=== PATIENT | female | born 1965 | race Caucasian/White ===

== ENCOUNTER 2019-04-09 13:37 | Inpatient (IN) | payer OTHER, SELFPAY ==
--- NOTE | ~2019-04-09 | CT_ITS ---
EXAMINATION: CT abdomen pelvis wo con DATE: 04/09/2019 18:22 INDICATION: Bilateral flank pain and right lower quadrant pain TECHNIQUE: Computed tomography (CT) of the abdomen and pelvis was performed without intravenous contr ast. The dose-length product was 769.42 mGy-cm. Automated exposure control and iterative reconstructi on technique were employed. COMPARISON: CT dated 01/21/2019 FINDINGS: Bibasilar atelectasis. Heart size is normal. No significant pleural or pericardial effusion . There is a hiatal hernia with thickening of the distal esophagus. There is hepatomegaly. The spleen, pancreas, adrenal glands and kidneys are unremarkable. Gallbladder is present. Small fat-containing umbilical hernia. Colonic diverticulosis without evidence for diver ticulitis. There is thickening of the cecum. Mass cannot be excluded. Is mild surrounding infiltratio n of the pericolonic fat. There is moderate lumbar spondylosis. No osteolytic or osteoblastic lesions are identified. IMPRESSION: 1. Abnormal thickening of the cecum with mild surrounding inflammation. Differential diagnosis includ es colitis and underlying colonic mass. Cannot exclude adenocarcinoma. 2: Hepatomegaly. 3: Small hiatal hernia with thickening of the distal esophagus, suspicious for esophagitis. Reviewed, dictated and finalized at location A. [facility] IMPRESSION: 1. Abnormal thickening of the cecum with mild surrounding inflammation. Differe ntial diagnosis includes colitis and underlying colonic mass. Cannot exclude ad enocarcinoma. 2: Hepatomegaly. 3: Small hiatal hernia with thickening of the distal esophagus, suspicious for esophagitis.
[2019-04-09 13:58] VITALS: BP 123/78; PULSE 122; RESP 18; TEMP 37; O2SAT 94
[2019-04-09 14:20] LABS: Hematocrit 41.9 % (37.0-47.0); Hemoglobin 13.4 g/dL (12.0-15.0); Mean Corpuscular Hemoglobin 28.7 pg (26-34); Mean Corpuscular Volume 89.7 fl (80-100); Mean Platelet Volume 10.5 fl (7.4-10.4); Platelet Count Result 342 k/mm3 (150-375); Red Blood Count 4.67 M/mm3 (4.2-5.4); Red Cell Distribution Width 13.6 % (11.5-14.5); White Blood Count 26.3 K/mm3 (4.5-10.0)
[2019-04-09 14:26] LABS: Add Urine Microscopic? NO; Appearance Urine Clear (Clear); Bilirubin Urine Negative (Negative); Blood Urine Negative (Negative); Color Urine Yellow (Yellow); Glucose Urine UA Negative (Negative); Ketones Urine Negative (Negative); Leukocyte Esterase Ur Negative LEU/UL (Negative); Nitrate Urine Negative (Negative); Protein Urine Negative (Negative); Specific Grav Ur 1.012 (1.001-1.035); Urobilinogen Urine Negative mg/dL (<2.0)
[2019-04-09 14:32] LABS: Blood Urea Nitrogen 14 mg/dL (7-17); Calcium 9.3 mg/dL (8.4-10.2); Carbon Dioxide 26 mmol/L (22-30); Chloride 98 mmol/L (98-107); Estimated CRCL calculation 73 ml/min; Estimated Glomerular Filt Rate > 60; Glucose 139 mg/dL (65-105); Potassium 3.9 mmol/L (3.4-5.0); Sodium 135 mmol/L (137-145)
[2019-04-09 14:40] LABS: Band Neutrophils Percent 5 % (0-6); Monocytes Absolute Manual 1.57 K/mm3 (0.1-0.90); Monocytes Percent Manual 6 % (3-9); Neutrophils Absolute Manual 22.61 K/mm3 (1.7-7.2); Neutrophils Percent Manual 81 % (46-73); Total Cells Counted 100
[2019-04-09 14:43] LABS: Platelet Estimate Adequate (Adequate)
[2019-04-09 17:16] VITALS: BP 125/67; PULSE 123; RESP 20; TEMP 37.5; O2SAT 94
[2019-04-09] MEDS: MORPHINE SULFATE 4 MG/ML INJ IV PUSH (18:29)
[2019-04-09] MEDS: LACTATED RINGERS 1,000 ML 999 ML IV CONT (18:29)
[2019-04-09 18:33] LABS: Lactic Acid Reflex 1.3 mmol/L (0.7-2.1)
[2019-04-09 19:19] VITALS: BP 121/65; PULSE 106; RESP 17; O2SAT 97
--- NOTE | 2019-04-09 20:22 | ED.GENADULT ---
HPI - General Adult General Chief complaint: Back Pain/Injury Stated complaint: r flank pain Time Seen by Provider: 04/09/19 17:49 Source: patient Mode of arrival: ambulatory Limitations: no limitations History of Present Illness HPI narrative: Patient is a 53-year-old female Last fall she was admitted here for colitis Her recollection is that she had a unremarkable colonoscopy at that time She now presents with a one-day history of abdominal pain located mostly in her right lower quadrant but kind of wrapping around to the flank No fever, no diarrhea, mild nausea, no vomiting, and denies any urinary symptoms Onset (ago): day(s) (1) Radiation: flank Severity: moderate Quality: aching Pain Consistency: constant Relieving factors: none Exacerbating factors: movement Related Data Home Medications Medication Instructions Recorded Confirmed Victoza 3-Matthew 1.2 mg SUBCUT DAILY 01/21/19 01/21/19 albuterol sulfate 1 inh INHALATION QID PRN 01/21/19 01/21/19 cromolyn See Rx Instructions .ROUTE .COMPLEX 01/21/19 01/21/19 fluticasone propionate 1 inh INHALATION BID 01/21/19 01/21/19 lisinopril-hydrochlorothiazide 1 tablet PO DAILY 01/21/19 01/21/19 metformin 1,000 mg PO BID 01/21/19 01/21/19 simvastatin 20 mg PO DAILY 01/21/19 01/21/19 verapamil 180 mg PO DAILY 01/21/19 01/21/19 zafirlukast 20 mg PO Q12H 01/21/19 01/21/19 Allergies Allergy/AdvReac Type Severity Reaction Status Date / Time cat dander Allergy Intermediate Wheezing Verified 01/23/19 08:54 dog dander Allergy Intermediate Wheezing Verified 01/23/19 08:54 No Known Drug Allergies Allergy Unknown NA Verified 01/21/19 17:46 pollen extracts Allergy Unknown Wheezing Verified 01/23/19 08:54 Review of Systems Review of Systems: All systems reviewed & are unremarkable except as noted in HPI and below Constitutional: Constitutional: Denies chills and Denies fever(s) Eyes: Eyes: Reports no additional eye complaints ENT: Denies sore throat Cardiovascular: Cardiovascular: Denies chest pain Respiratory: Respiratory: Denies cough and Denies dyspnea Gastrointestinal: Gastrointestinal: Reports as per HPI, Denies constipation and Denies diarrhea Genitourinary: Genitourinary: Denies hematuria, Denies nocturia and Denies dysuria Musculoskeletal: Musculoskeletal: Reports arthralgias Neurologic: Denies numbness and Denies weakness [facility] Social History Social History Social History: The patient was adopted and previously given information on her family which was her adopted family. She is not aware of her biological family history. She has an ex- who is now her significant other. She has 1 son. She does not have a durable power collections attorney. 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 Gender identity (if verbalized by the patient): Female Spiritual care concerns: No Agree to blood products: Yes Exam Const: General: alert Orientation/consciousness: patient oriented x3 HENMT: Mouth: Yes moist mucous membranes Eyes: Conjunctivae: normal conjunctivae EOM: EOMs intact bilaterally Neck: Neck: normal visual inspection Resp: Effort & Inspection: normal respiratory effort Auscultation: clear to auscultation bilaterally Cardio: Rate: regular rate Rhythm: regular rhythm GI: GI Palp: Yes Soft to palpation, Yes Tenderness to palpation present (GI) and Yes Guarding due to palpation present (GI) Auscultation: normal bowel sounds : Gener
[2019-04-09 23:00] VITALS: BP 140/78; PULSE 101; RESP 20; TEMP 36.7; O2SAT 96; BMI 30.7
[2019-04-09 23:06] VITALS: BP 124/54; PULSE 69; RESP 17; O2SAT 100
[2019-04-09] MEDS: FAMOTIDINE 20 MG/2 ML VIAL IV PUSH (23:17)
[2019-04-09] MEDS: LACTATED RINGERS 1,000 ML 150 ML IV CONT (23:18)
--- NOTE | 2019-04-09 23:27 | ADMGEN ---
This patient, Anuradha Bain, was admitted to [facility] Surg Room 314-01. Patient/family oriented to hospital policies and general routines including ID bracelet, bed and alarms, visiting hours, pain management, procedures, bathroom and other care routines, personal items, smoking policy, room service/diet, and visiting hours. Valuables list has been completed. Information on how to activate the Rapid Response Team has been discussed. Patient/Family are encouraged to report perceived risks to care and to ask questions if they do not understand what they are told or what they should do.
[2019-04-10 05:57] VITALS: BP 107/71; PULSE 92; RESP 20; TEMP 36.6; O2SAT 94
[2019-04-10] MEDS: LACTATED RINGERS 1,000 ML 150 ML IV CONT ×3 (05:58→22:07)
[2019-04-10 06:19] LABS: Basophils Percent Auto 0.2 % (0.2-1.2); Eosinophils Absolute Auto 0.3 K/mm3 (0-0.3); Eosinophils Percent Auto 1.8 % (0-4.4); Hemoglobin 12.1 g/dL (12.0-15.0); Immature Granulocyte Absolute 0.07 K/mm3 (0.00-0.031); Immature Granulocyte Percent A 0.4 % (0-0.5); Lymphocytes Percent Auto 15.4 % (18.3-44.2); Mean Corpuscular HGB Conc 31.8 g/dl (32-36); Mean Corpuscular Hemoglobin 28.6 pg (26-34); Mean Corpuscular Volume 89.8 fl (80-100); Mean Platelet Volume 10.6 fl (7.4-10.4); Monocytes Absolute Auto 1.2 K/mm3 (0.1-0.6); Neutrophils Absolute Auto 13.2 K/mm3 (1.3-6.7); Neutrophils Percent Auto 75.2 % (45.5-73.1); Platelet Count Result 291 k/mm3 (150-375); Red Blood Count 4.23 M/mm3 (4.2-5.4); Red Cell Distribution Width 13.8 % (11.5-14.5); White Blood Count 17.5 K/mm3 (4.5-10.0)
[2019-04-10 06:37] LABS: Glucose Point of Care 159 (65-105)
[2019-04-10 07:04] LABS: Blood Urea Nitrogen 10 mg/dL (7-17); Calcium 8.9 mg/dL (8.4-10.2); Carbon Dioxide 26 mmol/L (22-30); Chloride 99 mmol/L (98-107); Estimated CRCL calculation 76 ml/min; Estimated Glomerular Filt Rate > 60; Glucose 137 mg/dL (65-105); Potassium 3.3 mmol/L (3.4-5.0); Sodium 135 mmol/L (137-145)
[2019-04-10] MEDS: FAMOTIDINE 20 MG/2 ML VIAL IV PUSH ×2 (08:23→21:01)
--- NOTE | 2019-04-10 08:23 | PM.CNGS ---
Assessment and Plan Assessment and plan (1) Acute cecitis: Code(s): K52.9 - Noninfective gastroenteritis and colitis, unspecified Status: Acute Assessment and Plan: Feeling some what better this morning and her white blood cell count has decreased to 17,500. This is a very good sign. Dr. Quispe will be seeing the patient in consultation. Recommend continued bowel rest for now with IV Zosyn and antibiotic fluids. Surgery would only be recommended if not responsive to medical therapy. It would seem unlikely there would be a malignancy since colonoscopy in January was negative. I will follow along with you. Thank you for asking me to see the patient in consultation. (2) Diabetes: Code(s): E11.9 - Type 2 diabetes mellitus without complications Status: Chronic History of Present Illness Consult details Consult date: 04/10/19 Reason for consult: abdominal pain ( Right lower quadrant pain starting yesterday) Narrative: the patient is a 53-year-old diabetic woman who presented to the emergency room late in the day yesterday with right lower quadrant abdominal pain. She was noted to be tender in the right lower quadrant had quite an elevated white blood cell count of 26,300. she had a CT scan of the abdomen and pelvis which showed evidence of colitis in the cecum.. Interestingly, she was admitted in January of 2019 with sigmoid colitis. At that time she was having left lower quadrant pain and bloody diarrhea. Colonoscopy was done and showed sigmoid colitis. There was also some diverticulosis and hemorrhoids. No sign of cancer was noted. Since being admitted, placed on bowel rest and IV Zosyn antibiotics, she feels better this morning. She is still having right lower quadrant abdominal pain but it is not as severe as last night. She has had no diarrhea and no nausea or vomiting. She is seen now in consultation regarding her recurrent colitis. Review of Systems Review of Systems: All systems reviewed & are unremarkable except as noted in HPI and below Constitutional: Constitutional: Denies headache(s) ENT: Denies headache(s) Cardiovascular: Cardiovascular: Denies chest pain and Denies dyspnea Respiratory: Respiratory: Denies cough and Denies dyspnea Gastrointestinal: Gastrointestinal: Reports as per HPI Neurologic: Denies confusion and Denies headache(s) Psychiatric: Psychiatric: Denies confusion PMFSH Past Medical History Medical History Asthma Back injury Carpal tunnel syndrome Diabetes GI bleed HTN (hypertension) Pneumonia 2007 Seasonal allergies Surgical History Surgical History History of back surgery History of bilateral carpal tunnel release History of facial fracture repair History of mandibular surgery Metal plate in rt jaw Family History Family History Unknown No problems noted. Social History Social History Social History: The patient was adopted and previously given information on her family which was her adopted family. She is not aware of her biological family history. She has an ex- who is now her significant other. She has 1 son. She does not have a durable power mail processor. 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 Gender iden
--- NOTE | 2019-04-10 11:34 | WPDGICN ---
Assessment and Plan Additional Plan This is a 53-year-old white female patient I am asked to see at the request of the emergency room. Patient in usual state of health till yesterday developed sudden onset of right lower quadrant abdominal pain. She states it was a very sharp tender discomfort. Her bowel habits have remained normal. She has been eating without nausea or difficulty. Because of severity of pain patient presented to the emergency room. She was found to have markedly elevated white count. CT scan suggest inflammation of the cecum. Patient's recent history is significant that in January she had left lower quadrant abdominal pain. A CT scan suggested sigmoid colitis. A colonoscopy was performed at that time and confirm sigmoid colitis. It was felt patient had an infectious etiology and was treated with broad-spectrum antibiotic coverage. Patient improved. She denied any abdominal pain since her last admission. Her bowel habits have remained normal she has had no ongoing pain until yesterday. Pain is now located in the right lower quadrant. Previously it was in the left lower quadrant. Past medical history is significant for diabetes, hypertension, asthma, Family history noncontributory, patient was adopted. Medications at home include lisinopril. albuterol. Simvastatin. Metformin. simvistatin. Victoza. Singulair. Physical exam reveals her to be alert. Vital signs stable. HEENT exam unremarkable. She is anicteric. Lungs are clear to auscultation and percussion. Heart is without murmur or extra sounds. Abdominal exam bowel sounds are present soft nontender with no organomegaly. Digital exam is unremarkable. Laboratory work reveal stool occult blood positive. CT scan suggest cecal inflammation. Hepatomegaly is described and hiatal hernia with possible esophagitis described. Impression 1. Abnormal CT scan. Tumor would be unlikely given recent colonoscopy findings. 2. Cecal inflammation. This correlates with her ongoing right lower quadrant pain. Infectious etiology suspected given the acute nature. This would be an on abnormal location for ischemia. Tumor is unlikely given recent colonoscopy findings. Plan is for broad-spectrum antibiotic coverage. All cultures are encouraged if diarrhea develops. We will follow with you during this hospital stay. If symptoms persist follow-up colonoscopy may be considered in the future. At present we will follow conservatively. GI Consult Note Consult date/time: 04/10/19 11:34 HPI: Anuradha Bain is a 53 year old female [facility] Past Medical History Medical History (Updated 04/10/19 @ 08:39 by Selina Manriquez DO) Asthma Diabetes Essential hypertension GI bleed due to sigmoiditis 01/30. Pneumonia 2007 Seasonal allergies Surgical History Surgical History (Updated 04/10/19 @ 08:39 by Selina Manriquez DO) History of back surgery L3-L4 FUSION History of bilateral carpal tunnel release History of facial fracture repair History of mandibular surgery Metal plate in rt jaw Family History Family History Unknown No problems noted. Social History Social History Social History: The patient was adopted and previously given information on her family which was her adopted family. She is not aware of her biological family history. She has an ex- who is now her significant other. She has 1 son. She does not have a durable power bankruptcy attorney. Smoking packs per day: 0.5 Smoking cigarettes per day: 10.0 Years smoked: 5 Smoking pack-years: 2.50 Smoking status: Former smoker Tobacco type: cigarettes Second hand tobacco smoke exposure: Yes Additional smoking assessment comments: 1/2 PPD x 5 years, quit in 2000 Alcohol intake: current Drinks per week: 1 Substance use: never Additional living arrangements comments:
[2019-04-10 13:22] LABS: Glucose Point of Care 119 (65-105)
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
[2019-04-10] MEDS: ZAFIRLUKAST 20 MG TABLET PO ×2 (13:49→17:43)
[2019-04-10] MEDS: VERAPAMIL HCL 180 MG TABLET ER PO (13:49)
[2019-04-10 14:00] VITALS: BP 132/77; PULSE 103; RESP 20; TEMP 37.2; O2SAT 93; BMI 30.7
--- NOTE | 2019-04-10 16:55 | PM.IMPN ---
Progress Note: A&P Assessment and Plan (1) Acute cecitis: Code(s): K52.9 - Noninfective gastroenteritis and colitis, unspecified Status: Acute Assessment and Plan: Patient is clinically showing signs of improvement today with IV zosyn. Leukocytosis improving; 17.5K today. Surgery and GI consulted and appreciate recommendations Continue IV zosyn Patient's diet advanced to FLD per GI; tolerating well thus far.\ (2) DMII (diabetes mellitus, type 2): Code(s): E11.9 - Type 2 diabetes mellitus without complications Status: Acute Assessment and Plan: BGL is 100s today. Continue to hold Victoza for now SSI, hypoglycemia, ACHS accuchecks Monitor (3) HTN (hypertension): Code(s): I10 - Essential (primary) hypertension Status: Chronic Assessment and Plan: BP reasonable at 132/77 this afternoon Resume home verapamil for now Continue to hold lisinopril-HCTZ Monitor BP tomorrow. Consider resuming lisinopril-HCTZ if continued to be elevated (4) Asthma: Code(s): J45.909 - Unspecified asthma, uncomplicated Status: Acute Assessment and Plan: No acute issues at this time. Lung exam showed mild inspiratory wheeze. Continue home medications Monitor Consider neb treatments if condition worsens Subjective Date/time seen: 04/10/19 16:55 Interval history: Patient is a 53 yo F with history of sigmoiditis (hospitalized in 01/2019), HTN, diabetes, and asthma who is here for acute cecitis. Patient is doing well since admission. She states her pain has improved, but has localized more towards the right flank. She has no other complaints today. She denies f/c/ns, sarabia, dizziness, lightheadedness, changes in vision/hearing, cp, palpitations, sob, cough, n/v/d/c, abd pain, dysuria, hematuria, melena, brbpr, calf pain, s/sx of stroke Review of Systems Review of Systems: All systems reviewed & are unremarkable except as noted in HPI and below Exam Narrative: Exam Narrative: Patient is lying in semi-cavazos's position at time of visit. Const: General: healthy appearing, comfortable, no acute distress and well developed Nutritional Appearance: well nourished Orientation/consciousness: patient oriented x3 HENMT: Head: normocephalic and atraumatic General nose exam: Normal nares present Face and sinus: face symmetric Mouth: Yes lip normal and Yes moist mucous membranes Throat: posterior oropharynx normal Eyes: General: appearance normal, both eyes and all related structures Sclera: sclerae normal Pupils: Equal, round and reactive pupils present EOM: EOMs intact bilaterally Neck: Neck: trachea midline and supple Thyroid: thyroid normal Resp: Effort & Inspection: normal respiratory effort Auscultation: wheezes inspiratory wheezes (mild) and right upper Cardio: Rate: regular rate and not bradycardic Rhythm: regular rhythm Heart sounds: no gallops, no murmurs and no rubs GI: Inspection: distended GI Palp: No abdominal tenderness and Yes Soft to palpation Skin: General skin exam: normal color and no rashes or lesions noted Neuro: General: patient oriented x3 and no focal motor deficits Speech: normal speech Motor exam (neuro): 5/5 motor strength present throughout Sensory Exam: normal sensation Extrem: Right lower extremity: no edema Left lower extremity: no edema Other: no calf ttp/swelling Psych: Mental Status: mental status grossly normal Affect: normal affect Objective Data Vital Signs Vital Signs: Vital Signs - 24 hr 04/09/19 17:16 04/09/19 19:19 04/09/19 23:00 Temperature 99.5 F 98.1 F Pulse Rate 123 H 106 H 101 H Respiratory Rate 20 17 20 Blood Pressure 125/67 121/65 140/78 Pulse Oximetry 94 97 96 04/09/19 23:06 04/10/19 05:57 04/10/19 14:00 Temperature 97.8 F 99.0 F Pulse Rat
[2019-04-10 18:01] LABS: Glucose Point of Care 126 (65-105)
[2019-04-10 21:18] LABS: Glucose Point of Care 204 (65-105)
[2019-04-10 22:00] VITALS: BP 114/58; PULSE 93; RESP 20; TEMP 36.6; O2SAT 95
[2019-04-11] MEDS: LACTATED RINGERS 1,000 ML 150 ML IV CONT (05:28)
[2019-04-11 06:26] VITALS: BP 119/68; PULSE 83; RESP 20; TEMP 36.6; O2SAT 93
[2019-04-11 06:29] LABS: Basophils Absolute Auto 0.1 K/mm3 (0.0-0.1); Basophils Percent Auto 0.4 % (0.2-1.2); Eosinophils Absolute Auto 0.5 K/mm3 (0-0.3); Hemoglobin 10.9 g/dL (12.0-15.0); Immature Granulocyte Absolute 0.06 K/mm3 (0.00-0.031); Immature Granulocyte Percent A 0.5 % (0-0.5); Lymphocytes Percent Auto 21.8 % (18.3-44.2); Mean Corpuscular HGB Conc 32.1 g/dl (32-36); Mean Corpuscular Hemoglobin 29.1 pg (26-34); Mean Corpuscular Volume 90.7 fl (80-100); Mean Platelet Volume 10.8 fl (7.4-10.4); Monocytes Absolute Auto 1.1 K/mm3 (0.1-0.6); Monocytes Percent Auto 8.3 % (2.6-8.5); Neutrophils Absolute Auto 8.4 K/mm3 (1.3-6.7); Platelet Count Result 253 k/mm3 (150-375); Red Blood Count 3.75 M/mm3 (4.2-5.4); Red Cell Distribution Width 13.7 % (11.5-14.5); White Blood Count 12.8 K/mm3 (4.5-10.0)
[2019-04-11 06:40] LABS: Blood Urea Nitrogen 7 mg/dL (7-17); Calcium 8.7 mg/dL (8.4-10.2); Carbon Dioxide 28 mmol/L (22-30); Chloride 100 mmol/L (98-107); Estimated CRCL calculation 76 ml/min; Estimated Glomerular Filt Rate > 60; Glucose 129 mg/dL (65-105); Magnesium 1.4 mg/dL (1.6-2.3); Potassium 3.6 mmol/L (3.4-5.0); Sodium 136 mmol/L (137-145)
--- NOTE | 2019-04-11 07:09 | PM.PNGS ---
Progress Note: A&P Assessment and Plan (1) Acute cecitis: Code(s): K52.9 - Noninfective gastroenteritis and colitis, unspecified Status: Acute Assessment and Plan: Abdominal pain is improving and white blood cell count continues to decrease. She tolerated full liquids well. Plan per Dr. Quispe and hospitalist service. Unlikely she will require any surgery at this time. (2) DMII (diabetes mellitus, type 2): Code(s): E11.9 - Type 2 diabetes mellitus without complications Status: Chronic (3) Asthma: Code(s): J45.909 - Unspecified asthma, uncomplicated Status: Chronic (4) HTN (hypertension): Code(s): I10 - Essential (primary) hypertension Status: Chronic Subjective Subjective Date/Time Seen: 04/11/19 07:09 abdominal pain has moved around to flanks and back. Overall it is less than before. She tolerated full liquids well. No new complaints or problems. Review of Systems Review of Systems: All systems reviewed & are unremarkable except as noted in HPI and below Constitutional: Constitutional: Denies headache(s) ENT: Denies headache(s) Cardiovascular: Cardiovascular: Denies chest pain and Denies dyspnea Respiratory: Respiratory: Denies cough and Denies dyspnea Gastrointestinal: Gastrointestinal: Reports as per HPI Neurologic: Denies confusion and Denies headache(s) Psychiatric: Psychiatric: Denies confusion Exam Const: General: comfortable and no acute distress; No confusion Orientation/consciousness: patient oriented x3 and No confusion GI: Inspection: distended GI Palp: Yes Soft to palpation, Yes Tenderness to palpation present (GI) ( carton forming machine tender mostly on the right side.), No Guarding due to palpation present (GI) and No Rebound tenderness present Auscultation: Hypoactive bowel sounds present Neuro: General: patient oriented x3, no focal motor deficits and No confusion Extrem: General: no calf tenderness and no edema Psych: Affect: normal affect Insight: Good insight present (Psych) Judgement: Good judgement present (Psych) Objective Data Vital Signs Vital Signs: Vital Signs - 24 hr 04/10/19 14:00 04/10/19 22:00 04/11/19 06:26 Temperature 37.2 C 36.6 C 36.6 C Pulse Rate 103 H 93 83 Respiratory Rate 20 20 20 Blood Pressure 132/77 114/58 L 119/68 Pulse Oximetry 93 95 93 Intake/Output Intake/Output: Intake & Output 04/08/19 04/09/19 04/10/19 04/11/19 23:59 23:59 23:59 23:59 Intake Total 1050 5075 1800 Output Total 2720 1900 Balance 1050 2355 -100 Meds/Results Medications: Active Medications Generic Name Dose Route Start Last Admin Trade Name Freq PRN Reason Stop Dose Admin Acetaminophen 650 mg 04/10/19 15:05 Tylenol Tablet PO Q4H PRN Mild Pain (1-3) or Fever Hydrocodone Bitart/Acetaminophen 1 tab 04/10/19 15:05 04/10/19 21:01 [place] 5-325 Mg PO 1 tab Q6H PRN Administration Pain Rated 4-6 Hydrocodone Bitart/Acetaminophen 1 tab 04/10/19 15:05 [place] 10-325 Mg PO Q6H PRN Pain Rated 7-10 Albuterol 2.5 mg 04/10/19 05:07 Albuterol Sulf Neb 2.5mg/0.5ml INHALATION QID PRN SHORTNESS OF BREATH Dextrose 12.5 gm 04/10/19 05:00 Dextrose 50% Syringe IV PUSH PRN PRN Hypoglycemia Protocol Famotidine 20 mg 04/09/19 21:00 04/10/19 21:01 Pepcid Iv IV PUSH 20 mg Q12HR BRAYAN Administration Fluticasone Propionate 1 spray 04/10/19 09:00 04/10/19 17:43 Flonase 0.05% Nasal [place] NASAL Not Given BID BRAYAN Glucagon 1 mg 04/10/19 05:00 Glucagon For Inj IM PRN PRN Hypoglycemia Protocol Glucose 15 gm 04/10/19 05:00 Glutose 15 PO PRN PRN Hypoglycemia Protocol Lactated Ringer's 1,000 mls @ 100 mls/hr 04/09/19 20:15 04/11/19 05:28 Lr - Lactated Ringers Iv IV CONT 150 mls/hr .Q10H BRAYAN Administration Piperacillin/Tazobactam/Dextrose 3.375 gm in 50 mls @ 100 mls/hr 04/10/19 00
[2019-04-11] MEDS: FLUTICASONE PROPIONATE 0.05% NA SPR 16 GM BTL (*BKC) 1 SPRAY NASAL ×2 (07:46→17:32)
[2019-04-11] MEDS: FAMOTIDINE 20 MG/2 ML VIAL IV PUSH ×2 (07:46→21:38)
[2019-04-11] MEDS: VERAPAMIL HCL 180 MG TABLET ER PO (07:46)
[2019-04-11] MEDS: ZAFIRLUKAST 20 MG TABLET PO ×2 (07:46→17:32)
[2019-04-11 08:34] LABS: Glucose Point of Care 136 (65-105)
--- NOTE | 2019-04-11 10:43 | WPDGIPROGNO ---
Progress Note: A&P Additional Plan Patient feeling much better this morning. Much less pain noted. Able to ambulate in room. Physical exam with vital signs stable. Lungs are clear. Abdomen is soft. Mild tenderness in right lower quadrant. WBC 12.8. Hemoglobin 10.9. Impression 1. Cecal inflammation. Infectious etiology suspected. Ischemia cannot be excluded. Plan is for broad-spectrum antibiotics. Continue IV antibiotics for another day. Advanced diet as tolerated. Subjective Date/time seen: 04/11/19 10:43 Objective Data Vital Signs Vital Signs: Vital Signs - 24 hr 04/10/19 14:00 04/10/19 22:00 04/11/19 06:26 Temperature 37.2 C 36.6 C 36.6 C Pulse Rate 103 H 93 83 Respiratory Rate 20 20 20 Blood Pressure 132/77 114/58 L 119/68 Pulse Oximetry 93 95 93 Intake/Output Intake/Output: Intake & Output 04/08/19 04/09/19 04/10/19 04/11/19 23:59 23:59 23:59 23:59 Intake Total 1050 5075 2400 Output Total 2720 1900 Balance 1050 2355 500 Meds/Results Medications: Active Medications Generic Name Dose Route Start Last Admin Trade Name Freq PRN Reason Stop Dose Admin Acetaminophen 650 mg 04/10/19 15:05 Tylenol Tablet PO Q4H PRN Mild Pain (1-3) or Fever Hydrocodone Bitart/Acetaminophen 1 tab 04/10/19 15:05 04/11/19 07:55 [place] 5-325 Mg PO 1 tab Q6H PRN Administration Pain Rated 4-6 Hydrocodone Bitart/Acetaminophen 1 tab 04/10/19 15:05 [place] 10-325 Mg PO Q6H PRN Pain Rated 7-10 Albuterol 2.5 mg 04/10/19 05:07 Albuterol Sulf Neb 2.5mg/0.5ml INHALATION QID PRN SHORTNESS OF BREATH Dextrose 12.5 gm 04/10/19 05:00 Dextrose 50% Syringe IV PUSH PRN PRN Hypoglycemia Protocol Famotidine 20 mg 04/09/19 21:00 04/11/19 07:46 Pepcid Iv IV PUSH 20 mg Q12HR BRAYAN Administration Fluticasone Propionate 1 spray 04/10/19 09:00 04/11/19 07:46 Flonase 0.05% Nasal [place] NASAL 1 spray BID BRAYAN Administration Glucagon 1 mg 04/10/19 05:00 Glucagon For Inj IM PRN PRN Hypoglycemia Protocol Glucose 15 gm 04/10/19 05:00 Glutose 15 PO PRN PRN Hypoglycemia Protocol Piperacillin/Tazobactam/Dextrose 3.375 gm in 50 mls @ 100 mls/hr 04/10/19 00:00 04/11/19 05:58 Zosyn 3.375 Gm/D5w 50ml Pm IVPB Infused Q6HR BRAYAN Infusion Dextrose 1,000 mls @ 100 mls/hr 04/10/19 05:00 Dextrose 5% 1,000 Ml IVPB PRN PRN Hypoglycemia Protocol Insulin Aspart 2 - 5 units 04/10/19 17:00 04/11/19 07:53 Novolog SUB-Q Not Given TIDWM [facility] Protocol Non-Formulary Medication 0 aer 04/10/19 05:00 Cromolyn .ROUTE 05/10/19 05:01 .COMPLEX BRAYAN Ondansetron HCl 4 mg 04/09/19 20:13 Zofran Inj IV PUSH Q4H PRN Nausea Verapamil HCl 180 mg 04/10/19 09:00 04/11/19 07:46 Verapamil Hcl Er PO 180 mg DAILY BRAYAN Administration Zafirlukast 20 mg 04/10/19 09:00 04/11/19 07:46 Accolate PO 20 mg BID BRAYAN Administration Radiology Results: ITS Impressions Abdomen/Pelvis CT 04/09/19 18:28 IMPRESSION: 1. Abnormal thickening of the cecum with mild surrounding inflammation. Differential diagnosis includes colitis and underlying colonic mass. Cannot exclude adenocarcinoma. 2: Hepatomegaly. 3: Small hiatal hernia with thickening of the distal esophagus, suspicious for esophagitis. Labs Labs: Laboratory Results - last 24 hr 04/10/19 04/10/19 04/10/19 13:18 17:42 21:06 WBC RBC Hgb Hct MCV MCH MCHC RDW Plt Count MPV Immature Gran % (Auto) Neut % (Auto) Lymph % (Auto) [place] % (Auto) Eos % (Auto) Baso % (Auto) Lymph # (Auto) [place] # (Auto) Eos # (Auto) Baso # (Auto) Abs Immat Gran (auto) Absolute Neuts (auto) Absolute Nucleated RBC Nucleated RBC % Sodium Potassium Chloride Carbon Dioxide BUN Creatinine Estim
--- NOTE | 2019-04-11 12:06 | PM.IMPN ---
Progress Note: A&P Assessment and Plan (1) Acute cecitis: Code(s): K52.9 - Noninfective gastroenteritis and colitis, unspecified Status: Acute Assessment and Plan: Patient is clinically showing signs of improvement again today with IV zosyn. Leukocytosis improving; 12.8K today. Surgery and GI consulted and appreciate recommendations Continue IV zosyn for another day per GI recommendations Patient's diet advanced to Regular diet (level 7) per GI; tolerating well thus far. Will order diabetic diet (2) DMII (diabetes mellitus, type 2): Code(s): E11.9 - Type 2 diabetes mellitus without complications Status: Chronic Assessment and Plan: BGL is 100s today. Continue to hold Victoza for now SSI, hypoglycemia, ACHS accuchecks Monitor (3) HTN (hypertension): Code(s): I10 - Essential (primary) hypertension Status: Chronic Assessment and Plan: BP reasonable at 110s sys this morning Continue home verapamil for now Continue to hold lisinopril-HCTZ Monitor BP tomorrow. Consider resuming lisinopril-HCTZ if elevated (4) Asthma: Code(s): J45.909 - Unspecified asthma, uncomplicated Status: Chronic Assessment and Plan: No acute issues at this time. Lung exam benign today. Continue home medications Monitor Consider neb treatments if condition worsens Subjective Date/time seen: 04/11/19 12:06 Interval history: Patient is a 53 yo F with history of sigmoiditis (hospitalized in 01/2019), HTN, diabetes, and asthma who is here for acute cecitis. Patient is doing well since admission. She states her pain continues to improve; [place] has helped today; she is willing to wean to Tylenol tonight/tomorrow. She has no other complaints today. She denies f/c/ns, sarabia, dizziness, lightheadedness, changes in vision/hearing, cp, palpitations, sob, cough, n/v/d/c, abd pain, dysuria, hematuria, melena, brbpr, calf pain, s/sx of stroke Review of Systems Review of Systems: All systems reviewed & are unremarkable except as noted in HPI and below Exam Narrative: Exam Narrative: Patient is sitting upright in bed at time of visit. Const: General: healthy appearing, comfortable, no acute distress and well developed Nutritional Appearance: well nourished Orientation/consciousness: patient oriented x3 HENMT: Head: normocephalic and atraumatic General nose exam: Normal nares present Face and sinus: face symmetric Mouth: Yes lip normal and Yes moist mucous membranes Throat: posterior oropharynx normal Eyes: General: appearance normal, both eyes and all related structures Sclera: sclerae normal Pupils: Equal, round and reactive pupils present EOM: EOMs intact bilaterally Neck: Neck: trachea midline and supple Resp: Effort & Inspection: normal respiratory effort Auscultation: clear to auscultation bilaterally Cardio: Rate: regular rate and not bradycardic Rhythm: regular rhythm Heart sounds: no gallops, no murmurs and no rubs GI: Inspection: distended Skin: General skin exam: normal color and no rashes or lesions noted Neuro: General: patient oriented x3 and no focal motor deficits Cranial nerves: Yes Equal, round and reactive pupils present Speech: normal speech Motor exam (neuro): 5/5 motor strength present throughout Sensory Exam: normal sensation Extrem: Right lower extremity: no edema Left lower extremity: no edema Other: no calf ttp/swelling Psych: Mental Status: mental status grossly normal Affect: normal affect Objective Data Vital Signs Vital Signs: Vital Signs - 24 hr 04/10/19 14:00 04/10/19 22:00 04/11/19 06:26 Temperature 99.0 F 97.9 F 97.9 F Pulse Rate 103 H 93 83 Respiratory Rate 20 20 20 Blood Pressure 132/77 114/58 L 119/68 Pulse Oximetry 93 95 93 Intake/Output Intake/Output: Intak
[2019-04-11 12:38] LABS: Glucose Point of Care 136 (65-105)
[2019-04-11 15:01] VITALS: BP 142/60; PULSE 94; RESP 16; TEMP 36.9; O2SAT 95
[2019-04-11 17:31] LABS: Glucose Point of Care 118 (65-105)
[2019-04-11] MEDS: MAGNESIUM SULF 2 GM/WATER 50ML 2 GM/50 ML BAG IVPB (18:12)
[2019-04-11 21:46] LABS: Glucose Point of Care 143 (65-105)
[2019-04-11 22:00] VITALS: BP 129/74; PULSE 87; RESP 16; TEMP 36.8; O2SAT 96
[2019-04-12 05:30] VITALS: BP 132/64; PULSE 78; RESP 16; TEMP 36.7; O2SAT 98
[2019-04-12 06:17] LABS: Basophils Absolute Auto 0.1 K/mm3 (0.0-0.1); Basophils Percent Auto 0.5 % (0.2-1.2); Eosinophils Absolute Auto 0.7 K/mm3 (0-0.3); Eosinophils Percent Auto 6.2 % (0-4.4); Hematocrit 36.6 % (37.0-47.0); Hemoglobin 11.5 g/dL (12.0-15.0); Immature Granulocyte Absolute 0.04 K/mm3 (0.00-0.031); Immature Granulocyte Percent A 0.4 % (0-0.5); Lymphocytes Absolute Auto 2.42 K/mm3 (0.9-3.2); Lymphocytes Percent Auto 22.6 % (18.3-44.2); Mean Corpuscular HGB Conc 31.4 g/dl (32-36); Mean Corpuscular Hemoglobin 28.6 pg (26-34); Mean Platelet Volume 10.9 fl (7.4-10.4); Monocytes Absolute Auto 0.8 K/mm3 (0.1-0.6); Monocytes Percent Auto 7.1 % (2.6-8.5); Neutrophils Absolute Auto 6.8 K/mm3 (1.3-6.7); Neutrophils Percent Auto 63.2 % (45.5-73.1); Platelet Count Result 274 k/mm3 (150-375); Red Blood Count 4.02 M/mm3 (4.2-5.4); Red Cell Distribution Width 13.3 % (11.5-14.5); White Blood Count 10.7 K/mm3 (4.5-10.0)
[2019-04-12 06:28] LABS: Blood Urea Nitrogen 11 mg/dL (7-17); Calcium 9.2 mg/dL (8.4-10.2); Carbon Dioxide 28 mmol/L (22-30); Chloride 99 mmol/L (98-107); Estimated CRCL calculation 62 ml/min; Estimated Glomerular Filt Rate 58; Glucose 143 mg/dL (65-105); Magnesium 1.7 mg/dL (1.6-2.3); Potassium 3.8 mmol/L (3.4-5.0); Sodium 135 mmol/L (137-145)
--- NOTE | 2019-04-12 07:06 | WPDGIPROGNO ---
Progress Note: A&P Additional Plan Patient feels much improved today. Minimal abdominal pain. Past formed stool. Ambulating room without difficulty. Tolerating regular diet. Physical exam reveals Vital Signs stable. She is afebrile. HEENT exam unremarkable. She is anicteric. Lungs are clear. Abdomen bowel sounds are present soft nontender. No masses. Labs reveal WBC 10.7. Hemoglobin 11.5. Impression 1. Cecal colon inflammation. Most consistent with infectious process. Improving with broad-spectrum antibiotic coverage. Plan is to discharge on oral antibiotics for 1 week. I will see her in the office in 2 weeks. Subjective Date/time seen: 04/12/19 07:06 Objective Data Vital Signs Vital Signs: Vital Signs - 24 hr 04/11/19 15:01 04/11/19 22:00 04/12/19 05:30 Temperature 36.9 C 36.8 C 36.7 C Pulse Rate 94 87 78 Respiratory Rate 16 16 16 Blood Pressure 142/60 H 129/74 132/64 Pulse Oximetry 95 96 98 Intake/Output Intake/Output: Intake & Output 04/09/19 04/10/19 04/11/19 04/12/19 23:59 23:59 23:59 23:59 Intake Total 1050 5075 5280 790 Output Total 2720 4700 3200 Balance 1050 2355 580 -2410 Meds/Results Medications: Active Medications Generic Name Dose Route Start Last Admin Trade Name Freq PRN Reason Stop Dose Admin Acetaminophen 650 mg 04/10/19 15:05 Tylenol Tablet PO Q4H PRN Mild Pain (1-3) or Fever Hydrocodone Bitart/Acetaminophen 1 tab 04/10/19 15:05 04/11/19 07:55 [place] 5-325 Mg PO 1 tab Q6H PRN Administration Pain Rated 4-6 Hydrocodone Bitart/Acetaminophen 1 tab 04/10/19 15:05 [place] 10-325 Mg PO Q6H PRN Pain Rated 7-10 Albuterol 2.5 mg 04/10/19 05:07 Albuterol Sulf Neb 2.5mg/0.5ml INHALATION QID PRN SHORTNESS OF BREATH Dextrose 12.5 gm 04/10/19 05:00 Dextrose 50% Syringe IV PUSH PRN PRN Hypoglycemia Protocol Famotidine 20 mg 04/09/19 21:00 04/11/19 21:38 Pepcid Iv IV PUSH 20 mg Q12HR BRAYAN Administration Fluticasone Propionate 1 spray 04/10/19 09:00 04/11/19 17:32 Flonase 0.05% Nasal [place] NASAL 1 spray BID BRAYAN Administration Glucagon 1 mg 04/10/19 05:00 Glucagon For Inj IM PRN PRN Hypoglycemia Protocol Glucose 15 gm 04/10/19 05:00 Glutose 15 PO PRN PRN Hypoglycemia Protocol Piperacillin/Tazobactam/Dextrose 3.375 gm in 50 mls @ 100 mls/hr 04/10/19 00:00 04/12/19 05:45 Zosyn 3.375 Gm/D5w 50ml Pm IVPB Infused Q6HR BRAYAN Infusion Dextrose 1,000 mls @ 100 mls/hr 04/10/19 05:00 Dextrose 5% 1,000 Ml IVPB PRN PRN Hypoglycemia Protocol Insulin Aspart 2 - 5 units 04/10/19 17:00 04/11/19 17:32 Novolog SUB-Q Not Given TIDWM [facility] Protocol Non-Formulary Medication 0 aer 04/10/19 05:00 Cromolyn .ROUTE 05/10/19 05:01 .COMPLEX BRAYAN Ondansetron HCl 4 mg 04/09/19 20:13 Zofran Inj IV PUSH Q4H PRN Nausea Verapamil HCl 180 mg 04/10/19 09:00 04/11/19 07:46 Verapamil Hcl Er PO 180 mg DAILY BRAYAN Administration Zafirlukast 20 mg 04/10/19 09:00 04/11/19 17:32 Accolate PO 20 mg BID BRAYAN Administration Radiology Results: ITS Impressions Abdomen/Pelvis CT 04/09/19 18:28 IMPRESSION: 1. Abnormal thickening of the cecum with mild surrounding inflammation. Differential diagnosis includes colitis and underlying colonic mass. Cannot exclude adenocarcinoma. 2: Hepatomegaly. 3: Small hiatal hernia with thickening of the distal esophagus, suspicious for esophagitis. Labs Labs: Laboratory Results - last 24 hr 04/11/19 04/11/19 04/11/19 07:52 12:36 17:29 WBC RBC Hgb Hct MCV MCH MCHC RDW Plt Count MPV Immature Gran % (Auto) Neut % (Auto) Lymph % (Auto) [place] % (Auto) Eos % (Auto) Baso % (Auto) Lymph # (Auto) [place] # (Auto) Eos # (Auto) Baso # (Auto) Abs Immat Gran (auto) A
--- NOTE | 2019-04-12 08:08 | PM.PNGS ---
Progress Note: A&P Assessment and Plan (1) Acute cecitis: Code(s): K52.9 - Noninfective gastroenteritis and colitis, unspecified Status: Acute Assessment and Plan: Continues to have good response to antibiotics. Tolerating solid food now. Probably will go home on oral antibiotics. Will sign off today. No need for surgical follow-up. Subjective Subjective Date/Time Seen: 04/12/19 08:08 Patient reports: pain is less ( No further abdominal or back pain at all.) and tolerating a regular diet Review of Systems Review of Systems: All systems reviewed & are unremarkable except as noted in HPI and below Constitutional: Constitutional: Denies headache(s) ENT: Denies headache(s) Cardiovascular: Cardiovascular: Denies chest pain and Denies dyspnea Respiratory: Respiratory: Denies cough and Denies dyspnea Gastrointestinal: Gastrointestinal: Reports as per HPI Neurologic: Denies confusion and Denies headache(s) Psychiatric: Psychiatric: Denies confusion Exam Const: General: comfortable and no acute distress; No confusion Orientation/consciousness: patient oriented x3 and No confusion GI: Inspection: non-distended GI Palp: Yes Soft to palpation, No Tenderness to palpation present (GI), No Guarding due to palpation present (GI) and No Rebound tenderness present Auscultation: normal bowel sounds Neuro: General: patient oriented x3, no focal motor deficits and No confusion Extrem: General: no calf tenderness and no edema Psych: Affect: normal affect Insight: Good insight present (Psych) Judgement: Good judgement present (Psych) Objective Data Vital Signs Vital Signs: Vital Signs - 24 hr 04/11/19 15:01 04/11/19 22:00 04/12/19 05:30 Temperature 36.9 C 36.8 C 36.7 C Pulse Rate 94 87 78 Respiratory Rate 16 16 16 Blood Pressure 142/60 H 129/74 132/64 Pulse Oximetry 95 96 98 Intake/Output Intake/Output: Intake & Output 04/09/19 04/10/19 04/11/19 04/12/19 23:59 23:59 23:59 23:59 Intake Total 1050 5075 5280 790 Output Total 2720 4700 3200 Balance 1050 2355 580 -2410 Meds/Results Medications: Active Medications Generic Name Dose Route Start Last Admin Trade Name Freq PRN Reason Stop Dose Admin Acetaminophen 650 mg 04/10/19 15:05 Tylenol Tablet PO Q4H PRN Mild Pain (1-3) or Fever Hydrocodone Bitart/Acetaminophen 1 tab 04/10/19 15:05 04/11/19 07:55 [place] 5-325 Mg PO 1 tab Q6H PRN Administration Pain Rated 4-6 Hydrocodone Bitart/Acetaminophen 1 tab 04/10/19 15:05 [place] 10-325 Mg PO Q6H PRN Pain Rated 7-10 Albuterol 2.5 mg 04/10/19 05:07 Albuterol Sulf Neb 2.5mg/0.5ml INHALATION QID PRN SHORTNESS OF BREATH Ciprofloxacin 500 mg 04/12/19 09:00 Cipro Po PO Q12HR BRAYAN Dextrose 12.5 gm 04/10/19 05:00 Dextrose 50% Syringe IV PUSH PRN PRN Hypoglycemia Protocol Famotidine 20 mg 04/09/19 21:00 04/11/19 21:38 Pepcid Iv IV PUSH 20 mg Q12HR BRAYAN Administration Fluticasone Propionate 1 spray 04/10/19 09:00 04/11/19 17:32 Flonase 0.05% Nasal [place] NASAL 1 spray BID BRAYAN Administration Glucagon 1 mg 04/10/19 05:00 Glucagon For Inj IM PRN PRN Hypoglycemia Protocol Glucose 15 gm 04/10/19 05:00 Glutose 15 PO PRN PRN Hypoglycemia Protocol Dextrose 1,000 mls @ 100 mls/hr 04/10/19 05:00 Dextrose 5% 1,000 Ml IVPB PRN PRN Hypoglycemia Protocol Insulin Aspart 2 - 5 units 04/10/19 17:00 04/11/19 17:32 Novolog SUB-Q Not Given TIDWM [facility] Protocol Metronidazole 500 mg 04/12/19 14:00 Flagyl PO Q8HR BRAYAN Non-Formulary Medication 0 aer 04/10/19 05:00 [place] .ROUTE 05/10/19 05:01 .COMPLEX BRAYAN Verapamil HCl 180 mg 04/10/19 09:00 04/11/19 07:46 Verapamil Hcl Er PO 180 mg DAILY BRAYAN Administration Zafirlukast 20 mg 04/10/19 09:00 04/11/19 17:32 Accolate PO 20
--- NOTE | 2019-04-12 09:06 | PM.DS ---
DS: Diagnosis Admitting Diagnosis Admitting Diagnosis: Noninfective gastroenteritis and colitis, unspecified Discharge Diagnosis (1) Acute cecitis: Code(s): K52.9 - Noninfective gastroenteritis and colitis, unspecified Status: Acute Assessment and Plan: Patient is clinically showing signs of improvement again today with IV zosyn. Leukocytosis improving; 10.7K today. Surgery and GI consulted and appreciate recommendations Dr. Quispe recommends 1 week Cipro and Flagyl and f/u in 2 weeks (2) DMII (diabetes mellitus, type 2): Code(s): E11.9 - Type 2 diabetes mellitus without complications Status: Chronic Assessment and Plan: BGL is 143 today. Resume Victoza at discharge (3) HTN (hypertension): Code(s): I10 - Essential (primary) hypertension Status: Chronic Assessment and Plan: BP reasonable at 130s sys this morning Continue home verapamil for now Continue to hold lisinopril-HCTZ and resume tomorrow Recommend BP at home with BP cuff and follow up with PCP (4) Asthma: Code(s): J45.909 - Unspecified asthma, uncomplicated Status: Chronic Assessment and Plan: No acute issues at this time. mild wheezing today Continue home medications DS: Summary Hospital Course Reason for hospitalization: Acute Cecitis Hospital Course: Patient is a 53 yo F with history of hospitalization in January 2019 for sigmoiditis who also has hypertension, diabetes and asthma, who presented to the ER on 04/09 with sudden onset of abdominal pain on the night prior as she was getting ready for bed. Patient pain was initially RLQ pain, then worsened and became more generalized, rating pain 10/10 at its worse. She became more bloated the 24 hours prior as well. Please see H&P for further details. Presenting VS: BP 123/78, HR 122, RR 18, temp 98.6, sat 94% RA Presenting Pertinent labs: WBC 26.3 (04/12 10.7). CBC, BMP, UA otherwise unremarkable Micro: none Imagin/27 CT abd/pelvis IMPRESSION: 1. Abnormal thickening of the cecum with mild surrounding inflammation. Differential diagnosis includes colitis and underlying colonic mass. Cannot exclude adenocarcinoma. 2: Hepatomegaly. 3: Small hiatal hernia with thickening of the distal esophagus, suspicious for esophagitis. ECG: none Patient was admitted to the hospitalist service for further evaluation; Dr. Quispe (GI) and Dr. Christine (General Surgery) were consulted for further input/management of acute cecitis. Patient was started on IV zosyn and IVF as it was felt this was infectious in nature. Over the course of several days, her symptoms and leukocytosis showed marked improvement. By day of discharge, her pain had nearly subsided with the need of only Tylenol for pain should it arise. It was decided surgery was not indicated at the time and patient was to be sent home with PO antibiotics in Cipro and Flagyl for 1 week per GI recommendations. She was to follow up with Dr. Quispe in 2 weeks after discharge. She was also intructed to follow up with with PCP to potentially discuss BP medications as her HCTZ/lisinopril was held during her stay with BP well controlled; this was resumed at discharge with instructions to monitor her BP at home. Patient was hemodynamically stable, afebrile, with improved leukocytosis on day of discharge on 04/12. Patient was agreeable and comfortable with plan for discharge. Status at Discharge Overall status at discharge: patient is progressing back to baseline Time Spent with Patient Time attestation: Total time spent providing and/or coordinating discharge services:35 minutes Time spent: Greater than 30 minutes Exam Narrative: Exam Narrative: Patient is sitting upright in bed at time of visit. Const: General: healthy appearing, comfortable, no acute distress an
[2019-04-12] MEDS: ZAFIRLUKAST 20 MG TABLET PO (09:29)
[2019-04-12] MEDS: VERAPAMIL HCL 180 MG TABLET ER PO (09:29)
[2019-04-12] MEDS: FLUTICASONE PROPIONATE 0.05% NA SPR 16 GM BTL (*BKC) 1 SPRAY NASAL (09:29)
[2019-04-12] MEDS: FAMOTIDINE 20 MG/2 ML VIAL IV PUSH (09:30)
[2019-04-12] MEDS: CIPROFLOXACIN 500 MG TAB PO (11:31)
[2019-04-13 04:03] LABS: Glucose Point of Care 134 (65-105)
== END 2019-04-12 11:55 | disposition home or self-care (01) | DRG 249 ==
LOC: ANHED 20:32 → ANH3MEDSUR 04-10 02:14
PROVIDERS: Emergency Medicine; Physician Assistant; Admitting Provider Internal Medicine; Emergency Provider Emergency Medicine; PCP Internal Medicine; Visit Provider Internal Medicine
DX: K52.9 Noninfective gastroenteritis and colitis, unspecified (principal); I10 Essential (primary) hypertension; E11.9 Type 2 diabetes mellitus without complications; J45.909 Unspecified asthma, uncomplicated; L40.9 Psoriasis, unspecified; L30.9 Dermatitis, unspecified; E53.8 Deficiency of other specified B group vitamins; Z98.1 Arthrodesis status; E78.00 Pure hypercholesterolemia, unspecified; Z87.891 Personal history of nicotine dependence; Z79.84 Long term (current) use of oral hypoglycemic drugs
CPT/HCPCS: 36415; 74176; 80048; 81003; 83605; 83735; 85025; 96361; 96365; 96366; 96375; 96376; 99285; A9270; G0378; G0379; J2270; J2543; J3010; J3475; J7120

== ENCOUNTER 2019-07-31 13:08 | Outpatient (CLI) | payer OTHER, SELFPAY ==
--- NOTE | ~2019-07-31 | MMUS_ITS ---
EXAMINATION: MM diagnostic estella LT w giana, US breast LT limited HISTORY: Painful left breast lump TECHNIQUE: ML, MLO and cc 3-D tomosynthesis images of the left breast were performed and synthetic 2- D images were generated. CAD analysis was submitted and interpreted. Targeted left breast ultrasound and color flow imaging at the area of clinical complaint at the midline in the sternum. COMPARISON: 02/05/2015 bilateral digital screening mammogram BREAST PARENCHYMAL COMPOSITION: The breasts are almost entirely fatty. LEFT DIAGNOSTIC MAMMOGRAM FINDINGS: No suspicious mass, architectural distortion, malignant calcifica tion, skin thickening or retraction or significant new or developing density of the left breast is ev ident compared to 02/05/2015 LEFT TARGETED ULTRASOUND: The midline adjacent to the sternum at the area of clinical complaint of painful lump is an oval circ umscribed 4.3 x 9.4 mm solid lesion with a central linear hyperechoic focus suggesting a fat plane. T here is no suspicious shadowing. This is of uncertain significance. This may be a lymph node. Ultraso und-guided biopsy is suggested. IMPRESSION: 1. Indeterminate benign-appearing circumscribed 4.3 x 9.4 mm midline mass near sternum; consider ultr asound-guided biopsy 2. Ultrasound-guided biopsy should be considered; the alternative would be a six-month follow-up targ eted ultrasound examination to evaluate for stability. BI-RADS category 4, suspicious findings. Consider ultrasound-guided biopsy. Alternatively, six-month follow-up ultrasound would be a consideration. Reviewed, dictated and finalized at location A. IMPRESSION: 1. Indeterminate benign-appearing circumscribed 4.3 x 9.4 mm midline mass near sternum; consider ultrasound-guided biopsy 2. Ultrasound-guided biopsy should be considered; the alternative would be a si x-month follow-up targeted ultrasound examination to evaluate for stability. BI-RADS category 4, suspicious findings. Consider ultrasound-guided biopsy. Alt ernatively, six-month follow-up ultrasound would be a consideration.
== END 2019-07-31 13:09 | disposition home or self-care (01) ==
LOC: ANHIMG 13:11
PROVIDERS: PCP Internal Medicine; Visit Provider Internal Medicine
DX: N63.20 Unspecified lump in the left breast, unspecified quadrant (principal)
CPT/HCPCS: 76642; 77061; 77065; G0279

== ENCOUNTER 2019-08-13 09:18 | Outpatient (CLI) | payer OTHER, SELFPAY ==
--- NOTE | ~2019-08-13 | US_ITS ---
US breast LT limited DATE: 08/13/2019 10:02 INDICATION: TECHNIQUE: Real time imaging of the left breast limited to 7:00 16 cm from nipple COMPARISON: 07/31/2019 diagnostic left mammogram and limited left breast ultrasound FINDINGS: No mass lesion or suspicious shadowing is detected at 7:00 16 cm from the nipple. IMPRESSION: BIRADS Category 1: Negative RECOMMENDATION: Routine mammographic screening Reviewed, dictated and finalized at [facility]. Reviewed, dictated and finalized at location A.
== END 2019-08-13 09:19 | disposition home or self-care (01) ==
LOC: ANHIMG 09:23
PROVIDERS: PCP Internal Medicine; Visit Provider Internal Medicine
DX: N63.20 Unspecified lump in the left breast, unspecified quadrant (principal)
CPT/HCPCS: 76642

== ENCOUNTER 2021-02-12 14:52 | Outpatient (CLI) | payer OTHER, SELFPAY ==
--- NOTE | ~2021-02-12 | XR_ITS ---
EXAMINATION: XR chest 2V 02/12/2021 15:22 INDICATION: Abnormal findings of the lungs. PROCEDURE: PA and lateral views of the chest COMPARISON: 05/06/2018 FINDINGS: The lungs are clear. The cardiomediastinal silhouette is within normal limits. There are no pleural effusions. There is no pneumothorax suspected. IMPRESSION: 1: NO ACUTE CARDIOPULMONARY DISEASE. Reviewed, dictated and finalized at location B. B DRIVER
--- NOTE | ~2021-02-12 | XR_ITS ---
XR hip RT min 2V 02/12/2021 15:22 Indication: Right hip pain Procedure: 2 views right hip Comparison: 07/07/2014 Findings: No fracture, subluxation or dislocation. No significant joint space narrowing. No significa nt soft tissue abnormality. Sacral foramen are grossly unremarkable. Impression: 1: No significant bone or joint abnormality. Reviewed, dictated and finalized at location B. H SECONDS SORTER Impression: 1: No significant bone or joint abnormality.
== END 2021-02-12 14:53 | disposition home or self-care (01) ==
LOC: ANHIMG 14:55
PROVIDERS: PCP Internal Medicine; Visit Provider Internal Medicine
DX: M25.551 Pain in right hip (principal)
CPT/HCPCS: 71046; 73502

== ENCOUNTER 2021-04-24 14:59 | Outpatient (CLI) | payer OTHER, SELFPAY ==
--- NOTE | ~2021-04-24 | XR_ITS ---
EXAMINATION: XR chest 2V EXAM DATE: 04/24/2021 15:21 INDICATION: Pneumonia X1mo,No Cardiac Hx, Sinus Congestion. TECHNIQUE: Frontal and lateral projections of the chest obtained and reviewed. Comparison is made to prior examination from 02/12/2021. FINDINGS: Development of small amount of linear right basilar linear airspace disease, most consiste nt with postinfectious atelectasis. Some persistent left basilar linear scarring or atelectasis. No p neumothorax or pleural effusion. Mild hyperinflation. Cardiomediastinal silhouette is normal. There a re no osseous abnormalities identified. IMPRESSION: Linear bibasilar opacities most likely atelectasis/scarring. Reviewed, dictated and finalized at location B. OMECHANISM ASSEMBLER
== END 2021-04-24 15:00 | disposition home or self-care (01) ==
LOC: ANHIMG 15:01
PROVIDERS: PCP Internal Medicine; Visit Provider Internal Medicine
DX: R91.8 Other nonspecific abnormal finding of lung field (principal)
CPT/HCPCS: 71046

== ENCOUNTER 2021-04-28 15:03 | Outpatient (CLI) | payer OTHER, SELFPAY ==
--- NOTE | ~2021-04-28 | CT_ITS ---
EXAMINATION: CT diagnostic chest wo con DATE: 04/28/2021 15:20 INDICATION: Recurrent pneumonia TECHNIQUE: Computed tomography (CT) of the chest was performed without intravenous contrast. The dose -length product (DLP) was 334.11 mGy-cm. Automated exposure control and iterative reconstruction tech [employer] were employed. COMPARISON: Chest radiographs dated 04/24/2021 and 02/12/2021 FINDINGS: There is mild atelectasis in the lingula and right middle lobe. Patchy airspace opacities a re present in the right upper lobe and in the lower lobes, right greater than left. There is no pleur al effusion or pneumothorax. No pathologically enlarged thoracic lymph nodes are identified. The hear t size is normal. There is a small sliding hiatal hernia. 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 There is moderate thoracic spondylosis. IMPRESSION: 1. Patchy opacities in the lower lobes right upper lobe, likely resolving pneumonia. Reviewed, dictated and finalized at location A. RUCTIONAL TECHNOLOGY INSTRUCTOR IMPRESSION: 1. Patchy opacities in the lower lobes right upper lobe, likely resolving pneum onia.
== END 2021-04-28 15:04 | disposition home or self-care (01) ==
LOC: ANHIMG 15:06
PROVIDERS: PCP Internal Medicine; Visit Provider Internal Medicine
DX: J18.9 Pneumonia, unspecified organism (principal); R91.8 Other nonspecific abnormal finding of lung field
CPT/HCPCS: 71250

== ENCOUNTER 2022-09-14 16:13 | Emergency (ER) | payer OTHER, SELFPAY ==
--- NOTE | ~2022-09-14 | XR_ITS ---
Left wrist Technique: PA, oblique, lateral, and ulnar deviation views were obtained. Clinical History: Pain Findings: No acute fracture or dislocation is seen. Osseous alignment is anatomic. Joint spaces are p reserved. Soft tissues are unremarkable. Impression: Unremarkable left wrist radiographs. Reviewed, dictated and finalized at location . Impression: Unremarkable left wrist radiographs.
[2022-09-14 16:21] VITALS: BP 154/88; PULSE 129; RESP 18; TEMP 36.7; O2SAT 94
--- NOTE | 2022-09-14 16:32 | ED.UPPEXIN ---
HPI - Extremity Injury (Upper) General Chief Complaint: Extremity Injury, Upper Stated Complaint: INJURED L WRIST Time Seen by Provider: 09/14/22 16:32 Source: patient, RN notes reviewed and old records reviewed Mode of arrival: ambulatory Limitations: no limitations History of Present Illness HPI narrative: 56-year-old female presents to the [facility] with complaints of left wrist pain. States that she was lifting a box this morning when she felt a pop. Pain to the dorsal aspect of the left wrist. No snuffbox tenderness. Sensation intact in all 5 fingers as well as capillary refill under 2 seconds. Related Data Home Medications Medication Instructions Recorded Confirmed albuterol sulfate 90 mcg/actuation 2 inh inhalation Q4-6H PRN 01/21/19 09/14/22 aerosol inhaler Shortness Of Breath Or Wheezing cromolyn 5.2 mg/spray (4 %) nasal See Rx Instructions .Route .COMPLEX 01/21/19 09/14/22 spray liraglutide 0.6 mg/0.1 mL (18 mg/3 1.2 mg subcut DAILY 01/21/19 09/14/22 mL) subcutaneous pen injector (Victoza 3-Matthew) lisinopril 10 1 tablet PO DAILY 01/21/19 09/14/22 mg-hydrochlorothiazide 12.5 mg tablet metformin 1,000 mg tablet 1,000 mg PO BID 01/21/19 09/14/22 simvastatin 20 mg tablet 20 mg PO HS 01/21/19 09/14/22 verapamil 180 mg tablet,extended 180 mg PO DAILY 01/21/19 09/14/22 release zafirlukast 20 mg tablet 20 mg PO BID 01/21/19 09/14/22 albuterol sulfate 2.5 mg/3 mL 2.5 mg inhalation QID PRN 04/10/19 09/14/22 (0.083 %) solution for nebulization Shortness Of Breath fluticasone 232 mcg-salmeterol 14 1 puff inhalation BID 04/12/19 09/14/22 mcg/actuation breath activated powdr (AirDuo RespiClick) Allergies Allergy/AdvReac Type Severity Reaction Status Date / Time cat dander Allergy Intermediate Wheezing Verified 09/14/22 16:51 dog dander Allergy Intermediate Wheezing Verified 09/14/22 16:51 No Known Drug Allergies Allergy Unknown NA Verified 09/14/22 16:51 pollen extracts Allergy Unknown Wheezing Verified 09/14/22 16:51 Review of Systems Review of Systems: All systems reviewed & are unremarkable except as noted in HPI and below Constitutional: Constitutional: Reports no additional constitutional complaints Eyes: Eyes: Reports no additional eye complaints ENT: Reports system reviewed and no additional complaints, except as documented Cardiovascular: Cardiovascular: Reports no additional cardiovascular complaints, Denies chest pain and Denies dyspnea Respiratory: Respiratory: Reports no additional respiratory complaints, Denies chest congestion, Denies cough and Denies dyspnea Gastrointestinal: Gastrointestinal: Reports no additional gastrointestinal complaints, Denies abdominal pain, Denies nausea and Denies vomiting Musculoskeletal: Musculoskeletal: Reports as per HPI and Reports arthralgias (Left wrist) Integumentary/Breasts: Skin/Breast: Reports system reviewed and no additional complaints, except as docu Neurologic: Reports system reviewed and no additional complaints, except as documented Psychiatric: Psychiatric: Reports no additional psychiatric complaints Allergic/Immunologic: Allergic/Immunologic: Reports no additional allergic/immunologic complaints [facility] Past Medical History Medical History Asthma Diabetes Essential hypertension GI bleed due to sigmoiditis 01/30. Pneumonia 2007 Seasonal allergies Surgical History Surgical History History of back surgery L3-L4 FUSION History of bilateral carpal tunnel release History of facial fracture repair History of mandibular surgery Metal plate in rt jaw Family History Family History Unknown No problems noted. Social History Social History Social History: The patient was adopted and previously gi
== END 2022-09-14 16:58 | disposition home or self-care (01) ==
PROVIDERS: Emergency Provider Nurse Practitioner; PCP Internal Medicine
DX: S63.502A Unspecified sprain of left wrist, initial encounter (principal); X50.0XXA Overexertion from strenuous movement or load, initial encounter; J45.909 Unspecified asthma, uncomplicated; E11.9 Type 2 diabetes mellitus without complications; I10 Essential (primary) hypertension; Z87.891 Personal history of nicotine dependence
CPT/HCPCS: 73110; 99213; G0463

== ENCOUNTER 2022-12-21 11:31 | Emergency (ER) | payer OTHER, SELFPAY ==
[2022-12-21] VITALS (19 sets, daily range): BP systolic 121–150; BP diastolic 76–79; PULSE 68–113; RESP 15–26; TEMP 36.5; O2SAT 93–99
--- NOTE | ~2022-12-21 | CT_ITS ---
Clinical Indication: Chest pain, leukocytosis CT Scan of the Chest, Abdomen, and Pelvis with Contrast: Technique: Contiguous sections were acquired throughout the chest, abdomen, and pelvis after intraven ous administration of 100 cc of Omnipaque 350. Dose reduction technique was used on this scan by erna [place] automated exposure control and iterative reconstruction technique. The dose-length product (DL P) was 1074.84 mGy-cm. COMPARISON: 04/28/2021, 04/09/2019 Findings: There is no evidence of any significant mediastinal, hilar or axillary lymphadenopathy. The mediastin al soft tissues appear normal. No pulmonary embolus evident. No aortic aneurysm or dissection There is no evidence of pleural or pericardial effusion. There are patchy airspace opacities in the right upper lobe. There are focal airspace opacities in th e inferior left upper lobe/lingula. There are patchy airspace opacities in the right lower lobe which appear to be chronic. There are minimal tree-in-bud opacities in the left lower lobe. The liver, spleen, pancreas, gallbladder, left adrenal gland, and kidneys are within normal limits. S mall right adrenal lipoma/myelolipoma present. There are atherosclerotic calcifications of the aorta. No lymphadenopathy. No bowel obstruction or bowel wall thickening. There is no evidence to suggest acute appendicitis. Sm all fat-containing umbilical hernia noted. Urinary bladder is unremarkable. No adnexal mass evident. No ascites. Impression: Patchy airspace opacities right upper lobe greater than left upper lobe, with minimal tree-in-bud opa cities in the left lower lobe. Findings suggest pneumonia/infectious process. Chronic appearing airspace opacities at the lingula and the right lower lobe, which could reflect chr onic scarring. No pulmonary embolus. Small fat-containing umbilical hernia. Reviewed, dictated and finalized at location M. Impression: Patchy airspace opacities right upper lobe greater than left upper lobe, with m inimal tree-in-bud opacities in the left lower lobe. Findings suggest pneumonia /infectious process. Chronic appearing airspace opacities at the lingula and the right lower lobe, w hich could reflect chronic scarring. No pulmonary embolus. Small fat-containing umbilical hernia.
[2022-12-21 11:50] LABS: Basophils Absolute Auto 0.1 K/mm3 (0.0-0.1); Basophils Percent Auto 0.4 % (0.2-1.2); Eosinophils Absolute Auto 0.3 K/mm3 (0-0.3); Eosinophils Percent Auto 1.2 % (0-4.4); Hematocrit 40.4 % (37.0-47.0); Hemoglobin 12.8 g/dL (12.0-15.0); Immature Granulocyte Absolute 0.13 K/mm3 (0.00-0.031); Immature Granulocyte Percent A 0.6 % (0-0.5); Lymphocytes Absolute Auto 2.42 K/mm3 (0.9-3.2); Lymphocytes Percent Auto 10.9 % (18.3-44.2); Mean Corpuscular HGB Conc 31.7 g/dl (32-36); Mean Corpuscular Hemoglobin 29.2 pg (26-34); Mean Corpuscular Volume 92.2 fl (80-100); Mean Platelet Volume 10.3 fl (7.4-10.4); Monocytes Absolute Auto 1.2 K/mm3 (0.1-0.6); Monocytes Percent Auto 5.5 % (2.6-8.5); Neutrophils Absolute Auto 18.1 K/mm3 (1.3-6.7); Neutrophils Percent Auto 81.4 % (45.5-73.1); Platelet Count Result 358 k/mm3 (150-375); Red Blood Count 4.38 M/mm3 (4.2-5.4); White Blood Count 22.3 K/mm3 (4.5-10.0)
[2022-12-21 12:00] LABS: Alanine Aminotransferase 18 U/L (6-35); Albumin Level 4.1 g/dL (3.5-5.1); Alkaline Phosphatase 89 U/L (38-126); Anion Gap 11 mmol/L (8-16); Aspartate Amino Transferase 19 U/L (14-36); Bilirubin,Total 0.6 mg/dL (0.2-1.3); Blood Urea Nitrogen 11 mg/dL (7-17); Carbon Dioxide 24 mmol/L (22-30); Chloride 101 mmol/L (98-107); Estimated CRCL calculation 64 ml/min; Estimated Glomerular Filt Rate > 60; Glucose 213 mg/dL (65-110); Potassium 3.9 mmol/L (3.4-5.0); Sodium 136 mmol/L (137-145)
[2022-12-21 12:38] LABS: Appearance Urine Clear (Clear); Bacteria Urine None Seen /hpf; Bilirubin Urine 1+ (Negative); Blood Urine Negative (Negative); Color Urine Dark Yellow (Yellow); Glucose Urine UA Negative (Negative); Ketones Urine Trace mg/dL (Negative); Leukocyte Esterase Ur Negative LEU/UL (Negative); Nitrate Urine Negative (Negative); Non Pathogenic Casts 0-2; Protein Urine Trace mg/dL (Negative); RBC Urine 0-2 /hpf (0-2); Specific Grav Ur 1.032 (1.001-1.035); Squamous Epithelial Cell Urine Few /hpf (Few); WBC Urine 0-5 /hpf; pH Urine 5.5 (5.0-9.0)
[2022-12-21 12:42] LABS: Add Urine Microscopic? YES
--- NOTE | 2022-12-21 14:02 | ED.RECABL ---
HPI - Recheck/Abnormal Lab/Rx General Chief Complaint: Recheck/Abnormal Lab/Rx Stated Complaint: wbc elevated Time Seen by Provider: 12/21/22 14:01 History of Present Illness HPI narrative: Patient is a 57-year-old female with history of hypertension, diabetes, asthma here with abnormal labs from her primary care doctor. She states that over the last 1 month she has been having increased fatigue, night sweats. she went to her primary care doctor who performed lab work yesterday and called her to come to the emergency department today because she had a critically high white blood cell count a needed further evaluation. She denies any abdominal pain, nausea, diarrhea. She denies any urinary symptoms. She denies any recent travel. She does note that she has a chronic cough and shortness of breath however this is very similar to how her asthma normally presents. She does note that she has some pleuritic chest pain when taking deep breaths. Denies any prior PE or DVT. Related Data Home Medications Medication Instructions Recorded Confirmed albuterol sulfate 90 mcg/actuation 2 inh inhalation Q4-6H PRN 01/21/19 09/14/22 aerosol inhaler Shortness Of Breath Or Wheezing cromolyn 5.2 mg/spray (4 %) nasal See Rx Instructions .Route .COMPLEX 01/21/19 09/14/22 spray liraglutide 0.6 mg/0.1 mL (18 mg/3 1.2 mg subcut DAILY 01/21/19 09/14/22 mL) subcutaneous pen injector (Victoza 3-Matthew) lisinopril 10 1 tablet PO DAILY 01/21/19 09/14/22 mg-hydrochlorothiazide 12.5 mg tablet metformin 1,000 mg tablet 1,000 mg PO BID 01/21/19 09/14/22 simvastatin 20 mg tablet 20 mg PO HS 01/21/19 09/14/22 verapamil 180 mg tablet,extended 180 mg PO DAILY 01/21/19 09/14/22 release zafirlukast 20 mg tablet 20 mg PO BID 01/21/19 09/14/22 albuterol sulfate 2.5 mg/3 mL 2.5 mg inhalation QID PRN 04/10/19 09/14/22 (0.083 %) solution for nebulization Shortness Of Breath fluticasone 232 mcg-salmeterol 14 1 puff inhalation BID 04/12/19 09/14/22 mcg/actuation breath activated powdr (AirDuo RespiClick) Allergies Allergy/AdvReac Type Severity Reaction Status Date / Time cat dander Allergy Intermediate Wheezing Verified 09/14/22 16:51 dog dander Allergy Intermediate Wheezing Verified 09/14/22 16:51 No Known Drug Allergies Allergy Unknown NA Verified 09/14/22 16:51 pollen extracts Allergy Unknown Wheezing Verified 09/14/22 16:51 Review of Systems Review of Systems: All systems reviewed & are unremarkable except as noted in HPI and below PMFSH Past Medical History Medical History Asthma Diabetes Essential hypertension GI bleed due to sigmoiditis 01/30. Pneumonia 2007 Seasonal allergies Surgical History Surgical History History of back surgery L3-L4 FUSION History of bilateral carpal tunnel release History of facial fracture repair History of mandibular surgery Metal plate in rt jaw Family History Family History Unknown No problems noted. Social History Social History Social History: The patient was adopted and previously given information on her family which was her adopted family. She is not aware of her biological family history. She has an ex- who is now her significant other. She has 1 son. She does not have a durable power attorney law clerk. Smoking packs per day: 0.5 Smoking cigarettes per day: 10.0 Years smoked: 5 Smoking pack-years: 2.50 Smoking status: Former smoker Tobacco type: cigarettes Second hand tobacco smoke exposure: Yes Additional smoking assessment comments: 1/2 PPD x 5 years, quit in 2000 Alcohol intake: current Drinks per week: 1 Substance use: never Living arrangements: with family Additional living arrangements comments: Significant other Occupation/
[2022-12-21 14:13] LABS: Basophils Absolute Auto 0.1 K/mm3 (0.0-0.1); Basophils Percent Auto 0.3 % (0.2-1.2); Eosinophils Absolute Auto 0.3 K/mm3 (0-0.3); Eosinophils Percent Auto 1.4 % (0-4.4); Hematocrit 38.9 % (37.0-47.0); Hemoglobin 12.4 g/dL (12.0-15.0); Immature Granulocyte Absolute 0.16 K/mm3 (0.00-0.031); Immature Granulocyte Percent A 0.7 % (0-0.5); Lymphocytes Absolute Auto 2.43 K/mm3 (0.9-3.2); Lymphocytes Percent Auto 10.9 % (18.3-44.2); Mean Corpuscular HGB Conc 31.9 g/dl (32-36); Mean Corpuscular Hemoglobin 29.5 pg (26-34); Mean Corpuscular Volume 92.4 fl (80-100); Mean Platelet Volume 10.6 fl (7.4-10.4); Monocytes Absolute Auto 1.4 K/mm3 (0.1-0.6); Monocytes Percent Auto 6.3 % (2.6-8.5); Neutrophils Absolute Auto 17.9 K/mm3 (1.3-6.7); Neutrophils Percent Auto 80.4 % (45.5-73.1); Platelet Count Result 364 k/mm3 (150-375); Red Blood Count 4.21 M/mm3 (4.2-5.4); White Blood Count 22.3 K/mm3 (4.5-10.0)
[2022-12-21 14:25] LABS: Alanine Aminotransferase 18 U/L (6-35); Albumin Level 4.1 g/dL (3.5-5.1); Alkaline Phosphatase 89 U/L (38-126); Anion Gap 12 mmol/L (8-16); Aspartate Amino Transferase 18 U/L (14-36); Bilirubin,Total 0.5 mg/dL (0.2-1.3); Blood Urea Nitrogen 11 mg/dL (7-17); CRP 5.8 mg/dL (<1.0); Carbon Dioxide 24 mmol/L (22-30); Chloride 99 mmol/L (98-107); Estimated CRCL calculation 64 ml/min; Estimated Glomerular Filt Rate > 60; Glucose 221 mg/dL (65-110); Potassium 3.8 mmol/L (3.4-5.0); Sodium 135 mmol/L (137-145)
[2022-12-21 14:47] LABS: Lactic Acid Reflex 1.3 mmol/L (0.7-2.0)
[2022-12-21 14:49] LABS: Prothrombin Time 13.5 Seconds (11.1-14.7)
[2022-12-21 15:16] LABS: Influenza A QL RT-PCR Negative (Negative); Influenza B QL RT-PCR Negative (Negative); RSV RNA, RT-PCR Negative (Negative); SARS-CoV-2 RNA PCR Negative (Negative)
== END 2022-12-21 16:07 | disposition home or self-care (01) ==
LOC: ANHED 14:06
PROVIDERS: Emergency Medicine; Emergency Provider Student in an Organized Health Care Education/Training Program; PCP Internal Medicine
DX: J18.9 Pneumonia, unspecified organism (principal); J45.909 Unspecified asthma, uncomplicated; E11.9 Type 2 diabetes mellitus without complications; I10 Essential (primary) hypertension; Z79.84 Long term (current) use of oral hypoglycemic drugs
CPT/HCPCS: 36415; 71275; 74177; 80053; 81001; 83605; 85025; 85610; 85730; 86140; 87040; 87637; 99284; Q9967

== ENCOUNTER 2024-03-08 09:00 | Outpatient (RCR) | payer OTHER, SELFPAY ==
--- NOTE | 2024-02-01 16:23 | OPREHPOC ---
Outpatient Therapy Plan of Care This is a Multidisciplinary Plan of Care that may contain components documented by all disciplines (PT, OT, and ST.) PT Problem 1 PT Problem #1 Knowledge Deficit PT Goal 1 Goal / Goal Update *indep with HEP Target Visit 6 PT Problem 2 PT Problem #2 Pain PT Goal 1 Goal / Goal Update 1* pt report pain rating of 3/10 at worst 2* self assessment rating with LE functional scale rating of 26% limitation in activity level 3* pt report able to lie on L side 15 minutes Target Visit 6 PT Problem 3 PT Problem #3 Impaired Strength PT Goal 1 Goal / Goal Update increase strength of L hip and LE to improve stability to joint 1* single leg standing x 20 seconds with good stability 2* 20 reps of mat strengthening exercises Target Visit 6
--- NOTE | 2024-02-01 16:23 | PTOPEVAL1 ---
Assessment and note entered by Alyse Winston, PT Evaluation Information Assessment Status Evaluation ICD-10 Condition Codes (PT) Pain in left hip M25.552 Other ICD-10 Condition Codes ( M70.62 L hip trochanteric bursitis PT) Onset 12-25-23 Subjective Information woke up one AM- could not move and felt like leg was out of socket; saw dr, had xray and muscle relaxers and pain pills- better now and not taking meds anymore. new diagnosis of pneumonia--on steroids and feeling better overall--not taking any OTC meds for hips; x ray report: heterotropic ossification, mild OA history of hip OA bilateral, reports R leg is weaker than L and sometimes gives out on stairs. 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 Reported Pain Level Pain Score Self Report Additional Pain Score Comments pain range in the past week 0-6/10; less pain since onset; increase pain: with sleeping and lie on L side; decrease pain: over the counter meds; problems getting back up, after squatting is doing her full work and home duties. Assessment PT Clinical Summary Anuradha has the diagnosis of L hip trochanteric bursitis. The pain is less than it was initially. Her history includes bilateral hip OA, lumbar fusion and with recent diagnosis of pneumonia, is currently on meds, just completed steroids. Self assessment LE functional scale rating of 33% limitation in activity. With the evaluation: she has good standing position with equal WB on LE's; no tenderness over L ITB or lumbar areas; slight tightness over L piriformis, weakness of L hip. Skilled PT services are indicated for modalities PRN for pain; therapeutic exercises to increase L hip strength and flexibility, education for HEP and monitor hip pain as increase activity level. Plan of Care Interventions Electrical Stimulation,Hot Pack/Cold Pack,Manual Therapy,Neuro Re-education,Patient Education,Therapeutic Activities,Therapeutic Exercise,Ultrasound,Other Other Interventions taping PT Services Indicated Yes Treatment Frequency and 1-2x/wk for 6 visits Duration These treatments will address the objective and functional deficits as defined above. The patient will be advanced safely and appropriately in order for the patient to progress towards his/her prior level of function. Additional exercises will be introduced and as well as a comprehensive home exercise program upon discharge, if needed, ?to ensure carryover of functional gains achieved in the clinic. This treatment plan has been reviewed and agreement upon by the patient.
--- NOTE | 2024-02-13 15:54 | PCPTNOTE ---
Called and canceled, ill. AKS
--- NOTE | 2024-02-17 10:31 | PCPTNOTE ---
pt called and canceled today's appt
--- NOTE | 2024-03-08 09:39 | PTOPDC ---
Assessment and note entered by Alyse Winston, PT Assessment Status Discharge ICD-10 Condition Codes (PT) Pain in left hip M25.552 Other ICD-10 Condition Codes ( M70.62 L hip trochanteric bursitis PT) Onset 12-25-23 Subjective Information doing better, no pain in hip; no problems on stairs and don't have to hold onto the railing anymore; doing all the exercises at home; feel OK to be done with therapy. Reported Pain Level Pain Score Self Report Additional Pain Score Comments no pain in the past week; can sleep on her L side and rolls over on it OK at night Assessment PT Clinical Summary Anuradha has received 5 PT sessions. She called/ canceled 2 appointments. Compared to the initial evaluation she has improved with all aspects: no longer has pain in hip; LE functional scale rating of 0% limitation; is able to lie on her L side; no tenderness with palpation over L hip; increase strength and flexibility of L hip/LE; education completed for HEP. The goals were met. Discharge PT services. She is to continue with her HEP. Plan of Care PT Services Indicated No
== END 2024-03-08 11:35 | disposition home or self-care (01) ==
LOC: ANHPT 09:00
PROVIDERS: PCP Internal Medicine; Visit Provider Internal Medicine
DX: M70.62 Trochanteric bursitis, left hip (principal)
CPT/HCPCS: 97110; 97140; 97161

== ENCOUNTER 2024-04-08 13:17 | Inpatient (IN) | payer OTHER, SELFPAY ==
[2024-04-08] VITALS (10 sets, daily range): BP systolic 117–133; BP diastolic 78–96; PULSE 125–145; RESP 14–32; TEMP 36.2–37.6; O2SAT 92–100
--- NOTE | ~2024-04-08 | XR_ITS ---
EXAMINATION: XR chest 1V portable DATE: 04/12/2024 14:02 INDICATION: Reevaluate cough TECHNIQUE: frontal view of the chest was obtained. COMPARISON: Chest radiograph dated 04/08/[address] dated 12/21/2022 FINDINGS: Stable appearance of chronic opacities in the bilateral lower lung zones, left greater than right. No new airspace opacities, pulmonary edema, pleural effusion or pneumothorax. The cardiomediastinal miladys houette is normal. IMPRESSION: 1. Stable appearance of chronic atelectasis/scarring at the bilateral lower lung zones. No acute card iopulmonary disease. Reviewed, dictated and finalized at location B. MING MACHINE OPERATOR IMPRESSION: 1. Stable appearance of chronic atelectasis/scarring at the bilateral lower sin g zones. No acute cardiopulmonary disease.
--- NOTE | ~2024-04-08 | XR_ITS ---
EXAMINATION: XR chest 2V Exam Date/Time: 04/08/2024 14:05 PAINT BOOTH OPERATOR HISTORY: cough, sob Comparison: 04/24/2021. RESULT: Lines, tubes, and devices: None. Lungs and pleura: Clear. Cardiomediastinal silhouette: Stable. Other: No acute osseous or upper abdominal finding. IMPRESSION: No acute cardiopulmonary process. Reviewed, dictated and finalized at location K. T BOOTH OPERATOR
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
--- OUTSIDE RECORDS SUMMARY | 2024-04-08 13:19 | XMS_ITS | Clinical Summary ---
Author Organization [facility] Address [address] [place] [address] Care Team Providers Care Electronic Typesetting Machine Operator Name Role Phone Liliana March MD Primary Care Provider [phone] Allergies Active Allergy Reactions Criticality Noted Date [...] (07/30/2021): Added automatically from request for surgery [id number] Resolved Problems Problem Noted Date Diagnosed Date Resolved Date TYRESE (acute kidney injury) 04/27/2023 Hyponatremia 04/27/2023 04/29/2023 Encounters Date Type Department Care Team Description 02/16/2024 3:00 PM CORN CROP SUPERVISOR Office Visit [facility] Orthopedics and Sports Medicine [address] [place] [phone] Megan Morales PA Trochanteric bursitis of both hips (Primary Dx) 02/16/2024 7:54 AM CORN CROP SUPERVISOR - 02/16/2024 11:59 PM CORN CROP SUPERVISOR Hospital Encounter [facility] Orthopedics and Sports Medicine [address] [facility] [address] [place] [phone] Discharge Disposition: Discharge to home or self care 01/27/2024 8:00 AM CORN CROP SUPERVISOR Office Visit [facility] [address] [facility] 11th [place] [address] [place] [address] Abigail Altamirano MD YUVAL (obstructive sleep apnea) (Primary Dx); Asymmetric tonsils; Intolerance of continuous positive airway pressure (CPAP) ventilation; BMI 30.0-30.9,adult from Last 3 Months Surgical History Surgery Date Site/Laterality Comments BACK SURGERY MANDIBLE FRACTURE SURGERY Right CARPAL TUNNEL RELEASE Bilateral COLONOSCOPY SECTION Medical History Medical History Date Comments Asthma 04/27/2023 Hypertension 04/27/2023 Diabetes mellitus (HCC) YUVAL (obstructive sleep apnea) 01/27/2024 Social History Tobacco Use Types Packs/Day Years Used Date Smoking Tobacco: Former Cigarettes Q uit: 2000 Smokeless Tobacco: Never Tobacco Cessation:Counseling Given: Not Answered [facility] Utilities Answer Date Recorded In the past 12 months has [place], gas, oil, or water [employer] threatened to shut off services in your [...] week 04/28/2023 How often do you attend [facility] or protest[facility] services? Never 04/28/2023 Do you belong to any clubs o r organizations such as zoroastrianism groups, unions, fraternal or athletic groups, or [...] place to sleep or slept in a chcf (including now)? No 04/28/2023 Personal Safety Answer [...] on file Legal Sex Female 11:02 AM CORN CROP SUPERVISOR Gender Identity Not on file Sexual Orientation Not on file Obstetrics History Para Term AB IAB SAB Ectopic Multiple Livin g Live Births 0 0 0 0 0 0 0 0 0 0 0 Comments Post menopause Last Filed Vital Signs Vital Sign Reading Time Taken Comments Blood Pressure 147/100 02/16/2024 3:01 PM CORN CROP SUPERVISOR Pulse 116 02/16/2024 3:01 PM CORN CROP SUPERVISOR Temperature 37 ??C (98.6 ??F) 04/30/2023 7:29 AM CORN CROP SUPERVISOR Respiratory Rate 20 04/30/2023 7:29 AM CORN CROP SUPERVISOR Oxygen Saturation 93% 04/30/2023 7:54 AM CORN CROP SUPERVISOR Inhaled Oxygen Concentration - - Weight 81.2 kg (179 lb) 02/16/2024 3:01 PM CORN CROP SUPERVISOR Height 156.2 cm (5' 1.5 ) 02/16/2024 3:01 PM CORN CROP SUPERVISOR Body Mass Index 33.27 02/16/2024 3:01 PM CORN CROP SUPERVISOR Plan of Treatment Upcoming Encounters Date Type Department Care Team (Latest Contact Info) Description 05/08/2024 11:30 AM CORN CROP SUPERVISOR Hospital Encounter [facility] Operating Room [address] [place] [id number] A[place]ail Altamirano [place] [id number] [place] [id number] 05/08/2024 11:30 AM CORN CROP SUPERVISOR - 05/08/2024 12:00 PM CORN CROP SUPERVISOR Surgery [facility] Operating Room [address] [place] [id number] [place] [address] [id number] DRUG INDUCED SLEEP ENDOSCOPY EVAL FLEX DIAG/15MIN Scheduled Procedures Name Priority Associated Diagnoses Date/Ti me DRUG INDUCED SLEEP ENDOSCOPY EVAL FLEX DIAG YUVAL (obstructive sleep apnea) 05/08/2024 11:30 AM CORN CROP SUPERVISOR Health Maintenance Due Date Last Done Comments Albumin Creatinine Ratio, Urine 1965 Cervical Cancer Screening 1964 Colon Cancer Screening-Colonoscopy 1964 Depression Screening 1964 Hepatitis C Screening 1964 Dilated Eye Exam 1964 Foot Exam 1964 Pneumococcal vaccine <65 (1 of 2 - PCV) 1970 Hepatitis B Screening 1982 Regular Well Visit/Exam 18-64 1982 Zoster Vaccine (1 of 2) 2014 Hemoglobin A1C 02/05/2022 08/05/2021 Lipid Panel 08/05/2022 08/05/2021 Covid-19 Vaccine (4 - 2023-2 5 season) 2023 02/17/2021, 06/23/2020, 05/29/2020 Breast Cancer Screening-Mammogram 03/12/2024 03/12/2023, 03/11/2022, 01/25/2019, Additional history exists eGFR 04/30/2024 04/30/2023, 04/14, 04/28/2023, Additional history exists DTaP/Tdap/Td Vaccine (2 - Td or Tdap) 09/29/2027 09/28/2017 Influenza Vaccine Completed 01/02/2024, , 01/26/2022, Additional history exists Procedures Procedure Name Priority Date/Time Associated Diagnosis Comments XR HIPS BILATERAL 3 OR 4 VW Schedule Routine, Read Routine (OP Routine) 02/16/2024 2:56 PM CORN CROP SUPERVISOR Trochanteric bursitis of both hips EGFR Routine 04/30/2023 5:16 AM CORN CROP SUPERVISOR SCREENING MAMMOGRAM BILATERAL W SPEEDY Schedule Routine, Read Routine (OP Routine) 03/12/2023 9:39 AM CORN CROP SUPERVISOR Encounter for screening mammogram for malignant neoplasm of breast HEMOGLOBIN A1C Timed 08/05/2021 9:55 PM CDT LIPID PANEL Timed 08/05/2021 9:55 PM CDT from Last 3 Months or Most Recently Relevant to Health Maintenance Results * XR Hips Bilateral 3 or 4 Views (02/16/2024 2:56 PM CORN CROP SUPERVISOR) Anatomical Region Laterality Modality Lower Extremities, Hip, Pelvis Bilateral D igital Radiography Narrative 02/16/2024 3:58 PM CORN CROP SUPERVISOR Radiographs taken of the bilateral hips today reveal moderate degenerative changes with subchondral sclerosis, osteophyte formation, and diminished joint space. us Megan LOPEZ IMG XR PROCEDURES Fin al Result * eGFR (04/30/2023 5:16 AM CORN CROP SUPERVISOR) eGFR 72 mL/min/1. 73 m2 DEBBIE ANDRES [...] last reviewed 2021. Blood 04/30/2023 5:16 AM CORN CROP SUPERVISOR 04/30/2023 5:25 AM CORN CROP SUPERVISOR us Vinod Jones MD LAB BLOOD ORDERABLES Final Resul t DEBBIE ANDRES (SIGIFREDO) [address] [facility] Department [place] [address] * Screening Mammogram Bilateral W Speedy (03/12/2023 9:39 AM CORN CROP SUPERVISOR) Anatomical Region Laterality Modality Breast Bilateral Mammography 03/12/2023 3:32 PM CORN CROP SUPERVISOR Impressions 03/12/2023 3:32 PM CORN CROP SUPERVISOR There is no mammographic evidence of malignancy. A 1 year screening mammogram is recommended. BI-RADS: 1 - Negative. The patient has been or will be contacted. The patient will be entered into a reminder system with a target due date of 1 year for her next mammogram. Electronically signed by: Paz Butler M.D. Narrative 03/12/2023 3:32 PM CORN CROP SUPERVISOR EXAMINATION: SCREENING MAMMOGRAM BILATERAL W SPEEDY ORDERING [...] There has been no suspicious interval change. us Angy Doshi MD IMG MAMMO PROCEDURES Final [...] LAB BLOOD ORDERABLES Elisabeth leong Result DEBBIE CARLIN [facility] Department of Laboratories [place], [place] [id number] * Lipid panel (08/05/2021 9:55 PM CDT) [...] on 2017. HDL 54 >=40 mg/dL DEBBIE CARLIN Comment: Interpretive Data Ages [...] on 2017. LDL, calculated 76 <=129 mg/dL [facility] Comment: Interpretive Data Ages < or = [...] revised on 2017. Non-HDL Cholesterol 84 mg/dL [facility] Comment: Interpretive Data Ages < or = [...] last revised on 2017. Chol/HDL ratio 3 [facility] Blood 08/05/2021 9:55 PM CDT 08/05/2021 10:45 PM CDT us Tanja Daivs MD LAB BLOOD ORDERABLES Elisabeth leong Result C[facility]ER [facility] Department [place] [address] from Last 3 Months or Most Recently Relevant to Health Maintenance Insurance [facility] WORKERS COMPENSATION GENERIC WORKERS COMPENSATION GENERIC Advance Directives For more information, please contact: [phone] * Full Code (Latest Code Status on File) Date Activated Date Inactivated Comments 04/27/2023 4:10 PM 04/30/2023 5:47 PM * Full Code Date Activated Date Inactivated Comments 08/05/2021 9:52 AM 08/08/2021 3:07 PM Care Teams Electronic Typesetting Machine Operator Relationship Specialty Start Date End Date Liliana March MD [address] [place] [address] PCP - General Internal Medicine 03/10/22
--- OUTSIDE RECORDS SUMMARY | 2024-04-08 13:20 | XMS_ITS | Clinical Summary ---
Author Organization [facility] Address [address] [place] [address] Phone Care Team Providers Care Completion Manager Name Role Phone Liliana March MD Primary Care Provider [phone] Amy Hussein APRN, LEASE PICKER Unavailable Allergies Active Allergy Reactions Criticality Noted Date Comments Latex Itching,Rash Medium 04/27/2023 Medications albuterol (ACCUNEB) 0.63 MG/3ML Nebulizer Soln 0.63 mg by Nebulization route every 4 hours as needed. Active ALBUTEROL IN take by inhalation. Active benzonatate (TESSALON) 100 MG Capsule Take 100 mg by mouth 3 times daily as needed. Active buPROPion (WELLBUTRIN) 150 MG XL tablet Take 150 mg by mouth every morning. Active doxycycline hyclate (VIBRAMYCIN) 100 MG Capsule Take 100 mg by mouth 2 times daily. Active fluticasone (FLONASE) 50 MCG/ACT Suspension 1 Bouse by Nasal route daily. Use in each nostril as directed. Active hydroCHLOROthia zide (MICROZIDE) 12.5 MG Capsule Take 12.5 mg by mouth daily. Active lisinopril (PRINIVIL, ZESTRIL) 10 MG Tablet Take 10 mg by mouth daily. Active metFORMIN (GLUCOPHAGE) 1000 MG Tablet Take 1,000 mg by mouth 2 times daily (with meals). Active NAPROXEN PO Take by mouth. Act peña simvastatin (ZOCOR) 40 MG Tablet Take 40 mg by mouth every evening. Active tiZANidine HCl 4 MG Capsule Take 4 mg by mouth 3 times daily. Active Fluticasone-Ume clidin-Vilant (Trelegy Ellipta) 200-62.5-25 MCG/ACT AEROSOL POWDER, BREATH ACTIVATED take 1 Puff by inhalation daily. Active verapamil CR (VERELAN) 240 MG CAPSULE SR 24 HR Take by mouth daily. Active liraglutide (Victoza) 18 MG/3ML Solution Pen-injector by Subcutaneous route daily. Active zafirlukast (ACCOLATE) 20 MG Tablet Take 20 mg by mouth 2 times daily. Active Albuterol-Budes onide (Airsupra) 90-80 MCG/ACT AerosolIndicati ons:Moderate persistent asthma without status asthmaticus without complication INHALE 2 PUFFS BY MOUTH EVERY 4 HOURS NEEDED FOR SHORTNESS OF BREATH 10.7 g 3 03/28/19 25 Active Albuterol-Budes onide (Airsupra) 90-80 MCG/ACT AerosolIndicati ons:Moderate persistent asthma without status asthmaticus without complication take 2 Puffs by inhalation every 4 hours as needed for Other (sob). 1 g 5 05/23/19 24 2024 Discontinued Hospital, Clinic, or Other Facility Administered Medication Ordered Dose Route Frequency Start Date End Date Status Dupilumab (DUPIXENT) SOSY 300 mgIndications:Eosinophili c asthma 300 mg SC EVERY 14 DAYS 07/12/2023 Active Active Problems Problem Noted Date Diagnosed Date Severe obstructive sleep apnea 09/27/2023 Personal history of tobacco use 05/23/2023 Acute respiratory failure with hypoxia History of pneumonia 05/23/2023 Eosinophilic asthma 05/23/2023 Snoring 05/23/2023 Encounters Date Type Department Care Team Description 03/27/2024 Refill [facility] - Pulmonology & Sleep Medicine - [place] [address] [place] [address] Amy Hussein APRN, JERRELL Medication Refill from Last 3 Months Social History Tobacco Use Types Packs/Day Years Used Date Smoking Tobacco: Former Cigarettes Smokeless Tobacco: Never Tobacco Cessation:Counseling Given: Not Answered Alcohol Use Standard Drinks/Week Comments Not Currently 0 (1 standard drink = 0.6 oz pur e alcohol) Sexually Active Control Partners Comments Not Currently Comments Unknown Sex and Gender Information Value Date Recorded Sex Assigned at Not on file Legal Sex Female 7:15 PM CDT Gender Identity Not on file Sexual Orientation Not on file Last Filed Vital Signs Vital Sign Reading Time Taken Comments Blood Pressure 130/70 09/27/2023 11:41 AM CDT Pulse 95 09/27/2023 11:41 AM CDT Temperature 36 ??C (96.8 ??F) 09/27/2023 11: 41 AM CDT Respiratory Rate 14 09/27/2023 11:4 1 AM CDT Oxygen Saturation 98% 09/27/2023 11: 41 AM CDT Inhaled Oxygen Concentration - - Weight 84.2 kg (185 lb 11.2 oz) 024 11:41 AM CDT Height 165.1 cm (5' 5 ) 09/27/2023 11:4 1 AM CDT Body Mass Index 30.9 09/27/2023 11:41 AM CDT Plan of Treatment Upcoming Encounters Date Type Department Care Team (Late st Contact Info) Description 04/24/2024 3:30 PM MOSAIC LAYER Office Visit [facility] - Pulmonology & [facility] [address] [place] [address] Amy Hussein, TOP POLISHER, LEASE PICKER [address] [address] Health Maintenance Due Date Last Done Comments Hepatitis C Virus (HCV) Screening 1965 Hepatitis B Immunization (1 of 3 - 19+ 3-dose series) 10/25/1983 Pap Smear 1985 Cervical Cancer Screening (CCS) 1994 HPV/Cotest 1994 Cologuard 2014 Immunochemical Fecal Occult Blood 2014 Zoster Immunization (1 of 2) 2014 Influenza Immunization (#1) 2023 10/0 11/2022, 01/26/2022, 02/09/2021, Additional history exists SARS-COV-2 Immunization () 11/13/2023 02/17/2021, 06/23/2020, 05/29/2020 Mammogram 03/12/2025 03/12/2023, 02/12, 01/25/2019 Colonoscopy 01/22/2029 01/22/2019 Colorectal Cancer Screening 01/22/2029 Respiratory Syncytial Virus (RSV) Immunization (Adult) (1 - 1-dose 75+ series) 10/25/2039 01/22/2019 DTaP/Tdap/Td Immunization Discontinued 09/28/2017 TdaP Immunization Completed 09/28/2017 Pneumococcal Immunization (50+ years) Completed 09/22/2021 Pneumococcal Immunization Combined Discontinued 09/22/2021 Meningococcal Immunization (ACWY) Aged Out No longer eligible based on patient's age to complete this topic Rotavirus Immunization Aged Out No lo nger eligible based on patient's age to complete this topic Procedures Procedure Name Priority Date/Time Associated Diagnosis Comments VARGHESE SCREENING BILATERAL DIGITAL W CAD W DAJA Routine 01/25/2019 5:12 PM MOSAIC LAYER Encounter for screening mammogram for malignant neoplasm of breast from Last 3 Months or Most Recently Relevant to Health Maintenance Results * VARGHESE SCREENING BILATERAL DIGITAL W CAD W DAJA (01/25/2019 5:12 PM MOSAIC LAYER) Anatomical Region Laterality Modality breast Bilateral Mammography 01/25/2019 4:29 PM MOSAIC LAYER Narrative 01/30/2019 11:55 AM MOSAIC LAYER - VARGHESE SCREENING BILATERAL DIGITAL W CAD W DAJA BILATERAL DIGITAL SCREENING MAMMOGRAM 3D/2D WITH CAD WITH MEDIOLATERAL OBLIQUE CRANIOCAUDAL: 01/25/2019 The study was acquired using digital technology and interpreted from soft copy. ?? Current study was also evaluated with ICAD version 7.2. ?? CLINICAL: Routine screening. Patient has no complaints. No personal history of cancer. Family history of breast cancer unknown. ?? COMPARISONS: Comparison is made to exam dated: ??09/20/2016 [facility]. ?? BREAST TISSUE:There are scattered fibroglandular densities in both breasts. ?? FINDINGS: No significant masses, calcifications, or other findings are seen in either breast. ?? There has been no significant interval change. IMPRESSION: BI-RAD 1 ??NEGATIVE There is no mammographic evidence of malignancy. A 1 year screening mammogram is recommended. ?? The patient has been or will be contacted. ?? The patient will be entered into a reminder system with a target due date of 1 year for her next screening exam. Electronically signed by: Sandi Zimmerman M.D. ? ll/penrad:01/30/2019 11:06:15 ?? Wastewater Technician: Danica Patton (R), [facility] letter sent: Normal Exam ?? Reading location: [place] BI-RADS: 1 Negative Procedure Note Sandi Zimmerman MD - 01/30/2019 - VARGHESE SCREENING BILATERAL DIGITAL W CAD W DAJA BILATERAL DIGITAL SCREENING MAMMOGRAM 3D/2D WITH CAD WITH MEDIOLATERAL OBLIQUE CRANIOCAUDAL: 01/25/2019 The study was acquired using digital technology and interpreted from soft copy. Current study was also evaluated with Blurtt version 7.2. CLINICAL: Routine screening. Patient has no complaints. No personal history of cancer. Family history of breast cancer unknown. COMPARISONS: Comparison is made to exam dated: 09/20/2016 [facility]. BREAST TISSUE:There are scattered fibroglandular densities in both breasts. FINDINGS: No significant masses, calcifications, or other findings are seen in either breast. There has been no significant interval change. IMPRESSION: BI-RAD 1 NEGATIVE There is no mammographic evidence of malignancy. A 1 year screening mammogram is recommended. The patient has been or will be contacted. The patient will be entered into a reminder system with a target due date of 1 year for her next screening exam. Electronically signed by: Sandi cleary/penrad:01/30/2019 11:06:15 Wastewater Technician: Danica Patton (R), [facility] letter sent: Normal Exam Reading location: [place] BI-RADS: 1 Negative Liliana March MD IMG MAMMO ORDERABLES Final Re sult from Last 3 Months or Most Recently Relevant to Health Maintenance Insurance MEDICAID [facility] Care Teams Completion Manager Relationship Specialty Start Date End Date Liliana March MD [address] [facility] [address] [place] [address] PCP - General Internal Medicine 01/18/19 Amy Hussein APRN, LEASE PICKER [address] [address] Nurse Practitioner Advanced Practice Nurse 05/23/23
--- OUTSIDE RECORDS SUMMARY | 2024-04-08 13:20 | XMS_ITS | Data Portability ---
Author Organization BRIJESH RAMSESVaishnavi Marie Address [address] [facility] [place] [address] Care Team Providers Care Adult Nurse Practitioner Name Role Phone LILIANA PENG Primary Care Provider [phone] JOSHUA DOSHI Supervisor [place] [employer] Assessment No assessment recorded. Plan of Treatment Reminders Order Date Submit Date Provider Last Modified By Organization Details Last Modified Time Details Appointments ANY 30 2024 02:30P SANDRA NOBLES Not available Not available Not available Lab CBC w/ auto diff 2022 023 [facility], [address] [place] [address], [place], [address], 12/28/2022 15:10:01 CBC w/ auto diff 2023 024 [facility], [address] [place] [address] 2, [place], [address], 05/24/2023 03:08:12 HbA1c (hemoglob in A1c), blood 2023 024 [facility], [address] [place] [address] 2, [place], [address], 05/27/2023 12:12:52 lipid panel, serum 2023 024 [facility], [address] [place] [address], [facility] 2, [place], [address], 05/24/2023 03:08:10 CMP, serum or plasma 2023 024 [facility], [address] [facility], [facility] 2, [place], [address], 05/24/2023 03:08:11 HbA1c (hemoglob in A1c), blood 2023 024 [facility], [address] [place] [address], [facility] 2, [place], [address], 01/03/2024 07:13:40 lipid panel, serum 2023 024 [facility], [address] [facility], [facility] 2, [place], [address], 01/03/2024 03:08:19 CBC w/ auto diff 2023 024 [facility], [address] [place] [address], [facility] 2, [place], [address], 01/03/2024 03:08:21 CMP, serum or plasma 2023 024 [facility], [address] [place] [address], [facility] 2, [place], [address], 01/03/2024 03:08:20 Referral None recorded. Procedures None recorded. Surgeries None recorded. Imaging XR, chest, 2 view 2022 023 [facility], 1 [facility], [address], 02/24/2023 17:08:07 XR, hip, unilatera l [address] [facility] Scheduling, 1 [facility], [address], 12/30/2023 13:15:57 Medication Orders tizanidin e 4 mg tablet 2023 024 [id number], [address], [place], [id number], 12/27/2023 14:59:50 tramadol 50 mg tablet 2023 024 [id number], [address], [place], [id number], 12/27/2023 15:36:58 amoxicill in 500 mg capsule 2023 [facility][id number], [address], [place], [id number], 01/02/2024 14:58:23 OneTouch Ultra Test strips 2023 [facility][id number], [address], [place], [id number], 01/02/2024 14:56:22 Patient TargetsNo targets recorded. Patient Instructions Encounter Date Encounter Id Patient Instructions Last Modified By Organization Details Last Modified Time 12/28/2022 [id number] f/u in 1 month with labs and cxr nsuthan Not available 12/28/2022 09:36:10 05/23/2023 [id number] f/u in 1 month nsuthan Not available 05/23/2023 14:31:28 07/11/2023 [id number] A healthy lifestyle: care instructions nsuthan Not available 07/11/2023 09:02:10 f/u in 3 month with labs nsuthan Not available 07/11/2023 09:01:45 12/27/2023 [id number] trochanteric bursitis: exercises nsuthan Not available 12/27/2023 14:59:43 keep f/u nsuthan Not available 2023 15:36:59 01/02/2024 [id number] trochanteric bursitis: exercises nsuthan Not available 01/02/2024 14:56:18 f/u in 4 month nsuthan Not available 1 14:58:25 Reason for Referral None Reported. Results Created Date Observation Date Name Description Value Unit Range Abnormal Flag Note LastModifiedBy Organization Detail LastModifiedTime 12/21/1912/21/2022 HEMOG LOBIN A1C hemoglobin A1C 9.0 % 4.8-5. 6 above high normal Predi abete s: 5.7 - 6.4 Diabe starr: >6.4 Glyce antonia contr ol for adult s with diabe starr: <7.0 Not Available [facility] ([facility]) [address] [facility], [place], [address], 12/21/2022 05:10:19 12/21/19 23 12/21/2022 LIPID PANEL cholesterol, total 162 mg/dL 100-19 9 Not Available [facility] Department [address] [place] [address], [address], 12/21/2022 20:09:19 12/21/19 23 12/21/2022 LIPID PANEL triglyceride s 106 mg/dL 0-149 Not Available [facility] Department [address] [place] [address], [address], 12/21/2022 20:09:19 12/21/19 23 12/21/2022 LIPID PANEL HDL cholesterol 58 mg/dL 40-999 Not Available [facility] Department [address] [place], [address], 12/21/2022 20:09:19 12/21/19 23 12/21/2022 LIPID PANEL VLDL cholesterol marbin 21 mg/dL 5-40 Not Available [facility] Department [address] [place], [address], 12/21/2022 20:09:19 12/21/19 23 12/21/2022 LIPID PANEL LDL chol calc ([facility]) 97 mg/dL 0-99 Not Available [facility] Department [address] [place], [address], 12/21/2022 20:09:19 12/21/19 23 12/21/2022 COMP. METAB OLIC PANEL (14) glucose 229 mg/dL 70-99 above high normal Not Available [facility] Department [address] [place], [address], 12/21/2022 20:09:19 12/21/19 23 12/21/2022 COMP. METAB OLIC PANEL (14) BUN 7 mg/dL 6-24 Not Available [facility] Department [address] [place], [address], 12/21/2022 20:09:19 12/21/19 23 12/21/2022 COMP. METAB OLIC PANEL (14) creatinine 0.92 mg/dL 0.76-1 .27 Not Available [facility] Department [address] [place], [address], 12/21/2022 20:09:19 12/21/19 23 12/21/2022 COMP. METAB OLIC PANEL (14) eGFR 72 >=60 Units for eGFR value s are mL/mi n/1.7 3 The eGFR Calcu latio n has not been valid ated for patie nts under the age of 18. If test resul ts are displ ayed for a patie nt under the age of 18, disre hamlet that value . Not Available [facility] Department [address] [place], [address], 12/21/2022 20:09:19 12/21/19 23 12/21/2022 COMP. METAB OLIC PANEL (14) BUN/creatini ne ratio 8 9-23 below low normal Not Available [facility] Department [address] [place], [address], 12/21/2022 20:09:19 12/21/19 23 12/21/2022 COMP. METAB OLIC PANEL (14) sodium 137 mmol/ L 134-14 4 Not Available [facility] Department [address] [place], [address], 12/21/2022 20:09:19 12/21/19 23 12/21/2022 COMP. METAB OLIC PANEL (14) potassium 4.5 mmol/ L 3.5-5. 2 Not Available [facility] Department [address] [place], [address], 12/21/2022 20:09:19 12/21/19 23 12/21/2022 COMP. METAB OLIC PANEL (14) chloride 98 mmol/ L 96-106 Not Available [facility] Department [address] [place], [address], 12/21/2022 20:09:19 12/21/19 23 12/21/2022 COMP. METAB OLIC PANEL (14) carbon dioxide, total 26 mmol/ L 20-29 Not Available [facility] Department [address] [place], [address], 12/21/2022 20:09:19 12/21/19 23 12/21/2022 COMP. METAB OLIC PANEL (14) calcium 9.7 mg/dL 8.7-10 .2 Not Available [facility] Department [address] [place], [address], 12/21/2022 20:09:19 12/21/19 23 12/21/2022 COMP. METAB OLIC PANEL (14) protein, total 7.7 g/dL 6.0-8. 5 Not Available [facility] Department [address] [place], [address], 12/21/2022 20:09:19 12/21/19 23 12/21/2022 COMP. METAB OLIC PANEL (14) albumin 4.3 g/dL 3.8-4. 9 Not Available [facility] Department [address] [place], [address], 12/21/2022 20:09:19 12/21/19 23 12/21/2022 COMP. METAB OLIC PANEL (14) globulin, total 3.4 g/dL 1.5-4. 5 Not Available [facility] Department [address] [place], [address], 12/21/2022 20:09:19 12/21/19 23 12/21/2022 COMP. METAB OLIC PANEL (14) A/G ratio 1.3 1.2-2. 2 Not Available [facility] Department [address] [place], [address], 12/21/2022 20:09:19 12/21/19 23 12/21/2022 COMP. METAB OLIC PANEL (14) bilirubin, total 0.3 mg/dL 0.0-1. 2 Not Available [facility] Department [address] [place], [address], 12/21/2022 20:09:19 12/21/19 23 12/21/2022 COMP. METAB OLIC PANEL (14) alkaline phosphatase 118 IU/L 44-121 Not Available [facility] Department [address] [place], [address], 12/21/2022 20:09:19 12/21/19 23 12/21/2022 COMP. METAB OLIC PANEL (14) AST (SGOT) 12 IU/L 0-40 Not Available [facility] Department [address] [place], [address], 12/21/2022 20:09:19 12/21/19 23 12/21/2022 COMP. METAB OLIC PANEL (14) ALT (SGPT) 12 IU/L 0-32 Not Available [facility] Department [address] [place] [address], [address], 12/21/2022 20:09:19 12/21/19 23 12/20/2022 CBC WITH DIFFE RENTI AL/PL ATELE T WBC 25.6 x10e3 /uL 3.4-10 .8 panic high RESUL TS VERIF IED AND PITT D TO Cortney Mcclure MD BY Zac Major, SURGICAL APPLIANCE FITTER AT 2025 ON 12/20. Not Available [facility] Department [address] [place], [address], 12/21/2022 20:09:20 12/21/19 23 12/20/2022 CBC WITH DIFFE RENTI AL/PL ATELE T RBC 4.55 x10e6 /uL 3.77-5 .28 Not Available [facility] Department [address] [place], [address], 12/21/2022 20:09:20 12/21/19 23 12/20/2022 CBC WITH DIFFE RENTI AL/PL ATELE T hemoglobin 13.0 g/dL 11.1-1 5.9 Not Available [facility] Department [address] [place], [address], 12/21/2022 20:09:20 12/21/19 23 12/20/2022 CBC WITH DIFFE RENTI AL/PL ATELE T hematocrit 41.9 % 34.0-4 6.6 Not Available [facility] Department [address] [place], [address], 12/21/2022 20:09:20 12/21/19 23 12/20/2022 CBC WITH DIFFE RENTI AL/PL ATELE T MCV 92 fL 79-97 Not Available [facility] Department [address] [place], [address], 12/21/2022 20:09:20 12/21/19 23 12/20/2022 CBC WITH DIFFE RENTI AL/PL ATELE T MCH 28.6 pg 26.6-3 3.0 Not Available [facility] Department [address] [place], [address], 12/21/2022 20:09:20 12/21/19 23 12/20/2022 CBC WITH DIFFE RENTI AL/PL ATELE T MCHC 31.0 g/dL 31.5-3 5.7 below low normal Not Available [facility] Department [address] [place], [address], 12/21/2022 20:09:20 12/21/19 23 12/20/2022 CBC WITH DIFFE RENTI AL/PL ATELE T RDW 13.8 % 11.5-1 4.5 Not Available [facility] Department [address] [place], [address], 12/21/2022 20:09:20 12/21/19 23 12/20/2022 CBC WITH DIFFE RENTI AL/PL ATELE T platelets 438 x10e3 /uL 150-45 0 Not Available [facility] Department [address] [place], [address], 12/21/2022 20:09:20 12/21/19 23 12/20/2022 CBC WITH DIFFE RENTI AL/PL ATELE T neutrophils - Test not perfo rmed Not Available [facility] Department [address] [place], [address], 12/21/2022 20:09:20 12/21/19 23 12/20/2022 CBC WITH DIFFE RENTI AL/PL ATELE T lymphs - Test not perfo rmed Not Available [facility] Department [address] [place], [address], 12/21/2022 20:09:20 12/21/19 23 12/20/2022 CBC WITH DIFFE RENTI AL/PL ATELE T monocytes - Test not perfo rmed Not Available [facility] Department [address] [place], [address], 12/21/2022 20:09:20 12/21/19 23 12/20/2022 CBC WITH DIFFE RENTI AL/PL ATELE T eos - Test not perfo rmed Not Available [facility] Department [address] [place], [address], 12/21/2022 20:09:20 12/21/19 23 12/20/2022 CBC WITH DIFFE RENTI AL/PL ATELE T lymphs (absolute) - Test not perfo rmed Not Available [facility] Department [address] [place], [address], 12/21/2022 20:09:20 12/21/19 23 12/20/2022 CBC WITH DIFFE RENTI AL/PL ATELE T eos (absolute) - Test not perfo rmed Not Available [facility] [address] [place], [address], 12/21/2022 20:09:20 12/21/19 23 12/20/2022 CBC WITH DIFFE RENTI AL/PL ATELE T baso (absolute) - Test not perfo rmed Not Available [facility] [address] [place], [address], 12/21/2022 20:09:20 12/21/19 23 12/22/2022 PATH REVIE W, PER DONNY COL pathologist Commen t See Scann ed Repor t Not Available [facility] Department [address] [place], [address], 12/22/2022 14:11:42 12/21/19 23 12/22/2022 MANUA L DIFFE RENTI AL neutrophils 79.0* % notest b. Not Available [facility] Department [address] [place], [address], 12/22/2022 14:11:39 12/21/19 23 12/22/2022 MANUA L DIFFE RENTI AL lymphs 11* % notest b. Not Available [facility] [address] [place], [address], 12/22/2022 14:11:39 12/21/19 23 12/22/2022 MANUA L DIFFE RENTI AL monocytes 7* % notest b. Not Available [facility] [address] [place], [address], 12/22/2022 14:11:39 12/21/19 23 12/22/2022 MANUA L DIFFE RENTI AL eos 1* % notest b. Not Available [facility] [address] [place], [address], 12/22/2022 14:11:39 12/21/19 23 12/22/2022 MANUA L DIFFE RENTI AL neutrophils absolute 20.7 x10e3 /uL 1.4-7. 0 above high normal Not Available [facility] Department [address] [place], [address], 12/22/2022 14:11:39 12/21/1912/22/2022 MANUA L DIFFE RENTI AL lymphs (absolute) 2.8 x10e3 /uL 0.7-3. 1 Not Available [facility] Department [address] [place], [address], 12/22/2022 14:11:39 12/21/1912/22/2022 MANUA L DIFFE RENTI AL monocytes(ab solute) 1.7 x10e3 /uL 0.1-0. 9 above high normal Not Available [facility] [address] [place], [address], 12/22/2022 14:11:39 12/21/1912/22/2022 MANUA L DIFFE RENTI AL eos (absolute value) 0.2 x10e3 /uL 0.0-0. 4 Not Available [facility] [address] [place], [address], 12/22/2022 14:11:39 12/21/1912/22/2022 MANUA L DIFFE RENTI AL differential comment COMMEN T Total Cells Count ed 100 100 N Band Neutr ophil s Perce nt Ma 2 % NOT ESTB. N Not Available [facility] Department [address] [place], [address], 12/22/2022 14:11:39 12/21/1912/22/2022 MANUA L DIFFE RENTI AL RBC comment COMMEN T RBC Morph ology Comme nt NICK L NICK L N Not Available [facility] [address] [place], [address], 12/22/2022 14:11:39 12/21/1912/22/2022 MANUA L DIFFE RENTI AL platelet comment COMMEN T Plate let Estim ate Sligh t Incre ase NICK L N Large Plate lets 1+ NOT ESTB. N Plate let Morph ology Comme nt Abno N Not Available [facility] Department [address] [place], [address], 12/22/2022 14:11:39 12/21/19 23 12/20/2022 MANUA L DIFFE RENTI AL neutrophils 79.0 % notest b. Not Available [facility] [address] [place], [address], 12/21/2022 20:09:18 12/21/19 23 12/20/2022 MANUA L DIFFE RENTI AL lymphs 11 % notest b. Not Available [facility] [address] [place], [address], 12/21/2022 20:09:18 12/21/19 23 12/20/2022 MANUA L DIFFE RENTI AL monocytes 7 % notest b. Not Available [facility] [address] [place], [address], 12/21/2022 20:09:18 12/21/19 23 12/20/2022 MANUA L DIFFE RENTI AL eos 1 % notest b. Not Available [facility] [address] [place], [address], 12/21/2022 20:09:18 12/21/19 23 12/20/2022 MANUA L DIFFE RENTI AL differential comment COMMEN T Total Cells Count ed 100 100 N Band Neutr ophil s Perce nt Ma 2 % NOT ESTB. N Not Available [facility] [address] [place], [address], 12/21/2022 20:09:18 12/21/19 23 12/20/2022 MANUA L DIFFE RENTI AL RBC comment COMMEN T RBC Morph ology Comme nt NICK L NICK L N Not Available [facility] [address] [place], [address], 12/21/2022 20:09:18 12/21/19 23 12/20/2022 MANUA L DIFFE RENTI AL platelet comment COMMEN T Plate let Estim ate Sligh t Incre ase NICK L N Large Plate lets 1+ NOT ESTB. N Plate let Morph ology Comme nt Abno N Not Available [facility] Department [address] [place], [address], 12/21/2022 20:09:18 12/25/19 23 12/24/2022 CBC WITH DIFFE RENTI AL/PL ATELE T WBC 16.9 x10e3 /uL 3.4-10 .8 above high normal Not Available [facility] Department [address] [place], [address], 12/25/2022 03:08:23 12/25/19 23 12/24/2022 CBC WITH DIFFE RENTI AL/PL ATELE T RBC 4.15 x10e6 /uL 3.77-5 .28 Not Available [facility] Department [address] [place], [address], 12/25/2022 03:08:23 12/25/19 23 12/24/2022 CBC WITH DIFFE RENTI AL/PL ATELE T hemoglobin 11.7 g/dL 11.1-1 5.9 Not Available [facility] Department [address] [place], [address], 12/25/2022 03:08:23 12/25/19 23 12/24/2022 CBC WITH DIFFE RENTI AL/PL ATELE T hematocrit 38.1 % 34.0-4 6.6 Not Available [facility] Department [address] [place], [address], 12/25/2022 03:08:23 12/25/19 23 12/24/2022 CBC WITH DIFFE RENTI AL/PL ATELE T MCV 92 fL 79-97 Not Available [facility] Department [address] [place], [address], 12/25/2022 03:08:23 12/25/1912/24/2022 CBC WITH DIFFE RENTI AL/PL ATELE T MCH 28.2 pg 26.6-3 3.0 Not Available [facility] Department [address] [place], [address], 12/25/2022 03:08:23 12/25/1912/24/2022 CBC WITH DIFFE RENTI AL/PL ATELE T MCHC 30.7 g/dL 31.5-3 5.7 below low normal Not Available [facility] Department [address] [place], [address], 12/25/2022 03:08:23 12/25/1912/24/2022 CBC WITH DIFFE RENTI AL/PL ATELE T RDW 13.7 % 11.5-1 4.5 Not Available [facility] Department [address] [place], [address], 12/25/2022 03:08:23 12/25/1912/24/2022 CBC WITH DIFFE RENTI AL/PL ATELE T platelets 409 x10e3 /uL 150-45 0 Not Available [facility] Department [address] [place], [address], 12/25/2022 03:08:23 12/25/1912/24/2022 CBC WITH DIFFE RENTI AL/PL ATELE T neutrophils 80 % notest b. Not Available [facility] Department [address] [place], [address], 12/25/2022 03:08:23 12/25/1912/24/2022 CBC WITH DIFFE RENTI AL/PL ATELE T lymphs 11 % notest b. Not Available [facility] Department [address] [place], [address], 12/25/2022 03:08:23 12/25/1912/24/2022 CBC WITH DIFFE RENTI AL/PL ATELE T monocytes 7 % notest b. Not Available [facility] [address] [place], [address], 12/25/2022 03:08:23 12/25/1912/24/2022 CBC WITH DIFFE RENTI AL/PL ATELE T eos 1 % notest b. Not Available [facility] [address] [place], [address], 12/25/2022 03:08:23 12/25/1912/24/2022 CBC WITH DIFFE RENTI AL/PL ATELE T basos 0 % notest b. Not Available [facility] [address] [place], [address], 12/25/2022 03:08:23 12/25/1912/24/2022 CBC WITH DIFFE RENTI AL/PL ATELE T neutrophils (absolute) 13.4 x10e3 /uL 1.4-7. 0 above high normal Not Available [facility] Department [address] [place], [address], 12/25/2022 03:08:23 12/25/1912/24/2022 CBC WITH DIFFE RENTI AL/PL ATELE T lymphs (absolute) 1.8 x10e3 /uL 0.7-3. 1 Not Available [facility] Department [address] [place], [address], 12/25/2022 03:08:23 12/25/1912/24/2022 CBC WITH DIFFE RENTI AL/PL ATELE T monocytes(ab solute) 1.2 x10e3 /uL 0.1-0. 9 above high normal Not Available [facility] Department [address] [place], [address], 12/25/2022 03:08:23 12/25/1903 0112/24/2022 CBC WITH DIFFE RENTI AL/PL ATELE T eos (absolute) 0.2 x10e3 /uL 0.0-0. 4 Not Available [facility] Department [address] [place], [address], 12/25/2022 03:08:23 12/25/19 23 12/24/2022 CBC WITH DIFFE RENTI AL/PL ATELE T baso (absolute) 0.1 x10e3 /uL 0.0-0. 2 Not Available [facility] Department [address] [place], [address], 12/25/2022 03:08:23 12/25/1912/24/2022 CBC WITH DIFFE RENTI AL/PL ATELE T immature granulocytes 0.7 % notest b. Not Available [facility] Department [address] [place], [address], 12/25/2022 03:08:23 12/25/19 23 12/24/2022 CBC WITH DIFFE RENTI AL/PL ATELE T immature grans (abs) 0.1 x10e3 /uL 0.0-0. 1 Not Available [facility] Department [address] [place], [address], 12/25/2022 03:08:23 12/25/19 23 12/24/2022 CBC WITH DIFFE RENTI AL/PL ATELE T NRBC 0 % 0-0 Not Available [facility] Department [address] [place], [address], 12/25/2022 03:08:23 05/23/19 24 05/23/2023 LIPID PANEL cholesterol, total 154 mg/dL 100-19 9 Not Available [facility] Department [address] [place], [address], 05/24/2023 03:08:10 05/23/19 24 05/23/2023 LIPID PANEL triglyceride s 187 mg/dL 0-149 above high normal Not Available [facility] Department [address] [place], [address], 05/24/2023 03:08:10 05/23/19 24 05/23/2023 LIPID PANEL HDL cholesterol 58 mg/dL 40-999 Not Available [facility] Department [address] [place], [address], 05/24/2023 03:08:10 05/23/19 24 05/23/2023 LIPID PANEL VLDL cholesterol marbin 37 mg/dL 5-40 Not Available [facility] Department [address] [place], [address], 05/24/2023 03:08:10 05/23/19 24 05/23/2023 LIPID PANEL LDL chol calc (nih) 88 mg/dL 0-99 Not Available [facility] Department [address] [place] [address], [address], 05/24/2023 03:08:10 05/23/19 24 05/23/2023 COMP. METAB OLIC PANEL (14) glucose 181 mg/dL 70-99 above high normal Not Available [facility] Department [address] [place], [address], 05/24/2023 03:08:11 05/23/19 24 05/23/2023 COMP. METAB OLIC PANEL (14) BUN 16 mg/dL 6-24 Not Available [facility] Department [address] [place], [address], 05/24/2023 03:08:11 05/23/19 24 05/23/2023 COMP. METAB OLIC PANEL (14) creatinine 0.97 mg/dL 0.76-1 .27 Not Available [facility] Department [address] [place], [address], 05/24/2023 03:08:11 05/23/19 24 05/23/2023 COMP. METAB OLIC PANEL (14) eGFR 68 >=60 Units for eGFR value s are mL/mi n/1.7 3 The eGFR Calcu latio n has not been valid ated for patie nts under the age of 18. If test resul ts are displ ayed for a patie nt under the age of 18, disre hamlet that value . Not Available [facility] Department [address] [place] [address], [address], 05/24/2023 03:08:11 05/23/19 24 05/23/2023 COMP. METAB OLIC PANEL (14) BUN/creatini ne ratio 16 9-23 Not Available [facility] Department [address] [place] [address], [address], 05/24/2023 03:08:11 05/23/19 24 05/23/2023 COMP. METAB OLIC PANEL (14) sodium 139 mmol/ L 134-14 4 Not Available [facility] Department [address] [place] [address], [address], 05/24/2023 03:08:11 05/23/19 24 05/23/2023 COMP. METAB OLIC PANEL (14) potassium 4.4 mmol/ L 3.5-5. 2 Not Available [facility] Department [address] [place] [address], [address], 05/24/2023 03:08:11 05/23/19 24 05/23/2023 COMP. METAB OLIC PANEL (14) chloride 100 mmol/ L 96-106 Not Available [facility] Department [address] [place] [address], [address], 05/24/2023 03:08:11 05/23/19 24 05/23/2023 COMP. METAB OLIC PANEL (14) carbon dioxide, total 25 mmol/ L 20-29 Not Available [facility] Department [address] [place] [address], [address], 05/24/2023 03:08:11 05/23/19 24 05/23/2023 COMP. METAB OLIC PANEL (14) calcium 9.6 mg/dL 8.7-10 .2 Not Available [facility] Department [address] [place], [address], 05/24/2023 03:08:11 05/23/19 24 05/23/2023 COMP. METAB OLIC PANEL (14) protein, total 7.7 g/dL 6.0-8. 5 Not Available [facility] Department [address] [place], [address], 05/24/2023 03:08:11 05/23/19 24 05/23/2023 COMP. METAB OLIC PANEL (14) albumin 4.4 g/dL 3.8-4. 9 Not Available [facility] Department [address] [place], [address], 05/24/2023 03:08:11 05/23/19 24 05/23/2023 COMP. METAB OLIC PANEL (14) globulin, total 3.3 g/dL 1.5-4. 5 Not Available [facility] Department [address] [place], [address], 05/24/2023 03:08:11 05/23/19 24 05/23/2023 COMP. METAB OLIC PANEL (14) A/G ratio 1.3 1.2-2. 2 Not Available [facility] [address] [place], [address], 05/24/2023 03:08:11 05/23/19 24 05/23/2023 COMP. METAB OLIC PANEL (14) bilirubin, total 0.3 mg/dL 0.0-1. 2 Not Available [facility] [address] [place], [address], 05/24/2023 03:08:11 05/23/19 24 05/23/2023 COMP. METAB OLIC PANEL (14) alkaline phosphatase 91 IU/L 44-121 Not Available [facility] [address] [place], [address], 05/24/2023 03:08:11 05/23/19 24 05/23/2023 COMP. METAB OLIC PANEL (14) AST (SGOT) 9 IU/L 0-40 Not Available [facility] [address] [place], [address], 05/24/2023 03:08:11 05/23/19 24 05/23/2023 COMP. METAB OLIC PANEL (14) ALT (SGPT) 12 IU/L 0-32 Not Available [facility] [address] [place], [address], 05/24/2023 03:08:11 05/23/19 24 05/23/2023 CBC WITH DIFFE RENTI AL/PL ATELE T WBC 13.8 x10e3 /uL 3.4-10 .8 above high normal Not Available [facility] [address] [place], [address], 05/24/2023 03:08:12 05/23/19 24 05/23/2023 CBC WITH DIFFE RENTI AL/PL ATELE T RBC 4.41 x10e6 /uL 3.77-5 .28 Not Available [facility] [address] [place], [address], 05/24/2023 03:08:12 05/23/19 24 05/23/2023 CBC WITH DIFFE RENTI AL/PL ATELE T hemoglobin 12.6 g/dL 11.1-1 5.9 Not Available [facility] [address] [place], [address], 05/24/2023 03:08:12 05/23/19 24 05/23/2023 CBC WITH DIFFE RENTI AL/PL ATELE T hematocrit 41.7 % 34.0-4 6.6 Not Available [facility] [address] [place], [address], 05/24/2023 03:08:12 05/23/19 24 05/23/2023 CBC WITH DIFFE RENTI AL/PL ATELE T MCV 95 fL 79-97 Not Available [facility] [address] [place], [address], 05/24/2023 03:08:12 05/23/19 24 05/23/2023 CBC WITH DIFFE RENTI AL/PL ATELE T MCH 28.6 pg 26.6-3 3.0 Not Available [facility] [address] [place], [address], 05/24/2023 03:08:12 05/23/19 24 05/23/2023 CBC WITH DIFFE RENTI AL/PL ATELE T MCHC 30.2 g/dL 31.5-3 5.7 below low normal Not Available [facility] [address] [place], [address], 05/24/2023 03:08:12 05/23/19 24 05/23/2023 CBC WITH DIFFE RENTI AL/PL ATELE T RDW 15.0 % 11.5-1 4.5 above high normal Not Available [facility] [address] [place], [address], 05/24/2023 03:08:12 05/23/19 24 05/23/2023 CBC WITH DIFFE RENTI AL/PL ATELE T platelets 359 x10e3 /uL 150-45 0 Not Available [facility] [address] [place], [address], 05/24/2023 03:08:12 05/23/19 24 05/23/2023 CBC WITH DIFFE RENTI AL/PL ATELE T neutrophils 68 % notest b. Not Available [facility] [address] [place], [address], 05/24/2023 03:08:12 05/23/19 24 05/23/2023 CBC WITH DIFFE RENTI AL/PL ATELE T lymphs 20 % notest b. Not Available [facility] [address] [place], [address], 05/24/2023 03:08:12 05/23/19 24 05/23/2023 CBC WITH DIFFE RENTI AL/PL ATELE T monocytes 6 % notest b. Not Available [facility] [address] [place], [address], 05/24/2023 03:08:12 05/23/19 24 05/23/2023 CBC WITH DIFFE RENTI AL/PL ATELE T eos 5 % notest b. Not Available [facility] [address] [place], [address], 05/24/2023 03:08:12 05/23/19 24 05/23/2023 CBC WITH DIFFE RENTI AL/PL ATELE T basos 1 % notest b. Not Available [facility] [address] [place] [address], [address], 05/24/2023 03:08:12 05/23/19 24 05/23/2023 CBC WITH DIFFE RENTI AL/PL ATELE T neutrophils (absolute) 9.4 x10e3 /uL 1.4-7. 0 above high normal Not Available [facility] [address] [place], [address], 05/24/2023 03:08:12 05/23/19 24 05/23/2023 CBC WITH DIFFE RENTI AL/PL ATELE T lymphs (absolute) 2.8 x10e3 /uL 0.7-3. 1 Not Available [facility] [address] [place], [address], 05/24/2023 03:08:12 05/23/19 24 05/23/2023 CBC WITH DIFFE RENTI AL/PL ATELE T monocytes(ab solute) 0.8 x10e3 /uL 0.1-0. 9 Not Available [facility] [address] [place], [address], 05/24/2023 03:08:12 05/23/19 24 05/23/2023 CBC WITH DIFFE RENTI AL/PL ATELE T eos (absolute) 0.8 x10e3 /uL 0.0-0. 4 above high normal Not Available [facility] [address] [place], [address], 05/24/2023 03:08:12 05/23/19 24 05/23/2023 CBC WITH DIFFE RENTI AL/PL ATELE T baso (absolute) 0.1 x10e3 /uL 0.0-0. 2 Not Available [facility] [address] [place], [address], 05/24/2023 03:08:12 05/23/19 24 05/23/2023 CBC WITH DIFFE RENTI AL/PL ATELE T immature granulocytes 0.4 % notest b. Not Available [facility] [address] [place], [address], 05/24/2023 03:08:12 05/23/19 24 05/23/2023 CBC WITH DIFFE RENTI AL/PL ATELE T immature grans (abs) 0.1 x10e3 /uL 0.0-0. 1 Not Available [facility] [address] [place], [address], 05/24/2023 03:08:12 05/23/19 24 05/23/2023 CBC WITH DIFFE RENTI AL/PL ATELE T NRBC 0 % 0-0 Not Available [facility] [address] [place], [address], 05/24/2023 03:08:12 05/23/19 24 05/27/2023 SPECI MEN STATU S REPOR T specimen status report TNP [facility] was unabl e to colle ct suffi cient speci men to perfo rm the follo wing test( s), and is provi ding the patie nt with re-co llect ion instr uctio ns. TEST: [id number] Hemog lobin A1c Not Available [facility] ([facility]) [address] [facility], [place], [address], 05/27/2023 12:12:51 05/23/19 24 05/27/2023 HEMOG LOBIN A1C hemoglobin A1C - % [facility] was unabl e to colle ct suffi cient speci men to perfo rm the follo wing test( s), and is provi ding the patie nt with re-co llect ion instr uctio ns. Predi abete s: 5.7 - 6.4 Diabe starr: >6.4 Glyce antonia contr ol for adult s with diabe starr: <7.0 Not Available [facility] ([facility]) [address] [facility], [place], [address], 05/27/2023 12:12:51 05/27/19 24 05/28/2023 HEMOG LOBIN A1C hemoglobin A1C 8.7 % 4.8-5. 6 above high normal Predi abete s: 5.7 - 6.4 Diabe starr: >6.4 Glyce antonia contr ol for adult s with diabe starr: <7.0 Not Available [facility] ([facility]) [address] [place], [address], 05/28/2023 06:14:31 01/02/20 24 01/02/2024 LIPID PANEL cholesterol, total 160 mg/dL 100-19 9 Not Available [facility] [address] [place], [address], 01/03/2024 03:08:19 01/02/20 24 01/02/2024 LIPID PANEL triglyceride s 246 mg/dL 0-149 above high normal Not Available [facility] [address] [place], [address], 01/03/2024 03:08:19 01/02/20 24 01/02/2024 LIPID PANEL HDL cholesterol 43 mg/dL 40-999 Not Available [facility] [address] [place] [address], [address], 01/03/2024 03:08:19 01/02/20 24 01/02/2024 LIPID PANEL VLDL cholesterol marbin 49 mg/dL 5-40 above high normal Not Available [facility] [address] [place] [address], [address], 01/03/2024 03:08:19 01/02/20 24 01/02/2024 LIPID PANEL LDL chol calc (nih) 105 mg/dL 0-99 above high normal Not Available [facility] [address] [place] [address], [address], 01/03/2024 03:08:19 01/02/2001/02/2024 COMP. METAB OLIC PANEL (14) glucose 105 mg/dL 70-99 above high normal Not Available [facility] [address] [place] [address], [address], 01/03/2024 03:08:20 01/02/20 24 01/02/2024 COMP. METAB OLIC PANEL (14) BUN 24 mg/dL 6-24 Not Available [facility] [address] [place] [address], [address], 01/03/2024 03:08:20 01/02/20 24 01/02/2024 COMP. METAB OLIC PANEL (14) creatinine 1.14 mg/dL 0.76-1 .27 Not Available [facility] [address] [place] [address], [address], 01/03/2024 03:08:20 01/02/20 24 01/02/2024 COMP. METAB OLIC PANEL (14) eGFR 55 >=60 below low normal Units for eGFR value s are mL/mi n/1.7 3 The eGFR Calcu latio n has not been valid ated for patie nts under the age of 18. If test resul ts are displ ayed for a patie nt under the age of 18, disre hamlet that value . Not Available [facility] [address] [place] [address], [address], 01/03/2024 03:08:20 01/02/20 24 01/02/2024 COMP. METAB OLIC PANEL (14) BUN/creatini ne ratio 02 12- Not Available [facility] Department [address] [place] [address], [address], 01/03/2024 03:08:20 01/02/20 24 01/02/2024 COMP. METAB OLIC PANEL (14) sodium 139 mmol/ L 134-14 4 Not Available [facility] [address] [place] [address], [address], 01/03/2024 03:08:20 01/02/20 24 01/02/2024 COMP. METAB OLIC PANEL (14) potassium 4.8 mmol/ L 3.5-5. 2 Not Available [facility] [address] [place] [address], [address], 01/03/2024 03:08:20 01/02/20 24 01/02/2024 COMP. METAB OLIC PANEL (14) chloride 100 mmol/ L 96-106 Not Available [facility] [address] [place] [address], [address], 01/03/2024 03:08:20 01/02/20 24 01/02/2024 COMP. METAB OLIC PANEL (14) carbon dioxide, total 26 mmol/ L 20-29 Not Available [facility] [address] [place], [address], 01/03/2024 03:08:20 01/02/20 24 01/02/2024 COMP. METAB OLIC PANEL (14) calcium 9.8 mg/dL 8.7-10 .2 Not Available [facility] [address] [place], [address], 01/03/2024 03:08:20 01/02/20 24 01/02/2024 COMP. METAB OLIC PANEL (14) protein, total 8.5 g/dL 6.0-8. 5 Not Available [facility] [address] [place], [address], 01/03/2024 03:08:20 01/02/20 24 01/02/2024 COMP. METAB OLIC PANEL (14) albumin 4.2 g/dL 3.8-4. 9 Not Available [facility] [address] [place], [address], 01/03/2024 03:08:20 01/02/20 24 01/02/2024 COMP. METAB OLIC PANEL (14) globulin, total 4.3 g/dL 1.5-4. 5 Not Available [facility] [address] [place], [address], 01/03/2024 03:08:20 01/02/20 24 01/02/2024 COMP. METAB OLIC PANEL (14) A/G ratio 0.9 1.2-2. 2 below low normal Not Available [facility] [address] [place], [address], 01/03/2024 03:08:20 01/02/20 24 01/02/2024 COMP. METAB OLIC PANEL (14) bilirubin, total <=0.2 mg/dL 0.0-1. 2 Not Available [facility] [address] [place], [address], 01/03/2024 03:08:20 01/02/20 24 01/02/2024 COMP. METAB OLIC PANEL (14) alkaline phosphatase 90 IU/L 44-121 Not Available [facility] [address] [place], [address], 01/03/2024 03:08:20 01/02/20 24 01/02/2024 COMP. METAB OLIC PANEL (14) AST (SGOT) 14 IU/L 0-40 Not Available [facility] Department [address] [place], [address], 01/03/2024 03:08:20 01/02/20 24 01/02/2024 COMP. METAB OLIC PANEL (14) ALT (SGPT) 14 IU/L 0-32 Not Available [facility] [address] [place], [address], 01/03/2024 03:08:20 01/02/2001/02/2024 CBC WITH DIFFE RENTI AL/PL ATELE T WBC 17.9 x10e3 /uL 3.4-10 .8 above high normal Not Available [facility] [address] [place], [address], 01/03/2024 03:08:21 01/02/2001/02/2024 CBC WITH DIFFE RENTI AL/PL ATELE T RBC 4.19 x10e6 /uL 3.77-5 .28 Not Available [facility] [address] [place], [address], 01/03/2024 03:08:21 01/02/2001/02/2024 CBC WITH DIFFE RENTI AL/PL ATELE T hemoglobin 12.1 g/dL 11.1-1 5.9 Not Available [facility] [address] [place], [address], 01/03/2024 03:08:21 01/02/2001/02/2024 CBC WITH DIFFE RENTI AL/PL ATELE T hematocrit 38.7 % 34.0-4 6.6 Not Available [facility] [address] [place], [address], 01/03/2024 03:08:21 01/02/2001/02/2024 CBC WITH DIFFE RENTI AL/PL ATELE T MCV 92 fL 79-97 Not Available [facility] [address] [place], [address], 01/03/2024 03:08:21 01/02/2001/02/2024 CBC WITH DIFFE RENTI AL/PL ATELE T MCH 28.9 pg 26.6-3 3.0 Not Available [facility] [address] [place], [address], 01/03/2024 03:08:21 01/02/20 24 01/02/2024 CBC WITH DIFFE RENTI AL/PL ATELE T MCHC 31.3 g/dL 31.5-3 5.7 below low normal Not Available [facility] [address] [place], [address], 01/03/2024 03:08:21 01/02/2001/02/2024 CBC WITH DIFFE RENTI AL/PL ATELE T RDW 13.3 % 11.5-1 4.5 Not Available [facility] [address] [place], [address], 01/03/2024 03:08:21 01/02/2001/02/2024 CBC WITH DIFFE RENTI AL/PL ATELE T platelets 494 x10e3 /uL 150-45 0 above high normal Not Available [facility] [address] [place], [address], 01/03/2024 03:08:21 01/02/20 24 01/02/2024 CBC WITH DIFFE RENTI AL/PL ATELE T neutrophils 69 % notest b. Not Available [facility] [address] [place], [address], 01/03/2024 03:08:21 01/02/2001/02/2024 CBC WITH DIFFE RENTI AL/PL ATELE T lymphs 21 % notest b. Not Available [facility] [address] [place], [address], 01/03/2024 03:08:21 01/02/20 24 01/02/2024 CBC WITH DIFFE RENTI AL/PL ATELE T monocytes 6 % notest b. Not Available [facility] [address] [place], [address], 01/03/2024 03:08:21 01/02/2001/02/2024 CBC WITH DIFFE RENTI AL/PL ATELE T eos 2 % notest b. Not Available [facility] Department [address] [place], [address], 01/03/2024 03:08:21 01/02/2001/02/2024 CBC WITH DIFFE RENTI AL/PL ATELE T basos 1 % notest b. Not Available [facility] [address] [place], [address], 01/03/2024 03:08:21 01/02/2001/02/2024 CBC WITH DIFFE RENTI AL/PL ATELE T neutrophils (absolute) 12.3 x10e3 /uL 1.4-7. 0 above high normal Not Available [facility] [address] [place], [address], 01/03/2024 03:08:21 01/02/2001/02/2024 CBC WITH DIFFE RENTI AL/PL ATELE T lymphs (absolute) 3.7 x10e3 /uL 0.7-3. 1 above high normal Not Available [facility] [address] [place], [address], 01/03/2024 03:08:21 01/02/2001/02/2024 CBC WITH DIFFE RENTI AL/PL ATELE T monocytes(ab solute) 1.1 x10e3 /uL 0.1-0. 9 above high normal Not Available [facility] [address] [place], [address], 01/03/2024 03:08:21 01/02/20 24 01/02/2024 CBC WITH DIFFE RENTI AL/PL ATELE T eos (absolute) 0.4 x10e3 /uL 0.0-0. 4 Not Available [facility] [address] [place], [address], 01/03/2024 03:08:21 01/02/20 24 01/02/2024 CBC WITH DIFFE RENTI AL/PL ATELE T baso (absolute) 0.1 x10e3 /uL 0.0-0. 2 Not Available [facility] [address] [place], [address], 01/03/2024 03:08:21 01/02/20 24 01/02/2024 CBC WITH DIFFE RENTI AL/PL ATELE T immature granulocytes 1.8 % notest b. Not Available [facility] [address] [place], [address], 01/03/2024 03:08:21 01/02/20 24 01/02/2024 CBC WITH DIFFE RENTI AL/PL ATELE T immature grans (abs) 0.3 x10e3 /uL 0.0-0. 1 above high normal Not Available [facility] [address] [place], [address], 01/03/2024 03:08:21 01/02/20 24 01/02/2024 CBC WITH DIFFE RENTI AL/PL ATELE T NRBC 0 % 0-0 Not Available [facility] [address] [place], [address], 01/03/2024 03:08:21 01/02/20 24 01/03/2024 HEMOG LOBIN A1C hemoglobin A1C 8.2 % 4.8-5. 6 above high normal Predi abete s: 5.7 - 6.4 Diabe starr: >6.4 Glyce antonia contr ol for adult s with diabe starr: <7.0 Not Available [facility] ([facility]) [address] [facility], [place], [address], 01/03/2024 07:13:40 12/22/19 23 12/21/2022 CT, chest , w/o contr ast No observ ation record ed. [facility] [address], [place], [address], 02/01/2023 14:57:27 02/25/20 23 02/23/2023 XR, chest , 2 view No observ ation record ed. [facility] [address], [place], [address], 02/25/2023 10:30:42 03/12/20 23 03/12/2023 MAMMO , scree rama, digit al, bilat eral No observ ation record ed. [facility] [address] [place], [address], 03/17/2023 11:01:54 03/12/20 23 03/12/2023 MAMMO , scree rama, digit al, bilat eral No observ ation record ed. [facility] [address] [place], [address], 03/21/2023 22:25:44 04/27/19 24 04/27/2023 XR, chest , 2 view No observ ation record ed. [address] [place], [address], 05/03/2023 12:21:34 12/30/19 24 12/27/2023 XR, hip, unila teral No observ ation record ed. [address] [place], [address], 01/02/2024 14:48:32 Result Notes Documentation Provider Name and Address Organization Details Recorded Time Mammo, Screening, Digital, Bilateral : Mammogram Mammogram Right: normal Left: normal Conclusion: Conclusions: Bi-Rads 1 - Negative JOSHUA DOSHI MD Attn: Accounting,[address] [facility], [place], [address], [facility] 03/16/2023 10:29:40 Problems Name Problem SNOMED Code Status Onset Date Resolution Date Notes Provider Name and Address Organization Details Recorded Time Acute cecitis 52902700 Active 2019 sees GI/ er Not Available [facility] 4 10:46:26 Mixed anxiety and depressiv e disorder 181956004 Active 2020 Not Available [facility] 4 10:46:26 Diabetes mellitus 23772587 Active 2016 Not Available [facility] 4 10:46:27 Essential hypertens ion 53814320 Active 2016 Not Available [facility] 4 10:46:27 Asthma 402902851 Active 2016 with recurrent bronchitis /pneumonia /multiple allergies- seeing pulmo/katia rgist as well Liliana Peng MD Attn: Accounting ,[address] [place], [address] , [facility] - [facility] 4 08:59:37 Seasonal allergy 232871387 Active 2016 seeing statistician mathematical Not Available [facility] 4 10:46:26 Hyperlipi demia 03992963 Active 2016 Not Available [facility] 4 10:46:27 Notes:Some problems listed i n Documents: #[id number], #[id number] could not be added to this patient's chart. Please review these documents and add these problems to the patient's chart manually as needed. Problem Notes None recorded. Procedures Surgical History Date Name Laterality Status Provider Name and Address Organization Details Recorded Time 2 Date of Last Mammogram completed Esther Costello [place] - [place] 09/23/2022 09:20:46 2 debridement of wound of skin completed Oneyda Wells [place] - [facility] 09/22/2021 10:48:51 9 Colonoscopy with biopsy completed Liliana Peng MD Attn: Accounting, [place], [address], [place] [facility] 02/09/2019 14:12:48 7 Date of Last Pap Smear completed Esther Costello [place] - [facility] 10/05/2016 11:51:00 02/16/201 7 Nebulizer tx completed Sarah Fournier PA-C Attn: Accounting,[address], [place], [address], [place] 04/29/2016 18:23:36 4 Other completed Esther Costello [place] - [facility] 09/28/2016 17:17:38 3 [facility]2016 17:16:44 0 [facility]/28/2016 17:16:25 Imaging Results Imaging Date Name Status LastModified by Organiz ation Details LastModified Time 12/21/2022 CT, chest, w/o contrast completed [place] [address], [place], [address], 02/01/2023 14:57:27 02/23/2023 XR, chest, 2 view completed [facility] [address], [place], [address], 02/25/2023 10:30:42 03/12/2023 MAMMO, screening, digital, bilateral completed [address] [place], [address], 03/17/2023 11:01:54 03/12/2023 MAMMO, screening, digital, [facility] [address] [place], [address], 03/21/2023 22:25:44 04/27/2023 XR, chest, 2 view completed [address] [place], [address], 05/03/2023 12:21:34 12/27/2023 XR, hip, unilateral completed [address] [place], [address], 01/02/2024 14:48:32 Procedure Notes None recorded. Medical Equipment None Reported. Allergies Allergen ID Allergen Name Allergen Category Reaction Reaction Severity Criticality Documentation Date Start Date Code Code System Note Provider Name and Address Organization Details Recorded Time [id number] banana extract food,medi cation wheezing severe Not available 04/29/2016 28794 9 RxNorm Not Available Not Available Not Available [id number] 117a9 grass pollen environme nt,medica tion cough severe Not available 04/29/2016 88169 UNK Not Available Not Available Not Available [id number] 117a9 mold extract environme nt cough severe Not available 04/29/2016 32479 8 RxNorm Not Available Not Available Not Available [id number] 117a9 ragweed pollen environme nt cough severe Not available 04/29/2016 11604 UNK Not Available Not Available Not Available Medications Name Sig Start Date Stop Date Status Note LastModified by Organization Details LastModified Time allergy nasa spr 50mcg 03/22 completed Not Available Not Available Not Available Prescript ion - Prior Authoriza tion Request 09/28 completed Not Available Not Available Not Available cetirizin e 5 mg-pseudo ephedrine ER 120 mg tablet,ex tended release,1 2hr Take 1 tablet every 12 hours by oral route for 30 days. 01/04 completed Not Available Not Available Not Available cyclobenz aprine 10 mg tablet TAKE 1 TABLET BY MOUTH TWICE DAILY FOR 15 DAYS NEEDED 07/04 completed not taking Not Available Not Available Not Available amoxicill in 500 mg capsule TAKE 1 CAPSULE BY MOUTH THREE TIMES DAILY FOR 7 DAYS 01/01 completed Not Available Not Available Not Available metformin 500 mg tablet TAKE 1 TABLET BY MOUTH EVERY DAY AT DINNER 05/25 completed Not Available Not Available Not Available prednison e 10 mg tablet take 4 tabs PO daily x 5 days, then take 1 tab PO daily x 7 days, then take 1/2 tab PO daily x 7 days, then 1/2 tab PO every other day x 7 days, then stop 10/23 completed Not Available Not Available Not Available doxycycli ne hyclate 100 mg capsule Take 1 capsule twice a day by oral route for 7 days. 09/22 completed Not Available Not Available Not Available cromolyn 5.2 mg/spray (4 %) nasal spray USE 1 SPRAY IN EACH NOSTRIL THREE TIMES DAILY NEEDED 09/02 completed not using Not Available Not Available Not Available albuterol sulfate 2.5 mg/3 mL (0.083 %) solution for nebulizat ion USE 1 VIAL VIA NEBULIZE R EVERY 4 TO 6 HOURS NEEDED active Not Available Not Available No t Available azithromy thomas 250 mg tablet TAKE 2 TABLETS (500 MG) BY ORAL ROUTE ONCE DAILY FOR 1 DAY THEN 1 TABLET (250 MG) BY ORAL ROUTE ONCE DAILY FOR 4 DAYS 05/22 completed Not Available Not Available Not Available ibuprofen 800 mg tablet Take 1 tablet 3 times a day by oral route for 10 days. 09/28 completed Not Available Not Available Not Available tizanidin e 4 mg tablet TAKE 1 TABLET BY MOUTH TWICE DAILY 2023 active Not Available Not Available Not Avai lable glipizide ER 10 mg tablet, extended release 24 hr TAKE 1 TABLET BY MOUTH EVERY DAY WITH MEALS 09/28 completed Not Available Not Available Not Available ondansetr on HCl 4 mg tablet TAKE 1 TABLET BY MOUTH TWICE DAILY active Not Available Not Available No t Available prednison e 20 mg tablet TAKE 3 TABLETS BY MOUTH EVERY DAY WITH FOOD FOR 5 DAYS 05/22 completed Not Available Not Available Not Available simvastat in 10 mg tablet TAKE 1 TABLET BY MOUTH EVERY DAY 05/25 completed Not Available Not Available Not Available verapamil ER (SR) 180 mg tablet,ex tended release TAKE 1 TABLET BY MOUTH EVERY DAY 07/27 completed Not Available Not Available Not Available Zyrtec 10 mg tablet Take 1 tablet every day by oral route as needed. 01/04 completed Not Available Not Available Not Available metronida zole 500 mg tablet 05/27 completed Not Available Not Available Not Available ciproflox acin 500 mg tablet 05/27 completed Not Available Not Available Not Available sulfameth oxazole 800 mg-trimet hoprim 160 mg tablet Take 1 tablet every 12 hours by oral route with meals for 7 days. 09/26 completed Not Available Not Available Not Available tramadol 50 mg tablet TAKE 1 TABLET BY MOUTH TWICE DAILY NEEDED active Not Available Not Available No t Available amoxicill in 500 mg tablet TAKE 1 TABLET BY MOUTH EVERY 8 HOURS FOR 7 DAYS 11/21 completed Not Available Not Available Not Available simvastat in 40 mg tablet TAKE 1 TABLET BY MOUTH EVERY DAY active Not Available Not Available No t Available glimepiri de 2 mg tablet TAKE 1 TABLET BY MOUTH EVERY DAY 2024 active Not Available Not Available Not Avai lable meloxicam 7.5 mg tablet 04/29 completed Not Available Not Available Not Available amoxicill in 875 mg tablet 06/28 completed Not Available Not Available Not Available [facility] strips USE TO TEST BLOOD SUGAR EVERY DAY active Not Available Not Available No t Available benzonata te 100 mg capsule TAKE 1 CAPSULE BY MOUTH EVERY 8 HOURS NEEDED 05/22 completed prn Not Available Not Available Not Available doxycycli ne monohydra te 100 mg capsule 05/22 completed Not Available Not Available Not Available cephalexi n 500 mg capsule TAKE 1 CAPSULE BY MOUTH EVERY 12 HOURS FOR 10 DAYS 09/22 completed Not Available Not Available Not Available simvastat in 20 mg tablet TAKE 1 TABLET BY MOUTH DAILY 02/09 completed Not Available Not Available Not Available naproxen sodium 550 mg tablet 04/29 completed Not Available Not Available Not Available oseltamiv ir 75 mg capsule 05/23 completed Not Available Not Available Not Available metformin 1,000 mg tablet TAKE 1 TABLET BY MOUTH TWICE DAILY WITH FOOD 2023 active Not Available Not Available Not Avai lable lisinopri l 10 mg tablet TAKE 1 TABLET BY MOUTH EVERY DAY WITH HYDROCHL OROTHIAZ JESSICA active Not Available Not Available No t Available prednison e 50 mg tablet 01/22 completed Not Available Not Available Not Available Advair Diskus 500 mcg-50 mcg/dose powder for inhalatio n INHALE 1 PUFF BY MOUTH TWICE DAILY 05/23 completed Not Available Not Available Not Available zafirluka st 20 mg tablet TAKE 1 TABLET BY MOUTH TWICE DAILY active Not Available Not Available No t Available lisinopri l 20 mg-hydroc hlorothia zide 25 mg tablet TAKE 1 TABLET BY MOUTH EVERY DAY 01/04 completed Not Available Not Available Not Available verapamil ER (SR) 240 mg tablet,ex tended release TAKE 1 TABLET BY MOUTH EVERY DAY 2023 active Not Available Not Available Not Avai lable Personal Best Full Range device 01/04 completed Not Available Not Available Not Available codeine 10 mg-guaife nesin 100 mg/5 mL oral liquid TAKE 5 ML BY MOUTH EVERY 6 HOURS NEEDED. 01/22 completed Not Available Not Available Not Available azelastin e 137 mcg (0.1 %) nasal spray 01/04 completed Not Available Not Available Not Available lisinopri l 10 mg-hydroc hlorothia zide 12.5 mg tablet TAKE 1 TABLET BY MOUTH EVERY DAY 09/26 completed Not Available Not Available Not Available levofloxa thomas 500 mg tablet TAKE 1 TABLET BY MOUTH EVERY 24 HOURS FOR 7 DAYS 04/12 completed Not Available Not Available Not Available levofloxa thomas 750 mg tablet TAKE 1 TABLET BY MOUTH DAILY FOR 7 DAYS 04/17 completed Not Available Not Available Not Available methylpre dnisolone 4 mg tablets in a dose pack FOLLOW PACKAGE DIRECTIO NS 09/02 completed Not Available Not Available Not Available albuterol sulfate HFA 90 mcg/actua tion aerosol inhaler INHALE 2 PUFFS BY MOUTH EVERY 4 TO 6 HOURS NEEDED active Not Available Not Available No t Available SSD 1 % topical cream APPLY EXTERNAL LY TO THE AFFECTED AREA EVERY 12 HOURS 09/22 completed complete d Not Available Not Available Not Available fluticaso ne propionat e 50 mcg/actua tion nasal spray,ganga pension SHAKE LIQUID AND USE 2 SPRAYS IN EACH NOSTRIL DAILY active Not Available Not Available No t Available doxycycli ne hyclate 100 mg tablet TAKE 1 TABLET BY MOUTH TWICE DAILY FOR 10 DAYS 05/22 completed Not Available Not Available Not Available naproxen 500 mg tablet TAKE 1 TABLET BY MOUTH TWICE DAILY WITH FOOD active Not Available Not Available No t Available amoxicill in 875 mg-potass ium clavulana te 125 mg tablet TAKE 1 TABLET BY MOUTH EVERY 12 HOURS FOR 7 DAYS 05/22 completed Not Available Not Available Not Available bupropion HCl XL 150 mg 24 hr tablet, extended release TAKE 1 TABLET BY MOUTH EVERY DAY 2023 active Not Available Not Available Not Avai lable OneTouch Ultra2 Meter kit 01/04 completed Not Available Not Available Not Available hydrochlo rothiazid e 12.5 mg tablet TAKE 1 TABLET BY MOUTH EVERY DAY WITH LISINOPR [place] 2024 active Not Available Not Available Not Avai lable Symbicort 160 mcg-4.5 mcg/actua tion HFA aerosol inhaler 04/29 completed Not Available Not Available Not Available Neilmed Sinus Rinse Complete with packet use as directed 08/29 completed Not Available Not Available Not Available OneTouch Delica Lancets 30 gauge 02/16 completed Not Available Not Available Not Available Victoza 2-Matthew 0.6 mg/0.1 mL (18 mg/3 mL) subcutane ous pen injector ADMINIST ER 1.8 MG UNDER THE SKIN EVERY DAY 2023 active Not Available Not Available Not Avai lable fluticaso ne 232 mcg-salme terol 14 mcg/actua tion breath activated powdr INHALE 1 PUFF BY MOUTH TWICE DAILY active Not Available Not Available No t Available Wixela Inhub 250 mcg-50 mcg/dose powder for inhalatio n INHALE 1 PUFF BY MOUTH TWICE DAILY 01/22 completed not taking Not Available Not Available Not Available ID NOW COVID-19 Test Kit TEST DIRECTED 07/04 completed Not Available Not Available Not Available Dupixent 300 mg/2 mL subcutane ous pen injector active Not Available Not Available Not Available Trelegy Ellipta 200 mcg-62.5 mcg-25 mcg powder for inhalatio n INHALE 1 PUFF BY MOUTH DAILY active Not Available Not Available No t Available BinaxNOW COVID-19 Ag Self Test kit TEST DIRECTED TODAY 09/02 completed Not Available Not Available Not Available Airsupra 90 mcg-80 mcg/actua tion HFA aerosol inhaler INHALE 2 PUFFS BY MOUTH EVERY 4 HOURS NEEDED FOR SHORTNES S OF BREATH active Not Available Not Available No t Available Vitals Date Recorded Body height Provider Name an d Address Organization Details Last Updated DateTime 12/28/2022 165.1 cm Esther Costello MA [facility] 12/28 09:04:55 Date Recorded Body mass index (BMI) Body weight Provider Name and Address Organization Details Last Updated DateTime 12/28/2022 30.9 kg/m2 46910.46 g Esther Costello MA [facility] 12/28/2022 09:05:03 Date Recorded Heart rate Provider Name an d Address Organization Details Last Updated DateTime 12/28/2022 117 /min Esther Costello MA [facility] 12/28 09:05:06 Date Recorded Body temperature Provider Name a nd Address Organization Details Last Updated DateTime 12/28/2022 97.5 [degF] Esther Costello MA [facility] 12/28/2022 09:05:11 Date Recorded Oxygen saturation Oxygen saturation in Arterial blood by Pulse oximetry Provider Name and Address Organization Details Last Updated DateTime 12/28/2022 89 % 89 % Esther Costello MA [facility] 12/28/2022 09:06:26 Date Recorded Body height Provider Name an d Address Organization Details Last Updated DateTime 05/23/2023 165.1 cm Oneyda Wells MA [facility] 05/23/19 24 14:06:14 Date Recorded Body mass index (BMI) Body weight Provider Name and Address Organization Details Last Updated DateTime 05/23/2023 31.5 kg/m2 56261.04 g Oneyda Wells MA [facility] 05/23/2023 14:12:36 Date Recorded Heart rate Provider Name an d Address Organization Details Last Updated DateTime 05/23/2023 76 /min Oneyda Wells MA [facility] 05/23/19 24 14:12:48 Date Recorded Respiratory rate Provider Name a nd Address Organization Details Last Updated DateTime 05/23/2023 14 /min Oneyda Wells MA [facility] 05/23/19 24 14:12:51 Date Recorded Body temperature Provider Name a nd Address Organization Details Last Updated DateTime 05/23/2023 97.1 [degF] Oneyda Wells MA [facility] 024 14:12:58 Date Recorded Oxygen saturation Oxygen saturation in Arterial blood by Pulse oximetry Provider Name and Address Organization Details Last Updated DateTime 05/23/2023 97 % 97 % Oneyda Wells MA [facility] 05/23/2023 14:13:03 Date Recorded Body height Provider Name an d Address Organization Details Last Updated DateTime 07/11/2023 165.1 cm Oneyda Wells MA [facility] 07/11/19 08:40:20 Date Recorded Body mass index (BMI) Body weight Provider Name and Address Organization Details Last Updated DateTime 07/11/2023 31.2 kg/m2 36895.29 SARAH Baca 07/11/2023 08:46:46 Date Recorded Heart rate Provider Name an d Address Organization Details Last Updated DateTime 07/11/2023 96 /min SARAH Hilario 07/11/19 08:46:58 Date Recorded Respiratory rate Provider Name a nd Address Organization Details Last Updated DateTime 07/11/2023 14 /min SARAH Hilario 07/11/19 08:47:00 Date Recorded Body temperature Provider Name a nd Address Organization Details Last Updated DateTime 07/11/2023 97.2 [degF] SARAH Hilario 024 08:47:02 Date Recorded Oxygen saturation Oxygen saturation in Arterial blood by Pulse oximetry Provider Name and Address Organization Details Last Updated DateTime 07/11/2023 97 % 97 % SARAH Hilario 07/11/2023 08:47:10 Date Recorded Body height Provider Name an d Address Organization Details Last Updated DateTime 12/27/2023 165.1 cm SARAH Hilario 12/27/19 14:32:08 Date Recorded Body mass index (BMI) Body weight Provider Name and Address Organization Details Last Updated DateTime 12/27/2023 30 kg/m2 85915.35 g SARAH Hilario 12/27/2023 14:37:42 Date Recorded Body temperature Provider Name a nd Address Organization Details Last Updated DateTime 12/27/2023 97.2 [degF] SARAH Hilario 024 14:38:51 Date Recorded Heart rate Provider Name an d Address Organization Details Last Updated DateTime 12/27/2023 118 /min SARAH Hilario 12/27/19 14:39:59 Date Recorded Respiratory rate Provider Name a nd Address Organization Details Last Updated DateTime 12/27/2023 14 /min SARAH Hilario 12/27/19 14:40:01 Date Recorded Oxygen saturation Oxygen saturation in Arterial blood by Pulse oximetry Provider Name and Address Organization Details Last Updated DateTime 12/27/2023 96 % 96 % Oneyda Wells MA [facility] 12/27/2023 14:40:06 Date Recorded Body height Provider Name an d Address Organization Details Last Updated DateTime 01/02/2024 165.1 cm Coral Gunderson MA [facility] 01/01 14:40:31 Date Recorded Body mass index (BMI) Body weight Provider Name and Address Organization Details Last Updated DateTime 01/02/2024 30.3 kg/m2 15589.81 g Coral Gunderson MA [facility] 01/02/2024 14:42:05 Date Recorded Heart rate Provider Name an d Address Organization Details Last Updated DateTime 01/02/2024 111 /min Coral Gunderson MA [facility] 01/01 14:42:09 Date Recorded Body temperature Provider Name a nd Address Organization Details Last Updated DateTime 01/02/2024 97.8 [degF] Coral Gunderson MA [facility] 01/02/2024 14:42:15 Date Recorded Oxygen saturation Oxygen saturation in Arterial blood by Pulse oximetry Provider Name and Address Organization Details Last Updated DateTime 01/02/2024 95 % 95 % Coral Gunderson MA [facility] 01/02/2024 14:42:20 Date Recorded Respiratory rate Provider Name a nd Address Organization Details Last Updated DateTime 01/02/2024 16 /min Coral Gunderson MA [facility] 01/02/2024 14:43:58 Date Recorded Systolic blood pressure Diastolic blood pressure Provider Name and Address Organization Details Last Updated DateTime 12/28/2022 161 mm[Hg] 91 mm[Hg] Esther Costello MA [facility] 12/28/2022 09:06:30 Date Recorded Systolic blood pressure Diastolic blood pressure Provider Name and Address Organization Details Last Updated DateTime 05/23/2023 111 mm[Hg] 94 mm[Hg] Oneyda Wells MA [facility] 05/23/2023 14:12:45 Date Recorded Systolic blood pressure Diastolic blood pressure Provider Name and Address Organization Details Last Updated DateTime 07/11/2023 110 mm[Hg] 75 mm[Hg] Oneyda Wells [place] [facility] 07/11/2023 08:46:54 Date Recorded Systolic blood pressure Diastolic blood pressure Provider Name and Address Organization Details Last Updated DateTime 12/27/2023 126 mm[Hg] 83 mm[Hg] Oneyda Wells [place] [facility] 12/27/2023 14:39:00 Date Recorded Systolic blood pressure Diastolic blood pressure Provider Name and Address Organization Details Last Updated DateTime 01/02/2024 124 mm[Hg] 75 mm[Hg] Coral SARAH Gunderson [place] [facility] 01/02/2024 14:43:54 Social History Question Answer Notes LastModified by Organizat ion Details LastModified Time Tobacco Smoking Status Former Smoker quit 2000 Not Available [employer] 01/15/2020 03:39:28 Do You Have An Advance Directive? No Information not available 10/06/2020 What Is Your Level Of Alcohol Consumption? Occasional Holiday's [id number] Information not available 01/15/2020 Are You Blind Or Do You Have Difficulty Seeing? No Reading Glasses Information not available 06/10/2021 Is Blood Transfusion Acceptable In An Emergency? Yes [id number] Information not available 01/15/2020 What Is Your Level Of Caffeine Consumption? Moderate Coffee [id number] Information not available 01/15/2020 How Much Tobacco Do You Chew? None [id number] Information not available 01/15/2020 In The 14 Days Before Symptom Onset, Have You Had Close Contact With A Laboratory-confir med COVID-19 While That Case Was Ill? No [id number] Information not available 01/15/2020 In The 14 Days Before Symptom Onset, Have You Had Close Contact With A Person Who Is Under Investigation For COVID-19 While That Person Was Ill? No [id number] Information not available 01/15/2020 Have You Been To An Area Known To Be High Risk For COVID-19? 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 Yes [id number] Information not available 01/15/2020 Are You Deaf Or Do You Have Serious Difficulty Hearing? No [email or web address] Information not available 06/06/2020 What Type Of Diet Are You Following? DIABETIC [id number] Information not available 01/15/2020 Which Illicit Or Recreational Drugs Have You Used? Denies [id number] Information not available 01/15/2020 Do You Or Have You Ever Used E-cigarettes Or Vape? Never Used Electronic Cigarettes [id number] Information not available 01/15/2020 Education 12 Information no t available 09/28/2016 What Is The Highest Grade Or Level Of School You Have Completed Or The Highest Degree You Have Received? 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 No [id number] Information not available 01/15/2020 Live Alone Or With Others? With Others Information not available 09/28/2016 Marital Status [email or web address] Informati on not available 04/29/2016 What Was The Date Of Your Most Recent Tobacco Screening? 12/27/2023 Information not available 12/27/2023 How Many Children Do You Have? 1 [id number] Information not available 01/15/2020 Performs Monthly Self-breast Exam? Yes Information no t available 01/23/2020 Do You Use Protection During Sex? No [id number] Information not available 01/15/2020 What Is Your Relationship Status? [id number] Information not available 01/15/2020 Do You Use Your Seat Belt Or Car Seat Routinely? Yes [email or web address] Information not available 06/06/2020 Seat Belts Used Routinely Yes Information not available 09/28/2016 Are You Sexually Active? Yes [id number] Information not available 01/15/2020 Smoke Alarm In Home Yes [email or web address] Information not available 01/04/2019 Do You Have Smoke And Carbon Monoxide Detectors In Your Home? Yes [email or web address] Information not available 06/06/2020 At What Age Did You Start Smoking Tobacco? 17 [id number] Information not available 01/15/2020 Are You Passively Exposed To Smoke? No [email or web address] Information no t available 05/01/2021 Do You Or Have You Ever Used Smokeless Tobacco? Never Used Smokeless Tobacco [id number] Information not available 01/15/2020 How Much Tobacco Do You Smoke? No [id number] Information not available 01/15/2020 General Stress Level Medium Med - High Information not available 01/23/2020 Do You Feel Stressed (tense, Restless, Nervous, Or Anxious, Or Unable To Sleep At Night)? [id number] Information not available 06/10/2021 Do You Use Any Illicit Or Recreational Drugs? No [email or web address] Information not available 06/06/2020 Do You Use Sunscreen Routinely? Yes [id number] Information not available 01/15/2020 Has Tobacco Cessation Counseling Been Provided? No Information not available 09/22/2021 On What Date Was Tobacco Cessation Counseling Provided? 12/27/2023 Information not available 12/27/2023 How Many Years Have You Smoked Tobacco? 17 [id number] Information not available 01/15/2020 Do You Or Have You Ever Used Any Other Forms Of Tobacco Or Nicotine? No [email or web address] Information not available 06/06/2020 Sex: Female Functional Status Question Answer Note LastModified by Risk Management Solution ion Details LastModified Time Are you able to care for yourself? Yes [email or web address] Information not available 06/06/2020 What is your exercise level? Occasional Information not available 10/06/2020 Mental Status None recorded. Family History Nothing Reported Notes:pt was adopted Medical History Condition Response Coronary Artery Disease N Other N High Blood Pressure Y Atrial Fibrillation N Breast Cancer N Lung Disease N Depression N COPD N Blood Clots N Breast Problem N Anesthesia Complications N Headaches/Migraines N Anxiety Disorder N Muscle, Joint, or Bone Problems N Infertility N Polyps N Acid Reflux (GERD) N Cancer N Stroke N Endometriosis N High Cholesterol N Liver Disease N Headaches N Thyroid Problems N Kidney or Bladder Problems N GI Problems N Acne N Eating Disorder N Skin Problems N Anemia N Heart Attack (CO) N Diabetes Y Ovarian Cancer N Blood Transfusions N Seizures/Epilepsy N Abuse/Domestic Violence N Asthma Y Allergies Y Hepatitis N Heart Disease N Pre-Eclampsia N Heart Failure N Osteoporosis Y Gynecological History Statement/Question Response Abnormal Pap N Date of Last Mammogram 03/11/2022 Flow Heavy Date of LMP 03/15/2016 On BCP's at Conception? N STIs/STDs N HPV Vaccine N Duration of Flow (days) 5 Age at Menarche 13 Current Control Method Partner Vas ectomy Age at First Child 24 If Post Menopausal, Age at Menopause 49 Sexually Active? Y Menses Monthly N Date of Last Pap Smear 09/28/2016 Sexual Problems? N LMP Approximate Desired Control Method Other Obstetrics History GPAL:G 1 P 1 0 0 1 Type Value Multiple Births 0 Full Term 1 Induced 0 Spontaneous 0 Premature 0 Living 1 Ectopics 0 Total 1 Immunizations Vaccine Type Date Status Note Provider Nam e and Address Organization Details Recorded Time Influenza, split virus, quadrivalent, preservative 0 completed Not Available [facility] 05/01/2023 00:48:19 SARS-COV-2 (COVID-19) vaccine, UNSPECIFIED 1 completed Not Available [facility] 05/01/2023 00:48:19 SARS-COV-2 (COVID-19) vaccine, UNSPECIFIED 1 completed Not Available [facility] 05/01/2023 00:48:19 Influenza, split virus, quadrivalent, preservative 7 completed Not Available [facility] 03/31/2019 02:33:24 Influenza, split virus, quadrivalent, PF 7 completed Not Available [facility] 03/31/2019 02:46:40 Tdap 8 completed Not Available [facility] 03/31/2019 02:39:48 Influenza, split virus, quadrivalent, preservative 9 completed Not Available [facility] 03/31/2019 02:37:00 Influenza, split virus, quadrivalent, preservative 9 completed Not Available [facility] 03/31/2019 02:38:42 Influenza, split virus, quadrivalent, preservative 1 completed My guerra, [place] [facility] 02/09/2021 12:45:35 COVID-19, mRNA, LNP-S, PF, 30 mcg/0.3 mL dose 1 completed SARAH H[place] [facility] 03/24/2021 10:51:12 Pneumococcal conjugate PCV20, polysaccharide [id number] conjugate, adjuvant, PF 2 completed Oneyda Wells [place], [place] [facility] 09/22/2021 15:20:33 Influenza, split virus, quadrivalent, preservative 2 completed Liliana Peng MD Attn: [address] [place], [address], [place] [facility] 01/28/2022 13:54:29 Influenza, split virus, quadrivalent, preservative 3 completed Liliana Peng MD Attn: [address] [place], [address], [place] [facility] 12/20/2022 14:29:15 Influenza, split virus, trivalent, preservative 4 completed Liliana Peng MD Attn: [address] [place], [address], [place] [facility] 01/02/2024 15:14:40 Past Encounters Encounter ID Performer Location Encounter Start Date Encounter Closed Date Diagnosis/Indication Diagnosis SNOMED-CT Code Diagnosis ICD10 Code Diagnosis Note [id number] MEREDITH Beckman (Adult Med) [address] [place] [address] 04/29/2016 14:11:17 04/30/2016 09:39:00 Asthma 100520752 J45.41 uncontroll ed for a while, triggers are allergens (many) and odors. Improved lung sounds after one nebulizer treatment, no oral steroids at this time, resume Advair, albuterol & PRN nebulizer, discussed how to use peak flow meter to guage when to increase nebulizer use. Treat allergies aggressive ly. Cont mucinex Hypoxia 627625054 R09.02 improved from 87% to 91% after one nebulizer treatment Essential hypertension 16519617 I10 uncontroll ed with tachycardi a, out of meds for past month. Pt will restart meds today and check BP at home, f/u in 4 weeks Diabetes mellitus 043068 09 E11.9 was well controlled prior to stopping meds. Seasonal allergy 3268750 04 J30.2 cont zyrtec or other OTC anti-hista mine Obese 749159695 E66.9 BMI of 35, she will start going to the gym again now that asthma medication s are restarted. Influenza vaccine needed [id number] 106 Z23 [id number] MEREDITH Beckman (Adult Med) [address] [place] [address] 05/31/2016 15:45:55 06/01/2016 13:04:07 Seasonal allergy 891062829 J30.2 Worse this time of year, doing well on generic singulair & taking claritin as well. Cont flonase PRN. Asthma 377607055 J45.41 Well controlled with current medication s. Hypoxia is resolved. Essential hypertension 72344660 I10 Better controlled with restarting medication s Diabetes mellitus 500611 09 E11.9 A1c 6.8%, restarted meds and feels better. Trying to increase exercise at gym and follows low carb diet. Cont current meds. Hyperlipidemia 55068086 E78.5 cont low dose simvastati n, repeat labs at 3mo f/u Menopausal syndrome 1237 77197 N95.9 Screening for malignant neoplasm of breast 831908737 Z12.31 [id number] MEREDITH Beckman (Adult Med) [address] [place] [address] 08/31/2016 16:14:26 09/01/2016 09:36:19 Essential hypertension 18228290 I10 Elevated today, may be related to her hip pain. Monitor at home, if BP continues to be above 140/90, call office and we can increase her BP meds. Diabetes mellitus 724929 09 E11.9 A1c 6.8%, Trying to start exercise at gym with boot camp and follows diabetic diet especially w/ trying to get her mom's blood sugars to improve. Cont current meds. Hyperlipidemia 27361329 E78.5 cont low dose simvastati n, repeat labs at 3mo f/u Screening for malignant neoplasm of breast 387155214 Z12.31 reminded to get her mammogram scheduled Body mass index 30+ - obesity 085622751 Z68.35 OK to return to boot camp for upper extremity workout, but avoid any lower body workouts until hip injury further evaluated. Hip pain 24691053 M25.55 1 gait instabilit y w/ weight bearing, worrisome as she is high risk for falling. Limit ibuprofen use to TID for 2-3 days then use as needed, can cause BP to increase Screening for malignant neoplasm of colon 064526661 Z12.11 dwp getting colonoscop y, she will consider. discuss again at f/u visit [id number] MEREDITH Beckman (Adult Med) [address] [place] [address] 09/28/2016 11:35:25 09/29/2016 09:37:45 Hip pain 95662877 M25.551 much improved, gait has normalized . cont stretches at home. limit NSAID use. Lumbosacra l radiculopathy 8816084 M54.16 persistent numbness to anterior tibia, cont to work with PT Essential hypertension 11761608 I10 controlled now that pain is improved. cont current meds [id number] Kristina Siu (IMAGE ASSEMBLER) [address] [place] [address] 09/28/2016 16:54:12 10/06/2016 14:49:03 Gynecologic examination 97369638 Z01.411 Last pap 2011. Pap done. Venereal d isease screening 029469825 Z11.3 RTO one week for results. Screening for malignant neoplasm of breast 620685633 Z12.31 UTD Screening for malignant neoplasm of colon 006238036 Z12.11 Pt. encouraged to have colonoscop y done. Obesity 968458486 E66.9 Nutrition and exercise discussed. [id number] Kristina Siu (IMAGE ASSEMBLER) [address] [place] [address] 10/05/2016 11:47:51 10/07/2016 14:25:41 Gynecologic examination 91074301 Z01.411 Last pap done 09/28/16 was negative with negative hr-HPV, dwp. Venereal d isease screening 212093073 Z11.3 Vaginal culture was negative for gonorrhea, chlamydia, and trichomona s, dwp. STD panel was also completely negative. Individual test results dwp. [id number] MEREDITH Beckman (Adult Med) [address] [place] [address] 01/04/2017 16:10:36 01/06/2017 17:38:27 Seasonal allergy 594123384 J30.2 restart flonase, cont claritin Diabetes mellitus 183822 09 E11.9 out of meds for 3 days due to shortage at pharmacy so she has had some high post-prand ial numbers. has been working on diet because she is also trying to get her mom's blood sugars to go down, eats breakfast & lunch at school, at times doesn't eat dinner, not much appetite. recommend patient have own glucometer so she can monitor more closely; last a1c 7.5%, goal is 7% or less. Administra tion of influenza vaccine 79503648 Z23 Essential hypertension 09238742 I10 out of meds for 3 days due to shortage at pharmacy so BP is higher than her usual, at home usually 120-130s systolic, 80-90s diastolic. Hyperlipidemia 99646554 E78.5 cont low dose simvastati n, repeat labs today. discussed aspirin use, she will consider. Screening for malignant neoplasm of colon 568399465 Z12.11 couldn't schedule due to no response from GI clinic. Will see if she can get colonoscop y next summer. she is ok w/ getting FIT test today. Body mass index 30+ - obesity 497142169 Z68.35 reviewed diet & exercise w/ patient, increase activity to see if weight goes down. Next visit goal, weight loss of 5-10 lbs. [id number] MEREDITH Beckman (Adult Med) [address] [place] [address] 05/25/2017 09:39:47 05/25/2017 17:14:40 Seasonal allergic rhinitis 344978301 J30.2 cont anti-hista mine. stop cold/flu med as it can increase BP Asthma 186232319 J45.41 Decreased O2 sat at home down to 90% w/ activity; diminished expiratory breath sounds on exam, likely contributi ng to cough. treat for allergies and increase nebulizer treatments to QID while having shortness of breath and cough. Diabetes mellitus 269132 09 E11.9 controlled , has lost 17 lbs since oct visit. Cont current meds metformin, victoza, & glipizide. No hypoglycem ia sxs. medrol pack will increase blood sugars Essential hypertension 16834896 I10 elevated today, possibly due to illness and recent use of cold/flu med. monitor at home. Hyperlipidemia 31670170 E78.5 cont low dose simvastati n, repeat labs today. discussed aspirin use, she will consider. [id number] MEREDITH Beckman (Adult Med) [address] [place] [address] 09/28/2017 09:27:25 09/30/2017 17:29:30 Asthma 128267804 J45.41 O2 sats at home staying 92% and above. Advised her to restart flonase. If using ventolin more than twice a day or more than 3 times a week, then start using nebulizers , cont Advair BID and gargle after each use. Diabetes mellitus 862565 09 E11.9 controlled , has lost 23 lbs since Oct visit. Cont current meds metformin and victoza. No hypoglycem ia sxs. Cont diabetic diet and stay active Essential hypertension 48607166 I10 mildly elevated today, cont w/ weight loss, diet & exercise, cont lisinopril -hctz Hyperlipidemia 10884593 E78.5 cont low dose simvastati n, repeat labs today. discussed aspirin use, she will consider. Seasonal allergy 3922133 04 J30.2 restart flonase, cont claritin Caregiver role strain 12 7972451 Z73.3 provided patient with contact informatio n for [employer] Administra tion of diphtheria, pertussis, and tetanus vaccine 997891269 Z23 Body mass index 30+ - obesity 309904696 Z68.35 [id number] MEREDITH Beckman (Adult Med) [address] [place] [address] 02/28/2018 09:35:24 02/28/2018 17:30:52 Influenza vaccine needed 6949215146 106 Z23 Pt left before it was given, she can return at anytime to get it from staff. Asthma 708477447 J45.41 O2 sat below 90% this AM, has been out of nebulizer since Tuesday; she deferred tx in office will supervisor opening and picking and use it at home. Cont Advair and Ventolin, cont allergy meds. Essential hypertension 40596681 I10 mildly elevated today, likely due to dyspnea from asthma exacerbati on. cont lisinopril -hctz [id number] [facility] [address] [place] [address] 03/22/2018 15:54:52 03/22/2018 16:14:01 Influenza vaccine needed 1486692829 106 Z23 Pt left before it was given, she can return at anytime to get it from staff. [id number] [facility] [address] [place] [address] 05/23/2018 11:34:49 05/24/2018 09:14:35 Influenza caused by Influenza A virus 867087954 J09.X2 Hospitaliz ed for acute respirator y failure due to influenza A, she was hypercanei c and hypoxic. Reviewed hospital records, she required Bipap but no intubation . She has felt better since d/c but today doesn't feel as clear, no longer using her neb tx Q4 and completed prednisone and abx and tamiflu. Seasonal allergy 3023250 04 J30.2 start anti-hista mine now, cont zafirlukas t. wear mask when outdoors and try to avoid going outdoors on high pollen count days Asthma 955832254 J45.40 completed steroids and abx and tamiflu, advised her to restart her nebulizer tx at least once a day as needed for days like today when she doesn't feel good. [id number] MEREDITH Beckman (Adult Med) [address] [place] [address] 06/28/2018 10:19:20 07/10/2018 09:04:32 Seasonal allergy 610449301 J30.2 Cont Zyrtec-D, zafirlukas t and flonase. Call if still having sxs, we can try anti-hista mine nasal spray Asthma 370328925 J45.40 controlled , lung sounds are clear today; cont inhalers, nebulizer. She is looking into testing ordered by pulmonolog y to see if covered by insurance (lung scan and blood work to r/o copd) Essential hypertension 63649057 I10 mildly elevated today, with mildly elevated HR; likely due to taking decongesta nt; advised to stop decongesta nt, cont allergy meds. Diabetes mellitus 634848 E11.9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 calluses on feetHip(s)Reported bypatient.Location:left; lateral Quality:aching Severity:moderate Timing:acute; intermittent episodes lasting: Alleviating Factors:position change Aggravating Factors:ROM; weightbearing Associated Symptoms:no swelling Prior Imaging:x rayHypertension F/UReported bypatient.Associated Symptoms:no dizziness; no chest pain; no shortness of breath; no edema;palpitations(better) Lifestyle:regular exercise; limiting/avoiding salt Medications:taking medications as directed; no side effects from medicationUpper Respiratory SymptomsReported bypatient.Location:chest; throat Quality:hurts to swallow Duration:started 3 days ago Context:sick contact(contact with strep throat);COPD Associated Symptoms:no shortness of breath; no wheezing; no fever; no sore throat;yellow sputum Pt with DM/type 2/asthma/ htn is here for f/u . Liliana Peng MD Attn: Accounting,[address] [place], [address], [place] [facility] 01/02/2024 15:17:11 OBGyn Episode Ob Episode Information Episode Created Date Number of Fetuses Patient Bloodtype Patient rh Status Prepregnancy Weight lbs Domestic Partner Domestic Partner Phone Father Name Tape Stringer Status 09/29/19 17 1 CLOSED Fetus Data First Name Last Name Admitted to NICU Weight (g) Sex Living Outcome Pediatric Complications Fetus ID Race Codes Race Delivery Type 4422.52 2 M Full Term [id number] Arnaud Calculation Initial Arnaud Date Initial Exam Date Initial Exam Provider Initial Ultrasound Date Last Menstrual Period Date Ultra Sound Weeks Gestation 0 Eighteen To Twenty Week Arnaud Update Ultra Sound Date Fundal Height At Umbil Quickening Date Ultra Sound Latest Weeks Gestation Final Ranaud Confirmed By Final Arnaud Confirmed Date Final Arnaud Date Ultra Sound Latest Days Gestation 0 0 Menstrual History Last Menstrual Date Menses Monthly On Bcp Conception Prior Menses Frequency Hcg Plus Date Menarche Onset Age Delivery Information Delivery Date Delivery Type Labor Anesthesia Weeks Gestation Incision Type Labor Labor Length Hrs Delivered By Post Complications Tubal Sterilization Discharge Date Comments 0 Discharge Information Feeding Method Contraceptive Method Maternal HG B and HCT Levels
--- NOTE | 2024-04-08 13:22 | ECG_ITS ---
Test Date: 2024-04-08 13:26:53 Measurements Intervals [place] Rate: 129 P: 54 MA: 138 QRS: 46 QRSD: 88 T: 60 QT: 292 QTc: 428 Interpretive Statements SINUS TACHYCARDIA NONSPECIFIC ST & T-WAVE ABNORMALITY ABNORMAL RHYTHM ECG No previous ECG available for comparison Electronically Signed On 04-08-2024 22:03:17 LAY OUT DRAFTER by Kwaku Crandall M.D.
[2024-04-08 13:41] LABS: Basophils Absolute Auto 0.1 K/mm3 (0.0-0.1); Basophils Percent Auto 0.5 % (0.2-1.2); Eosinophils Percent Auto 0.1 % (0-4.4); Hemoglobin 14.6 g/dL (12.0-15.0); Immature Granulocyte Absolute 0.06 K/mm3 (0.00-0.031); Immature Granulocyte Percent A 0.5 % (0-0.5); Lymphocytes Absolute Auto 0.82 K/mm3 (0.9-3.2); Lymphocytes Percent Auto 6.2 % (18.3-44.2); Mean Corpuscular HGB Conc 32.4 g/dl (32-36); Mean Corpuscular Hemoglobin 29.3 pg (26-34); Mean Corpuscular Volume 90.4 fl (80-100); Mean Platelet Volume 10.1 fl (7.4-10.4); Monocytes Absolute Auto 0.9 K/mm3 (0.1-0.6); Monocytes Percent Auto 6.9 % (2.6-8.5); Neutrophils Absolute Auto 11.4 K/mm3 (1.3-6.7); Neutrophils Percent Auto 85.8 % (45.5-73.1); Platelet Count Result 375 k/mm3 (150-375); Red Blood Count 4.98 M/mm3 (4.2-5.4); Red Cell Distribution Width 14.4 % (11.5-14.5); White Blood Count 13.3 K/mm3 (4.5-10.0)
[2024-04-08 13:52] LABS: Alanine Aminotransferase 19 U/L (6-35); Albumin Level 4.7 g/dL (3.5-5.1); Alkaline Phosphatase 93 U/L (38-126); Anion Gap 14 mmol/L (4-12); Aspartate Amino Transferase 23 U/L (14-36); Bilirubin,Total 0.5 mg/dL (0.2-1.3); Blood Urea Nitrogen 14 mg/dL (7-17); Calcium 9.6 mg/dL (8.4-10.2); Carbon Dioxide 26 mmol/L (22-30); Chloride 96 mmol/L (98-107); Estimated CRCL calculation 59 ml/min; Estimated Glomerular Filt Rate 59; Glucose 185 mg/dL (65-110); Potassium 3.9 mmol/L (3.4-5.0); Sodium 136 mmol/L (137-145)
[2024-04-08 14:17] LABS: Influenza A QL RT-PCR Positive (Negative); Influenza B QL RT-PCR Negative (Negative); RSV RNA, RT-PCR Negative (Negative); SARS-CoV-2 RNA PCR Negative (Negative)
--- NOTE | 2024-04-08 17:11 | ED.SOB ---
HPI - SOB/Dyspnea General Chief Complaint: Shortness of Breath/Dyspnea Stated Complaint: sob, cough Time Seen by Provider: 04/08/24 14:33 History of Present Illness HPI Narrative: Patient with h/o asthma/COPD p/w several days of n/v, cough, body aches, BRIANNE. Using her nebs at home. Related Data Home Medications ?Medication ?Instructions ?Recorded ?Confirmed ?Last Taken ?Type albuterol sulfate 90 mcg/actuation 2 inh inhalation Q4-6H PRN 01/21/19 09/14/22 Unknown History aerosol inhaler Shortness Of Breath Or Wheezing cromolyn 5.2 mg/spray (4 %) nasal See Rx Instructions .Route .COMPLEX 01/21/19 09/14/22 Unknown History spray liraglutide 0.6 mg/0.1 mL (18 mg/3 1.2 mg subcut DAILY 01/21/19 09/14/22 Unknown History mL) subcutaneous pen injector (Filtr8 3-Matthew) lisinopril 10 1 tablet PO DAILY 01/21/19 09/14/22 04/08/19 09:00 History mg-hydrochlorothiazide 12.5 mg tablet metformin 1,000 mg tablet 1,000 mg PO BID 01/21/19 09/14/22 04/08/19 17:00 History simvastatin 20 mg tablet 20 mg PO HS 01/21/19 09/14/22 04/08/19 21:00 History verapamil 180 mg tablet,extended 180 mg PO DAILY 01/21/19 09/14/22 04/08/19 History release zafirlukast 20 mg tablet 20 mg PO BID 01/21/19 09/14/22 04/08/19 History albuterol sulfate 2.5 mg/3 mL 2.5 mg inhalation QID PRN 04/10/19 09/14/22 Unknown History (0.083 %) solution for nebulization Shortness Of Breath fluticasone 232 mcg-salmeterol 14 1 puff inhalation BID 04/12/19 09/14/22 Unknown History mcg/actuation breath activated powdr (AirDuo RespiClick) Allergies Allergy/AdvReac Type Severity Reaction Status Date / Time cat dander Allergy Intermediate Wheezing Verified 09/14/22 16:51 dog dander Allergy Intermediate Wheezing Verified 09/14/22 16:51 No Known Drug Allergies Allergy Unknown NA Verified 09/14/22 16:51 pollen extracts Allergy Unknown Wheezing Verified 09/14/22 16:51 Review of Systems Review of Systems: All systems reviewed & are unremarkable except as noted in HPI and below [facility] Past Medical History Medical History (Updated 04/08/24 @ 19:24 by Laura Granger MD) Type 2 diabetes mellitus Essential hypertension GI bleed due to sigmoiditis 01/30 Pneumonia Seasonal allergies Asthma Surgical History Surgical History (Updated 04/08/24 @ 19:16 by Eliza Florentino PA-C) History of bilateral carpal tunnel release History of facial fracture repair History of back surgery L3-L4 fusion History of mandibular surgery metal plate in right jaw Family History Family History Unknown No problems noted. Social History Social History (Updated 04/08/24 @ 19:16 by Eliza Florentino PA-C) Social History: Surrogate medical decision maker: Code status: Full code. 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 Spiritual care concerns: No Agree to blood products: Yes Exam Narrative: EXAMINATION OF ORGAN SYSTEMS/BODY AREAS: Constitutional: Vital signs per nursing GENERAL: Dyspneic HEAD: Normal with no signs of head trauma. EYES: EOMI, conjunctiva normal ENT: Hearing grossly intact LUNGS: Diminished breath sounds, dyspnea, some end expiratory wheeze HEART: [Regular rate and rhythm] ABD: [Soft], [nontender to palpation] EXT: Normal range of motion SKIN: [No rashes or lesions.] NEURO: [Alert and oriented x 3. No gross focal sensory or strength deficits.] PSYCH: Normal affect Course Vital Signs Vital signs: Vital Signs Temperature 97.1 F L 04/08/24 13:24 Pulse Rate 132 H 04/08/24 13:24 Respiratory Rate 32 H 04/08/24 13:24 Blood Pressure 127/91 H 04/08/24 13:24 Pulse Oximetry 94 04/08/24 13:24 Oxygen Delivery Room Air 04/08/24 13:24 Temperature 98.6 F 04/08/24 17:59 Pulse Rate 134 H 04/08/24 17:59 Respiratory Rate 19 04/08/24 17:59 Blood Pressure 132/96 H 04/08/24 17:59 Pulse Oximetry 100 04/08/24 17:59 Oxygen Delivery Room Air 04/08/24 17:05 MDM - SOB/Dyspnea MDM Narrative Medical decision making narrative: Patient with h/o asthma/COPD p/w several days of n/v, cough, body aches, BRIANNE. Using her nebs at home. She is tachycardic here, dyspneic, with end expiratory wheezing and diminished breath sounds, given breathing treatments, fluids, Zofran, with improvement in her symptoms, though she is still tachycardic, she did test positive for flu, started on Tamiflu, discussed with patient admission at this time and she is agreeable to this plan. Discussed with hospitalist for admission. Lab Data 04/08/24 13:34 04/08/24 13:34 Labs: Lab Results 04/08/24 Range/Units 13:34 WBC 13.3 H (4.5-10.0) K/mm3 RBC 4.98 (4.2-5.4) M/mm3 Hgb 14.6 (12.0-15.0) g/dL Hct 45.0 (37.0-47.0) % MCV 90.4 (80-100) fl MCH 29.3 (26-34) pg MCHC 32.4 (32-36) g/dl RDW 14.4 (11.5-14.5) % Plt Count 375 (150-375) k/mm3 MPV 10.1 (7.4-10.4) fl Immature Gran % (Auto) 0.5 (0-0.5) % Neut % (Auto) 85.8 H (45.5-73.1) % Lymph % (Auto) 6.2 L (18.3-44.2) % Storey % (Auto) 6.9 (2.6-8.5) % Eos % (Auto) 0.1 (0-4.4) % Baso % (Auto) 0.5 (0.2-1.2) % Lymph # (Auto) 0.82 L (0.9-3.2) K/mm3 Storey # (Auto) 0.9 H (0.1-0.6) K/mm3 Eos # (Auto) 0.0 (0-0.3) K/mm3 Baso # (Auto) 0.1 (0.0-0.1) K/mm3 Abs Immat Gran (auto) 0.06 H (0.00-0.031) K/mm3 Absolute Neuts (auto) 11.4 H (1.3-6.7) K/mm3 Absolute Nucleated RBC 0.000 (0.0-0.012) K/mm3 Nucleated RBC % 0.0 (0.0-0.2) % Sodium 136 L (137-145) mmol/L Potassium 3.9 (3.4-5.0) mmol/L Chloride 96 L (98-107) mmol/L Carbon Dioxide 26 (22-30) mmol/L Anion Gap 14 H (4-12) mmol/L BUN 14 (7-17) mg/dL Creatinine 0.96 (0.7-1.0) mg/dL Estim Creat Clear Calc 59 ml/min Estimated GFR 59 (59 - ) Glucose 185 H (65-110) mg/dL Calcium 9.6 (8.4-10.2) mg/dL Total Bilirubin 0.5 (0.2-1.3) mg/dL AST 23 (14-36) U/L ALT 19 (6-35) U/L Alkaline Phosphatase 93 (38-126) U/L Total Protein 9.0 H (6.3-8.2) g/dL Albumin 4.7 (3.5-5.1) g/dL Influenza A (RT-PCR) Positive A (Negative) Influenza B (RT-PCR) Negative (Negative) RSV (RT-PCR) Negative (Negative) SARS-CoV-2 RNA (RT-PCR) Negative (Negative) Discharge Plan Discharge Clinical Impression: Acute bronchitis with asthma, Flu, Sinus tachycardia Patient Disposition: Still a Patient Condition: Stable Patient Language: Divehi Prescriptions: No Action verapamil 180 mg Tablet Extended Release 180 mg PO DAILY simvastatin 20 mg Tablet 20 mg PO HS metformin 1,000 mg Tablet 1,000 mg PO BID zafirlukast 20 mg Tablet 20 mg PO BID lisinopril-hydrochlorothiazide 10-12.5 mg Tablet 1 tablet PO DAILY albuterol sulfate 90 mcg/actuation Hfa Aerosol Inhaler 2 inh INHALATION Q4-6H PRN (Reason: Shortness Of Breath Or Wheezing) Victoza 3-Matthew 0.6 mg/0.1 mL (18 mg/3 mL) Pen Injector 1.2 mg SUBCUT DAILY cromolyn 5.2 mg/spray (4 %) spray,non-aerosol See Rx Instructions .ROUTE .COMPLEX Rx Instructions: CROMOLYN 5.2MG/SPRAY QID PRN albuterol sulfate 2.5 mg /3 mL (0.083 %) solution for nebulization 2.5 mg inhalation QID PRN (Reason: Shortness Of Breath) fluticasone propion-salmeterol [AirDuo RespiClick] 232-14 mcg/actuation aerosol powdr breath activated 1 puff INHALATION BID amoxicillin-pot clavulanate 875-125 mg tablet 1 tablet PO Q12H 7 Days Qty: 14 0RF doxycycline hyclate 100 mg tablet 100 mg PO BID 7 Days Qty: 14 0RF Follow-up/Referrals: Anca,MD Liliana [Primary Care Provider] -
--- OUTSIDE RECORDS SUMMARY | 2024-04-08 17:12 | XMS_ITS | Clinical Summary ---
Author Organization [facility] Address [address] [place] [address] Care Team Providers Care Glaze Sprayer Name Role Phone Liliana March MD Primary Care Provider [phone] Allergies Active Allergy Reactions Criticality Noted Date [...] (07/30/2021): Added automatically from request for surgery [id number] Resolved Problems Problem Noted Date Diagnosed Date Resolved Date TYRESE (acute kidney injury) 04/27/2023 Hyponatremia 04/27/2023 04/29/2023 Encounters Date Type Department Care Team Description 02/16/2024 3:00 PM GENETIC SCIENTIST Office Visit [facility] Medical [facility] Orthopedics and Sports Medicine [address] [place] [address] Megan Morales PA Trochanteric bursitis of both hips (Primary Dx) 02/16/2024 7:54 AM GENETIC SCIENTIST - 02/16/2024 11:59 PM GENETIC SCIENTIST Hospital Encounter [facility] Orthopedics and Sports Medicine [address] [place] [address] Discharge Disposition: Discharge to home or self care 01/27/2024 8:00 AM GENETIC SCIENTIST Office Visit [facility] [address] [place] [address] [place] [address] Abigail Altamirano MD YUVAL (obstructive sleep apnea) [...] Tobacco: Never Tobacco Cessation:Counseling Given: Not Answered [facility] Utilities Answer Date Recorded In the past 12 months has [employer], gas, oil, or water [employer] threatened to shut off services in your [...] week 04/28/2023 How often do you attend [facility] or restoration services? Never 04/28/2023 Do you belong to any clubs o r organizations such as sabianism groups, unions, fraternal or athletic groups, or [...] place to sleep or slept in a correction (including now)? No 04/28/2023 Personal Safety Answer [...] on file Legal Sex Female 11:02 AM GENETIC SCIENTIST Gender Identity Not on file Sexual Orientation Not on file Obstetrics History Para Term AB IAB SAB Ectopic Multiple Livin g Live Births 0 0 0 0 0 0 0 0 0 0 0 Comments Post menopause Last Filed Vital Signs Vital Sign Reading Time Taken Comments Blood Pressure 147/100 02/16/2024 3:01 PM GENETIC SCIENTIST Pulse 116 02/16/2024 3:01 PM GENETIC SCIENTIST Temperature 37 ??C (98.6 ??F) 04/30/2023 7:29 AM GENETIC SCIENTIST Respiratory Rate 20 04/30/2023 7:29 AM GENETIC SCIENTIST Oxygen Saturation 93% 04/30/2023 7:54 AM GENETIC SCIENTIST Inhaled Oxygen Concentration - - Weight 81.2 kg (179 lb) 02/16/2024 3:01 PM GENETIC SCIENTIST Height 156.2 cm (5' 1.5 ) 02/16/2024 3:01 PM GENETIC SCIENTIST Body Mass Index 33.27 02/16/2024 3:01 PM GENETIC SCIENTIST Plan of Treatment Upcoming Encounters Date Type Department Care Team (Latest Contact Info) Description 05/08/2024 11:30 AM GENETIC SCIENTIST Hospital Encounter [facility] Operating Room [address] [place] [address] Abigail Altamirano MD [id number] [place] [phone] 05/08/2024 11:30 AM GENETIC SCIENTIST - 05/08/2024 12:00 PM GENETIC SCIENTIST Surgery [facility] Operating Room [address] [place] [address] [place] [address] [id number] DRUG INDUCED SLEEP ENDOSCOPY EVAL FLEX DIAG/15MIN Scheduled Procedures Name Priority Associated Diagnoses Date/Ti me DRUG INDUCED SLEEP ENDOSCOPY EVAL FLEX DIAG YUVAL (obstructive sleep apnea) 05/08/2024 11:30 AM GENETIC SCIENTIST Health Maintenance Due Date Last Done Comments [...] Read Routine (OP Routine) 02/16/2024 2:56 PM GENETIC SCIENTIST Trochanteric bursitis of both hips EGFR Routine 04/30/2023 5:16 AM GENETIC SCIENTIST SCREENING MAMMOGRAM BILATERAL W SPEEDY Schedule Routine, Read Routine (OP Routine) 03/12/2023 9:39 AM GENETIC SCIENTIST Encounter for screening mammogram for malignant neoplasm of breast HEMOGLOBIN A1C Timed 08/05/2021 9:55 PM CDT LIPID PANEL Timed 08/05/2021 9:55 PM CDT from Last 3 Months or Most Recently Relevant to Health Maintenance Results * XR Hips Bilateral 3 or 4 Views (02/16/2024 2:56 PM GENETIC SCIENTIST) Anatomical Region Laterality Modality Lower Extremities, Hip, Pelvis Bilateral D igital Radiography Narrative 02/16/2024 3:58 PM GENETIC SCIENTIST Radiographs taken of the bilateral hips today reveal moderate degenerative changes with subchondral sclerosis, osteophyte formation, and diminished joint space. us Megan LOPEZ IMG XR PROCEDURES Fin al Result * eGFR (04/30/2023 5:16 AM GENETIC SCIENTIST) eGFR 72 mL/min/1. 73 m2 DEBBIE ANDRES [...] last reviewed 2021. Blood 04/30/2023 5:16 AM GENETIC SCIENTIST 04/30/2023 5:25 AM GENETIC SCIENTIST us Vinod Jones MD LAB BLOOD ORDERABLES Final Resul t DEBBIE ANDRES (SIGIFREDO) [address] Department [place] [address] * Screening Mammogram Bilateral W Speedy (03/12/2023 9:39 AM GENETIC SCIENTIST) Anatomical Region Laterality Modality Breast Bilateral Mammography 03/12/2023 3:32 PM GENETIC SCIENTIST Impressions 03/12/2023 3:32 PM GENETIC SCIENTIST There is no mammographic evidence of malignancy. A 1 year screening mammogram is recommended. BI-RADS: 1 - Negative. The patient has been or will be contacted. The patient will be entered into a reminder system with a target due date of 1 year for her next mammogram. Electronically signed by: Paz Butler M.D. Narrative 03/12/2023 3:32 PM GENETIC SCIENTIST EXAMINATION: SCREENING MAMMOGRAM BILATERAL W SPEEDY ORDERING [...] ORDERABLES Elisabeth leong Result DEBBIE CARLIN [facility] Department of Laboratories [place], [place] [id number] * Lipid panel (08/05/2021 9:55 PM CDT) [...] on 2017. LDL, calculated 76 <=129 mg/dL [facility] Comment: Interpretive Data Ages < or = [...] revised on 2017. Non-HDL Cholesterol 84 mg/dL [facility] Comment: Interpretive Data Ages < or = [...] last revised on 2017. Chol/HDL ratio 3 [facility] Blood 08/05/2021 9:55 PM CDT 08/05/2021 10:45 PM CDT us Tanja Davis MD LAB BLOOD ORDERABLES Elisabeth leong Result [facility] [address] [facility] Department [place] [address] from Last 3 Months or Most Recently Relevant to Health Maintenance Insurance [facility] MEDICAID [facility] WORKERS COMPENSATION GENERIC WORKERS COMPENSATION GENERIC Advance Directives For more information, please contact: [phone] * Full Code (Latest Code Status on File) Date Activated Date Inactivated Comments 04/27/2023 4:10 PM 04/30/2023 5:47 PM * Full Code Date Activated Date Inactivated Comments 08/05/2021 9:52 AM 08/08/2021 3:07 PM Care Teams Glaze Sprayer Relationship Specialty Start Date End Date Liliana March MD [address] [place] [address] PCP - General Internal Medicine 03/10/22
--- OUTSIDE RECORDS SUMMARY | 2024-04-08 17:12 | XMS_ITS | Referral Summary ---
Author Organization [facility] Address [address] [place] [address] Care Team Providers Care Watch Engine Operator Name Role Phone Liliana March MD Primary Care Provider [phone] Encounters Date Type Department Care Team Description 02/16/2024 7:54 AM AIR AND WATER TESTER - 02/16/2024 11:59 PM AIR AND WATER TESTER Hospital Encounter [facility] Medical [facility] Orthopedics and Sports Medicine [address] [place] [address] [address] [phone] Discharge Disposition: Discharge to home or self care 02/16/2024 3:00 PM AIR AND WATER TESTER Office Visit [facility] Orthopedics and Sports Medicine [address] [place] [phone] Megan Morales PA Trochanteric bursitis of both hips (Primary Dx) 01/27/2024 8:00 AM AIR AND WATER TESTER Office Visit [facility] ([facility]) - [facility] ENT [address] [facility] Advanced Medicine 11th [place] [address] [place] [phone] Abigail Altamirano MD YUVAL (obstructive sleep apnea) [...] (07/30/2021): Added automatically from request for surgery [id number] Resolved Problems Problem Noted Date Diagnosed Date Resolved Date TYRESE (acute kidney injury) 04/27/2023 Hyponatremia 04/27/2023 04/29/2023 Social History Tobacco Use Types Packs/Day Years Used Date Smoking Tobacco: Former Cigarettes Q uit: 2000 Smokeless Tobacco: Never Tobacco Cessation:Counseling Given: Not Answered [facility] [employer] Answer Date Recorded In the past 12 [...] often do you attend chur ch or yarsani services? Never 04/28/2023 Do you belong to any clubs o r organizations such as christianity groups, unions, fraternal or athletic groups, or [...] place to sleep or slept in a care home (including now)? No 04/28/2023 Personal Safety [...] on file Legal Sex Female 11:02 AM AIR AND WATER TESTER Gender Identity Not on file Sexual Orientation Not on file Last Filed Vital Signs Vital Sign Reading Time Taken Comments Blood Pressure 147/100 02/16/2024 3:01 PM AIR AND WATER TESTER Pulse 116 02/16/2024 3:01 PM AIR AND WATER TESTER Temperature 37 ??C (98.6 ??F) 04/30/2023 7:29 AM AIR AND WATER TESTER Respiratory Rate 20 04/30/2023 7:29 AM AIR AND WATER TESTER Oxygen Saturation 93% 04/30/2023 7:54 AM AIR AND WATER TESTER Inhaled Oxygen Concentration - - Weight 81.2 kg (179 lb) 02/16/2024 3:01 PM AIR AND WATER TESTER Height 156.2 cm (5' 1.5 ) 02/16/2024 3:01 PM AIR AND WATER TESTER Body Mass Index 33.27 02/16/2024 3:01 PM AIR AND WATER TESTER Plan of Treatment Upcoming Encounters Date Type Department Care Team (Latest Contact Info) Description 05/08/2024 11:30 AM AIR AND WATER TESTER Hospital Encounter [facility] Operating Room [id number] [place] [id number] [place] [id number] [facility] [address] [place] [address] 05/08/2024 11:30 AM AIR AND WATER TESTER - 05/08/2024 12:00 PM AIR AND WATER TESTER Surgery [facility] Operating Room [id number] [place] [id number] [place] [id number] [facility] [address] [place] [address] DRUG INDUCED SLEEP ENDOSCOPY EVAL FLEX DIAG/15MIN Scheduled Procedures Name Priority Associated Diagnoses Date/Ti me DRUG INDUCED SLEEP ENDOSCOPY EVAL FLEX DIAG YUVAL (obstructive sleep apnea) 05/08/2024 11:30 AM AIR AND WATER TESTER Procedures Procedure Name Priority Date/Time Associated Diagnosis Comments XR HIPS BILATERAL 3 OR 4 VW Schedule Routine, Read Routine (OP Routine) 02/16/2024 2:56 PM AIR AND WATER TESTER Trochanteric bursitis of both hips EGFR Routine 04/30/2023 5:16 AM AIR AND WATER TESTER SCREENING MAMMOGRAM BILATERAL W SPEEDY Schedule Routine, Read Routine (OP Routine) 03/12/2023 9:39 AM AIR AND WATER TESTER Encounter for screening mammogram for malignant neoplasm of breast HEMOGLOBIN A1C Timed 08/05/2021 9:55 PM CDT LIPID PANEL Timed 08/05/2021 9:55 PM CDT from Last 3 Months or Most Recently Relevant to Health Maintenance Results * XR Hips Bilateral 3 or 4 Views (02/16/2024 2:56 PM AIR AND WATER TESTER) Anatomical Region Laterality Modality Lower Extremities, Hip, Pelvis Bilateral D igital Radiography Narrative 02/16/2024 3:58 PM AIR AND WATER TESTER Radiographs taken of the bilateral hips today reveal moderate degenerative changes with subchondral sclerosis, osteophyte formation, and diminished joint space. us Megan LOPEZ IMG XR PROCEDURES Fin al Result * eGFR (04/30/2023 5:16 AM AIR AND WATER TESTER) eGFR 72 mL/min/1. 73 m2 [facility] [...] last reviewed 2021. Blood 04/30/2023 5:16 AM AIR AND WATER TESTER 04/30/2023 5:25 AM AIR AND WATER TESTER us Vinod Jones MD LAB BLOOD ORDERABLES Final Resul t [facility] ANDRES ([id number] Department [place] [address] * Screening Mammogram Bilateral W Speedy (03/12/2023 9:39 AM AIR AND WATER TESTER) Anatomical Region Laterality Modality Breast Bilateral Mammography 03/12/2023 3:32 PM AIR AND WATER TESTER Impressions 03/12/2023 3:32 PM AIR AND WATER TESTER There is no mammographic evidence of malignancy. A 1 year screening mammogram is recommended. BI-RADS: 1 - Negative. The patient has been or will be contacted. The patient will be entered into a reminder system with a target due date of 1 year for her next mammogram. Electronically signed by: Paz Butler M.D. Narrative 03/12/2023 3:32 PM AIR AND WATER TESTER EXAMINATION: SCREENING MAMMOGRAM BILATERAL W SPEEDY ORDERING [...] MD LAB BLOOD ORDERABLES Elisabeth leong Result [facility] Department [place] [address] * Lipid panel (08/05/2021 9:55 PM CDT) [...] on 2017. HDL 54 >=40 mg/dL [facility] Comment: Interpretive Data Ages < or = [...] 2017. LDL, calculated 76 <=129 mg/dL [facility] Comment: Interpretive Data Ages < or = [...] on 2017. Non-HDL Cholesterol 84 mg/dL [facility] Comment: Interpretive Data Ages < or = [...] LAB BLOOD ORDERABLES Elisabeth leong Result [facility] Department [place] [address] from Last 3 Months or Most Recently Relevant to Health Maintenance Insurance [facility] MEDICAID [facility] COMPENSATION GENERIC Advance Directives For more information, please contact: [phone] * Full Code (Latest Code Status on File) Date Activated Date Inactivated Comments 04/27/2023 4:10 PM 04/30/2023 5:47 PM * Full Code Date Activated Date Inactivated Comments 08/05/2021 9:52 AM 08/08/2021 3:07 PM Care Teams Watch Engine Operator Relationship Specialty Start Date End Date Liliana March MD [address] [place] [address] PCP - General Internal Medicine 03/10/22
--- OUTSIDE RECORDS SUMMARY | 2024-04-08 17:13 | XMS_ITS | Clinical Summary ---
Author Organization [facility] Address [address] [place] [address] Phone Care Team Providers Care Aerodynamics Professor Name Role Phone Liliana March MD Primary Care Provider [phone] Amy Hussein APRN, HULL SORTER Unavailable [phone] Allergies Active Allergy Reactions Criticality Noted Date [...] Active fluticasone (FLONASE) 50 MCG/ACT Suspension 1 [place] by Nasal route daily. Use in each [...] Group - Pulmonology & Sleep Medicine - [place] [address] [place] [address] Amy Hussein APRN, JERRELL Medication [...] st Contact Info) Description 04/24/2024 3:30 PM MONUMENT SETTER HELPER Office Visit [facility] - Pulmonology & Sleep Medicine [facility] [address] [place] [address] Amy Hussein, VACUUM COOKER OPERATOR, HULL SORTER [address] [address] Health Maintenance Due Date Last Done Comments [...] CAD W DAJA Routine 01/25/2019 5:12 PM MONUMENT SETTER HELPER Encounter for screening mammogram for malignant neoplasm of breast from Last 3 Months or Most Recently Relevant to Health Maintenance Results * VARGHESE SCREENING BILATERAL DIGITAL W CAD W DAJA (01/25/2019 5:12 PM MONUMENT SETTER HELPER) Anatomical Region Laterality Modality breast Bilateral Mammography 01/25/2019 4:29 PM MONUMENT SETTER HELPER Narrative 01/30/2019 11:55 AM MONUMENT SETTER HELPER - VARGHESE SCREENING BILATERAL DIGITAL W CAD [...] Comparison is made to exam dated: ??09/20/2016 [facility]. ?? BREAST TISSUE:There are scattered fibroglandular densities [...] Sandi Zimmerman M.D. ? ll/penrad:01/30/2019 11:06:15 ?? Credit And Collections Representative: Danica Patton (R), [facility] sent: Normal Exam ?? Reading location: [place] BI-RADS: 1 Negative Procedure Note Sandi Zimmerman MD - 01/30/2019 - VARGHESE SCREENING BILATERAL DIGITAL W CAD W DAJA BILATERAL DIGITAL SCREENING MAMMOGRAM 3D/2D WITH CAD WITH MEDIOLATERAL OBLIQUE CRANIOCAUDAL: 01/25/2019 The study was acquired using digital technology and interpreted from soft copy. Current study was also evaluated with Mungo version 7.2. CLINICAL: Routine screening. Patient has no complaints. No personal history of cancer. Family history of breast cancer unknown. COMPARISONS: Comparison is made to exam dated: 09/20/2016 [facility]. BREAST TISSUE:There are scattered fibroglandular densities in [...] exam. Electronically signed by: Sandi cleary/penrad:01/30/2019 11:06:15 Credit And Collections Representative: Danica Patton (R), [facility] sent: Normal Exam Reading location: [place] BI-RADS: 1 Negative Liliana March MD IMG MAMMO ORDERABLES Final Re sult from Last 3 Months or Most Recently Relevant to Health Maintenance Insurance MEDICAID [facility] Care Teams Aerodynamics Professor Relationship Specialty Start Date End Date Liliana March MD [address] [facility] [address] [place] [address] PCP - General Internal Medicine 01/18/19 Amy Hussein APRN, HULL SORTER [address] [address] Nurse Practitioner Advanced Practice Nurse 05/23/23
[2024-04-08] MEDS: LEVALBUTEROL NEB 1.25 MG/3 ML 3.75 MG INHALATION (17:30)
[2024-04-08] MEDS: IPRATROPIUM BR 0.02% INH SOLN 0.5 MG/2.5 ML VIAL 1 MG INHALATION (17:30)
[2024-04-08] MEDS: predniSONE 20 MG TABLET 40 MG PO (17:42)
[2024-04-08] MEDS: ACETAMINOPHEN 500 MG TABLET 1000 MG PO (17:42)
[2024-04-08] MEDS: ONDANSETRON INJ 4 MG/2 ML VIAL IV PUSH (17:54)
[2024-04-08] MEDS: LACTATED RINGERS 1,000 ML 999 ML IV CONT ×2 (17:56→17:58)
--- NOTE | 2024-04-08 19:10 | P.HP_ITS ---
H&P: HPI History of Present Illness Date/Time: 04/08/24 19:10 Chief Complaint: Cough and shortness of breath. Narrative: This is a 58-year-old female with asthma, hypertension, and type 2 diabetes mellitus who presented to the emergency department via private vehicle for evaluation of cough and shortness of breath. The patient provides the following history. She has not been feeling well for couple of days with symptoms to include body aches, nonproductive cough, shortness of breath, nausea, and vomiting. Her shortness of breath has been worse since last night and she has been using nebulizer treatments with lesser and lesser benefit. She denies fever, sore throat, chest pain, pleuritic pain, abdominal pain, diarrhea, edema, and calf pain. In the ED: Vital signs on arrival include a temperature of 97.1?, blood pressure 127/91, pulse 132, respiratory rate 32, SpO2 94% on room air. Labs are significant for WBC count of 13.3, sodium 136, chloride 96, anion gap 14, glucose 185. Chest x-ray showed no acute cardiopulmonary process. She tested positive for influenza A. She received a nebulizer treatment and prednisone 40 mg p.o. with some benefit however she continues to feel poorly and short of naomi ath and she is being admitted for further treatment. Review of Systems Review of Systems: 12 systems were reviewed and are negativ e except for as per HPI. [facility] Past Medical History Medical History (Updated 04/08/24 @ 19:52 by Eliza Florentino PA-C) Type 2 diabetes mellitus Essential hypertension GI bleed (01/2019) attributed to sigmoiditis Seasonal allergies Asthma Surgical History Surgical History History of bilateral carpal tunnel release History of facial fracture repair History of back surgery L3-L4 fusion History of mandibular surgery metal plate in right jaw Family History Family History Unknown No problems noted. Social History Social History (Updated 04/08/24 @ 19:53 by Eliza Florentino PA-C) Social History: Surrogate medical decision maker: Alonzo Bain ([phone]). Code status: Full code. Smoking packs per day: 0.5 Smoking cigarettes per day: 10.0 Years smoked: 5 Smoking pack-years: 2.50 Smoking status: Former smoker Tobacco type: cigarettes Second hand tobacco smoke exposure: Yes Alcohol intake: current Drinks per week: 1 Substance use: never Living arrangements: with family Additional living arrangements comments: Lives with spouse in [place]. 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 Spiritual care concerns: No Agree to blood products: Yes Meds Home Medications and Allergies Home Medications ?Medication ?Instructions ?Recorded ?Confirmed ?Type albuterol sulfate 90 mcg/actuation 2 inh inhalation Q4-6H PRN 01/21/19 09/14/22 History aerosol inhaler Shortness Of Breath Or Wheezing cromolyn 5.2 mg/spray (4 %) nasal See Rx Instructions .Route .COMPLEX 01/21/19 09/14/22 History spray liraglutide 0.6 mg/0.1 mL (18 mg/3 1.2 mg subcut DAILY 01/21/19 09/14/22 History mL) subcutaneous pen injector (Shipstertoza 3-Matthew) lisinopril 10 1 tablet PO DAILY 01/21/19 09/14/22 History mg-hydrochlorothiazide 12.5 mg tablet metformin 1,000 mg tablet 1,000 mg PO BID 01/21/19 09/14/22 History simvastatin 20 mg tablet 20 mg PO HS 01/21/19 09/14/22 History verapamil 180 mg tablet,extended 180 mg PO DAILY 01/21/19 09/14/22 History release zafirlukast 20 mg tablet 20 mg PO BID 01/21/19 09/14/22 History albuterol sulfate 2.5 mg/3 mL 2.5 mg inhalation QID PRN 04/10/19 09/14/22 History (0.083 %) solution for nebulization Shortness Of Breath fluticasone 232 mcg-salmeterol 14 1 puff inhalation BID 04/12/19 09/14/22 History mcg/actuation breath activated powdr (AirDuo RespiClick) amoxicillin 875 mg-potassium 1 tablet PO Q12H 7 days #14 tabs 12/21/22 Rx clavulanate 125 mg tablet doxycycline hyclate 100 mg tablet 100 mg PO BID 7 days #14 tabs 12/21/22 Rx Allergies Allergy/AdvReac Type Severity Reaction Status Date / Time cat dander Allergy Intermediate Wheezing Verified 09/14/22 16:51 dog dander Allergy Intermediate Wheezing Verified 09/14/22 16:51 No Known Drug Allergies Allergy Unknown NA Verified 09/14/22 16:51 pollen extracts Allergy Unknown Wheezing Verified 09/14/22 16:51 Vital Signs Vital Signs - 24 hr 04/08/24 13:24 04/08/24 17:02 04/08/24 17:02 Temperature 97.1 F L Pulse Rate 132 H 143 H Respiratory Rate 32 H Blood Pressure 127/91 H Pulse Oximetry 94 93 Oxygen Delivery Room Air Room Air 04/08/24 17:03 04/08/24 17:05 04/08/24 17:59 Temperature 99.7 F H 98.6 F Pulse Rate 145 H 134 H Respiratory Rate 22 H 19 Blood Pressure 117/86 132/96 H Pulse Oximetry 93 92 100 Oxygen Delivery Room Air Exam Narrative: General: Mildly ill-appearing female sitting up in bed in no acute distress. Weight: 81.3 kg. BMI: 29.8. HEENT: PERRL, EOMI. Sclera anicteric. Oral mucosa moist. Oropharynx clear. Neck: Supple. Respiratory: Respirations are nonlabored and she is speaking full sentences. Currently receiving a nebulizer treatment. Lung sounds are a bit diminished with diffuse end-expiratory wheezing. Cardiovascular: Tachycardic with normal S1-S2. Gastrointestinal: Abdomen is soft, nontender, and nondistended with positive bowel sounds. Skin: Warm and dry. No rash or lesions on limited exam. Extremities: No cyanosis, clubbing, or edema. Radial and pedal pulses intact. Neurological: Alert. Cranial nerves 2-12 are grossly intact. No gross focal deficits to casual conversation. Psychiatric: Pleasant and cooperative with normal mood and affect. Judgment and insight intact. H&P: Results Labs Labs: Short CBC 04/08/24 Range/Units 13:34 WBC 13.3 H (4.5-10.0) K/mm3 Hgb 14.6 (12.0-15.0) g/dL Hct 45.0 (37.0-47.0) % Plt Count 375 (150-375) k/mm3 [facility] 04/08/24 13:34 Sodium 136 L Potassium 3.9 Chloride 96 L Carbon Dioxide 26 BUN 14 Creatinine 0.96 Glucose 185 H Calcium 9.6 Liver Function 04/08/24 Range/Units 13:34 Total Bilirubin 0.5 (0.2-1.3) mg/dL AST 23 (14-36) U/L ALT 19 (6-35) U/L Alkaline Phosphatase 93 (38-126) U/L Albumin 4.7 (3.5-5.1) g/dL Imaging Chest X-Ray 04/08/24 14:19 IMPRESSION: No acute cardiopulmonary process. Assessment and Plan Assessment and plan (1) Asthma exacerbation: Code(s): J45.901 - Unspecified asthma with (acute) exacerbation Status: Acute (2) Influenza A: Code(s): J10.1 - Influenza due to other identified influenza virus with other respiratory manifestations Status: Acute (3) Type 2 diabetes mellitus: Code(s): E11.9 - Type 2 diabetes mellitus without complications Status: Acute (4) Essential hypertension: Code(s): I10 - Essential (primary) hypertension Status: Acute Plan The patient presented to the emergency department with shortness of breath, cough, body aches, nausea, and vomiting as detailed in HPI. Labs, imaging, EKG, and all reports were personally reviewed. Clinically she has an asthma exacerbation, likely precipitated by influenza A, and she has been started on scheduled bronchodilators (levalbuterol ordered due to persistent tachycardia) and steroids as well as oseltamivir. Telemetry ordered for overnight. Monitor glucose closely as she is receiving steroids. Initiate sliding scale insulin, Accu-Cheks, and hypoglycemic protocol. Blood pressures were reviewed and they are stable. Her home medications will be reviewed and resumed as appropriate. Findings and treatment plan were discussed with the patient. Questions were solicited and answered to satisfaction. The patient's medical management will be taken over by the hospitalist team in a.m. Quality VTE Prophylaxis VTE prophylaxis: pharmacologic ordered Hospitalist [facility] Advance Care Plan I have confirmed that the patient's Advanced Care Plan is present, code status is documented, or surrogate decision maker is listed in patient medical record.: Yes Medication Reconciliation I have utilized all available resources to obtain, update and review the patients current medications (includes all prescriptions, OTC, herbals, cannabis, and nutritional supplements).: Yes
[2024-04-08 19:42] LABS: Hemoglobin A1C 6.5 % (<5.7)
[2024-04-08] MEDS: LEVALBUTEROL NEB 1.25 MG/3 ML INHALATION (20:18)
[2024-04-08] MEDS: IPRATROPIUM BR 0.02% INH SOLN 0.5 MG/2.5 ML VIAL INHALATION (20:18)
[2024-04-08] MEDS: OSELTAMIVIR PHOSPHATE 30 MG CAPSULE PO (20:45)
[2024-04-08 20:49] LABS: Glucose Point of Care 213 mg/dl (65-105)
[2024-04-08] MEDS: INSULIN ASPART (*BKC) 100 UNITS/ML SUB-Q (21:04)
[2024-04-08] MEDS: guaiFENesin 12 HR 600 MG TABCR 1200 MG PO (22:01)
[2024-04-09] VITALS (20 sets, daily range): BP systolic 109–155; BP diastolic 70–92; PULSE 90–175; RESP 18–20; TEMP 36.7–37.3; O2SAT 91–100
[2024-04-09] MEDS: LEVALBUTEROL NEB 1.25 MG/3 ML INHALATION ×4 (01:26→20:37)
[2024-04-09] MEDS: IPRATROPIUM BR 0.02% INH SOLN 0.5 MG/2.5 ML VIAL INHALATION ×4 (01:26→20:36)
--- NOTE | 2024-04-09 03:43 | ECG_ITS ---
Test Date: 2024-04-09 03:52:40 Measurements Intervals Nadeau Rate: 165 P: 0 TX: 0 QRS: 48 QRSD: 86 T: -89 QT: 283 QTc: 469 Interpretive Statements SUPRAVENTRICULAR TACHYCARDIA ST DEVIATION AND MODERATE T-WAVE ABNORMALITY, CONSIDER INFERIOR ISCHEMIA [-0.1+ mV T-WAVE IN II/aVF] CRITICAL TEST RESULT Compared to ECG 04/08/2024 13:26:53 Possible ischemia now present Sinus tachycardia no longer present T-wave abnormality still present Electronically Signed On 04-09-2024 21:20:31 SHIM PLUG CUTTER by Kwaku Crandall M.D.
[2024-04-09 04:12] LABS: Basophils Percent Auto 0.2 % (0.2-1.2); Hematocrit 40.4 % (37.0-47.0); Immature Granulocyte Absolute 0.11 K/mm3 (0.00-0.031); Immature Granulocyte Percent A 0.9 % (0-0.5); Lymphocytes Percent Auto 3.9 % (18.3-44.2); Mean Corpuscular HGB Conc 32.2 g/dl (32-36); Mean Corpuscular Hemoglobin 29.1 pg (26-34); Mean Corpuscular Volume 90.6 fl (80-100); Mean Platelet Volume 10.3 fl (7.4-10.4); Monocytes Absolute Auto 0.6 K/mm3 (0.1-0.6); Neutrophils Absolute Auto 11.6 K/mm3 (1.3-6.7); Platelet Count Result 318 k/mm3 (150-375); Red Blood Count 4.46 M/mm3 (4.2-5.4); Red Cell Distribution Width 14.4 % (11.5-14.5); White Blood Count 12.9 K/mm3 (4.5-10.0)
[2024-04-09 04:23] LABS: Anion Gap 11 mmol/L (4-12); Blood Urea Nitrogen 19 mg/dL (7-17); Calcium 9.1 mg/dL (8.4-10.2); Carbon Dioxide 24 mmol/L (22-30); Chloride 100 mmol/L (98-107); Estimated CRCL calculation 63 ml/min; Estimated Glomerular Filt Rate > 60; Glucose 211 mg/dL (65-110); Magnesium 1.5 mg/dL (1.6-2.3); Potassium 4.1 mmol/L (3.4-5.0); Sodium 135 mmol/L (137-145)
[2024-04-09 04:50] LABS: D Dimer 0.41 ug/mL (<0.48)
[2024-04-09 04:59] LABS: Thyroid Stimulating Hormone Reflex 0.254 uIU/mL (0.465-4.68)
--- NOTE | 2024-04-09 05:00 | P.RRN_ITS ---
Critical Care Event Note Summary Code activated: No Narrative: Rapid response called at approximately 04:10 due to tachycardia and hypoxia. S: Nurse reports that the patient got up to go to the bathroom and took her oxygen off. When she returned to bed her groundwater monitoring technician was alarming with rates in the 170s to 190s. SpO2 was reportedly in the lower 90s and she was put back on oxygen. Patient reports sensations of racing heart but otherwise has no complaints and denies syncope, near syncope, chest pain, pleuritic pain, worsening shortness of breath, edema, and calf pain. No history of cardiac arrhythmia, pulmonary embolism, or thyroid disease. O: Mildly ill in appearance in the semi-Fall position in bed. Tachycardic in the 170s to 180s at the time my evaluation. Lung sounds were diminished with scattered expiratory wheezing. No edema. Negative Ab sign. Alert and oriented. EKG showed supraventricular tachycardia though at times on the monitor it may have been 2:1 flutter. A/P: Tachycardia, supraventricular tachycardia versus possible 2:1 flutter. Modified Valsalva maneuver slow the patient's heart rate from the 160s to 190s down to 120s to 130s where she has been running since arrival. She is currently in a sinus tachycardia and is asymptomatic. Likely physiologic due to asthma exacerbation and influenza. Pulmonary embolism seems unlikely by history though will obtain a D-dimer. Check TSH. Echocardiogram ordered. Give one more liter of crystalloids as she has had poor oral intake. Critical care time: 30 - 74 mins Critical Care Time Critical Care Time: Yes Total Critical Care Time: 30 Attestation: Due to a high probability of clinically significant, life threatening deterioration, the patient required my highest level of preparedness to intervene emergently and I personally spent this critical care time directly and personally managing the patient. This critical care time included obtaining a history; examining the patient; pulse oximetry; ordering and review of studies; arranging urgent treatment with development of a management plan; evaluation of patient's response to treatment; frequent reassessment; and discussions with other providers. It was exclusive of separately billable procedures and treating other patients and teaching time. Please see Assessment and Plan section and the rest of the note for further information on patient assessment and treatment.
[2024-04-09] MEDS: SODIUM CHLORIDE 0.9% IV 1,000 ML 100 ML IV CONT (05:13)
[2024-04-09] MEDS: MAGNESIUM SULF 2 GM/WATER 50ML 2 GM/50 ML BAG IVPB (05:13)
[2024-04-09 05:57] LABS: Free T4 Free Thyroxine Reflex 1.31 ng/dL (0.78-2.19)
[2024-04-09 06:48] LABS: Total Triiodothyronine (T3) 1.17 NG/ML (0.97-1.69)
[2024-04-09 06:54] LABS: Glucose Point of Care 204 mg/dl (65-105)
--- NOTE | 2024-04-09 07:43 | ECG_ITS ---
Test Date: 2024-04-09 04:22:00 Measurements Intervals Unity Rate: 126 P: 50 CO: 145 QRS: 28 QRSD: 101 T: 50 QT: 303 QTc: 440 Interpretive Statements SINUS TACHYCARDIA MINIMAL ST DEPRESSION [0.025+ mV ST DEPRESSION] ABNORMAL RHYTHM ECG Compared to ECG 04/09/2024 03:52:40 ST (T wave) deviation now present Supraventricular tachycardia no longer present T-wave abnormality no longer present Possible ischemia no longer present Electronically Signed On 04-09-2024 21:20:23 ENVIRONMENTAL SUSTAINABILITY MANAGER by Kwaku Crandall M.D.
[2024-04-09 07:49] LABS: Glucose Point of Care 147 mg/dl (65-105)
--- NOTE | 2024-04-09 08:05 | P.PNIM_ITS ---
Progress Note: A&P Assessment and Plan (1) Asthma exacerbation: Code(s): J45.901 - Unspecified asthma with (acute) exacerbation Status: Acute Assessment and Plan: Likely precipitated by influenza A - Oxygen requirement: 2L NC (baseline room air), wean as tolerated to maintain spo2 >90 - Home medication: airsupra, airduo, trelegy-ellipta - Chest XR: No acute cardiopulmonary process - Telemetry - Current treatment: scheduled bronchodilators (levalbuterol ordered due to persistent tachycardia) and prednisone (2) Sinus tachycardia: Code(s): R00.0 - Tachycardia, unspecified Status: Acute Assessment and Plan: Per chart review a rapid response was called for tachycardia into the 170-190s and hypoxia when walking to the bathroom. - HR 100-120s - Possibly physiologic due to asthma exacerbation and influenza. Also patient states that she has been off of her verapamil since 04/04 because she ran out and was unable to get it filled. - Continue verapamil 240 mg daily, given metoprolol 12.5 mg PO x1 - Pulmonary embolism seems unlikely by history. D-dimer negative. - TSH 0.254, T4 1.31, T3 1.17 - Echocardiogram ordered. (3) Influenza A: Code(s): J10.1 - Influenza due to other identified influenza virus with other respiratory manifestations Status: Acute Assessment and Plan: Viral panel: Flu A positive - Tamiflu 04/08-04/13 (4) Type 2 diabetes mellitus: Code(s): E11.9 - Type 2 diabetes mellitus without complications Status: Acute Assessment and Plan: - hypoglycemia protocol - POC blood glucose ACHS - home medication - glimepiride 2 mg daily, metformin 1000 mg BID - correct regimen ordered - glimepiride, low dose TIDWM - A1C 6.5 (5) Essential hypertension: Code(s): I10 - Essential (primary) hypertension Status: Acute Assessment and Plan: Chronic, continue home medications - lisinopril 10 mg - HCTZ 12.5 mg daily - verapamil 240 mg daily - metoprolol 12.5 mg x1 given for tachycardia - blood pressures remain stable, continue to monitor Time Spent With Patient Time with patient: 25 - 35 minutes Subjective Date/time seen: 04/09/24 08:05 Interval history: 58-year-old female with asthma, hypertension, and type 2 diabetes mellitus who presented to the emergency department via private vehicle for evaluation of cough and shortness of breath. Rapid response called overnight due to tachycardia and hypoxia. Likely physiologic due to asthma exacerbation and influenza. At time of assessment patient continues to be tachycardic (HR 100-120s) and remains on 2L NC. Patient states that she has been off of her verapamil since 04/04 because she ran out and was unable to get it filled. Discussed patient with Dr. Cerna and will give her metoprolol 12.5 mg PO x1 for her tachycardia. She has no complaints denying chest pain, shortness of breath, palpitations, nausea/vomiting and abdominal pain. Review of Systems Review of Systems: All systems reviewed & are unremarkable except as noted in HPI and below Exam Narrative: AF HR 113 RR 20 SpO2 92 2L NC (baseline RA) BP 136/81 General: female in no acute respiratory distress who is nontoxic appearing, lying semi recumbent in bed. HEENT: Normocephalic. Atraumatic. Extraocular movement intact. Sclera clear and anicteric. No facial asymmetry. Chest: Lungs are diminished to auscultation bilaterally with expiratory wheezing. No crackles. CV: Heart was regular rhythm and tachycardic. S1-S2. No murmurs, gallops, or rubs. Abd: Abdomen was soft. Nontender. Nondistended. Positive bowel sounds. No organomegaly or masses. Ext: No clubbing, cyanosis, or edema. 2+ DP pulses bilaterally. Neuro: Patient is alert and oriented x4. Speech is clear. Objective Data Vital Signs Vital Signs: Vital Signs - 24 hr 04/08/24 13:24 04/08/24 17:02 04/08/24 17:02 Temperature 97.1 F L Pulse Rate 132 H 143 H Respiratory Rate 32 H Blood Pressure 127/91 H Pulse Oximetry 94 93 Oxygen Delivery Room Air Room Air Oxygen Flow Rate Fraction of Inspired Oxygen 04/08/24 17:03 04/08/24 17:05 04/08/24 17:59 Temperature 99.7 F H 98.6 F Pulse Rate 145 H 134 H Respiratory Rate 22 H 19 Blood Pressure 117/86 132/96 H Pulse Oximetry 93 92 100 Oxygen Delivery Room Air Oxygen Flow Rate Fraction of Inspired Oxygen 04/08/24 20:18 04/08/24 20:34 04/08/24 20:39 Temperature 98.5 F Pulse Rate 127 H 125 H 126 H Respiratory Rate 20 21 H 14 Blood Pressure 133/84 Pulse Oximetry 96 Oxygen Delivery Oxygen Flow Rate Fraction of Inspired Oxygen 04/08/24 22:40 04/08/24 23:53 04/09/24 00:00 Temperature 98.6 F Pulse Rate 127 H 121 H Respiratory Rate 20 Blood Pressure 124/78 Pulse Oximetry 94 94 Oxygen Delivery Nasal Cannula Oxygen Flow Rate 2 Fraction of Inspired Oxygen 04/09/24 01:04/09/24 01:29 04/09/24 02:20 Temperature 99.1 F Pulse Rate 129 H 175 H Respiratory Rate 20 20 Blood Pressure 155/88 H Pulse Oximetry 94 91 Oxygen Delivery Nasal Cannula Oxygen Flow Rate 2 Fraction of Inspired Oxygen 04/09/24 04:00 04/09/24 04:27 04/09/24 05:41 Temperature 98.5 F 98.3 F Pulse Rate 165 H 167 H 128 H Respiratory Rate 20 20 Blood Pressure 139/92 H 136/81 Pulse Oximetry 93 92 Oxygen Delivery Nasal Cannula Oxygen Flow Rate 2 Fraction of Inspired Oxygen Intake/Output Intake/Output: Intake & Output 04/06/24 04/07/24 04/08/24 04/09/24 23:59 23:59 23:59 23:59 Intake Total 1999 Balance 1999 550 Meds/Results Medications: Active Medications Generic Name Dose Route Start Last Admin Trade Name Freq PRN Reason Stop Dose Admin Acetaminophen 650 mg 04/08/24 19:20 Acetaminophen 325 Mg Tablet PO Q6H PRN Mild Pain (1-3) or Fever Bupropion HCl 150 mg 04/09/24 09:00 Bupropion Hcl Xl (24 Hr) 150 Mg Tabcr PO DAILY BRAYAN Dextrose 12.5 gm 04/08/24 19:22 Dextrose 50% 25 Gm/50 Ml Syringe IV PUSH PRN PRN Hypoglycemia Protocol Enoxaparin Sodium 40 mg 04/09/24 09:00 Enoxaparin 40 Mg/0.4 Ml Syringe SUB-Q DAILY BRAYAN Fluticasone/Umeclidinium/Vilanterol 1 puff 04/09/24 09:00 Fluticasone/Umeclidin/Vilanter 200-62.5-25 Mcg Ellipta INHALATION DAILY [facility] Glimepiride 2 mg 04/09/24 08:00 Glimepiride 2 Mg Tablet PO DAILY@0800 BRAYAN Glucagon 1 mg 04/08/24 19:22 Glucagon For Inj 1 Mg Vial IM PRN PRN Hypoglycemia Protocol Glucose 15 gm 04/08/24 19:22 Glucose Oral Gel 15 Gm Of Glucse In 37.5 Gm Tube PO PRN PRN Hypoglycemia Protocol Guaifenesin 1,200 mg 04/08/24 21:00 04/08/24 22:01 Guaifenesin 12 Hr 600 Mg Tabcr PO 1,200 mg Q12HR BRAYAN Administration Hydrochlorothiazide 12.5 mg 04/09/24 09:00 Hydrochlorothiazide 12.5 Mg Capsule PO QAM [facility]RAYAN Dextrose 1,000 mls @ 100 mls/hr 04/08/24 19:22 Dextrose 5% 1,000 Ml IVPB PRN PRN Hypoglycemia Protocol Sodium Chloride 1,000 mls @ 100 mls/hr 04/09/24 05:02 04/09/24 05:13 Normal Saline Iv IV CONT 04/09/24 15:01 100 mls/hr .Q10H ONE Administration Insulin Aspart 3 - 6 units 04/09/24 08:00 04/08/24 21:04 Insulin Aspart (*Bkc) 100 Units/Ml SUB-Q 3 units TIDWM BRAYAN Administration Protocol Insulin Aspart 1 - 3 units 04/08/24 21:00 04/08/24 21:13 Insulin Aspart (*Bkc) 100 Units/Ml SUB-Q Not Given HS [facility] Protocol Ipratropium [place] 0.5 mg 04/08/24 20:00 04/09/24 01:26 Ipratropium Br 0.02% Inh Soln 0.5 Mg/2.5 Ml Vial INHALATION 0.5 mg Q6HRT BRAYAN Administration Levalbuterol HCl 1.25 mg 04/08/24 20:00 04/09/24 01:26 Levalbuterol Neb 1.25 Mg/3 Ml INHALATION 1.25 mg Q6HRT BRAYAN Administration Lisinopril 10 mg 04/09/24 09:00 Lisinopril 10 Mg Tablet PO QAM [facility] Miscellaneous Information 0 each 04/09/24 00:01 Victoza = Nonformulary. Suggest Holding While Hospitalized XX 05/09/24 00:00 CLARIFY BRAYAN Miscellaneous Information 0 each 04/09/24 00:01 Airduo Duplicate With Active Trelegy Order. Suggest Holding XX 05/09/24 00:00 CLARIFY BRAYAN Miscellaneous Information 0 each 04/09/24 00:01 Airsupra = Nonformulary. Change To Plain Albuterol Mdi? XX 05/09/24 00:00 CLARIFY BRAYAN Non-Formulary Medication 2 inhalation 04/09/24 03:34 Albuterol-Budesonide [Airsupra] INHALATION QID PRN shortness of breath Non-Formulary Medication 2 puff 04/09/24 09:00 Fluticasone Propion-Salmeterol [Airduo Respiclick] INHALATION 05/09/24 08:59 DAILY [facility] Non-Formulary Medication 1.6 mg 04/09/24 09:00 Liraglutide [Victoza 3-Matthew] SUB-Q 05/09/24 08:59 DAILY [facility] Ondansetron HCl 4 mg 04/08/24 19:21 Ondansetron Inj 4 Mg/2 Ml Vial IV PUSH Q4H PRN Nausea Oseltamivir Phosphate 30 mg 04/08/24 21:00 04/08/24 20:45 Oseltamivir Phosphate 30 Mg Capsule PO 04/13/24 09:01 30 mg Q12HR [facility]AN Administration Perflutren Lipid Microsphere 0 ml 04/09/24 05:32 Perflutren Lipid Microspheres 1.5 Ml Vial Diluted To 10 Ml Total Volume IV PUSH 04/12/24 05:32 ONCE PRN adequate visualization Protocol Prednisone 40 mg 04/09/24 08:00 Prednisone 20 Mg Tablet PO 04/13/24 07:59 DAILY@0800 [facility] Simvastatin 40 mg 04/09/24 09:00 Simvastatin 20 Mg Tablet PO DAILY [facility] Verapamil HCl 240 mg 04/09/24 09:00 Verapamil Hcl Er 240 Mg Tablet.Er PO DAILY [facility] Radiology Results: ITS Impressions Chest X-Ray 04/08/24 14:19 IMPRESSION: No acute cardiopulmonary process. Labs Labs: Laboratory Results - last 24 hr 04/08/24 04/08/24 04/08/24 13:33 13:34 20:42 WBC 13.3 H RBC 4.98 Hgb 14.6 Hct 45.0 MCV 90.4 MCH 29.3 MCHC 32.4 RDW 14.4 Plt Count 375 MPV 10.1 Immature Gran % (Auto) 0.5 Neut % (Auto) 85.8 H Lymph % (Auto) 6.2 L [place] % (Auto) 6.9 Eos % (Auto) 0.1 Baso % (Auto) 0.5 Lymph # (Auto) 0.82 L [place] # (Auto) 0.9 H Eos # (Auto) 0.0 Baso # (Auto) 0.1 Abs Immat Gran (auto) 0.06 H Absolute Neuts (auto) 11.4 H Absolute Nucleated RBC 0.000 Nucleated RBC % 0.0 D-Dimer Sodium 136 L Potassium 3.9 Chloride 96 L Carbon Dioxide 26 Anion Gap 14 H BUN 14 Creatinine 0.96 Estim Creat Clear Calc 59 Estimated GFR 59 Glucose 185 H POC Capillary Glucose 213 H Hemoglobin A1c 6.5 H Calcium 9.6 Magnesium Total Bilirubin 0.5 AST 23 ALT 19 Alkaline Phosphatase 93 Total Protein 9.0 H Albumin 4.7 TSH (Reflex) Free T4 Total T3 Influenza A (RT-PCR) Positive A Influenza B (RT-PCR) Negative RSV (RT-PCR) Negative SARS-CoV-2 RNA (RT-PCR) Negative 04/09/24 04/09/24 04/09/24 04:03 04:07 07:43 WBC 12.9 H RBC 4.46 Hgb 13.0 Hct 40.4 MCV 90.6 MCH 29.1 MCHC 32.2 RDW 14.4 Plt Count 318 MPV 10.3 Immature Gran % (Auto) 0.9 H Neut % (Auto) 90.0 H Lymph % (Auto) 3.9 L [place] % (Auto) 5.0 Eos % (Auto) 0.0 Baso % (Auto) 0.2 Lymph # (Auto) 0.50 L [place] # (Auto) 0.6 Eos # (Auto) 0.0 Baso # (Auto) 0.0 Abs Immat Gran (auto) 0.11 H Absolute Neuts (auto) 11.6 H Absolute Nucleated RBC 0.000 Nucleated RBC % 0.0 D-Dimer 0.41 Sodium 135 L Potassium 4.1 Chloride 100 Carbon Dioxide 24 Anion Gap 11 BUN 19 H Creatinine 0.89 Estim Creat Clear Calc 63 Estimated GFR > 60 Glucose 211 H POC Capillary Glucose 204 H 147 H Hemoglobin A1c Calcium 9.1 Magnesium 1.5 L Total Bilirubin AST ALT Alkaline Phosphatase Total Protein Albumin TSH (Reflex) 0.254 L Free T4 1.31 Total T3 1.17 Influenza A (RT-PCR) Influenza B (RT-PCR) RSV (RT-PCR) SARS-CoV-2 RNA (RT-PCR) Quality VTE Prophylaxis VTE prophylaxis: pharmacologic ordered
[2024-04-09] MEDS: FLUTICASONE/UMECLIDIN/VILANTER 200-62.5-25 MCG ELLIPTA 1 PUFF INHALATION (08:58)
[2024-04-09] MEDS: OSELTAMIVIR PHOSPHATE 30 MG CAPSULE PO ×2 (10:14→21:32)
[2024-04-09] MEDS: SIMVASTATIN 20 MG TABLET 40 MG PO (10:15)
[2024-04-09] MEDS: guaiFENesin 12 HR 600 MG TABCR 1200 MG PO ×2 (10:15→21:32)
[2024-04-09] MEDS: lisinopriL 10 MG TABLET PO (10:15)
[2024-04-09] MEDS: GLIMEPIRIDE 2 MG TABLET PO (10:15)
[2024-04-09] MEDS: buPROPion HCL XL (24 HR) 150 MG TABCR PO (10:15)
[2024-04-09] MEDS: predniSONE 20 MG TABLET 40 MG PO (10:15)
[2024-04-09] MEDS: VERAPAMIL HCL ER 240 MG TABLET.ER PO (10:16)
[2024-04-09] MEDS: hydroCHLOROthiazide 12.5 MG CAPSULE PO (10:16)
[2024-04-09] MEDS: ENOXAPARIN 40 MG/0.4 ML SYRINGE SUB-Q (10:19)
[2024-04-09 12:03] LABS: Glucose Point of Care 158 mg/dl (65-105)
[2024-04-09] MEDS: METOPROLOL TARTRATE 12.5 MG TABLET PO (15:39)
[2024-04-09 16:32] LABS: Glucose Point of Care 175 mg/dl (65-105)
[2024-04-09 23:04] LABS: Glucose Point of Care 194 mg/dl (65-105)
[2024-04-10] VITALS (20 sets, daily range): BP systolic 122–127; BP diastolic 75–81; PULSE 80–112; RESP 18–20; TEMP 36.4–37; O2SAT 92–100
[2024-04-10] MEDS: LEVALBUTEROL NEB 1.25 MG/3 ML INHALATION ×4 (02:28→19:49)
[2024-04-10] MEDS: IPRATROPIUM BR 0.02% INH SOLN 0.5 MG/2.5 ML VIAL INHALATION ×4 (02:28→19:49)
--- NOTE | 2024-04-10 05:32 | ECHO_ITS ---
Patient Info Name: Anuradha Bain Age: 58 years : 1965 Gender: Female Ht: 65 in Wt: 191 lbs BSA: 2.02 m2 HR: 92 bpm BP: 122 / 76 mmHg Technical Quality: Good Exam Date: 04/10/2024 10:49 AM Exam Location: Echo Lab Exam Room: [facility] Patient Status: Inpatient Admit Date: 04/09/2024 Staff Ordering Physician: Eliza Florentino PA-C Microfilm Equipment Inspector: Katie Sauer RDCS Attending Provider: Kylie Orr PA-C Referring Physician: Chadd LEMUS; Exam Type: CA echo doppler color flow Study Info Indications - Tachycardia Complete two-dimensional, color flow and Doppler transthoracic echocardiogram is performed. Summary 1. Left ventricular chamber dimension is normal. 2. Left ventricular systolic function is normal, estimated at 50-55%. 3. The left ventricular diastolic function is grade I diastolic dysfunction. 4. Right ventricular systolic function is normal. 5. There is mild tricuspid valve regurgitation. Left Ventricle Left ventricular chamber dimension is normal. Left ventricular systolic function is normal, estimated at 50-55%. There is no increased left ventricular wall thickness. The left ventricular diastolic function is grade I diastolic dysfunction. Right Ventricle Right ventricular chamber dimension is normal. Right ventricular systolic function is normal. Left Atria Left atrial chamber dimension is normal. Right Atria Right atrial chamber dimension is normal. Atrial Septum Intact interatrial septum visualized by color flow imaging. Aortic Valve The aortic valve is not well visualized. There is no aortic valve stenosis. There is no aortic valve regurgitation. There is moderate aortic valve calcification. Pulmonic Valve The pulmonic valve is not well visualized. Mitral Valve There is trace mitral valve regurgitation. The mitral valve annulus is moderately calcified. Tricuspid Valve There is mild tricuspid valve regurgitation. Pericardium/Pleural The pericardium appears epicardial fat pad. There is no pericardial effusion. Inferior Vena Cava Normal inferior vena cava with >50% collapse upon inspiration consistent with normal right atrial pressure, 3 mmHg. Aorta The aortic root size at the sinus of Valsalva is normal. Left Ventricular Outflow Tract Name Value Normal LVOT 2D LVOT Diameter 2.0 cm LVOT Doppler LVOT Peak Gradient 4 mmHg LVOT Mean Gradient 2 mmHg LVOT VTI 19 cm LVOT VTI/AV VTI Ratio 0.6 LVOT Stroke Volume 60 ml LVOT CO 5.5 l/min LVOT CI 2.7 l/min/m2 Pulmonic Valve Name Value Normal PV Doppler PV Peak Gradient 4 mmHg Mitral Valve Name Value Normal MV Doppler MV Peak Gradient 9 mmHg MV Mean Gradient 4 mmHg MV Decel Spink 733 cm/s2 MV PHT 48 ms MV Area (PHT) 4.6 cm2 4.0-5.0 MV Area (Cont Eq VTI) 1.7 cm2 MV Diastolic Function MV E Peak Velocity 121 cm/s MV A Peak Velocity 151 cm/s MV E/A 0.8 MV Decel Time 165 ms MV Annular TDI MV E/e' (Septal) 23.2 <=8.0 MV E/e' (Lateral) 18.9 <=8.0 MV E/e' (Average) 21.1 Tricuspid Valve Name Value Normal TV Regurgitation Doppler TR Peak Velocity 301 cm/s TR Peak Gradient 30 mmHg Estimated PAP/RSVP RA Pressure 3 mmHg <=5 PA Systolic Pressure 39 mmHg <36 RV Systolic Pressure 39 mmHg <36 Aortic Valve Name Value Normal AV Doppler AV Peak Velocity 159 cm/s AV Peak Gradient 10 mmHg AV Mean Gradient 6 mmHg AV VTI 32 cm AV Area (Cont Eq VTI) 1.9 cm2 >=3.0 AV Area (Cont Eq Neo) 2.0 cm2 AV Regurgitation 2D LVOT Area 3.1 cm2 Ventricles Name Value Normal LV Dimensions 2D/MM IVS Diastolic Thickness (2D) 0.8 cm 0.6-1.0 LVID Diastole (2D) 5.1 cm 3.8-5.2 LVIW Diastolic Thickness (2D) 0.8 cm 0.6-0.9 LVID Systole (2D) 3.9 cm 2.2-3.5 LVOT Diameter 2.0 cm LV Mass (2D Cubed) 132.88 g 67.00-162.00 LV Mass Index (2D Cubed) 66 g/m2 43-95 Relative Wall Thickness (2D) 0.31 LV Fractional Shortening/Ejection Fraction 2D/MM LV Fractional Shortening (2D) 23 % 27-45 LV EF (2D Teicholz) 47 % 54-74 LV Diastolic Volume (4C MOD) 121 ml LV EF (4C MOD) 52 % LV Diastolic Volume (2C MOD) 124 ml LV EF (2C MOD) 61 % LV Diastolic Volume (BP MOD) 124 ml 46-106 LV Diastolic Volume Index (BP MOD) 61 ml/m2 29-61 LV Systolic Volume (BP MOD) 54 ml 14-42 LV Systolic Volume Index (BP MOD) 26 ml/m2 8-24 LV EF (BP MOD) 57 % 54-74 LV Diastolic Length (4C) 7.7 cm LV Systolic Length (4C) 6.8 cm LV Stroke Volume (4C MOD) 63 ml Atria Name Value Normal LA Dimensions LA Volume (4C A-L) 53 ml LA Volume (BP A-L) 64 ml RA Dimensions RA Area (4C) 16.8 cm2 <=18.0 Report Signatures
[2024-04-10 08:26] LABS: Glucose Point of Care 73 mg/dl (65-105)
[2024-04-10] MEDS: VERAPAMIL HCL ER 240 MG TABLET.ER PO (08:37)
[2024-04-10] MEDS: guaiFENesin 12 HR 600 MG TABCR 1200 MG PO ×2 (08:37→21:18)
[2024-04-10] MEDS: hydroCHLOROthiazide 12.5 MG CAPSULE PO (08:37)
[2024-04-10] MEDS: OSELTAMIVIR PHOSPHATE 30 MG CAPSULE PO ×2 (08:37→21:18)
[2024-04-10] MEDS: GLIMEPIRIDE 2 MG TABLET PO (08:37)
[2024-04-10] MEDS: SIMVASTATIN 20 MG TABLET 40 MG PO (08:37)
[2024-04-10] MEDS: ENOXAPARIN 40 MG/0.4 ML SYRINGE SUB-Q (08:37)
[2024-04-10] MEDS: predniSONE 20 MG TABLET 40 MG PO (08:37)
[2024-04-10] MEDS: lisinopriL 10 MG TABLET PO (08:37)
[2024-04-10] MEDS: buPROPion HCL XL (24 HR) 150 MG TABCR PO (08:37)
--- NOTE | 2024-04-10 09:08 | P.PNIM_ITS ---
Progress Note: A&P Assessment and Plan (1) Asthma exacerbation: Code(s): J45.901 - Unspecified asthma with (acute) exacerbation Status: Acute Assessment and Plan: Likely precipitated by influenza A - Oxygen requirement: 1L NC (baseline room air), wean as tolerated to maintain spo2 >90 - Home medication: airsupra, airduo, trelegy-ellipta - Chest XR: No acute cardiopulmonary process - Telemetry - Current treatment: scheduled bronchodilators (levalbuterol ordered due to persistent tachycardia) and prednisone (2) Sinus tachycardia: Code(s): R00.0 - Tachycardia, unspecified Status: Acute Assessment and Plan: Per chart review a rapid response was called for tachycardia into the 170-190s and hypoxia when walking to the bathroom. - HR stable - Possibly physiologic due to asthma exacerbation and influenza. Also patient states that she has been off of her verapamil since 04/04 because she ran out and was unable to get it filled. - Continue verapamil 240 mg daily, given metoprolol 12.5 mg PO x1 - Pulmonary embolism seems unlikely by history. D-dimer negative. - TSH 0.254, T4 1.31, T3 1.17 - Echocardiogram: LVEF 50-55% with diastolic dysfunction (3) Influenza A: Code(s): J10.1 - Influenza due to other identified influenza virus with other respiratory manifestations Status: Acute Assessment and Plan: Viral panel: Flu A positive - Tamiflu 04/08-04/13 (4) Type 2 diabetes mellitus: Code(s): E11.9 - Type 2 diabetes mellitus without complications Status: Acute Assessment and Plan: - hypoglycemia protocol - POC blood glucose ACHS - home medication - glimepiride 2 mg daily, metformin 1000 mg BID - correct regimen ordered - glimepiride, low dose TIDWM - A1C 6.5 (5) Essential hypertension: Code(s): I10 - Essential (primary) hypertension Status: Acute Assessment and Plan: Chronic, continue home medications - lisinopril 10 mg - HCTZ 12.5 mg daily - verapamil 240 mg daily - blood pressures remain stable, continue to monitor Time Spent With Patient Time with patient: 25 - 35 minutes Subjective Date/time seen: 04/10/24 09:08 Interval history: 58-year-old female with asthma, hypertension, and type 2 diabetes mellitus who presented to the emergency department via private vehicle for evaluation of cough and shortness of breath. Patient is pleasant sitting on the side of the bed with family at bedside. She continues to endorse shortness of breath and a cough. RN attempted to wean off of O2 however patient desated into the 80s. Patient has no other complaints denying chest pain, palpitations, nausea/vomiting and abdominal pain. Review of Systems Review of Systems: All systems reviewed & are unremarkable except as noted in HPI and below Exam Narrative: AF HR 100 RR 18 SpO2 92 1L NC BP 122/76 General: female in no acute respiratory distress who is nontoxic appearing, lying semi recumbent in bed. HEENT: Normocephalic. Atraumatic. Extraocular movement intact. Sclera clear and anicteric. No facial asymmetry. Chest: Lungs remain diminished to auscultation bilaterally with expiratory wheezing. No crackles. CV: Heart was regular rhythm and tachycardic. S1-S2. No murmurs, gallops, or rubs. Abd: Abdomen was soft. Nontender. Nondistended. Positive bowel sounds. No organomegaly or masses. Objective Data Vital Signs Vital Signs: Vital Signs - 24 hr 04/09/24 10:15 04/09/24 12:00 04/09/24 14:00 Temperature 98.3 F Pulse Rate 113 H 119 H 113 H Respiratory Rate 20 20 Blood Pressure 136/81 Pulse Oximetry 93 92 Oxygen Delivery Nasal Cannula Oxygen Flow Rate 2 Fraction of Inspired Oxygen 04/09/24 14:36 04/09/24 15:02 04/09/24 15:39 Temperature Pulse Rate 118 H 122 H 119 H Respiratory Rate 20 20 Blood Pressure Pulse Oximetry Oxygen Delivery Oxygen Flow Rate Fraction of Inspired Oxygen 04/09/24 16:00 04/09/24 20:00 04/09/24 20:37 Temperature Pulse Rate 115 H Respiratory Rate Blood Pressure Pulse Oximetry 100 95 Oxygen Delivery Nasal Cannula Nasal Cannula Oxygen Flow Rate 2 2 Fraction of Inspired Oxygen 04/09/24 20:37 04/09/24 20:52 04/09/24 22:00 Temperature 98.1 F Pulse Rate 90 95 93 Respiratory Rate 18 18 20 Blood Pressure 109/70 Pulse Oximetry 100 Oxygen Delivery Oxygen Flow Rate Fraction of Inspired Oxygen 04/10/24 00:00 04/10/24 02:28 04/10/24 02:42 Temperature Pulse Rate 82 101 H 89 Respiratory Rate 18 18 Blood Pressure Pulse Oximetry Oxygen Delivery Oxygen Flow Rate Fraction of Inspired Oxygen 04/10/24 04:00 04/10/24 04:28 04/10/24 05:44 Temperature 97.6 F Pulse Rate 80 90 92 Respiratory Rate 20 Blood Pressure 122/76 Pulse Oximetry 100 Oxygen Delivery Oxygen Flow Rate Fraction of Inspired Oxygen Intake/Output Intake/Output: Intake & Output 04/07/24 04/08/24 04/09/24 04/10/24 23:59 23:59 23:59 23:59 Intake Total 1999 1870 500 Output Total 800 700 Balance 1999 1070 -200 Meds/Results Medications: Active Medications Generic Name Dose Route Start Last Admin Trade Name Freq PRN Reason Stop Dose Admin Acetaminophen 650 mg 04/08/24 19:20 Acetaminophen 325 Mg Tablet PO Q6H PRN Mild Pain (1-3) or Fever Bupropion HCl 150 mg 04/09/24 09:00 04/10/24 08:37 Bupropion Hcl Xl (24 Hr) 150 Mg Tabcr PO 150 mg DAILY BRAYAN Administration Dextrose 12.5 gm 04/08/24 19:22 Dextrose 50% 25 Gm/50 Ml Syringe IV PUSH PRN PRN Hypoglycemia Protocol Enoxaparin Sodium 40 mg 04/09/24 09:00 04/10/24 08:37 Enoxaparin 40 Mg/0.4 Ml Syringe SUB-Q 40 mg DAILY BRAYAN Administration Fluticasone/Umeclidinium/Vilanterol 1 puff 04/09/24 09:00 04/09/24 08:58 Fluticasone/Umeclidin/Vilanter 200-62.5-25 Mcg Ellipta INHALATION 1 puff DAILY BRAYAN Administration Glimepiride 2 mg 04/09/24 08:00 04/10/24 08:37 Glimepiride 2 Mg Tablet PO 2 mg DAILY@0800 BRAYAN Administration Glucagon 1 mg 04/08/24 19:22 Glucagon For Inj 1 Mg Vial IM PRN PRN Hypoglycemia Protocol Glucose 15 gm 04/08/24 19:22 Glucose Oral Gel 15 Gm Of Glucse In 37.5 Gm Tube PO PRN PRN Hypoglycemia Protocol Guaifenesin 1,200 mg 04/08/24 21:00 04/10/24 08:37 Guaifenesin 12 Hr 600 Mg Tabcr PO 1,200 mg Q12HR BRAYAN Administration Hydrochlorothiazide 12.5 mg 04/09/24 09:00 04/10/24 08:37 Hydrochlorothiazide 12.5 Mg Capsule PO 12.5 mg QAM BRAYAN Administration Dextrose 1,000 mls @ 100 mls/hr 04/08/24 19:22 Dextrose 5% 1,000 Ml IVPB PRN PRN Hypoglycemia Protocol Insulin Aspart 1 - 3 units 04/08/24 21:00 04/09/24 21:31 Insulin Aspart (*Bkc) 100 Units/Ml SUB-Q Not Given HS [facility] Protocol Insulin Aspart 3 - 6 units 04/09/24 08:00 04/10/24 08:17 Insulin Aspart (*Bkc) 100 Units/Ml SUB-Q Not Given TIDWM [facility] Protocol Ipratropium [place] 0.5 mg 04/08/24 20:00 04/10/24 02:28 Ipratropium Br 0.02% Inh Soln 0.5 Mg/2.5 Ml Vial INHALATION 0.5 mg Q6HRT BRAYAN Administration Levalbuterol HCl 1.25 mg 04/08/24 20:00 04/10/24 02:28 Levalbuterol Neb 1.25 Mg/3 Ml INHALATION 1.25 mg Q6HRT BRAYAN Administration Lisinopril 10 mg 04/09/24 09:00 04/10/24 08:37 Lisinopril 10 Mg Tablet PO 10 mg QAM BRAYAN Administration Miscellaneous Information 0 each 04/09/24 00:01 Victoza = Nonformulary. Suggest Holding While Hospitalized XX 05/09/24 00:00 CLARIFY BRAYAN Miscellaneous Information 0 each 04/09/24 00:01 Airduo Duplicate With Active Trelegy Order. Suggest Holding XX 05/09/24 00:00 CLARIFY BRAYAN Miscellaneous Information 0 each 04/09/24 00:01 Airsupra = Nonformulary. Change To Plain Albuterol Mdi? XX 05/09/24 00:00 CLARIFY BRAYAN Non-Formulary Medication 2 inhalation 04/09/24 03:34 Albuterol-Budesonide [Airsupra] INHALATION QID PRN shortness of breath Non-Formulary Medication 2 puff 04/09/24 09:00 Fluticasone Propion-Salmeterol [Airduo Respiclick] INHALATION 05/09/24 08:59 DAILY [facility] Non-Formulary Medication 1.6 mg 04/09/24 09:00 Liraglutide [Victoza 3-Matthew] SUB-Q 05/09/24 08:59 DAILY [facility] Ondansetron HCl 4 mg 04/08/24 19:21 Ondansetron Inj 4 Mg/2 Ml Vial IV PUSH Q4H PRN Nausea Oseltamivir Phosphate 30 mg 04/08/24 21:00 04/10/24 08:37 Oseltamivir Phosphate 30 Mg Capsule PO 04/13/24 09:01 30 mg Q12HR BRAYAN Administration Perflutren Lipid Microsphere 0 ml 04/09/24 05:32 Perflutren Lipid Microspheres 1.5 Ml Vial Diluted To 10 Ml Total Volume IV PUSH 04/12/24 05:32 ONCE PRN adequate visualization Protocol Prednisone 40 mg 04/09/24 08:00 04/10/24 08:37 Prednisone 20 Mg Tablet PO 04/13/24 07:59 40 mg DAILY@0800 BRAYAN Administration Simvastatin 40 mg 04/09/24 09:00 04/10/24 08:37 Simvastatin 20 Mg Tablet PO 40 mg DAILY BRAYAN Administration Verapamil HCl 240 mg 04/09/24 09:00 04/10/24 08:37 Verapamil Hcl Er 240 Mg Tablet.Er PO 240 mg DAILY BRAYAN Administration Radiology Results: ITS Impressions Chest X-Ray 04/08/24 14:19 IMPRESSION: No acute cardiopulmonary process. Labs Labs: Laboratory Results - last 24 hr 04/09/24 04/09/24 04/09/24 11:53 16:29 20:49 POC Capillary Glucose 158 H 175 H 194 H 04/10/24 07:50 POC Capillary Glucose 73 Quality VTE Prophylaxis VTE prophylaxis: pharmacologic ordered
[2024-04-10] MEDS: FLUTICASONE/UMECLIDIN/VILANTER 200-62.5-25 MCG ELLIPTA 1 PUFF INHALATION (09:32)
[2024-04-10 09:48] LABS: Basophils Percent Auto 0.5 % (0.2-1.2); Eosinophils Percent Auto 0.5 % (0-4.4); Hematocrit 39.6 % (37.0-47.0); Hemoglobin 12.5 g/dL (12.0-15.0); Immature Granulocyte Absolute 0.03 K/mm3 (0.00-0.031); Immature Granulocyte Percent A 0.3 % (0-0.5); Lymphocytes Absolute Auto 2.06 K/mm3 (0.9-3.2); Mean Corpuscular HGB Conc 31.6 g/dl (32-36); Mean Corpuscular Hemoglobin 29.1 pg (26-34); Mean Corpuscular Volume 92.1 fl (80-100); Mean Platelet Volume 10.3 fl (7.4-10.4); Monocytes Absolute Auto 1.2 K/mm3 (0.1-0.6); Monocytes Percent Auto 14.3 % (2.6-8.5); Neutrophils Absolute Auto 5.2 K/mm3 (1.3-6.7); Neutrophils Percent Auto 60.4 % (45.5-73.1); Platelet Count Result 315 k/mm3 (150-375); Red Cell Distribution Width 14.3 % (11.5-14.5); White Blood Count 8.6 K/mm3 (4.5-10.0)
[2024-04-10 10:14] LABS: Alanine Aminotransferase 22 U/L (6-35); Albumin Level 3.8 g/dL (3.5-5.1); Alkaline Phosphatase 69 U/L (38-126); Anion Gap 9 mmol/L (4-12); Aspartate Amino Transferase 28 U/L (14-36); Bilirubin,Total 0.4 mg/dL (0.2-1.3); Blood Urea Nitrogen 18 mg/dL (7-17); Calcium 8.9 mg/dL (8.4-10.2); Carbon Dioxide 28 mmol/L (22-30); Chloride 101 mmol/L (98-107); Estimated CRCL calculation 64 ml/min; Estimated Glomerular Filt Rate > 60; Glucose 83 mg/dL (65-110); Potassium 3.8 mmol/L (3.4-5.0); Sodium 138 mmol/L (137-145)
[2024-04-10 11:53] LABS: Glucose Point of Care 160 mg/dl (65-105)
[2024-04-10 16:53] LABS: Glucose Point of Care 185 mg/dl (65-105)
[2024-04-10 21:06] LABS: Glucose Point of Care 197 mg/dl (65-105)
[2024-04-10] MEDS: SODIUM CHLORIDE NASAL GEL 14.1 GM 1 APPLIC NASAL (21:21)
[2024-04-11] VITALS (21 sets, daily range): BP systolic 122–141; BP diastolic 71–84; PULSE 89–123; RESP 14–18; TEMP 36.3–36.9; O2SAT 90–100
[2024-04-11] MEDS: IPRATROPIUM BR 0.02% INH SOLN 0.5 MG/2.5 ML VIAL INHALATION ×4 (02:43→21:01)
[2024-04-11] MEDS: LEVALBUTEROL NEB 1.25 MG/3 ML INHALATION ×4 (02:43→21:01)
[2024-04-11 06:45] LABS: Basophils Absolute Auto 0.1 K/mm3 (0.0-0.1); Basophils Percent Auto 0.4 % (0.2-1.2); Eosinophils Absolute Auto 0.1 K/mm3 (0-0.3); Eosinophils Percent Auto 0.4 % (0-4.4); Hematocrit 38.8 % (37.0-47.0); Hemoglobin 12.3 g/dL (12.0-15.0); Immature Granulocyte Absolute 0.06 K/mm3 (0.00-0.031); Immature Granulocyte Percent A 0.4 % (0-0.5); Lymphocytes Absolute Auto 2.76 K/mm3 (0.9-3.2); Lymphocytes Percent Auto 19.7 % (18.3-44.2); Mean Corpuscular HGB Conc 31.7 g/dl (32-36); Mean Corpuscular Hemoglobin 29.5 pg (26-34); Mean Platelet Volume 10.7 fl (7.4-10.4); Monocytes Absolute Auto 1.3 K/mm3 (0.1-0.6); Monocytes Percent Auto 8.9 % (2.6-8.5); Neutrophils Absolute Auto 9.8 K/mm3 (1.3-6.7); Neutrophils Percent Auto 70.2 % (45.5-73.1); Platelet Count Result 328 k/mm3 (150-375); Red Blood Count 4.17 M/mm3 (4.2-5.4); Red Cell Distribution Width 14.3 % (11.5-14.5)
[2024-04-11 06:55] LABS: Alanine Aminotransferase 20 U/L (6-35); Albumin Level 3.7 g/dL (3.5-5.1); Alkaline Phosphatase 68 U/L (38-126); Anion Gap 8 mmol/L (4-12); Aspartate Amino Transferase 23 U/L (14-36); Bilirubin,Total 0.5 mg/dL (0.2-1.3); Blood Urea Nitrogen 18 mg/dL (7-17); Calcium 8.5 mg/dL (8.4-10.2); Carbon Dioxide 31 mmol/L (22-30); Chloride 98 mmol/L (98-107); Estimated CRCL calculation 62 ml/min; Estimated Glomerular Filt Rate > 60; Glucose 79 mg/dL (65-110); Potassium 3.7 mmol/L (3.4-5.0); Sodium 137 mmol/L (137-145)
[2024-04-11] MEDS: buPROPion HCL XL (24 HR) 150 MG TABCR PO (07:44)
[2024-04-11] MEDS: hydroCHLOROthiazide 12.5 MG CAPSULE PO (07:44)
[2024-04-11] MEDS: VERAPAMIL HCL ER 240 MG TABLET.ER PO (07:44)
[2024-04-11] MEDS: GLIMEPIRIDE 2 MG TABLET PO (07:44)
[2024-04-11] MEDS: predniSONE 20 MG TABLET 40 MG PO (07:44)
[2024-04-11] MEDS: SIMVASTATIN 20 MG TABLET 40 MG PO (07:44)
[2024-04-11] MEDS: lisinopriL 10 MG TABLET PO (07:44)
[2024-04-11] MEDS: OSELTAMIVIR PHOSPHATE 30 MG CAPSULE PO ×2 (07:45→21:45)
[2024-04-11] MEDS: guaiFENesin 12 HR 600 MG TABCR 1200 MG PO ×2 (07:45→21:45)
[2024-04-11] MEDS: ENOXAPARIN 40 MG/0.4 ML SYRINGE SUB-Q (07:46)
[2024-04-11 07:57] LABS: Glucose Point of Care 79 mg/dl (65-105)
[2024-04-11] MEDS: FLUTICASONE/UMECLIDIN/VILANTER 200-62.5-25 MCG ELLIPTA 1 PUFF INHALATION (08:06)
[2024-04-11 11:22] LABS: Glucose Point of Care 221 mg/dl (65-105)
--- NOTE | 2024-04-11 12:30 | P.PNIM_ITS ---
Progress Note: A&P Assessment and Plan (1) Asthma exacerbation: Code(s): J45.901 - Unspecified asthma with (acute) exacerbation Status: Acute Assessment and Plan: Likely precipitated by influenza A - Oxygen requirement: 1L NC (baseline room air), wean as tolerated to maintain spo2 >90 - Home medication: airsupra, airduo, trelegy-ellipta - Chest XR: No acute cardiopulmonary process - Telemetry - Current treatment: scheduled bronchodilators (levalbuterol ordered due to persistent tachycardia) and prednisone (2) Sinus tachycardia: Code(s): R00.0 - Tachycardia, unspecified Status: Acute Assessment and Plan: Per chart review a rapid response was called for tachycardia into the 170-190s and hypoxia when walking to the bathroom- metoprolol was given with relief. - Possibly physiologic due to asthma exacerbation and influenza. Also patient states that she has been off of her verapamil since 04/04 because she ran out and was unable to get it filled. - Continue verapamil 240 mg daily, given metoprolol 12.5 mg PO x1 - Pulmonary embolism seems unlikely by history. D-dimer negative. - TSH 0.254, T4 1.31, T3 1.17 - Echocardiogram: LVEF 50-55% with diastolic dysfunction 04/11- will try low dose metoprolol daily for now will need to f/u with PCP to wean of beta tyron once asthma/flu improves (3) Influenza A: Code(s): J10.1 - Influenza due to other identified influenza virus with other respiratory manifestations Status: Acute Assessment and Plan: Viral panel: Flu A positive - Tamiflu 04/08-04/13 (4) Type 2 diabetes mellitus: Code(s): E11.9 - Type 2 diabetes mellitus without complications Status: Acute Assessment and Plan: - hypoglycemia protocol - POC blood glucose ACHS - home medication - glimepiride 2 mg daily, metformin 1000 mg BID - correct regimen ordered - glimepiride, low dose TIDWM - A1C 6.5 (5) Essential hypertension: Code(s): I10 - Essential (primary) hypertension Status: Acute Assessment and Plan: Chronic, continue home medications - lisinopril 10 mg - HCTZ 12.5 mg daily - verapamil 240 mg daily - blood pressures remain stable, continue to monitor Time Spent With Patient Time with patient: 25 - 35 minutes Subjective Date/time seen: 04/11/24 12:30 Interval history: 58-year-old female with asthma, hypertension, and type 2 diabetes mellitus who presented to the emergency department via private vehicle for evaluation of cough and shortness of breath. Patient is pleasant sitting on the side of the bed with family at bedside. She continues to endorse shortness of breath and a cough. RN attempted to wean off of O2 however patient desated into the 80s. Patient has no other complaints denying chest pain, palpitations, nausea/vomiting and abdominal pain. ECHO was done yesterday- EF 50-55%. Pt is seen and examined. She had few tachy episodes for which she was given metoprolol po dose x 1 with relief. Pt is seen and examined. She is alert, oriented, in no acute distress. Still on oxygen Review of Systems Review of Systems: 12 systems were reviewed and are negativ e except for as per HPI. All systems reviewed & are unremarkable except as noted in HPI and below Exam Narrative: General: female in no acute respiratory distress who is nontoxic appearing HEENT: Normocephalic. Atraumatic. Extraocular movement intact. Sclera clear and anicteric. No facial asymmetry. Chest: Lungs remain diminished to auscultation bilaterally with expiratory wheezing. No crackles. CV: Heart was regular rhythm and tachycardic. S1-S2. No murmurs, gallops, or rubs. Abd: Abdomen was soft. Nontender. Nondistended. Positive bowel sounds. No organomegaly or masses. Const: General: comfortable Objective Data Vital Signs Vital Signs: Vital Signs - 24 hr 04/10/24 12:55 04/10/24 14:00 04/10/24 15:00 Temperature 97.6 F Pulse Rate 105 H 97 Respiratory Rate 18 18 Blood Pressure 127/81 Pulse Oximetry 92 92 Oxygen Delivery Nasal Cannula Oxygen Flow Rate 1 04/10/24 15:21 04/10/24 16:00 04/10/24 19:50 Temperature Pulse Rate 104 H 107 H 103 H Respiratory Rate 18 18 Blood Pressure Pulse Oximetry Oxygen Delivery Oxygen Flow Rate 04/10/24 20:00 04/10/24 20:07 04/10/24 22:00 Temperature 98.6 F Pulse Rate 103 H 101 H 112 H Respiratory Rate 18 20 Blood Pressure 126/75 Pulse Oximetry 94 Oxygen Delivery Oxygen Flow Rate 04/11/24 00:00 04/11/24 02:43 04/11/24 02:49 Temperature Pulse Rate 99 92 Respiratory Rate 18 Blood Pressure Pulse Oximetry 93 Oxygen Delivery Nasal Cannula Oxygen Flow Rate 1 04/11/24 04:00 04/11/24 06:00 04/11/24 06:05 Temperature 98.2 F Pulse Rate 95 92 89 Respiratory Rate 18 18 Blood Pressure 129/74 Pulse Oximetry 94 Oxygen Delivery Oxygen Flow Rate 04/11/24 08:00 04/11/24 08:06 04/11/24 08:09 Temperature Pulse Rate 122 H Respiratory Rate 16 Blood Pressure Pulse Oximetry 95 90 Oxygen Delivery Nasal Cannula Nasal Cannula Oxygen Flow Rate 1 1 04/11/24 08:24 Temperature Pulse Rate 109 H Respiratory Rate 16 Blood Pressure Pulse Oximetry Oxygen Delivery Oxygen Flow Rate Intake/Output Intake/Output: Intake & Output 04/08/24 04/09/24 04/10/24 04/11/24 23:59 23:59 23:59 23:59 Intake Total 1999 1870 2510 1650 Output Total 800 700 Balance 1999 1070 1810 1650 Meds/Results Medications: Active Medications Generic Name Dose Route Start Last Admin Trade Name Freq PRN Reason Stop Dose Admin Acetaminophen 650 mg 04/08/24 19:20 Acetaminophen 325 Mg Tablet PO Q6H PRN Mild Pain (1-3) or Fever Albuterol 2 puff 04/10/24 11:12 Albuterol Sulfate (*Sp) Aerosol 1 Puff INHALATION QID PRN shortness of breath Bupropion HCl 150 mg 04/09/24 09:00 04/11/24 07:44 Bupropion Hcl Xl (24 Hr) 150 Mg Tabcr PO 150 mg DAILY BRAYAN Administration Dextrose 12.5 gm 04/08/24 19:22 Dextrose 50% 25 Gm/50 Ml Syringe IV PUSH PRN PRN Hypoglycemia Protocol Enoxaparin Sodium 40 mg 04/09/24 09:00 04/11/24 07:46 Enoxaparin 40 Mg/0.4 Ml Syringe SUB-Q 40 mg DAILY BRAYAN Administration Fluticasone/Umeclidinium/Vilanterol 1 puff 04/09/24 09:00 04/11/24 08:06 Fluticasone/Umeclidin/Vilanter 200-62.5-25 Mcg Ellipta INHALATION 1 puff DAILY BRAYAN Administration Glimepiride 2 mg 04/09/24 08:00 04/11/24 07:44 Glimepiride 2 Mg Tablet PO 2 mg DAILY@0800 BRAYAN Administration Glucagon 1 mg 04/08/24 19:22 Glucagon For Inj 1 Mg Vial IM PRN PRN Hypoglycemia Protocol Glucose 15 gm 04/08/24 19:22 Glucose Oral Gel 15 Gm Of Glucse In 37.5 Gm Tube PO PRN PRN Hypoglycemia Protocol Guaifenesin 1,200 mg 04/08/24 21:00 04/11/24 07:45 Guaifenesin 12 Hr 600 Mg Tabcr PO 1,200 mg Q12HR BRAYAN Administration Hydrochlorothiazide 12.5 mg 04/09/24 09:00 04/11/24 07:44 Hydrochlorothiazide 12.5 Mg Capsule PO 12.5 mg QAM BRAYAN Administration Dextrose 1,000 mls @ 100 mls/hr 04/08/24 19:22 Dextrose 5% 1,000 Ml IVPB PRN PRN Hypoglycemia Protocol Insulin Aspart 1 - 3 units 04/08/24 21:00 04/10/24 21:17 Insulin Aspart (*Bkc) 100 Units/Ml SUB-Q Not Given HS [facility] Protocol Insulin Aspart 3 - 6 units 04/09/24 08:00 04/11/24 07:45 Insulin Aspart (*Bkc) 100 Units/Ml SUB-Q Not Given TIDWM [facility] Protocol Ipratropium Imogene 0.5 mg 04/08/24 20:00 04/11/24 08:06 Ipratropium Br 0.02% Inh Soln 0.5 Mg/2.5 Ml Vial INHALATION 0.5 mg Q6HRT BRAYAN Administration Levalbuterol HCl 1.25 mg 04/08/24 20:00 04/11/24 08:06 Levalbuterol Neb 1.25 Mg/3 Ml INHALATION 1.25 mg Q6HRT BRAYAN Administration Lisinopril 10 mg 04/09/24 09:00 04/11/24 07:44 Lisinopril 10 Mg Tablet PO 10 mg QAM BRAYAN Administration Ondansetron HCl 4 mg 04/08/24 19:21 Ondansetron Inj 4 Mg/2 Ml Vial IV PUSH Q4H PRN Nausea Oseltamivir Phosphate 30 mg 04/08/24 21:00 04/11/24 07:45 Oseltamivir Phosphate 30 Mg Capsule PO 04/13/24 09:01 30 mg Q12HR BRAYAN Administration Perflutren Lipid Microsphere 0 ml 04/09/24 05:32 Perflutren Lipid Microspheres 1.5 Ml Vial Diluted To 10 Ml Total Volume IV PUSH 04/12/24 05:32 ONCE PRN adequate visualization Protocol Prednisone 40 mg 04/09/24 08:00 04/11/24 07:44 Prednisone 20 Mg Tablet PO 04/13/24 07:59 40 mg DAILY@0800 BRAYAN Administration Simvastatin 40 mg 04/09/24 09:00 04/11/24 07:44 Simvastatin 20 Mg Tablet PO 40 mg DAILY BRAYAN Administration Sodium Chloride 1 applic 04/10/24 21:00 04/10/24 21:21 Sodium Chloride Nasal Gel 14.1 Gm NASAL 1 applic HS BRAYAN Administration Verapamil HCl 240 mg 04/09/24 09:00 04/11/24 07:44 Verapamil Hcl Er 240 Mg Tablet.Er PO 240 mg DAILY BRAYAN Administration Radiology Results: ITS Impressions Chest X-Ray 04/08/24 14:19 IMPRESSION: No acute cardiopulmonary process. Labs Labs: Laboratory Results - last 24 hr 04/10/24 04/10/24 04/11/24 16:47 20:21 06:13 WBC 14.0 H RBC 4.17 L Hgb 12.3 Hct 38.8 MCV 93.0 MCH 29.5 MCHC 31.7 L RDW 14.3 Plt Count 328 MPV 10.7 H Immature Gran % (Auto) 0.4 Neut % (Auto) 70.2 Lymph % (Auto) 19.7 Reagan % (Auto) 8.9 H Eos % (Auto) 0.4 Baso % (Auto) 0.4 Lymph # (Auto) 2.76 Reagan # (Auto) 1.3 H Eos # (Auto) 0.1 Baso # (Auto) 0.1 Abs Immat Gran (auto) 0.06 H Absolute Neuts (auto) 9.8 H Absolute Nucleated RBC 0.000 Nucleated RBC % 0.0 Sodium 137 Potassium 3.7 Chloride 98 Carbon Dioxide 31 H Anion Gap 8 BUN 18 H Creatinine 0.94 Estim Creat Clear Calc 62 Estimated GFR > 60 Glucose 79 POC Capillary Glucose 185 H 197 H Calcium 8.5 Total Bilirubin 0.5 AST 23 ALT 20 Alkaline Phosphatase 68 Total Protein 7.0 Albumin 3.7 04/11/24 04/11/24 07:45 11:11 WBC RBC Hgb Hct MCV MCH MCHC RDW Plt Count MPV Immature Gran % (Auto) Neut % (Auto) Lymph % (Auto) Reagan % (Auto) Eos % (Auto) Baso % (Auto) Lymph # (Auto) Reagan # (Auto) Eos # (Auto) Baso # (Auto) Abs Immat Gran (auto) Absolute Neuts (auto) Absolute Nucleated RBC Nucleated RBC % Sodium Potassium Chloride Carbon Dioxide Anion Gap BUN Creatinine Estim Creat Clear Calc Estimated GFR Glucose POC Capillary Glucose 79 221 H Calcium Total Bilirubin AST ALT Alkaline Phosphatase Total Protein Albumin Quality VTE Prophylaxis VTE prophylaxis: pharmacologic ordered
[2024-04-11] MEDS: INSULIN ASPART (*BKC) 100 UNITS/ML SUB-Q ×2 (12:36→17:22)
[2024-04-11] MEDS: METOPROLOL SUCCINATE EXT REL 12.5 MG TABCR PO (13:16)
[2024-04-11 16:59] LABS: Glucose Point of Care 288 mg/dl (65-105)
[2024-04-11] MEDS: SODIUM CHLORIDE NASAL GEL 14.1 GM 1 APPLIC NASAL (21:45)
[2024-04-12] VITALS (19 sets, daily range): BP systolic 107–128; BP diastolic 70–77; PULSE 87–117; RESP 16–24; TEMP 35.7–36.8; O2SAT 92–95
[2024-04-12 01:13] LABS: Glucose Point of Care 163 mg/dl (65-105)
[2024-04-12] MEDS: LEVALBUTEROL NEB 1.25 MG/3 ML INHALATION ×4 (02:41→20:27)
[2024-04-12] MEDS: IPRATROPIUM BR 0.02% INH SOLN 0.5 MG/2.5 ML VIAL INHALATION ×4 (02:42→20:27)
[2024-04-12 07:14] LABS: Basophils Absolute Auto 0.1 K/mm3 (0.0-0.1); Basophils Percent Auto 0.2 % (0.2-1.2); Hematocrit 39.4 % (37.0-47.0); Hemoglobin 12.3 g/dL (12.0-15.0); Immature Granulocyte Absolute 0.25 K/mm3 (0.00-0.031); Immature Granulocyte Percent A 0.9 % (0-0.5); Lymphocytes Absolute Auto 1.99 K/mm3 (0.9-3.2); Lymphocytes Percent Auto 7.1 % (18.3-44.2); Mean Corpuscular HGB Conc 31.2 g/dl (32-36); Mean Corpuscular Hemoglobin 28.7 pg (26-34); Mean Corpuscular Volume 91.8 fl (80-100); Mean Platelet Volume 10.6 fl (7.4-10.4); Monocytes Absolute Auto 2.1 K/mm3 (0.1-0.6); Monocytes Percent Auto 7.6 % (2.6-8.5); Neutrophils Absolute Auto 23.6 K/mm3 (1.3-6.7); Neutrophils Percent Auto 84.2 % (45.5-73.1); Platelet Count Result 326 k/mm3 (150-375); Red Blood Count 4.29 M/mm3 (4.2-5.4); Red Cell Distribution Width 14.4 % (11.5-14.5)
[2024-04-12 07:31] LABS: Alanine Aminotransferase 17 U/L (6-35); Albumin Level 3.8 g/dL (3.5-5.1); Alkaline Phosphatase 75 U/L (38-126); Anion Gap 10 mmol/L (4-12); Aspartate Amino Transferase 19 U/L (14-36); Bilirubin,Total 0.6 mg/dL (0.2-1.3); Blood Urea Nitrogen 17 mg/dL (7-17); Calcium 8.7 mg/dL (8.4-10.2); Carbon Dioxide 27 mmol/L (22-30); Chloride 96 mmol/L (98-107); Estimated CRCL calculation 63 ml/min; Estimated Glomerular Filt Rate > 60; Glucose 119 mg/dL (65-110); Potassium 3.8 mmol/L (3.4-5.0); Sodium 133 mmol/L (137-145)
[2024-04-12 07:49] LABS: Glucose Point of Care 130 mg/dl (65-105)
[2024-04-12] MEDS: FLUTICASONE/UMECLIDIN/VILANTER 200-62.5-25 MCG ELLIPTA 1 PUFF INHALATION (08:03)
[2024-04-12] MEDS: SIMVASTATIN 20 MG TABLET 40 MG PO (08:54)
[2024-04-12] MEDS: GLIMEPIRIDE 2 MG TABLET PO (08:54)
[2024-04-12] MEDS: guaiFENesin 12 HR 600 MG TABCR 1200 MG PO ×2 (08:54→20:35)
[2024-04-12] MEDS: buPROPion HCL XL (24 HR) 150 MG TABCR PO (08:54)
[2024-04-12] MEDS: OSELTAMIVIR PHOSPHATE 30 MG CAPSULE PO ×2 (08:54→20:35)
[2024-04-12] MEDS: hydroCHLOROthiazide 12.5 MG CAPSULE PO (08:54)
[2024-04-12] MEDS: predniSONE 20 MG TABLET 40 MG PO (08:55)
[2024-04-12] MEDS: lisinopriL 10 MG TABLET PO (08:55)
[2024-04-12] MEDS: ENOXAPARIN 40 MG/0.4 ML SYRINGE SUB-Q (08:55)
[2024-04-12] MEDS: VERAPAMIL HCL ER 240 MG TABLET.ER PO (08:55)
[2024-04-12] MEDS: METOPROLOL SUCCINATE EXT REL 12.5 MG TABCR PO (08:56)
[2024-04-12 11:36] LABS: Glucose Point of Care 294 mg/dl (65-105)
[2024-04-12 11:36] LABS: Glucose Point of Care 315 mg/dl (65-105)
--- NOTE | 2024-04-12 12:33 | PM.IMPN ---
Progress Note: A&P Assessment and Plan (1) Asthma exacerbation: Code(s): J45.901 - Unspecified asthma with (acute) exacerbation Status: Acute Assessment and Plan: Likely precipitated by influenza A - Oxygen requirement: 1L NC (baseline room air), wean as tolerated to maintain spo2 >90 - Home medication: airsupra, airduo, trelegy-ellipta - Chest XR: No acute cardiopulmonary process - Telemetry - Current treatment: scheduled bronchodilators (levalbuterol ordered due to persistent tachycardia) and prednisone will repeat chest xray (2) Sinus tachycardia: Code(s): R00.0 - Tachycardia, unspecified Status: Acute Assessment and Plan: Per chart review a rapid response was called for tachycardia into the 170-190s and hypoxia when walking to the bathroom- metoprolol was given with relief. - Possibly physiologic due to asthma exacerbation and influenza. Also patient states that she has been off of her verapamil since 04/04 because she ran out and was unable to get it filled. - Continue verapamil 240 mg daily, given metoprolol 12.5 mg PO x1 - Pulmonary embolism seems unlikely by history. D-dimer negative. - TSH 0.254, T4 1.31, T3 1.17 - Echocardiogram: LVEF 50-55% with diastolic dysfunction 04/11- will try low dose metoprolol daily for now will need to f/u with PCP to wean of beta tyron once asthma/flu improves 04/12- reviewed and better today (3) Influenza A: Code(s): J10.1 - Influenza due to other identified influenza virus with other respiratory manifestations Status: Acute Assessment and Plan: Viral panel: Flu A positive - Tamiflu 04/08-04/13 (4) Type 2 diabetes mellitus: Code(s): E11.9 - Type 2 diabetes mellitus without complications Status: Acute Assessment and Plan: - hypoglycemia protocol - POC blood glucose ACHS - home medication - glimepiride 2 mg daily, metformin 1000 mg BID - correct regimen ordered - glimepiride, low dose TIDWM - A1C 6.5 (5) Essential hypertension: Code(s): I10 - Essential (primary) hypertension Status: Acute Assessment and Plan: Chronic, continue home medications - lisinopril 10 mg - HCTZ 12.5 mg daily - verapamil 240 mg daily - blood pressures remain stable, continue to monitor Time Spent With Patient Time with patient: 25 - 35 minutes Subjective Date/time seen: 04/12/24 12:33 Interval history: 58-year-old female with asthma, hypertension, and type 2 diabetes mellitus who presented to the emergency department via private vehicle for evaluation of cough and shortness of breath. Patient is pleasant sitting on the side of the bed with family at bedside. She continues to endorse shortness of breath and a cough. RN attempted to wean off of O2 however patient desated into the 80s. Patient has no other complaints denying chest pain, palpitations, nausea/vomiting and abdominal pain. ECHO was done yesterday- EF 50-55%. Pt is seen and examined. She had few tachy episodes for which she was given metoprolol po dose x 1 with relief. Pt is seen and examined. She is alert, oriented, in no acute distress. Still on oxygen 04/12 feeling better today. eating and drinking ok. If uneventful night and stable in am, anticipate discharge home tomorrow. Review of Systems Review of Systems: 12 systems were reviewed and are negative except for as per HPI. All systems reviewed & are unremarkable except as noted in HPI and below Exam Narrative: General: female in no acute respiratory distress who is nontoxic appearing HEENT: Normocephalic. Atraumatic. Extraocular movement intact. Sclera clear and anicteric. No facial asymmetry. Chest: Lungs remain diminished to auscultation bilaterally with expiratory wheezing. No crackles. CV: Heart was regular rhythm and tachycardic. S1-S2. No murmurs, gallops, or rubs. Abd: Abdomen was soft. Nontender. Nondistended. Positive bowel sounds. No organomegaly or masses. Const: General: comfortable Objective Data Vital Signs Vital Signs: Vital Signs - 24 hr 04/11/24 13:16 04/11/24 14:00 04/11/24 14:09 Temperature 97.4 F L Pulse Rate 103 H 103 H 106 H Respiratory Rate 15 14 Blood Pressure 122/71 Pulse Oximetry 100 Oxygen Delivery Oxygen Flow Rate 04/11/24 14:32 04/11/24 16:00 04/11/24 21:01 Temperature Pulse Rate 90 112 H 104 H Respiratory Rate 14 16 Blood Pressure Pulse Oximetry Oxygen Delivery Oxygen Flow Rate 04/11/24 21:36 04/11/24 21:39 04/11/24 21:44 Temperature 98.4 F Pulse Rate 96 98 104 H Respiratory Rate 16 18 Blood Pressure 141/84 H Pulse Oximetry 92 92 Oxygen Delivery Nasal Cannula Oxygen Flow Rate 1 04/11/24 21:45 04/12/24 00:00 04/12/24 02:42 Temperature Pulse Rate 101 H 100 117 H Respiratory Rate 16 Blood Pressure Pulse Oximetry Oxygen Delivery Oxygen Flow Rate 04/12/24 02:51 04/12/24 04:00 04/12/24 06:00 Temperature 98.3 F Pulse Rate 109 H 107 H 112 H Respiratory Rate 16 22 H Blood Pressure 128/77 Pulse Oximetry 93 Oxygen Delivery Oxygen Flow Rate 04/12/24 08:00 04/12/24 08:13 04/12/24 08:13 Temperature Pulse Rate 105 H 113 H 113 H Respiratory Rate 20 20 Blood Pressure Pulse Oximetry 95 Oxygen Delivery Nasal Cannula Oxygen Flow Rate 1 04/12/24 08:27 04/12/24 08:56 04/12/24 09:00 Temperature Pulse Rate 111 H 108 H 108 H Respiratory Rate 20 20 Blood Pressure Pulse Oximetry 95 Oxygen Delivery Nasal Cannula Oxygen Flow Rate 1 Intake/Output Intake/Output: Intake & Output 04/09/24 04/10/24 04/11/24 04/12/24 23:59 23:59 23:59 23:59 Intake Total 1870 2510 3167 1979 Output Total 800 700 Balance 1070 1810 3167 1979 Meds/Results Medications: Active Medications Generic Name Dose Route Start Last Admin Trade Name Freq PRN Reason Stop Dose Admin Acetaminophen 650 mg 04/08/24 19:20 Acetaminophen 325 Mg Tablet PO Q6H PRN Mild Pain (1-3) or Fever Albuterol 2 puff 04/10/24 11:12 Albuterol Sulfate (*Sp) Aerosol 1 Puff INHALATION QID PRN shortness of breath Bupropion HCl 150 mg 04/09/24 09:00 04/12/24 08:54 Bupropion Hcl Xl (24 Hr) 150 Mg Tabcr PO 150 mg DAILY BRAYAN Administration Dextrose 12.5 gm 04/08/24 19:22 Dextrose 50% 25 Gm/50 Ml Syringe IV PUSH PRN PRN Hypoglycemia Protocol Enoxaparin Sodium 40 mg 04/09/24 09:00 04/12/24 08:55 Enoxaparin 40 Mg/0.4 Ml Syringe SUB-Q 40 mg DAILY BRAYAN Administration Fluticasone/Umeclidinium/Vilanterol 1 puff 04/09/24 09:00 04/12/24 08:03 Fluticasone/Umeclidin/Vilanter 200-62.5-25 Mcg Ellipta INHALATION 1 puff DAILY BRAYAN Administration Glimepiride 2 mg 04/09/24 08:00 04/12/24 08:54 Glimepiride 2 Mg Tablet PO 2 mg DAILY@0800 [facility]AN Administration Glucagon 1 mg 04/08/24 19:22 Glucagon For Inj 1 Mg Vial IM PRN PRN Hypoglycemia Protocol Glucose 15 gm 04/08/24 19:22 Glucose Oral Gel 15 Gm Of Glucse In 37.5 Gm Tube PO PRN PRN Hypoglycemia Protocol Guaifenesin 1,200 mg 04/08/24 21:00 04/12/24 08:54 Guaifenesin 12 Hr 600 Mg Tabcr PO 1,200 mg Q12HR [facility]AN Administration Hydrochlorothiazide 12.5 mg 04/09/24 09:00 04/12/24 08:54 Hydrochlorothiazide 12.5 Mg Capsule PO 12.5 mg QAM [facility]AN Administration Dextrose 1,000 mls @ 100 mls/hr 04/08/24 19:22 Dextrose 5% 1,000 Ml IVPB PRN PRN Hypoglycemia Protocol Insulin Aspart 1 - 3 units 04/08/24 21:00 04/11/24 21:47 Insulin Aspart (*Bkc) 100 Units/Ml SUB-Q Not Given HS [facility] Protocol Insulin Aspart 3 - 6 units 04/09/24 08:00 04/12/24 08:48 Insulin Aspart (*Bkc) 100 Units/Ml SUB-Q Not Given TIDWM [facility] Protocol Ipratropium [place] 0.5 mg 04/08/24 20:00 04/12/24 08:10 Ipratropium Br 0.02% Inh Soln 0.5 Mg/2.5 Ml Vial INHALATION 0.5 mg Q6HRT [facility]AN Administration Levalbuterol HCl 1.25 mg 04/08/24 20:00 04/12/24 08:10 Levalbuterol Neb 1.25 Mg/3 Ml INHALATION 1.25 mg Q6HRT [facility] Administration Lisinopril 10 mg 04/09/24 09:00 04/12/24 08:55 Lisinopril 10 Mg Tablet PO 10 mg QAM [facility] Administration Metoprolol Succinate 12.5 mg 04/11/24 12:40 04/12/24 08:56 Metoprolol Succinate Ext Rel 12.5 Mg Tabcr PO 12.5 mg QAM [facility] Administration Ondansetron HCl 4 mg 04/08/24 19:21 Ondansetron Inj 4 Mg/2 Ml Vial IV PUSH Q4H PRN Nausea Oseltamivir Phosphate 30 mg 04/08/24 21:00 04/12/24 08:54 Oseltamivir Phosphate 30 Mg Capsule PO 04/13/24 09:01 30 mg Q12HR [facility] Administration Prednisone 40 mg 04/09/24 08:00 04/12/24 08:55 Prednisone 20 Mg Tablet PO 04/13/24 07:59 40 mg DAILY@0800 [facility] Administration Simvastatin 40 mg 04/09/24 09:00 04/12/24 08:54 Simvastatin 20 Mg Tablet PO 40 mg DAILY [facility] Administration Sodium Chloride 1 applic 04/10/24 21:00 04/11/24 21:45 Sodium Chloride Nasal Gel 14.1 Gm NASAL 1 applic HS [facility] Administration Verapamil HCl 240 mg 04/09/24 09:00 04/12/24 08:55 Verapamil Hcl Er 240 Mg Tablet.Er PO 240 mg DAILY BRAYAN Administration Radiology Results: ITS Impressions Chest X-Ray 04/08/24 14:19 IMPRESSION: No acute cardiopulmonary process. Labs Labs: Laboratory Results - last 24 hr 04/11/24 04/11/24 04/12/24 16:41 21:04 06:53 WBC 28.0 H RBC 4.29 Hgb 12.3 Hct 39.4 MCV 91.8 MCH 28.7 MCHC 31.2 L RDW 14.4 Plt Count 326 MPV 10.6 H Immature Gran % (Auto) 0.9 H Neut % (Auto) 84.2 H Lymph % (Auto) 7.1 L [place] % (Auto) 7.6 Eos % (Auto) 0.0 Baso % (Auto) 0.2 Lymph # (Auto) 1.99 [place] # (Auto) 2.1 H Eos # (Auto) 0.0 Baso # (Auto) 0.1 Abs Immat Gran (auto) 0.25 H Absolute Neuts (auto) 23.6 H Absolute Nucleated RBC 0.000 Nucleated RBC % 0.0 Sodium 133 L Potassium 3.8 Chloride 96 L Carbon Dioxide 27 Anion Gap 10 BUN 17 Creatinine 0.92 Estim Creat Clear Calc 63 Estimated GFR > 60 Glucose 119 H POC Capillary Glucose 288 H 163 H Calcium 8.7 Total Bilirubin 0.6 AST 19 ALT 17 Alkaline Phosphatase 75 Total Protein 7.0 Albumin 3.8 04/12/24 04/12/24 04/12/24 07:46 11:26 11:33 WBC RBC Hgb Hct MCV MCH MCHC RDW Plt Count MPV Immature Gran % (Auto) Neut % (Auto) Lymph % (Auto) [place] % (Auto) Eos % (Auto) Baso % (Auto) Lymph # (Auto) [place] # (Auto) Eos # (Auto) Baso # (Auto) Abs Immat Gran (auto) Absolute Neuts (auto) Absolute Nucleated RBC Nucleated RBC % Sodium Potassium Chloride Carbon Dioxide Anion Gap BUN Creatinine Estim Creat Clear Calc Estimated GFR Glucose POC Capillary Glucose 130 H 315 H 294 H Calcium Total Bilirubin AST ALT Alkaline Phosphatase Total Protein Albumin Quality VTE Prophylaxis VTE prophylaxis: pharmacologic ordered
[2024-04-12] MEDS: INSULIN ASPART (*BKC) 100 UNITS/ML SUB-Q ×2 (12:53→17:33)
[2024-04-12 16:32] LABS: Glucose Point of Care 253 mg/dl (65-105)
[2024-04-12] MEDS: SODIUM CHLORIDE NASAL GEL 14.1 GM 1 APPLIC NASAL (20:36)
[2024-04-12 21:08] LABS: Glucose Point of Care 183 mg/dl (65-105)
[2024-04-13] VITALS (20 sets, daily range): BP systolic 119–129; BP diastolic 68–74; PULSE 78–124; RESP 18–22; TEMP 36.2–37.2; O2SAT 90–95
[2024-04-13] MEDS: IPRATROPIUM BR 0.02% INH SOLN 0.5 MG/2.5 ML VIAL INHALATION ×4 (02:11→20:31)
[2024-04-13] MEDS: LEVALBUTEROL NEB 1.25 MG/3 ML INHALATION ×4 (02:11→20:30)
[2024-04-13 06:49] LABS: Basophils Percent Auto 0.1 % (0.2-1.2); Eosinophils Percent Auto 0.1 % (0-4.4); Hematocrit 39.1 % (37.0-47.0); Hemoglobin 12.4 g/dL (12.0-15.0); Immature Granulocyte Percent A 0.7 % (0-0.5); Lymphocytes Absolute Auto 3.25 K/mm3 (0.9-3.2); Lymphocytes Percent Auto 11.9 % (18.3-44.2); Mean Corpuscular HGB Conc 31.7 g/dl (32-36); Mean Corpuscular Hemoglobin 29.1 pg (26-34); Mean Corpuscular Volume 91.8 fl (80-100); Mean Platelet Volume 10.7 fl (7.4-10.4); Monocytes Absolute Auto 1.6 K/mm3 (0.1-0.6); Monocytes Percent Auto 5.8 % (2.6-8.5); Neutrophils Absolute Auto 22.3 K/mm3 (1.3-6.7); Neutrophils Percent Auto 81.4 % (45.5-73.1); Platelet Count Result 354 k/mm3 (150-375); Red Blood Count 4.26 M/mm3 (4.2-5.4); Red Cell Distribution Width 14.1 % (11.5-14.5); White Blood Count 27.4 K/mm3 (4.5-10.0)
[2024-04-13 07:00] LABS: Alanine Aminotransferase 17 U/L (6-35); Albumin Level 3.7 g/dL (3.5-5.1); Alkaline Phosphatase 96 U/L (38-126); Anion Gap 11 mmol/L (4-12); Aspartate Amino Transferase 17 U/L (14-36); Bilirubin,Total 0.4 mg/dL (0.2-1.3); Blood Urea Nitrogen 16 mg/dL (7-17); Calcium 9.4 mg/dL (8.4-10.2); Carbon Dioxide 29 mmol/L (22-30); Chloride 100 mmol/L (98-107); Estimated CRCL calculation 65 ml/min; Estimated Glomerular Filt Rate > 60; Glucose 73 mg/dL (65-110); Potassium 3.8 mmol/L (3.4-5.0); Sodium 140 mmol/L (137-145)
[2024-04-13 07:27] LABS: Giant Platelets Present; Large Platelets Present; Platelet Estimate Slightly Increased (Adequate)
[2024-04-13 07:28] LABS: Schistocytes None Seen
[2024-04-13] MEDS: FLUTICASONE/UMECLIDIN/VILANTER 200-62.5-25 MCG ELLIPTA 1 PUFF INHALATION (07:31)
[2024-04-13] MEDS: lisinopriL 10 MG TABLET PO (08:43)
[2024-04-13] MEDS: METOPROLOL SUCCINATE EXT REL 12.5 MG TABCR PO (08:43)
[2024-04-13] MEDS: hydroCHLOROthiazide 12.5 MG CAPSULE PO (08:43)
[2024-04-13] MEDS: VERAPAMIL HCL ER 240 MG TABLET.ER PO (08:44)
[2024-04-13] MEDS: OSELTAMIVIR PHOSPHATE 30 MG CAPSULE PO (08:44)
[2024-04-13] MEDS: SIMVASTATIN 20 MG TABLET 40 MG PO (08:44)
[2024-04-13] MEDS: guaiFENesin 12 HR 600 MG TABCR 1200 MG PO ×2 (08:44→20:52)
[2024-04-13] MEDS: buPROPion HCL XL (24 HR) 150 MG TABCR PO (08:44)
[2024-04-13] MEDS: GLIMEPIRIDE 2 MG TABLET PO (08:44)
[2024-04-13] MEDS: ENOXAPARIN 40 MG/0.4 ML SYRINGE SUB-Q (08:44)
[2024-04-13 08:46] LABS: Glucose Point of Care 85 mg/dl (65-105)
[2024-04-13 12:39] LABS: Glucose Point of Care 109 mg/dl (65-105)
--- NOTE | 2024-04-13 15:06 | PM.IMPN ---
Progress Note: A&P Assessment and Plan (1) Asthma exacerbation: Code(s): J45.901 - Unspecified asthma with (acute) exacerbation Status: Acute Assessment and Plan: Likely precipitated by influenza A - Oxygen requirement: 1L NC (baseline room air), wean as tolerated to maintain spo2 >90 - Home medication: airsupra, airduo, trelegy-ellipta - Chest XR: No acute cardiopulmonary process - Telemetry - Current treatment: scheduled bronchodilators (levalbuterol ordered due to persistent tachycardia) and prednisone will repeat chest xray - stable-not worsening (2) Sinus tachycardia: Code(s): R00.0 - Tachycardia, unspecified Status: Acute Assessment and Plan: Per chart review a rapid response was called for tachycardia into the 170-190s and hypoxia when walking to the bathroom- metoprolol was given with relief. - Possibly physiologic due to asthma exacerbation and influenza. Also patient states that she has been off of her verapamil since 04/04 because she ran out and was unable to get it filled. - Continue verapamil 240 mg daily, given metoprolol 12.5 mg PO x1 - Pulmonary embolism seems unlikely by history. D-dimer negative. - TSH 0.254, T4 1.31, T3 1.17 - Echocardiogram: LVEF 50-55% with diastolic dysfunction 04/11- will try low dose metoprolol daily for now will need to f/u with PCP to wean of beta tyron once asthma/flu improves 04/12- reviewed and better today stable- continue with metoprolol (3) Influenza A: Code(s): J10.1 - Influenza due to other identified influenza virus with other respiratory manifestations Status: Acute Assessment and Plan: Viral panel: Flu A positive - Tamiflu 04/08-04/13 (4) Type 2 diabetes mellitus: Code(s): E11.9 - Type 2 diabetes mellitus without complications Status: Acute Assessment and Plan: - hypoglycemia protocol - POC blood glucose ACHS - home medication - glimepiride 2 mg daily, metformin 1000 mg BID - correct regimen ordered - glimepiride, low dose TIDWM - A1C 6.5 will hold glimepiride for now (5) Essential hypertension: Code(s): I10 - Essential (primary) hypertension Status: Acute Assessment and Plan: Chronic, continue home medications - lisinopril 10 mg - HCTZ 12.5 mg daily - verapamil 240 mg daily - blood pressures remain stable, continue to monitor Time Spent With Patient Time with patient: 25 - 35 minutes Subjective Date/time seen: 04/13/24 15:06 Interval history: 58-year-old female with asthma, hypertension, and type 2 diabetes mellitus who presented to the emergency department via private vehicle for evaluation of cough and shortness of breath. Patient is pleasant sitting on the side of the bed with family at bedside. She continues to endorse shortness of breath and a cough. RN attempted to wean off of O2 however patient desated into the 80s. Patient has no other complaints denying chest pain, palpitations, nausea/vomiting and abdominal pain. ECHO was done yesterday- EF 50-55%. Pt is seen and examined. She had few tachy episodes for which she was given metoprolol po dose x 1 with relief. Pt is seen and examined. She is alert, oriented, in no acute distress. Still on oxygen 04/12 feeling better today. eating and drinking ok. If uneventful night and stable in am, anticipate discharge home tomorrow. 04/13- increased oxygen overnight. Could be due to trying to titrate oxygen too fast. she was a bit more sob an d tachy in am but now feels better and more relaxed. She denies any worsening of cough or chest pain and any other new symptoms. Review of Systems Review of Systems: 12 systems were reviewed and are negative except for as per HPI. All systems reviewed & are unremarkable except as noted in HPI and below Exam Narrative: General: female in no acute respiratory distress who is nontoxic appearing HEENT: Normocephalic. Atraumatic. Extraocular movement intact. Sclera clear and anicteric. No facial asymmetry. Chest: Lungs remain diminished to auscultation bilaterally with expiratory wheezing. No crackles. CV: Heart was regular rhythm and tachycardic. S1-S2. No murmurs, gallops, or rubs. Abd: Abdomen was soft. Nontender. Nondistended. Positive bowel sounds. No organomegaly or masses. Const: General: comfortable Objective Data Vital Signs Vital Signs: Vital Signs - 24 hr 04/12/24 16:00 04/12/24 20:00 04/12/24 20:27 Temperature Pulse Rate 101 H 109 H Respiratory Rate Blood Pressure Pulse Oximetry 93 Oxygen Delivery Nasal Cannula Oxygen Flow Rate 1 04/12/24 20:27 04/12/24 20:40 04/12/24 21:12 Temperature 98.2 F Pulse Rate 96 91 87 Respiratory Rate 20 20 24 H Blood Pressure 107/70 Pulse Oximetry 92 Oxygen Delivery Oxygen Flow Rate 04/13/24 00:00 04/13/24 02:15 04/13/24 02:24 Temperature Pulse Rate 78 110 H 109 H Respiratory Rate 20 20 Blood Pressure Pulse Oximetry Oxygen Delivery Oxygen Flow Rate 04/13/24 04:00 04/13/24 05:10 04/13/24 07:31 Temperature 97.2 F L Pulse Rate 84 98 Respiratory Rate 22 H Blood Pressure 129/73 Pulse Oximetry 92 90 Oxygen Delivery Nasal Cannula Oxygen Flow Rate 3 04/13/24 07:31 04/13/24 08:00 04/13/24 08:02 Temperature Pulse Rate 106 H 109 H Respiratory Rate 20 20 Blood Pressure Pulse Oximetry 94 Oxygen Delivery Nasal Cannula Oxygen Flow Rate 3 04/13/24 08:43 04/13/24 08:45 04/13/24 14:00 Temperature 98.9 F Pulse Rate 124 H 110 H 108 H Respiratory Rate 20 Blood Pressure 128/68 Pulse Oximetry 91 94 Oxygen Delivery Nasal Cannula Oxygen Flow Rate 3 04/13/24 14:08 04/13/24 14:08 04/13/24 14:39 Temperature Pulse Rate 108 H 110 H Respiratory Rate 22 H 18 Blood Pressure Pulse Oximetry 94 Oxygen Delivery Nasal Cannula Oxygen Flow Rate 3 Intake/Output Intake/Output: Intake & Output 04/10/24 04/11/24 04/12/24 04/13/24 23:59 23:59 23:59 23:59 Intake Total 2510 3167 3500 1030 Output Total 700 Balance 1810 3167 3500 1030 Meds/Results Medications: Active Medications Generic Name Dose Route Start Last Admin Trade Name Freq PRN Reason Stop Dose Admin Acetaminophen 650 mg 04/08/24 19:20 Acetaminophen 325 Mg Tablet PO Q6H PRN Mild Pain (1-3) or Fever Albuterol 2 puff 04/10/24 11:12 Albuterol Sulfate (*Sp) Aerosol 1 Puff INHALATION QID PRN shortness of breath Bupropion HCl 150 mg 04/09/24 09:00 04/13/24 08:44 Bupropion Hcl Xl (24 Hr) 150 Mg Tabcr PO 150 mg DAILY [facility]AN Administration Dextrose 12.5 gm 04/08/24 19:22 Dextrose 50% 25 Gm/50 Ml Syringe IV PUSH PRN PRN Hypoglycemia Protocol Enoxaparin Sodium 40 mg 04/09/24 09:00 04/13/24 08:44 Enoxaparin 40 Mg/0.4 Ml Syringe SUB-Q 40 mg DAILY BRAYAN Administration Fluticasone/Umeclidinium/Vilanterol 1 puff 04/09/24 09:00 04/13/24 07:31 Fluticasone/Umeclidin/Vilanter 200-62.5-25 Mcg Ellipta INHALATION 1 puff DAILY BRAYAN Administration Glimepiride 2 mg 04/09/24 08:00 04/13/24 08:44 Glimepiride 2 Mg Tablet PO 2 mg DAILY@0800 BRAYAN Administration Glucagon 1 mg 04/08/24 19:22 Glucagon For Inj 1 Mg Vial IM PRN PRN Hypoglycemia Protocol Glucose 15 gm 04/08/24 19:22 Glucose Oral Gel 15 Gm Of Glucse In 37.5 Gm Tube PO PRN PRN Hypoglycemia Protocol Guaifenesin 1,200 mg 04/08/24 21:00 04/13/24 08:44 Guaifenesin 12 Hr 600 Mg Tabcr PO 1,200 mg Q12HR [facility]RAYAN Administration Hydrochlorothiazide 12.5 mg 04/09/24 09:00 04/13/24 08:43 Hydrochlorothiazide 12.5 Mg Capsule PO 12.5 mg QAM [facility]RAYAN Administration Dextrose 1,000 mls @ 100 mls/hr 04/08/24 19:22 Dextrose 5% 1,000 Ml IVPB PRN PRN Hypoglycemia Protocol Insulin Aspart 1 - 3 units 04/08/24 21:00 04/12/24 22:35 Insulin Aspart (*Bkc) 100 Units/Ml SUB-Q Not Given HS [facility] Protocol Insulin Aspart 3 - 6 units 04/09/24 08:00 04/13/24 12:46 Insulin Aspart (*Bkc) 100 Units/Ml SUB-Q Not Given TIDWM [facility] Protocol Ipratropium [place] 0.5 mg 04/08/24 20:00 04/13/24 14:08 Ipratropium Br 0.02% Inh Soln 0.5 Mg/2.5 Ml Vial INHALATION 0.5 mg Q6HRT [facility]RAYAN Administration Levalbuterol HCl 1.25 mg 04/08/24 20:00 04/13/24 14:08 Levalbuterol Neb 1.25 Mg/3 Ml INHALATION 1.25 mg Q6HRT BRAYAN Administration Lisinopril 10 mg 04/09/24 09:00 04/13/24 08:43 Lisinopril 10 Mg Tablet PO 10 mg QAM BRAYAN Administration Metoprolol Succinate 12.5 mg 04/11/24 12:40 04/13/24 08:43 Metoprolol Succinate Ext Rel 12.5 Mg Tabcr PO 12.5 mg QAM BRAYAN Administration Ondansetron HCl 4 mg 04/08/24 19:21 Ondansetron Inj 4 Mg/2 Ml Vial IV PUSH Q4H PRN Nausea Simvastatin 40 mg 04/09/24 09:00 04/13/24 08:44 Simvastatin 20 Mg Tablet PO 40 mg DAILY BRAYAN Administration Sodium Chloride 1 applic 04/10/24 21:00 04/12/24 20:36 Sodium Chloride Nasal Gel 14.1 Gm NASAL 1 applic HS BRAYAN Administration Verapamil HCl 240 mg 04/09/24 09:00 04/13/24 08:44 Verapamil Hcl Er 240 Mg Tablet.Er PO 240 mg DAILY BRAYAN Administration Radiology Results: ITS Impressions Chest X-Ray 04/12/24 14:33 IMPRESSION: 1. Stable appearance of chronic atelectasis/scarring at the bilateral lower lung zones. No acute cardiopulmonary disease. Labs Labs: Laboratory Results - last 24 hr 04/12/24 04/12/24 04/13/24 16:28 19:47 06:29 WBC 27.4 H RBC 4.26 Hgb 12.4 Hct 39.1 MCV 91.8 MCH 29.1 MCHC 31.7 L RDW 14.1 Plt Count 354 MPV 10.7 H Immature Gran % (Auto) 0.7 H Neut % (Auto) 81.4 H Lymph % (Auto) 11.9 L [place] % (Auto) 5.8 Eos % (Auto) 0.1 Baso % (Auto) 0.1 L Lymph # (Auto) 3.25 H [place] # (Auto) 1.6 H Eos # (Auto) 0.0 Baso # (Auto) 0.0 Abs Immat Gran (auto) 0.20 H Absolute Neuts (auto) 22.3 H Absolute Nucleated RBC 0.000 Nucleated RBC % 0.0 Platelet Estimate Slightly increased Large Platelets Present Giant Platelets Present Schistocytes None seen Sodium 140 Potassium 3.8 Chloride 100 Carbon Dioxide 29 Anion Gap 11 BUN 16 Creatinine 0.89 Estim Creat Clear Calc 65 Estimated GFR > 60 Glucose 73 POC Capillary Glucose 253 H 183 H Calcium 9.4 Total Bilirubin 0.4 AST 17 ALT 17 Alkaline Phosphatase 96 Total Protein 8.0 Albumin 3.7 04/13/24 04/13/24 08:43 12:34 WBC RBC Hgb Hct MCV MCH MCHC RDW Plt Count MPV Immature Gran % (Auto) Neut % (Auto) Lymph % (Auto) [place] % (Auto) Eos % (Auto) Baso % (Auto) Lymph # (Auto) [place] # (Auto) Eos # (Auto) Baso # (Auto) Abs Immat Gran (auto) Absolute Neuts (auto) Absolute Nucleated RBC Nucleated RBC % Platelet Estimate Large Platelets Giant Platelets Schistocytes Sodium Potassium Chloride Carbon Dioxide Anion Gap BUN Creatinine Estim Creat Clear Calc Estimated GFR Glucose POC Capillary Glucose 85 109 H Calcium Total Bilirubin AST ALT Alkaline Phosphatase Total Protein Albumin Quality VTE Prophylaxis VTE prophylaxis: pharmacologic ordered
[2024-04-13 17:54] LABS: Glucose Point of Care 84 mg/dl (65-105)
[2024-04-13 20:29] LABS: Glucose Point of Care 155 mg/dl (65-105)
[2024-04-14] VITALS (20 sets, daily range): BP systolic 126–128; BP diastolic 56–65; PULSE 93–124; RESP 16–20; TEMP 36.3–36.4; O2SAT 85–98
[2024-04-14] MEDS: IPRATROPIUM BR 0.02% INH SOLN 0.5 MG/2.5 ML VIAL INHALATION ×3 (03:22→14:09)
[2024-04-14 06:31] LABS: Basophils Absolute Auto 0.1 K/mm3 (0.0-0.1); Basophils Percent Auto 0.4 % (0.2-1.2); Eosinophils Absolute Auto 0.1 K/mm3 (0-0.3); Eosinophils Percent Auto 0.4 % (0-4.4); Hematocrit 36.8 % (37.0-47.0); Hemoglobin 11.5 g/dL (12.0-15.0); Immature Granulocyte Absolute 0.36 K/mm3 (0.00-0.031); Immature Granulocyte Percent A 1.5 % (0-0.5); Lymphocytes Absolute Auto 3.17 K/mm3 (0.9-3.2); Lymphocytes Percent Auto 13.4 % (18.3-44.2); Mean Corpuscular HGB Conc 31.3 g/dl (32-36); Mean Corpuscular Hemoglobin 29.3 pg (26-34); Mean Corpuscular Volume 93.6 fl (80-100); Mean Platelet Volume 10.8 fl (7.4-10.4); Monocytes Absolute Auto 1.5 K/mm3 (0.1-0.6); Monocytes Percent Auto 6.4 % (2.6-8.5); Neutrophils Absolute Auto 18.4 K/mm3 (1.3-6.7); Neutrophils Percent Auto 77.9 % (45.5-73.1); Platelet Count Result 301 k/mm3 (150-375); Red Blood Count 3.93 M/mm3 (4.2-5.4); Red Cell Distribution Width 14.1 % (11.5-14.5); White Blood Count 23.7 K/mm3 (4.5-10.0)
[2024-04-14 06:37] LABS: Alanine Aminotransferase 15 U/L (6-35); Albumin Level 3.5 g/dL (3.5-5.1); Alkaline Phosphatase 74 U/L (38-126); Anion Gap 12 mmol/L (4-12); Aspartate Amino Transferase 16 U/L (14-36); Bilirubin,Total 0.7 mg/dL (0.2-1.3); Blood Urea Nitrogen 16 mg/dL (7-17); Calcium 8.7 mg/dL (8.4-10.2); Carbon Dioxide 25 mmol/L (22-30); Chloride 99 mmol/L (98-107); Estimated CRCL calculation 68 ml/min; Estimated Glomerular Filt Rate > 60; Glucose 77 mg/dL (65-110); Potassium 3.9 mmol/L (3.4-5.0); Sodium 136 mmol/L (137-145)
[2024-04-14 07:47] LABS: Glucose Point of Care 78 mg/dl (65-105)
[2024-04-14] MEDS: LEVALBUTEROL NEB 1.25 MG/3 ML INHALATION ×2 (08:07→14:09)
[2024-04-14 08:10] LABS: Large Platelets Present; Platelet Estimate Adequate (Adequate)
[2024-04-14 08:11] LABS: Anisocytosis 1+; Ovalocytes 1+; Schistocytes None Seen
[2024-04-14] MEDS: FLUTICASONE/UMECLIDIN/VILANTER 200-62.5-25 MCG ELLIPTA 1 PUFF INHALATION (08:23)
[2024-04-14] MEDS: METOPROLOL SUCCINATE EXT REL 12.5 MG TABCR PO (09:19)
[2024-04-14] MEDS: SIMVASTATIN 20 MG TABLET 40 MG PO (09:19)
[2024-04-14] MEDS: buPROPion HCL XL (24 HR) 150 MG TABCR PO (09:19)
[2024-04-14] MEDS: hydroCHLOROthiazide 12.5 MG CAPSULE PO (09:20)
[2024-04-14] MEDS: ENOXAPARIN 40 MG/0.4 ML SYRINGE SUB-Q (09:20)
[2024-04-14] MEDS: VERAPAMIL HCL ER 240 MG TABLET.ER PO (09:20)
[2024-04-14] MEDS: guaiFENesin 12 HR 600 MG TABCR 1200 MG PO (09:20)
[2024-04-14] MEDS: lisinopriL 10 MG TABLET PO (09:20)
[2024-04-14 11:40] LABS: Glucose Point of Care 175 mg/dl (65-105)
--- NOTE | 2024-04-14 14:21 | P.DS_ITS ---
DS: Admitting Diagnosis Discharge Date 04/14 Admitting Diagnosis sob DS: Discharge Diagnosis Discharge Diagnosis (1) Asthma exacerbation: Code(s): J45.901 - Unspecified asthma with (acute) exacerbation Status: Acute Assessment and Plan: Likely precipitated by influenza A - Oxygen requirement: 1L NC (baseline room air), wean as tolerated to maintain spo2 >90 - Home medication: airsupra, airduo, trelegy-ellipta - Chest XR: No acute cardiopulmonary process - Telemetry - Current treatment: scheduled bronchodilators (levalbuterol ordered due to persistent tachycardia) and prednisone will repeat chest xray - stable-not worsening (2) Sinus tachycardia: Code(s): R00.0 - Tachycardia, unspecified Status: Acute Assessment and Plan: Per chart review a rapid response was called for tachycardia into the 170-190s and hypoxia when walking to the bathroom- metoprolol was given with relief. - Possibly physiologic due to asthma exacerbation and influenza. Also patient states that she has been off of her verapamil since 04/04 because she ran out and was unable to get it filled. - Continue verapamil 240 mg daily, given metoprolol 12.5 mg PO x1 - Pulmonary embolism seems unlikely by history. D-dimer negative. - TSH 0.254, T4 1.31, T3 1.17 - Echocardiogram: LVEF 50-55% with diastolic dysfunction 04/11- will try low dose metoprolol daily for now will need to f/u with PCP to wean of beta tyron once asthma/flu improves 04/12- reviewed and better today stable- continue with metoprolol (3) Influenza A: Code(s): J10.1 - Influenza due to other identified influenza virus with other respiratory manifestations Status: Acute Assessment and Plan: Viral panel: Flu A positive - Tamiflu 04/08-04/13 (4) Type 2 diabetes mellitus: Code(s): E11.9 - Type 2 diabetes mellitus without complications Status: Acute Assessment and Plan: - hypoglycemia protocol - POC blood glucose ACHS - home medication - glimepiride 2 mg daily, metformin 1000 mg BID - correct regimen ordered - glimepiride, low dose TIDWM - A1C 6.5 will hold glimepiride for now (5) Essential hypertension: Code(s): I10 - Essential (primary) hypertension Status: Acute Assessment and Plan: Chronic, continue home medications - lisinopril 10 mg - HCTZ 12.5 mg daily - verapamil 240 mg daily - blood pressures remain stable, continue to monitor DS: Summary Hospital Course Hospital Course: 58-year-old female with asthma, hypertension, and type 2 diabetes mellitus who presented to the emergency department via private vehicle for evaluation of cough and shortness of breath. Patient is pleasant sitting on the side of the bed with family at bedside. She continues to endorse shortness of breath and a cough. RN attempted to wean off of O2 however patient desated into the 80s. Patient has no other complaints denying chest pain, palpitations, nausea/vomiting and abdominal pain. ECHO was done yesterday- EF 50-55%. She completed Tamiflu course. She completed Prednisone course. Her WBC are trending down- she knows to have CBC repeated within the next few days and already have a f/u scheduled with her PCP and pulmonology. Since pt was having consistent tachycardia- WE STARTED HER ON LOW DOSE METOPROLOL 12.5 mg daily. Hopefully her pCP can slowly wean her off metoprolol once she is fully recovered from FLU. on 04/14- she felt well enough to go home and wanted to be discharged with a close f/u with PCP and pulm. She has duonebs at home and we will continue her scheduled prescribed inhalers. WE tried to wean pt off oxygen and she didnot tolerate it well. We will do oxygen test and she will go home with oxygen. She has pulse ox monitor at home, so she will be monitoring it at home and try to wean off oxygen as able. She is provided with work excuse. Status at Discharge Functional status at discharge: independent ambulation Overall status at discharge: patient is progressing back to baseline Time Spent with Patient Time attestation: Total time spent providing and/or coordinating discharge services: Time spent: Greater than 30 minutes Exam Narrative: General: female in no acute respiratory distress who is nontoxic appearing HEENT: Normocephalic. Atraumatic. Extraocular movement intact. Sclera clear and anicteric. No facial asymmetry. Chest: Lungs remain diminished to auscultation bilaterally with expiratory wheezing. No crackles. CV: Heart was regular rhythm and tachycardic. S1-S2. No murmurs, gallops, or rubs. Abd: Abdomen was soft. Nontender. Nondistended. Positive bowel sounds. No organomegaly or masses. Const: General: comfortable Resp: Effort & Inspection: normal respiratory effort Auscultation: no crackles, no rales and no wheezes Cardio: Rate: tachycardic Rhythm: regular rhythm DS: Data Data Completed and Pending Labs on day of discharge: Labs from last 24 hours 04/14/24 04/14/24 04/14/24 11:31 07:37 06:18 WBC 23.7 H RBC 3.93 L Hgb 11.5 L Hct 36.8 L MCV 93.6 MCH 29.3 MCHC 31.3 L RDW 14.1 Plt Count 301 MPV 10.8 H Immature Gran % (Auto) 1.5 H Neut % (Auto) 77.9 H Lymph % (Auto) 13.4 L Kinney % (Auto) 6.4 Eos % (Auto) 0.4 Baso % (Auto) 0.4 Lymph # (Auto) 3.17 Kinney # (Auto) 1.5 H Eos # (Auto) 0.1 Baso # (Auto) 0.1 Abs Immat Gran (auto) 0.36 H Absolute Neuts (auto) 18.4 H Absolute Nucleated RBC 0.000 Nucleated RBC % 0.0 Platelet Estimate Adequate Large Platelets Present Anisocytosis 1+ Ovalocytes 1+ Schistocytes None seen Sodium 136 L Potassium 3.9 Chloride 99 Carbon Dioxide 25 Anion Gap 12 BUN 16 Creatinine 0.85 Estim Creat Clear Calc 68 Estimated GFR > 60 Glucose 77 POC Capillary Glucose 175 H 78 Calcium 8.7 Total Bilirubin 0.7 AST 16 ALT 15 Alkaline Phosphatase 74 Total Protein 7.0 Albumin 3.5 04/13/24 04/13/24 20:25 17:48 WBC RBC Hgb Hct MCV MCH MCHC RDW Plt Count MPV Immature Gran % (Auto) Neut % (Auto) Lymph % (Auto) Kinney % (Auto) Eos % (Auto) Baso % (Auto) Lymph # (Auto) Kinney # (Auto) Eos # (Auto) Baso # (Auto) Abs Immat Gran (auto) Absolute Neuts (auto) Absolute Nucleated RBC Nucleated RBC % Platelet Estimate Large Platelets Anisocytosis Ovalocytes Schistocytes Sodium Potassium Chloride Carbon Dioxide Anion Gap BUN Creatinine Estim Creat Clear Calc Estimated GFR Glucose POC Capillary Glucose 155 H 84 Calcium Total Bilirubin AST ALT Alkaline Phosphatase Total Protein Albumin Discharge Plan Discharge Attending physician on discharge: Yuniel Muller Discharging Clinician: Ana Harrington Patient Disposition: Home, Self-Care Activity: may shower Diet: as tolerated and diabetic Discharge Instructions: You completed tamiflu and steroid dose pack while in the hospital. Take metoprolol for tachycardia and discuss with your pcp when can you start weaning off the medication. Please monitor your oxygen level and wear oxygen for right now. Keep your pulm cornelio. Please return to ed if you start having more sob, cough, chest pain and any new/worsening symptoms. 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 operator automatic) Ana Luisa,MD Liliana [Primary Care Provider] - 1 Week Discharge Medications: Continued verapamil 180 mg Tablet Extended Release 240 mg PO DAILY simvastatin 20 mg Tablet 40 mg PO DAILY metformin 1,000 mg Tablet 1,000 mg PO BID lisinopril-hydrochlorothiazide 10-12.5 mg Tablet 1 tablet PO DAILY liraglutide [Victoza 3-Matthew] 0.6 mg/0.1 mL (18 mg/3 mL) Pen Injector 1.6 mg SUBCUT DAILY fluticasone propion-salmeterol [AirDuo RespiClick] 232-14 mcg/actuation aerosol powdr breath activated 2 puff INHALATION DAILY Trelegy Ellipta 200-62.5-25 mcg blister with device 1 inh inhalation DAILY Airsupra 90-80 mcg/actuation HFA aerosol inhaler 2 inh inhalation QID PRN (Reason: shortness of breath) bupropion HCl 150 mg tablet extended release 24 hr 150 mg PO DAILY glimepiride 2 mg tablet 2 mg PO DAILY dupilumab [Dupixent Pen] subcut [id number] Rx Instructions: unknown dose subcutaneously; Date of admission: 04/09/24 09:20 Primary Care Provider: Ana LuisaLiliana Admitting Provider: Leonarda Cerna Attending physician on admission: Kylie Orr Condition: Stable Quality VTE Prophylaxis VTE prophylaxis: pharmacologic ordered Hospitalist MIPS Heart Failure (Exclusion) Patient has history of Heart Transplant or Left Ventricular Assistive Device?: No IF YES, STOP HERE Heart Failure (Qualifier) Patient has current or prior documentation of LVEF less than or equal to 40%, or mod/servere depressed LVSF?: No IF NO, STOP HERE
--- NOTE | 2024-04-14 15:13 | PCRCNOTE ---
Patient completed home oxygen evaluation and qualified to have 3L @ rest and 6L with activity. Maricarmen Diamond called with [employer], [employer] to be notified. Portable tank to be sent home with patient.
== END 2024-04-14 16:30 | disposition home or self-care (01) | DRG 113 ==
LOC: ANHED 19:23 → ANH3MEDSUR 21:05
PROVIDERS: Emergency Medicine; Physician Assistant; Student in an Organized Health Care Education/Training Program; Admitting Provider Internal Medicine; Emergency Provider Emergency Medicine; PCP Internal Medicine; Visit Provider General Practice
DX: J10.1 Influenza due to other identified influenza virus with other respiratory manifestations (principal); J45.901 Unspecified asthma with (acute) exacerbation; R09.02 Hypoxemia; I47.10 Supraventricular tachycardia, unspecified; E11.9 Type 2 diabetes mellitus without complications; I10 Essential (primary) hypertension; Z98.1 Arthrodesis status; Z87.891 Personal history of nicotine dependence
CPT/HCPCS: 36415; 71045; 71046; 80048; 80053; 82948; 83036; 83735; 84439; 84443; 84480; 85025; 85380; 87637; 93005; 93306; 94618; 94640; 96361; 96374; 99285; A9270; J1650; J1815; J2405; J3475; J7030; J7120; J7512

== ENCOUNTER 2024-05-03 09:20 | Inpatient (IN) | payer OTHER, SELFPAY ==
[2024-05-03] VITALS (25 sets, daily range): BP systolic 101–132; BP diastolic 57–82; PULSE 94–144; RESP 14–25; TEMP 36.6–36.7; O2SAT 92–100; BMI 30.6
--- NOTE | ~2024-05-03 | XR_ITS ---
Portable chest x-ray Comparison: 04/12/2024 Clinical History: Dyspnea Findings: Probable chronic bibasilar airspace opacities, similar to prior exam. Questionable superim posed left lower pneumonia. Cardiomediastinal silhouette is stable. Bones and soft tissues are unrem arkable. Impression: Questionable left lower lobe pneumonia with underlying probable chronic bibasilar scarring or atelect asis. Reviewed, dictated and finalized at location . 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
--- NOTE | ~2024-05-03 | XR_ITS ---
EXAMINATION: XR chest 1V portable DATE: 05/06/2024 12:45 INDICATION: Pneumonia. Shortness of breath. TECHNIQUE: A single frontal view of the chest was obtained. COMPARISON: Chest single view 05/03/2024, chest CT 12/21/2022, chest 2 views 04/08/2024 FINDINGS: There are mild patchy airspace opacities in right lower lung zone and left mid and lower derik ng zones. No pleural effusion or pneumothorax. The heart size is normal. IMPRESSION: 1. Stable airspace opacities in right lower lung zone and left mid and lower lung zones, consistent w ith pneumonia. Reviewed, dictated and finalized at location A. 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 Stable airspace opacities in right lower lung zone and left mid and lower derik ng zones, consistent with pneumonia.
--- NOTE | 2024-05-03 09:30 | ECG_ITS ---
Test Date: 2024-05-03 09:33:22 Measurements Intervals [place] Rate: 130 P: 26 [place]: 92 QRS: 24 QRSD: 96 T: 65 QT: 307 QTc: 453 Interpretive Statements SINUS TACHYCARDIA DELAYED PRECORDIAL R/S TRANSITION NONSPECIFIC ST & T-WAVE ABNORMALITY- LAT/HIGH LAT LEADS BASELINE ARTIFACT- I, II, III, AVR, AVL, AVF ABNORMAL ECG Compared to ECG 04/09/2024 04:22:00 NO SIGNIFICANT CHANGE Electronically Signed On 05-03-2024 09:37:59 LAW ENFORCEMENT DIRECTOR by Yordy Arias D.O.
[2024-05-03 09:46] LABS: Basophils Absolute Auto 0.1 K/mm3 (0.0-0.1); Basophils Percent Auto 0.4 % (0.2-1.2); Eosinophils Absolute Auto 0.1 K/mm3 (0-0.3); Eosinophils Percent Auto 0.8 % (0-4.4); Hematocrit 36.6 % (37.0-47.0); Hemoglobin 11.6 g/dL (12.0-15.0); Immature Granulocyte Absolute 0.07 K/mm3 (0.00-0.031); Immature Granulocyte Percent A 0.5 % (0-0.5); Lymphocytes Absolute Auto 1.07 K/mm3 (0.9-3.2); Lymphocytes Percent Auto 8.2 % (18.3-44.2); Mean Corpuscular HGB Conc 31.7 g/dl (32-36); Mean Corpuscular Hemoglobin 28.4 pg (26-34); Mean Corpuscular Volume 89.7 fl (80-100); Mean Platelet Volume 10.3 fl (7.4-10.4); Monocytes Absolute Auto 1.2 K/mm3 (0.1-0.6); Monocytes Percent Auto 9.2 % (2.6-8.5); Neutrophils Absolute Auto 10.6 K/mm3 (1.3-6.7); Neutrophils Percent Auto 80.9 % (45.5-73.1); Platelet Count Result 318 k/mm3 (150-375); Red Blood Count 4.08 M/mm3 (4.2-5.4); Red Cell Distribution Width 14.2 % (11.5-14.5); White Blood Count 13.1 K/mm3 (4.5-10.0)
[2024-05-03] MEDS: ALBUTEROL SULFATE NEB 2.5 MG/3 ML INH 10 MG INHALATION (09:53)
[2024-05-03] MEDS: IPRATROPIUM BR 0.02% INH SOLN 0.5 MG/2.5 ML VIAL 1 MG INHALATION (09:54)
[2024-05-03 09:57] LABS: Partial Thromboplastin Time 30.6 Seconds (22.3-36.8); Prothrombin Time 13.5 Seconds (11.1-14.7)
[2024-05-03 09:58] LABS: Alanine Aminotransferase 17 U/L (6-35); Alkaline Phosphatase 96 U/L (38-126); Anion Gap 13 mmol/L (4-12); Aspartate Amino Transferase 20 U/L (14-36); Bilirubin,Total 0.5 mg/dL (0.2-1.3); Blood Urea Nitrogen 10 mg/dL (7-17); Calcium 8.8 mg/dL (8.4-10.2); Carbon Dioxide 23 mmol/L (22-30); Chloride 99 mmol/L (98-107); Estimated CRCL calculation 66 ml/min; Estimated Glomerular Filt Rate > 60; Glucose 128 mg/dL (65-110); Magnesium 1.1 mg/dL (1.6-2.3); Potassium 3.6 mmol/L (3.4-5.0); Sodium 135 mmol/L (137-145)
[2024-05-03 10:09] LABS: NT Pro B Type Natriuretic Pept 129 pg/mL (19.9-100); Troponin I < 0.012 ng/mL (0.000-0.034)
[2024-05-03 10:31] LABS: Influenza A QL RT-PCR Negative (Negative); Influenza B QL RT-PCR Negative (Negative); RSV RNA, RT-PCR Negative (Negative); SARS-CoV-2 RNA PCR Negative (Negative)
[2024-05-03] MEDS: METOPROLOL TARTRATE 12.5 MG TABLET PO (10:52)
[2024-05-03] MEDS: VERAPAMIL HCL ER 240 MG TABLET.ER PO (10:52)
--- OUTSIDE RECORDS SUMMARY | 2024-05-03 10:59 | XMS_ITS | Referral Summary ---
Author Organization [facility] Address [address] [place] [address] Care Team Providers Care Health Analytics Consultant Name Role Phone Janiya Giron NP Primary Care Provider Encounters Date Type Department Care Team Description 02/16/2024 7:54 AM SUPERINTENDENT MEASUREMENT - 02/16/2024 11:59 PM SUPERINTENDENT MEASUREMENT Hospital Encounter [facility] Orthopedics and Sports Medicine [address] [place] [address] [address] [phone] Discharge Disposition: Discharge to home or self care 02/16/2024 3:00 PM SUPERINTENDENT MEASUREMENT Office Visit [facility] Orthopedics and Sports Medicine [address] [place] [address] [phone] Megan Morales PA Trochanteric bursitis of both hips (Primary Dx) from Last 3 Months Allergies Active Allergy Reactions Criticality Noted Date Comments Adhesive Itching Low 07/31/2021 Banana Extract Wheezing High 04/30/2024 Grass Pollen Cough High 04/30/2024 Latex Itching,Rash Medium 04/27/2023 Mold Cough High 04/30/2024 Ragweed Pollen Cough High 04/30/2024 Medications metFORMIN (GLUCOPHAGE) 500 mg tabletIndicati ons:type 2 diabetes mellitus Take 2 tablets (1,000 mg total) by mouth 2 (two) times a day with meals 2 08/25/19 Active lisinopriL (PRINIVIL,ZEST RIL) 10 mg tabletIndicati ons:hypertensi on Take 1 tablet (10 mg total) by mouth every morning Active hydroCHLOROthi azide (HYDRODIURIL) 12.5 mg tabletIndicati ons:hypertensi on Take 1 tablet (12.5 mg total) by mouth every morning Active verapamil SR (CALAN SR) 240 mg CR tabletIndicati ons:hypertensi on Take 1 tablet (240 mg total) by mouth every morning Active buPROPion XL (WELLBUTRIN XL) 150 mg 24 hr tabletIndicati ons:Anxiety with Depression Take 1 tablet (150 mg total) by mouth every morning Active fluticasone propionate (FLONASE) 50 mcg/actuation nasal spray SHAKE LIQUID AND USE 2 SPRAYS IN EACH NOSTRIL DAILY 16 g 5 07/14/19 24 Active fluticasone-um eclidin-vilant er (Trelegy Ellipta) 200-62.5-25 mcg inhaler Inhale 1 puff daily 60 each 02/28/20 24 Active albuterol-bude sonide (Airsupra) 90-80 mcg/actuation HFA aerosol inhaler Inhale 2 puffs every 4 (four) hours as needed Active naproxen (NAPROSYN) 500 mg tablet Take 1 tablet (500 mg total) by mouth as needed Active OneTouch Ultra Test strip 04/23/19 25 Active Dupixent Pen pen injector Inject 2 mL (300 mg total) under the skin every 14 (fourteen) days Active glimepiride (AMARYL) 2 mg tablet Take 1 tablet (2 mg total) by mouth daily Active metoprolol tartrate (LOPRESSOR) 25 mg immediate release tablet Take 0.5 tablets (12.5 mg total) by mouth daily 04/15/19 25 Active albuterol 2.5 mg /3 mL (0.083 %) nebulizer solution Take 3 mL (2.5 mg total) by nebulization as needed 04/18/19 25 Active simvastatin (ZOCOR) 40 mg tablet Take 1 tablet (40 mg total) by mouth nightly 04/20/19 25 Active VENTOLIN HFA 90 mcg/actuation inhalerIndicat ions:Acute Asthma Attack Inhale 2 puffs as needed 2 08/25/19 17 025 Discontinued simvastatin (ZOCOR) 10 mg tabletIndicati ons:hyperlipid emia Take 4 tablets (40 mg total) by mouth nightly 3 08/19/19 17 025 Discontinued zafirlukast (ACCOLATE) 20 mg tabletIndicati ons:Maintenanc e Therapy for Asthma Take 1 tablet (20 mg total) by mouth 2 (two) times a day 3 07/28/19 17 025 Discontinued liraglutide (VICTOZA) 0.6 mg/0.1 mL (18 mg/3 mL) injectionIndic ations:type 2 diabetes mellitus Inject 1.2 mg under the skin nightly Indications: type 2 diabetes mellitus 025 Discontinued Active Problems Problem Noted Date Diagnosed Date [...] (07/30/2021): Added automatically from request for surgery [id number] Resolved Problems Problem Noted Date Diagnosed Date Resolved Date TYRESE (acute kidney injury) 04/27/2023 Hyponatremia 04/27/2023 04/29/2023 Social History Tobacco Use Types Packs/Day Years Used Date Smoking Tobacco: Former Cigarettes Q uit: 2000 Smokeless Tobacco: Never Tobacco Cessation:Counseling Given: Not Answered [facility] Utilities Answer Date Recorded In the past 12 months has [employer], gas, oil, or water [employer] threatened to shut off services in your [...] week 04/28/2023 How often do you attend [facility] or religion services? Never 04/28/2023 Do you belong to [...] place to sleep or slept in a [facility] (including now)? No 04/28/2023 Personal Safety Answer [...] on file Legal Sex Female 11:02 AM SUPERINTENDENT MEASUREMENT Gender Identity Not on file Sexual Orientation Not on file Last Filed Vital Signs Vital Sign Reading Time Taken Comments Blood Pressure 147/100 02/16/2024 3:01 PM SUPERINTENDENT MEASUREMENT Pulse 116 02/16/2024 3:01 PM SUPERINTENDENT MEASUREMENT Temperature 37 C (98.6 F) 04/30/2023 7:29 AM SUPERINTENDENT MEASUREMENT Respiratory Rate 20 04/30/2023 7:29 AM SUPERINTENDENT MEASUREMENT Oxygen Saturation 93% 04/30/2023 7:54 AM SUPERINTENDENT MEASUREMENT Inhaled Oxygen Concentration - - Weight 81.2 kg (179 lb) 02/16/2024 3:01 PM SUPERINTENDENT MEASUREMENT Height 156.2 cm (5' 1.5 ) 02/16/2024 3:01 PM SUPERINTENDENT MEASUREMENT Body Mass Index 33.27 02/16/2024 3:01 PM SUPERINTENDENT MEASUREMENT Plan of Treatment Upcoming Encounters Date Type Department Care Team (Latest Contact Info) Description 05/08/2024 11:30 AM SUPERINTENDENT MEASUREMENT Hospital Encounter [facility] [address] [place] [address] [place] [id number] [address] 05/08/2024 11:30 AM SUPERINTENDENT MEASUREMENT - 05/08/2024 12:00 PM SUPERINTENDENT MEASUREMENT Surgery [facility] [address] [place] [address] [place] [id number] [id number] DRUG INDUCED SLEEP ENDOSCOPY/15MIN Scheduled Procedures Name Priority Associated Diagnoses Date/Ti me DRUG INDUCED SLEEP ENDOSCOPY EVAL FLEX DIAG YUVAL (obstructive sleep apnea) 05/08/2024 11:30 AM SUPERINTENDENT MEASUREMENT Procedures Procedure Name Priority Date/Time Associated Diagnosis Comments XR HIPS BILATERAL 3 OR 4 VW Schedule Routine, Read Routine (OP Routine) 02/16/2024 2:56 PM SUPERINTENDENT MEASUREMENT Trochanteric bursitis of both hips EGFR Routine 04/30/2023 5:16 AM SUPERINTENDENT MEASUREMENT SCREENING MAMMOGRAM BILATERAL W SPEEDY Schedule Routine, Read Routine (OP Routine) 03/12/2023 9:39 AM SUPERINTENDENT MEASUREMENT Encounter for screening mammogram for malignant neoplasm of breast HEMOGLOBIN A1C Timed 08/05/2021 9:55 PM CDT LIPID PANEL Timed 08/05/2021 9:55 PM CDT from Last 3 Months or Most Recently Relevant to Health Maintenance Results * XR Hips Bilateral 3 or 4 Views (02/16/2024 2:56 PM SUPERINTENDENT MEASUREMENT) Anatomical Region Laterality Modality Lower Extremities, Hip, Pelvis Bilateral D igital Radiography Narrative 02/16/2024 3:58 PM SUPERINTENDENT MEASUREMENT Radiographs taken of the bilateral hips today reveal moderate degenerative changes with subchondral sclerosis, osteophyte formation, and diminished joint space. us Megan LOPEZ IMG XR PROCEDURES Fin al Result * eGFR (04/30/2023 5:16 AM SUPERINTENDENT MEASUREMENT) eGFR 72 mL/min/1. 73 m2 DEBBIE ANDRES (SIG[facility]) Comment: Interpretive Data Reference Interval Normal >/= 90 mL/min/1.73m2 Mildly decreased* 60 - 89 mL/min/1.73m2 Mildly to moderately decreased 45 - 59 mL/min/1.73m2 Moderately to severely decreased 30 - 44 mL/min/1.73m2 Severely decreased 15 - 29 mL/min/1.73m2 Kidney Failure < 15 mL/min/1.73m2 *Relative to young adult level Estimated glomerular [...] last reviewed 2021. Blood 04/30/2023 5:16 AM SUPERINTENDENT MEASUREMENT 04/30/2023 5:25 AM SUPERINTENDENT MEASUREMENT us Vinod Jones MD LAB BLOOD ORDERABLES Final Resul t DEBBIE ANDRES ([place]) [address] [facility] Department of Laboratories [place], [place] [id number] * Screening Mammogram Bilateral W Speedy (03/12/2023 9:39 AM SUPERINTENDENT MEASUREMENT) Anatomical Region Laterality Modality Breast Bilateral Mammography 03/12/2023 3:32 PM SUPERINTENDENT MEASUREMENT Impressions 03/12/2023 3:32 PM SUPERINTENDENT MEASUREMENT There is no mammographic evidence of malignancy. A 1 year screening mammogram is recommended. BI-RADS: 1 - Negative. The patient has been or will be contacted. The patient will be entered into a reminder system with a target due date of 1 year for her next mammogram. Electronically signed by: Paz Butler M.D. Narrative 03/12/2023 3:32 PM SUPERINTENDENT MEASUREMENT EXAMINATION: SCREENING MAMMOGRAM BILATERAL W SPEEDY ORDERING HEALTHCARE PROVIDER: ANGY DOSHI HISTORY: Routine screening mammography. COMPARISON: 03/11/2022, 01/25/2019, 09/20/2016 TECHNIQUE: CC and MLO views [...] A1C 7.7(H) 4.0 - 5.6 % DEBBIE ROBLEDO Estimated Average Glucose 174 mg/dL DEBBIE ROBLEDO Comment: The ADA recommends reporting an estimated Average Glucose (eAG) with all Hemoglobin A1c results using the equation derived from a study of 507 normal and diabetic adults. Minority populations were underrepresented and children were not included. (Diabetes Care 2020; 43(S1): S66-S76). The eAG is not equivalent to a fasting glucose. Blood 08/05/2021 9:55 PM CDT 08/05/2021 10:47 PM CDT us Tanja Davis MD LAB BLOOD ORDERABLES Eilsabeth elong Result [facility] Department [place] [address] * Lipid panel (08/05/2021 9:55 PM CDT) Cholesterol 138 30 - 199 mg/dL [facility] Comment: Interpretive Data Ages < or = 19 years Acceptable: <170 mg/dL Borderline high: 170-199 mg/dL High: >or= 200 mg/dL Ages > or = 20 years Desirable: <200 mg/dL Borderline high: 200-239 mg/dL High: >or= 240 mg/dL Literature References: 1. Expert Panel on Integrated Guidelines for Cardiovascular Health and Risk Reduction in Children and Adolescents. Pediatrics 2011;128:S213 2. NCEP Expert Panel. Circulation 2004;110:227 Current Interpretive Data was last revised on 2017. Triglycerides 38 <=149 mg/dL DE[facility]BIE [facility] Comment: Interpretive Data Ages < or = 9 years Acceptable: <75 mg/dL Borderline high: 75-99 mg/dL High: >or= 100 mg/dL Ages 10 to 20 years Acceptable: <90 mg/dL Borderline high: 90-129 mg/dL High: >or= 130 mg/dL Ages > or = 20 years Desirable: <150 mg/dL Borderline high: 150-199 mg/dL High: 200-499 mg/dL Very high: >or= 499 mg/dL Literature References: 1. Expert Panel on Integrated Guidelines for Cardiovascular Health and Risk Reduction in Children and Adolescents. Pediatrics 2011;128:S213 2. NCEP Expert Panel. Circulation 2004;110:227 Current Interpretive Data was last revised on 2017. HDL 54 >=40 mg/dL [facility] Comment: Interpretive Data Ages < or = 19 years Acceptable: >45 mg/dL Borderline low: 40-45 mg/dL Low: <40 mg/dL Ages > or = 20 years Desirable: >or= 60 mg/dL Low: <40 mg/dL Literature References: 1. Expert Panel on Integrated Guidelines for Cardiovascular Health and Risk Reduction in Children and Adolescents. Pediatrics 2011;128:S213 2. NCEP Expert Panel. Circulation 2004;110:227 Current Interpretive Data was last revised on 2017. LDL, calculated 76 <=129 mg/dL [facility] Comment: Interpretive Data Ages < or = 19 years Acceptable: <110 mg/dL Borderline high: 110-129 mg/dL High: >or= 130 mg/dL Ages > or = 20 years Optimal: <100 mg/dL Near optimal: 100-129 mg/dL Borderline high: 130-159 mg/dL High: >160 mg/dL Literature References: 1. Expert Panel on Integrated Guidelines for Cardiovascular Health and Risk Reduction in Children and Adolescents. Pediatrics 2011;128:S213 2. NCEP Expert Panel. Circulation 2004;110:227 Current Interpretive Data was last revised on 2017. Non-HDL Cholesterol 84 mg/dL [facility] Comment: Interpretive Data Ages < or = 19 years Acceptable: <120 mg/dL Borderline high: 120-144 mg/dL High: >145 mg/dL Ages > or = 20 years When triglycerides are >200 mg/dL, Non-HDL cholesterol is a secondary target of therapy with treatment goals that are 30 mg/dL greater than the LDL cholesterol target. Literature References: 1. Expert Panel on Integrated Guidelines for Cardiovascular Health and Risk Reduction in Children and Adolescents. Pediatrics 2011;128:S213 2. NCEP Expert Panel. Circulation 2004;110:227 Current Interpretive Data was last revised on 2017. Chol/HDL ratio 3 [facility] Blood 08/05/2021 9:55 PM CDT 08/05/2021 10:45 PM CDT us Tanja Davis MD LAB BLOOD ORDERABLES Elisabeth leong Result [facility] Department [place] [address] from Last 3 Months or Most Recently Relevant to Health Maintenance Insurance [facility] MEDICA[facility] WORKERS COMPENSATION GENERIC Member Subscriber Plan / Payer (Ef fective 2021-Present) Name:Anuradha Bain Relation to Subscriber:Self Name:Anuradha Bain Payer ID:[id number] Group ID:Not on file Type:WORKERS COMPENSATION Address: [address] [place] [id number] WORKERS COMPENSATION GENERIC Advance Directives For more information, please contact: [phone] * Full Code (Latest Code Status on File) Date Activated Date Inactivated Comments 04/27/2023 4:10 PM 04/30/2023 5:47 PM * Full Code Date Activated Date Inactivated Comments 08/05/2021 9:52 AM 08/08/2021 3:07 PM Care Teams Health Analytics Consultant Relationship Specialty Start Date End Date Janiya Giron NP [address] [place] [address] [address] [facility] [facility] [address] [place] [address] PCP - General Nurse Practitioner 04/25/24
--- OUTSIDE RECORDS SUMMARY | 2024-05-03 10:59 | XMS_ITS | Clinical Summary ---
Author Organization [facility] Address [address] [place] [address] Care Team Providers Care Cap Blocker Name Role Phone Janiya Giron NP Primary Care Provider Allergies Active Allergy Reactions Criticality Noted Date Comments Adhesive Itching Low 07/31/2021 Banana Extract Wheezing High 04/30/2024 Grass Pollen Cough High 04/30/2024 Latex Itching,Rash Medium 04/27/2023 Mold Cough High 04/30/2024 Ragweed Pollen Cough High 04/30/2024 Medications metFORMIN (GLUCOPHAGE) 500 mg tabletIndicati ons:type 2 diabetes mellitus Take 2 tablets (1,000 mg total) by mouth 2 (two) times a day with meals 2 08/25/19 17 Active lisinopriL (PRINIVIL,ZEST RIL) 10 mg tabletIndicati [...] (07/30/2021): Added automatically from request for surgery [id number] Resolved Problems Problem Noted Date Diagnosed Date Resolved Date TYRESE (acute kidney injury) 04/27/2023 Hyponatremia 04/27/2023 04/29/2023 Encounters Date Type Department Care Team Description 02/16/2024 3:00 PM CHIEF JAILER Office Visit [facility] Orthopedics and Sports Medicine [address] [place] [phone] Megan Morales PA Trochanteric bursitis of both hips (Primary Dx) 02/16/2024 7:54 AM CHIEF JAILER - 02/16/2024 11:59 PM CHIEF JAILER Hospital Encounter [facility] Orthopedics and Sports Medicine [address] [place] [phone] Discharge Disposition: Discharge to home or self care from Last 3 Months Surgical History Surgery Date Site/Laterality Comments BACK SURGERY MANDIBLE FRACTURE SURGERY Right CARPAL TUNNEL RELEASE Bilateral COLONOSCOPY SECTION Medical History Medical History Date Comments Asthma 04/27/2023 Hypertension 04/27/2023 Diabetes mellitus (HCC) YUVAL (obstructive sleep apnea) 01/27/2024 Type 2 diabetes mellitus (HCC) Social History Tobacco Use Types Packs/Day Years Used Date Smoking Tobacco: Former Cigarettes Q uit: 2000 Smokeless Tobacco: Never Tobacco Cessation:Counseling Given: Not Answered [facility] Utilities Answer Date Recorded In the past 12 months has e [employer], gas, oil, or water [facility] threatened to shut off services in your [...] often do you attend chur ch or taoism services? Never 04/28/2023 Do you belong to any clubs o r organizations such as mosque groups, unions, fraternal or athletic groups, or [...] place to sleep or slept in a long term (including now)? No 04/28/2023 Personal Safety Answer [...] on file Legal Sex Female 11:02 AM CHIEF JAILER Gender Identity Not on file Sexual Orientation Not on file Obstetrics History Para Term AB IAB SAB Ectopic Multiple Livin g Live Births 0 0 0 0 0 0 0 0 0 0 0 Comments Post menopause Last Filed Vital Signs Vital Sign Reading Time Taken Comments Blood Pressure 147/100 02/16/2024 3:01 PM CHIEF JAILER Pulse 116 02/16/2024 3:01 PM CHIEF JAILER Temperature 37 C (98.6 F) 04/30/2023 7:29 AM CHIEF JAILER Respiratory Rate 20 04/30/2023 7:29 AM CHIEF JAILER Oxygen Saturation 93% 04/30/2023 7:54 AM CHIEF JAILER Inhaled Oxygen Concentration - - Weight 81.2 kg (179 lb) 02/16/2024 3:01 PM CHIEF JAILER Height 156.2 cm (5' 1.5 ) 02/16/2024 3:01 PM CHIEF JAILER Body Mass Index 33.27 02/16/2024 3:01 PM CHIEF JAILER Plan of Treatment Upcoming Encounters Date Type Department Care Team (Latest Contact Info) Description 05/08/2024 11:30 AM CHIEF JAILER Hospital Encounter [facility] Operating Room [address] [place] [id number] [place] [id number] [address] [id number] 05/08/2024 11:30 AM CHIEF JAILER - 05/08/2024 12:00 PM CHIEF JAILER Surgery [facility] Operating Room [address] [place] [address] [place] [address] [address] DRUG INDUCED SLEEP ENDOSCOPY/15MIN Scheduled Procedures Name Priority Associated Diagnoses Date/Ti me DRUG INDUCED SLEEP ENDOSCOPY EVAL FLEX DIAG YUVAL (obstructive sleep apnea) 05/08/2024 11:30 AM CHIEF JAILER Health Maintenance Due Date Last Done Comments Albumin Creatinine Ratio, Urine 1964 Cervical Cancer Screening 1964 Colon Cancer Screening-Colonoscopy 1964 Depression Screening 1964 Hepatitis C Screening 1964 Dilated Eye Exam 1964 Foot Exam 1964 Hepatitis B Screening 1982 Regular Well Visit/Exam 18-64 1982 Pneumococcal vaccine <65 (1 of 2 - PCV) 10/25/1983 Zoster Vaccine (1 of 2) 2014 Hemoglobin [...] Read Routine (OP Routine) 02/16/2024 2:56 PM CHIEF JAILER Trochanteric bursitis of both hips EGFR Routine 04/30/2023 5:16 AM CHIEF JAILER SCREENING MAMMOGRAM BILATERAL W SPEEDY Schedule Routine, Read Routine (OP Routine) 03/12/2023 9:39 AM CHIEF JAILER Encounter for screening mammogram for malignant neoplasm of breast HEMOGLOBIN A1C Timed 08/05/2021 9:55 PM CDT LIPID PANEL Timed 08/05/2021 9:55 PM CDT from Last 3 Months or Most Recently Relevant to Health Maintenance Results * XR Hips Bilateral 3 or 4 Views (02/16/2024 2:56 PM CHIEF JAILER) Anatomical Region Laterality Modality Lower Extremities, Hip, Pelvis Bilateral D igital Radiography Narrative 02/16/2024 3:58 PM CHIEF JAILER Radiographs taken of the bilateral hips today reveal moderate degenerative changes with subchondral sclerosis, osteophyte formation, and diminished joint space. us Megan LOPEZ IMG XR PROCEDURES Fin al Result * eGFR (04/30/2023 5:16 AM CHIEF JAILER) eGFR 72 mL/min/1. 73 m2 DEBBIE ANDRES [...] last reviewed 2021. Blood 04/30/2023 5:16 AM CHIEF JAILER 04/30/2023 5:25 AM CHIEF JAILER us Vinod Jones MD LAB BLOOD ORDERABLES Final Resul t DEBBIE LOZANO) 1 [facility] Department [place] [address] * Screening Mammogram Bilateral W Speedy (03/12/2023 9:39 AM CHIEF JAILER) Anatomical Region Laterality Modality Breast Bilateral Mammography 03/12/2023 3:32 PM CHIEF JAILER Impressions 03/12/2023 3:32 PM CHIEF JAILER There is no mammographic evidence of malignancy. A 1 year screening mammogram is recommended. BI-RADS: 1 - Negative. The patient has been or will be contacted. The patient will be entered into a reminder system with a target due date of 1 year for her next mammogram. Electronically signed by: Paz Butler M.D. Narrative 03/12/2023 3:32 PM CHIEF JAILER EXAMINATION: SCREENING MAMMOGRAM BILATERAL W SPEEDY ORDERING [...] A1C 7.7(H) 4.0 - 5.6 % DE[facility] Estimated Average Glucose 174 mg/dL DEBBIE CARLIN [...] LAB BLOOD ORDERABLES Elisabeth leong Result DEBBIE [facility] [place] [address] * Lipid panel (08/05/2021 9:55 PM CDT) [...] on 2017. Triglycerides 38 <=149 mg/dL DEBBIE [facility] Comment: Interpretive Data Ages < or [...] on 2017. HDL 54 >=40 mg/dL DEB[facility] Comment: Interpretive Data Ages < or [...] on 2017. LDL, calculated 76 <=129 mg/dL [facility] Comment: Interpretive Data Ages < or [...] revised on 2017. Non-HDL Cholesterol 84 mg/dL [facility] Comment: Interpretive Data Ages < or [...] last revised on 2017. Chol/HDL ratio 3 [facility] Blood 08/05/2021 9:55 PM CDT 08/05/2021 10:45 PM CDT us Tanja Davis MD LAB BLOOD ORDERABLES Elisabeth leong Result [facility] [place] [address] from Last 3 Months or Most Recently Relevant to Health Maintenance Insurance [facility] MEDICAID [facility] WORKERS COMPENSATION GENERIC Member Subscriber Plan / Payer (Ef fective 2021-Present) Name:Taya Anuradha Sean Relation to Subscriber:Self Name:Anuradha Bain Payer ID:[id number] Group ID:Not on file Type:WORKERS COMPENSATION Address: [address] [place] [id number] Member Subscriber Plan / Payer (Ef fective 2021-Present) Name:Anuradha Bain Member ID:[id number] Relation to Subscriber:Employee Name:[employer] Subscriber ID:[id number] Address: [address] [place] [address] Payer ID:[id number] Group ID:Not on file Type:WORKERS COMPENSATION Address: [address] [place] [id number] Advance Directives For more information, please contact: [phone] * Full Code (Latest Code Status on File) Date Activated Date Inactivated Comments 04/27/2023 4:10 PM 04/30/2023 5:47 PM * Full Code Date Activated Date Inactivated Comments 08/05/2021 9:52 AM 08/08/2021 3:07 PM Care Teams Cap Blocker Relationship Specialty Start Date End Date Janiya Giron NP [address] [place] [address] [address] [facility] [address] [place] [address] PCP - General Nurse Practitioner 04/25/24
--- OUTSIDE RECORDS SUMMARY | 2024-05-03 11:00 | XMS_ITS | Clinical Summary ---
Author Organization [facility] Address [address] [place] [address] Phone Care Team Providers Care Firer Kiln Name Role Phone Liliana March MD Primary Care Provider [phone] Amy Hussein APRN, DRYWALL INSTALLER Unavailable Allergies Active Allergy Reactions Criticality Noted [...] 150 mg by mouth every morning. Active fluticasone (FLONASE) 50 MCG/ACT Suspension 1 [place] by Nasal route daily. Use in each nostril as directed. Active hydroCHLOROthiaz kathy (MICROZIDE) 12.5 MG Capsule Take 12.5 mg by mouth daily. Active lisinopril (PRINIVIL, ZESTRIL) 10 MG Tablet Take 10 mg by mouth daily. Active metFORMIN (GLUCOPHAGE) 1000 MG Tablet Take 1,000 mg by mouth 2 times daily (with meals). Active simvastatin (ZOCOR) 40 MG Tablet Take 40 mg by mouth every evening. Active verapamil CR (VERELAN) 240 MG CAPSULE SR 24 HR Take by mouth daily. Active liraglutide (Victoza) 18 MG/3ML Solution Pen-injector by Subcutaneous route daily. Active zafirlukast (ACCOLATE) 20 MG Tablet Take 20 mg by mouth 2 times daily. Active Albuterol-Budeso nide (Airsupra) 90-80 MCG/ACT AerosolIndicatio ns:Moderate persistent asthma without status asthmaticus without complication INHALE 2 PUFFS BY MOUTH EVERY 4 HOURS NEEDED FOR SHORTNESS OF BREATH 10.7 g 3 03/28/19 25 Active metoprolol Succinate (TOPROL-XL) 25 MG TABLET SR 24 HR Take 25 mg by mouth daily. 1/2 tab daily Active Fluticasone-Umec lidin-Vilant (Trelegy Ellipta) 100-62.5-25 MCG/ACT AEROSOL POWDER, BREATH ACTIVATEDIndicat ions:Eosinophili c asthma take 1 Puff by inhalation daily. 1 Each 5 04/24/19 25 Active doxycycline hyclate (VIBRAMYCIN) 100 MG Capsule Take 100 mg by mouth 2 times daily. 025 Discontin ued(Med List Clean Up) NAPROXEN PO Take by mouth. 025 Discontin ued(Med List Clean Up) tiZANidine HCl 4 MG Capsule Take 4 mg by mouth 3 times daily. 025 Discontin ued(Med List Clean Up) Fluticasone-Umec lidin-Vilant (Trelegy Ellipta) 200-62.5-25 MCG/ACT AEROSOL POWDER, BREATH ACTIVATED take 1 Puff by inhalation daily. 025 Discontin ued(Med List Clean Up) Hospital, Clinic, or Other Facility Administered Medication [...] Encounters Date Type Department Care Team Description 04/24/2024 3:30 PM CYLINDER LOADER Office Visit [facility] - Pulmonology & Sleep Medicine - [place] [address] [place] [address] Amy Hussein APRN, CNP Eosinophilic asthma (Primary Dx); Severe obstructive sleep apnea; Personal history of tobacco use Discharge Disposition: Discharged to home or Selfcare 04/23/2024 Travel [facility]/16/[facility]24 [facility] [address] [place] [address] Amy Hussein APRN, CNP 03/27/2024 [facility] [address] [place] [address] Amy Hussein APRN, CNP Medication Refill from Last 3 Months Social History Tobacco Use Types Packs/Day Years Used Date Smoking Tobacco: Former Cigarettes Smokeless Tobacco: Never Tobacco Cessation:Counseling Given: No Alcohol Use Standard Drinks/Week Comments Not Currently [...] Sign Reading Time Taken Comments Blood Pressure 120/70 04/24/2024 3:39 PM CYLINDER LOADER Pulse 96 04/24/2024 3:39 PM CYLINDER LOADER Temperature 36.4 C (97.5 F) 04/24/2024 3:39 PM CYLINDER LOADER Respiratory Rate 14 04/24/2024 3:39 PM CYLINDER LOADER Oxygen Saturation 97% 04/24/2024 3:39 PM CYLINDER LOADER Inhaled Oxygen Concentration - - Weight 83.1 kg (183 lb 4.8 oz) 04/24/2024 3:39 P M CYLINDER LOADER Height 165.1 cm (5' 5 ) 04/24/2024 3:39 PM CYLINDER LOADER Body Mass Index 30.5 04/24/2024 3:39 PM CYLINDER LOADER Plan of Treatment Upcoming Encounters Date Type Department Care Team (Late st Contact Info) Description 10/22/2024 8:30 AM CDT [facility] [address] [place] [phone] Amy Hussein, OUTSIDE SALES ACCOUNT EXECUTIVE, DRYWALL INSTALLER [address] [place] [address] Health Maintenance Due Date Last Done Comments Hepatitis C Virus (HCV) Screening 1965 Hepatitis B Immunization (1 of 3 - 19+ 3-dose series) 10/25/1983 Pap Smear 1985 Cervical Cancer Screening (CCS) 1994 HPV/Cotest 1994 Cologuard 2014 Immunochemical Fecal Occult Blood 2014 Zoster Immunization (1 of 2) 2014 Influenza Immunization (#1) 11/13/20230 11/2022, 01/26/2022, 02/09/2021, Additional history exists SARS-COV-2 Immunization ( season) 2023 02/17/2021, 06/23/2020, 05/29/2020 Mammogram 03/12/2025 03/12/2023, 02/12, 01/25/2019 Colonoscopy 01/23/2029 01/23/2019, 01/22/2019 Colorectal Cancer Screening 01/23/2029 Respiratory Syncytial Virus (RSV) Immunization (Adult) (1 - 1-dose 75+ series) 10/25/2039 01/23/2019, 01/22/2019 DTaP/Tdap/Td Immunization Discontinued 09/28/2017 TdaP Immunization [...] CAD W DAJA Routine 01/25/2019 5:12 PM CYLINDER LOADER Encounter for screening mammogram for malignant neoplasm of breast from Last 3 Months or Most Recently Relevant to Health Maintenance Results * VARGHESE SCREENING BILATERAL DIGITAL W CAD W DAJA (01/25/2019 5:12 PM CYLINDER LOADER) Anatomical Region Laterality Modality breast Bilateral Mammography 01/25/2019 4:29 PM CYLINDER LOADER Narrative 01/30/2019 11:55 AM CYLINDER LOADER - VARGHESE SCREENING BILATERAL DIGITAL W CAD W DAJA BILATERAL DIGITAL SCREENING MAMMOGRAM 3D/2D WITH CAD WITH MEDIOLATERAL OBLIQUE CRANIOCAUDAL: 01/25/2019 The study was acquired using digital technology and interpreted from soft copy. Current study was also evaluated with ICAD version 7.2. CLINICAL: Routine screening. Patient has no complaints. No personal history of cancer. Family history of breast cancer unknown. COMPARISONS: Comparison is made to exam dated: 09/20/2016 [facility]. BREAST TISSUE:There are scattered fibroglandular [...] next screening exam. Electronically signed by: Sandi cleary/penkylah:01/30/2019 11:06:15 Bag Machine Helper: Danica Patton (R), [facility] letter sent: Normal Exam Reading location: [facility] BI-RADS: 1 Negative Procedure Note Sandi Zimmerman MD - 01/30/2019 - VARGHESE SCREENING BILATERAL DIGITAL W CAD W DAJA BILATERAL DIGITAL SCREENING MAMMOGRAM 3D/2D WITH CAD WITH MEDIOLATERAL OBLIQUE CRANIOCAUDAL: 01/25/2019 The study was acquired using digital technology and interpreted from soft copy. Current study was also evaluated with ICAD version 7.2. CLINICAL: Routine screening. Patient has no complaints. No personal history of cancer. Family history of breast cancer unknown. COMPARISONS: Comparison is made to exam dated: 09/20/2016 [facility]. BREAST TISSUE:There are scattered fibroglandular [...] next screening exam. Electronically signed by: Sandi cleary/ilene:01/30/2019 11:06:15 Bag Machine Helper: Danica Patton (R), [facility] letter sent: Normal Exam Reading location: [facility] BI-RADS: 1 Negative us Liliana March MD IMG MAMMO ORDERABLES Final Re sult from Last 3 Months or Most Recently Relevant to Health Maintenance Insurance MEDICAID [employer] Care Teams Firer Kiln Relationship Specialty Start Date End Date Liliana March MD [address] [place] [address] PCP - General Internal Medicine 01/18/19 Amy Hussein, OUTSIDE SALES ACCOUNT EXECUTIVE, DRYWALL INSTALLER [address] [address] Nurse Practitioner Advanced Practice Nurse 05/23/23
--- OUTSIDE RECORDS SUMMARY | 2024-05-03 11:00 | XMS_ITS | Data Portability ---
Author Organization 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 Obtain extended Holter monitor. Continue low-dose metoprolol for now. Encouraged hydration, limiting caffeine/alcohol and mail degrading intake of potassium/magnes ium. Chest pain: Somewhat atypical for CAD. Intermediate pretest probability for CAD. Reports ability to exercise with interpretable ECG in order treadmill stress test. Hypertension: Low-sodium diet. Ambulatory blood pressure monitoring. Continue current dose of metoprolol. Continue lisinopril 10 mg daily. Mixed hyperlipidemia: LDL 105. Target LDL would preferably be Under 100 and closer to 70 given type 2 diabetes. Wishes to remain on simvastatin and continue 40 mg daily for now. Type 2 diabetes : Excellent control With HGB A1c of 6.6 on 04/26/2024. Managed per primary team. We will request a follow-up after above-mentioned cardiac evaluation. [email or web address] Not available 04/26/2024 16:03:20 Plan of Treatment Reminders Order Date Submit Date Provider Last Modified By Organization Details Last Modified Time Details Appointments ANY 15 2024 01:45P M Catracho Escobar MD Not available Not available Not available ANY 15 2024 02:45P M SANDRA YE Not available Not available Not available Lab HbA1c (hemoglob in A1c), blood 2023 024 [facility], [address], [address], [place], [address], 01/03/2024 07:13:40 lipid panel, serum 2023 024 [facility], [address], [facility], [place], [address], 01/03/2024 03:08:19 CBC w/ auto diff 2023 024 [facility], [address] [facility], [facility], [place], [address], 01/03/2024 03:08:21 CMP, serum or plasma 2023 024 [facility], [address], [facility], [place], [address], 01/03/2024 03:08:20 Referral None recorded. Procedures None recorded. Surgeries None recorded. Imaging exercise stress test 2024 025 [facility], [address], [address], [place], [address], 04/26/2024 16:30:45 electroca rdiogram 2024 025 [email or web address] In-Office Order, Internal Use Only DO Not Attach Compendium DO Not Attach Compendium, Do Not Delete/merge, [id number] 04/26/2024 15:23:43 XR, hip, unilatera l [address] [facility], [address] [facility] , [place], [address], 12/30/2023 13:15:57 Medication Orders OneTouch Ultra Test strips 2023 024 [id number], [address] [facility], [place], [place], [id number], 01/02/2024 14:56:22 tizanidin e 4 mg tablet 2023 024 [facility][id number], [address], [place], [id number], 12/27/2023 14:59:50 tramadol 50 mg tablet 2023 025 [facility] #[id number], [address], [place], [id number], 04/23/2024 15:47:18 amoxicill in 500 mg capsule 2023 024 [facility] #[id number], [address], [place], [id number], 01/02/2024 14:58:23 Patient TargetsNo targets recorded. Patient Instructions Encounter Date Encounter Id Patient Instructions Last Modified By Organization Details Last Modified Time 07/11/2023 [id number] A healthy lifestyle: care instructions nsuthan Not available 07/11/2023 09:02:10 f/u in 3 month with labs nsuthan Not available 07/11/2023 09:01:45 12/27/2023 [id number] trochanteric bursitis: exercises nsuthan Not available 12/27/2023 14:59:43 keep f/u nsuthan Not available 2023 15:36:59 01/02/2024 [id number] trochanteric bursitis: exercises nsuthan Not available 01/02/2024 14:56:18 f/u in 4 month nsuthan Not available 1 14:58:25 Reason for Referral Field Agent Referral for Ta chycardia Referring Physician: Janiya Giron, Family Medicine, Encounter Date: 04/23/2024 Results Created Date Observation Date Name Description Value Unit Range Abnormal Flag Note LastModifiedBy Organization Detail LastModifiedTime 01/02/20 24 01/02/2024 LIPID PANEL cholesterol, total 160 mg/dL 100-19 9 Not Available [facility] [address] [place], [address], 01/03/2024 03:08:19 01/02/20 24 01/02/2024 LIPID PANEL triglyceride s 246 mg/dL 0-149 above high normal Not Available [facility] [address] [place] [address], [address], 01/03/2024 03:08:19 01/02/20 24 01/02/2024 LIPID PANEL HDL cholesterol 43 mg/dL 40-999 Not Available [facility] [address] [place] [address], [address], 01/03/2024 03:08:19 01/02/2001/02/2024 LIPID PANEL VLDL cholesterol marbin 49 mg/dL 5-40 above high normal Not Available [facility] [address] [place] [address], [address], 01/03/2024 03:08:19 01/02/20 24 01/02/2024 LIPID PANEL LDL chol calc (nih) 105 mg/dL 0-99 above high normal Not Available [facility] [address] [place] [address], [address], 01/03/2024 03:08:19 01/02/20 24 01/02/2024 COMP. METAB OLIC PANEL (14) glucose 105 mg/dL 70-99 above high normal Not Available [facility] [address] [place] [address], [address], 01/03/2024 03:08:20 01/02/2001/02/2024 COMP. METAB OLIC PANEL (14) BUN 24 mg/dL 6-24 Not Available [facility] [address] [place] [address], [address], 01/03/2024 03:08:20 01/02/20 24 01/02/2024 COMP. METAB OLIC PANEL (14) creatinine 1.14 mg/dL 0.76-1 .27 Not Available [facility] [address] [place] [address], [address], 01/03/2024 03:08:20 01/02/20 24 01/02/2024 COMP. METAB [...] disre hamlet that value . Not Available [facility] [address] [place] [address], [address], 01/03/2024 03:08:20 01/02/20 24 01/02/2024 COMP. METAB OLIC PANEL (14) BUN/creatini ne ratio 12-04 Not Available [facility] [address] [place] [address], [address], 01/03/2024 03:08:20 01/02/20 24 01/02/2024 COMP. METAB OLIC PANEL (14) sodium 139 mmol/ L 134-14 4 Not Available [facility] [address] [place], [address], 01/03/2024 03:08:20 01/02/20 24 01/02/2024 COMP. METAB OLIC PANEL (14) potassium 4.8 mmol/ L 3.5-5. 2 Not Available [facility] [address] [place], [address], 01/03/2024 03:08:20 01/02/20 24 01/02/2024 COMP. METAB OLIC PANEL (14) chloride 100 mmol/ L 96-106 Not Available [facility] [address] [place], [address], 01/03/2024 03:08:20 01/02/20 24 01/02/2024 COMP. METAB OLIC PANEL (14) carbon dioxide, total 26 mmol/ L 20-29 Not Available [facility] [address] [place] [address], [address], 01/03/2024 03:08:20 01/02/20 24 01/02/2024 COMP. METAB OLIC PANEL (14) calcium 9.8 mg/dL 8.7-10 .2 Not Available [facility] [address] [place], [address], 01/03/2024 03:08:20 01/02/20 24 01/02/2024 COMP. METAB OLIC PANEL (14) protein, total 8.5 g/dL 6.0-8. 5 Not Available [facility] [address] [place], [address], 01/03/2024 03:08:20 01/02/20 24 01/02/2024 COMP. METAB OLIC PANEL (14) albumin 4.2 g/dL 3.8-4. 9 Not Available [facility] [address] [place], [address], 01/03/2024 03:08:20 01/02/20 24 01/02/2024 COMP. METAB OLIC PANEL (14) globulin, total 4.3 g/dL 1.5-4. 5 Not Available [facility] [address] [place], [address], 01/03/2024 03:08:20 01/02/20 24 01/02/2024 COMP. METAB OLIC PANEL (14) A/G ratio 0.9 1.2-2. 2 below low normal Not Available [facility] [address] [place], [address], 01/03/2024 03:08:20 01/02/20 24 01/02/2024 COMP. METAB OLIC PANEL (14) bilirubin, total <=0.2 mg/dL 0.0-1. 2 Not Available [facility] [address] [place], [address], 01/03/2024 03:08:20 10/21/01/02/2024 COMP. METAB OLIC PANEL (14) alkaline phosphatase 90 IU/L 44-121 Not Available [facility] [address] [place], [address], 01/03/2024 03:08:20 01/02/20 24 01/02/2024 COMP. METAB OLIC PANEL (14) AST (SGOT) 14 IU/L 0-40 Not Available [facility] [address] [place], [address], 01/03/2024 03:08:20 01/02/20 24 01/02/2024 COMP. METAB OLIC PANEL (14) ALT (SGPT) 14 IU/L 0-32 Not Available [facility] [address] [place], [address], 01/03/2024 03:08:20 01/02/20 24 01/02/2024 CBC WITH DIFFE RENTI AL/PL ATELE T WBC 17.9 x10e3 /uL 3.4-10 .8 above high normal Not Available [facility] [address] [place], [address], 01/03/2024 03:08:21 01/02/20 24 01/02/2024 CBC WITH DIFFE RENTI AL/PL ATELE T RBC 4.19 x10e6 /uL 3.77-5 .28 Not Available [facility] [address] [place], [address], 01/03/2024 03:08:21 01/02/20 24 01/02/2024 CBC WITH DIFFE RENTI AL/PL ATELE T hemoglobin 12.1 g/dL 11.1-1 5.9 Not Available [facility] [address] [place], [address], 01/03/2024 03:08:21 01/02/20 24 01/02/2024 CBC WITH DIFFE RENTI AL/PL ATELE T hematocrit 38.7 % 34.0-4 6.6 Not Available [facility] [address] [place], [address], 01/03/2024 03:08:21 01/02/2001/02/2024 CBC WITH DIFFE RENTI AL/PL ATELE T MCV 92 fL 79-97 Not Available [facility] [address] [place], [address], 01/03/2024 03:08:21 01/02/2001/02/2024 CBC WITH DIFFE RENTI AL/PL ATELE T MCH 28.9 pg 26.6-3 3.0 Not Available [facility] [address] [place], [address], 01/03/2024 03:08:21 01/02/2001/02/2024 CBC WITH DIFFE RENTI AL/PL ATELE T MCHC 31.3 g/dL 31.5-3 5.7 below low normal Not Available [facility] [address] [place], [address], 01/03/2024 03:08:21 01/02/2001/02/2024 CBC WITH DIFFE RENTI AL/PL ATELE T RDW 13.3 % 11.5-1 4.5 Not Available [facility] [address] [place], [address], 01/03/2024 03:08:21 01/02/2001/02/2024 CBC WITH DIFFE RENTI AL/PL ATELE T platelets 494 x10e3 /uL 150-45 0 above high normal Not Available [facility] [address] [place], [address], 01/03/2024 03:08:21 01/02/2001/02/2024 CBC WITH DIFFE RENTI AL/PL ATELE T neutrophils 69 % notest b. Not Available [facility] [address] [place], [address], 01/03/2024 03:08:21 01/02/20 24 01/02/2024 CBC WITH DIFFE RENTI AL/PL ATELE T lymphs 21 % notest b. Not Available [facility] [address] [place], [address], 01/03/2024 03:08:21 01/02/20 24 01/02/2024 CBC WITH DIFFE RENTI AL/PL ATELE T monocytes 6 % notest b. Not Available [facility] [address] [place], [address], 01/03/2024 03:08:21 01/02/2001/02/2024 CBC WITH DIFFE RENTI AL/PL ATELE T eos 2 % notest b. Not Available [facility] [address] [place], [address], 01/03/2024 03:08:21 01/02/20 24 01/02/2024 CBC WITH DIFFE RENTI AL/PL ATELE T basos 1 % notest b. Not Available [facility] [address] [place], [address], 01/03/2024 03:08:21 01/02/20 24 01/02/2024 CBC WITH DIFFE RENTI AL/PL ATELE T neutrophils (absolute) 12.3 x10e3 /uL 1.4-7. 0 above high normal Not Available [facility] [address] [place], [address], 01/03/2024 03:08:21 01/02/20 24 01/02/2024 CBC WITH DIFFE RENTI AL/PL ATELE T lymphs (absolute) 3.7 x10e3 /uL 0.7-3. 1 above high normal Not Available [facility] [address] [place], [address], 01/03/2024 03:08:21 01/02/20 24 01/02/2024 CBC WITH DIFFE RENTI AL/PL ATELE T monocytes(ab solute) 1.1 x10e3 /uL 0.1-0. 9 above high normal Not Available [facility] [address] [place], [address], 01/03/2024 03:08:21 01/02/20 24 01/02/2024 CBC WITH DIFFE RENTI AL/PL ATELE T eos (absolute) 0.4 x10e3 /uL 0.0-0. 4 Not Available [facility] [address] [place], [address], 01/03/2024 03:08:21 01/02/2001/02/2024 CBC WITH DIFFE RENTI AL/PL ATELE T baso (absolute) 0.1 x10e3 /uL 0.0-0. 2 Not Available [facility] [address] [place], [address], 01/03/2024 03:08:21 01/02/20 24 01/02/2024 CBC WITH DIFFE RENTI AL/PL ATELE T immature granulocytes 1.8 % notest b. Not Available [facility] [address] [place], [address], 01/03/2024 03:08:21 01/02/20 24 01/02/2024 CBC WITH DIFFE RENTI AL/PL ATELE T immature grans (abs) 0.3 x10e3 /uL 0.0-0. 1 above high normal Not Available [facility] [address] [place], [address], 01/03/2024 03:08:21 01/02/20 24 01/02/2024 CBC WITH DIFFE RENTI AL/PL ATELE T NRBC 0 % 0-0 Not Available [facility] [address] [place], [address], 01/03/2024 03:08:21 01/02/20 24 01/03/2024 HEMOG LOBIN A1C hemoglobin A1C 8.2 % 4.8-5. 6 above high normal Predi abete s: 5.7 - 6.4 Diabe starr: >6.4 Glyce antonia contr ol for adult s with diabe starr: <7.0 Not Available [facility] ([facility]) [address] [facility], [place], [address], 01/03/2024 07:13:40 04/26/19 25 04/26/2024 HbA1c (hemo globi n A1c), blood HbA1c 6.6 Not Available In-Office Order Internal Use Only DO Not Attach Compendium DO Not Attach Compendium, Do Not Delete/merge, [id number] 04/23/2024 15:45:30 12/30/19 24 12/27/2023 XR, hip, unila teral No observ ation record ed. [facility] [address] [place], [address], 01/02/2024 14:48:32 04/09/19 25 04/08/2024 XR, chest , 2 view No observ ation record ed. [address], [place], [address], 04/09/2024 11:14:01 04/19/19 25 04/10/2024 trans -thor acic echoc ardio gram (TTE) (PROC ) No observ ation record ed. [address], [place], [address], 04/19/2024 13:56:50 04/26/19 25 04/26/2024 elect rocar diogr am No observ ation record ed. [facility] In-Office Order Internal Use Only DO Not Attach Compendium DO Not Attach Compendium, Do Not Delete/merge, [id number] 04/26/2024 16:17:40 04/26/19 elect rocar diogr am No observ ation record ed. [email or web address] Not Available 2024 16:04:40 Result Notes None recorded. Problems Name Problem SNOMED Code Status Onset Date Resolution Date Notes Provider Name and Address Organization Details Recorded Time Acute cecitis 97408038 Active 2019 sees GI/ er Not Available [facility] 4 10:46:26 Mixed anxiety and depressiv e disorder 117040650 Active 2020 Not Available [facility] 4 10:46:26 Diabetes mellitus 03215216 Active 2016 Not Available [facility] 4 10:46:27 Essential hypertens ion 59885994 Active 2016 Not Available [facility] 4 10:46:27 Asthma 475921992 Active 2016 with recurrent bronchitis /pneumonia /multiple allergies- seeing pulmo/katia rgist as well Liliana Peng MD Attn: Accounting ,[address] [place], [address] , [facility] 4 08:59:37 Seasonal allergy 098280864 Active 2016 seeing innovation analyst Not Available [facility] 4 10:46:26 Hyperlipi demia 91930637 Active 2016 Not Available [facility] 4 10:46:27 Notes:Some problems listed i n Documents: #[id number], #[id number] could not be added to this patient's chart. Please review these documents and add these problems to the patient's chart manually as needed. Problem Notes None recorded. Procedures Surgical History Date Name Laterality Status Provider Name and Address Organization Details Recorded Time 2 Date of Last Mammogram completed Esther Costello [place] - [facility] 09/23/2022 09:20:46 2 debridement of wound of skin completed Oneyda Wells [place] [facility] 09/22/2021 10:48:51 9 Colonoscopy with biopsy completed Liliana Peng MD Attn: Accounting, [place], [address], [place] [facility] 02/09/2019 14:12:48 7 Date of Last Pap Smear completed Esther Costello [place] - [facility] 10/05/2016 11:51:00 7 Nebulizer tx completed Sarah Fournier PA-C Attn: Accounting,[address] [facility], [place], [address], [place] [facility] 04/29/2016 18:23:36 4 Other completed Esther Costello [place] [facility] 09/28/2016 17:17:38 3 Back Surgery completed Esther Costello [place] [facility] 09/28/2016 17:16:44 0 Caesarean Section completed Esther Costello [place] [facility] 09/28/2016 17:16:25 Imaging Results Imaging Date Name Status LastModified by Organization Details LastModified Time 12/27/2023 XR, hip, unilateral completed [address] [place], [address], 01/02/2024 14:48:32 04/08/2024 XR, chest, 2 view completed [address], [address], 04/09/2024 11:14:01 04/10/2024 trans-thoracic echocardiogram (TTE) (PROC) completed [address], [address], 04/19/2024 13:56:50 04/26/2024 electrocardiogram completed [facility] In-Offi ce Order Internal Use Only DO Not Attach Compendium DO Not Attach Compendium, Do Not Delete/merge, [id number] 04/26/2024 16:17:40 04/26/2024 electrocardiogram completed Informa tion not available 04/26/2024 16:04:40 Procedure Notes None recorded. Medical Equipment None Reported. Allergies Allergen ID Allergen Name Allergen Category Reaction Reaction Severity Criticality Documentation Date Start Date Code Code System Note Provider Name and Address Organization Details Recorded Time 16447 banana extract food,medi cation wheezing severe Not available 04/29/2016 03630 9 RxNorm Not Available Not Available Not Available 00958 grass pollen environme nt,medica tion cough severe Not available 04/29/2016 68488 UNK Not Available Not Available Not Available 31036 mold extract environme nt cough severe Not available 04/29/2016 31739 8 RxNorm Not Available Not Available Not Available 09490 ragweed pollen environme nt cough severe Not available 04/29/2016 25052 UNK Not Available Not Available Not Available [...] R EVERY 4 TO 6 HOURS NEEDED 2024 active Not Available Not Available Not Avai lable azithromy thomas 250 mg tablet TAKE 2 TABLETS (500 MG) BY ORAL ROUTE ONCE DAILY FOR 1 DAY THEN 1 TABLET (250 MG) BY ORAL ROUTE ONCE DAILY FOR 4 DAYS 04/23 completed Not Available Not Available Not Available ibuprofen 800 mg tablet Take 1 tablet 3 times a day by oral route for 10 days. 09/28 completed Not Available Not Available Not Available tizanidin e 4 mg tablet TAKE 1 TABLET BY MOUTH TWICE DAILY active Not Available Not Available No t Available glipizide ER 10 mg tablet, extended release 24 hr TAKE 1 TABLET BY MOUTH EVERY DAY WITH MEALS 09/28 completed Not Available Not Available Not Available ondansetr on HCl 4 mg tablet TAKE 1 TABLET BY MOUTH TWICE DAILY active prn Not Available Not Available No t Available prednison e 20 mg tablet TAKE 3 TABLETS BY MOUTH DAILY FOR 5 DAYS 04/23 completed Not Available Not Available Not Available [...] 1 TABLET BY MOUTH TWICE DAILY NEEDED 04/23 completed Not Available Not Available Not Available amoxicill in 500 mg tablet TAKE 1 TABLET BY MOUTH EVERY 8 HOURS FOR 7 DAYS 11/21 completed Not Available Not Available Not Available simvastat in 40 mg tablet TAKE 1 TABLET BY MOUTH EVERY DAY 2024 active Not Available Not Available Not Avai lable glimepiri de 2 mg tablet Take 1 tablet every day by oral route. 2024 active Not Available Not Available Not Avai lable meloxicam 7.5 mg tablet 04/29 completed Not Available Not Available Not Available amoxicill in 875 mg tablet 06/28 completed Not Available Not Available Not Available OneTouch Ultra Test strips Take 1 strip every day by miscell. route. 2024 active Not Available Not Available Not Avai lable benzonata te 100 mg capsule TAKE 1 [...] tablet TAKE 1 TABLET BY MOUTH DAILY WITH HYDROCHL OROTHIAZ JESSICA active Not Available Not Available No t Available prednison e 50 mg tablet 01/22 completed Not Available Not Available Not Available Advair Diskus 500 mcg-50 mcg/dose powder for inhalatio n INHALE 1 PUFF BY MOUTH TWICE DAILY 05/23 completed Not Available Not Available Not Available zafirluka st 20 mg tablet TAKE 1 TABLET BY MOUTH TWICE DAILY 04/26 completed Not Available Not Available Not Available lisinopri l 20 mg-hydroc hlorothia zide [...] TABLET BY MOUTH TWICE DAILY WITH FOOD 04/23 completed Not Available Not Available Not Available amoxicill in 875 mg-potass ium clavulana te 125 mg tablet TAKE 1 TABLET BY MOUTH EVERY 12 HOURS FOR 10 DAYS 04/23 completed Not Available Not Available Not Available bupropion HCl XL 150 mg 24 hr tablet, extended release TAKE 1 TABLET BY MOUTH EVERY DAY active Not Available Not Available No t Available metoprolo l tartrate 25 mg tablet TAKE 1/2 TABLET BY MOUTH DAILY active Not Available Not Available No t Available OneTouch Ultra2 Meter kit 01/04 completed Not [...] completed Not Available Not Available Not Available IshanTojoellen Heber[employer] Lancets 30 gauge 02/16 completed Not Available Not Available Not Available Victoza 2-Matthew 0.6 mg/0.1 mL (18 mg/3 mL) subcutane ous pen injector ADMINIST ER 1.2 MG UNDER THE SKIN EVERY DAY active Not Available Not Available No t Available fluticaso ne 232 mcg-salme terol 14 mcg/actua [...] t Available Vitals Date Recorded Body height Body mass index (BMI) Body weight Heart rate Respiratory rate Body temperature Oxygen saturation Oxygen saturation in Arterial blood by Pulse oximetry Systolic blood pressure Diastolic blood pressure Provider Name and Address Organization Details Last Updated DateTime 4 165.1 cm 31.2 kg/m2 59039.2 9 g 96 /min 14 /min 97.2 [degF] 97 % 97 % 110 mm[Hg] 75 mm[Hg] Oneyda Wells [place] - [facility] 4 08:46:54 Date Recorded Body height Body mass index (BMI) Body weight Body temperature Heart rate Respiratory rate Oxygen saturation Oxygen saturation in Arterial blood by Pulse oximetry Systolic blood pressure Diastolic blood pressure Provider Name and Address Organization Details Last Updated DateTime 4 165.1 cm 30 kg/m2 41963.3 5 g 97.2 [degF] 118 /min 14 /min 96 % 96 % 126 mm[Hg] 83 mm[Hg] Oneyda Wells MA [facility] 4 14:39:00 Date Recorded Body height Body mass index (BMI) Body weight Heart rate Body temperature Oxygen saturation Oxygen saturation in Arterial blood by Pulse oximetry Respiratory rate Systolic blood pressure Diastolic blood pressure Provider Name and Address Organization Details Last Updated DateTime 4 165.1 cm 30.3 kg/m2 06490.8 1 g 111 /min 97.8 [degF] 95 % 95 % 16 /min 124 mm[Hg] 75 mm[Hg] Coral Gunderson MA [facility] 4 14:43:54 Date Recorded Body height Body mass index (BMI) Body weight Oxygen saturation Oxygen saturation in Arterial blood by Pulse oximetry Heart rate Respiratory rate Body temperature Systolic blood pressure Diastolic blood pressure Provider Name and Address Organization Details Last Updated DateTime 5 165.1 cm 30.4 kg/m2 29929.6 1 g 95 % 95 % 105 /min 16 /min 97.3 [degF] 116 mm[Hg] 78 mm[Hg] Oneyda Wells [facility] 5 15:21:48 Date Recorded Body height Body mass index (BMI) Body weight Respiratory rate Heart rate Oxygen saturation Oxygen saturation in Arterial blood by Pulse oximetry Systolic blood pressure Diastolic blood pressure Provider Name and Address Organization Details Last Updated DateTime 5 165.1 cm 30.1 kg/m2 76973.2 2 g 18 /min 92 /min 96 % 96 % 128 mm[Hg] 70 mm[Hg] Lisa Metcalf LPN [facility] 5 14:54:39 Social History Question Answer Notes LastModified by Organizat ion Details LastModified Time Tobacco Smoking Status Former Smoker quit 2000 Not Available [employer] 01/15/2020 03:39:28 Do You Have An Advance Directive? No Information not available 10/06/2020 What Is Your Level Of Alcohol Consumption? Occasional Holiday's [id number] Information not available 01/15/2020 Are You Blind Or Do You Have Difficulty Seeing? No Reading Glasses Information not available 06/10/2021 Is Blood Transfusion Acceptable In An Emergency? Yes [id number] Information not available 01/15/2020 What Is Your Level Of Caffeine Consumption? Moderate Coffee [id number] Information not available 01/15/2020 How Much Tobacco Do You Chew? None [id number] Information not available 01/15/2020 In The 14 Days Before Symptom Onset, Have You Had Close Contact With A Laboratory-confir med COVID-19 While That Case Was Ill? No [id number] Information not available 01/15/2020 In The 14 Days Before Symptom Onset, Have You Had Close Contact With A Person Who Is Under Investigation For COVID-19 While That Person Was Ill? No [id number] Information not available 01/15/2020 Have You Been To An Area Known To Be High Risk For COVID-19? 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 Yes [id number] Information not available 01/15/2020 Are You Deaf Or Do You Have Serious Difficulty Hearing? No [email or web address] Information not available 06/06/2020 What Type Of Diet Are You Following? DIABETIC [id number] Information not available 01/15/2020 Which Illicit Or Recreational Drugs Have You Used? Denies [id number] Information not available 01/15/2020 Do You Or Have You Ever Used E-cigarettes Or Vape? Never Used Electronic Cigarettes [id number] Information not available 01/15/2020 Education 12 Information no t available 09/28/2016 What Is The Highest Grade Or Level Of School You Have Completed Or The Highest Degree You Have Received? 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 No [id number] Information not available 01/15/2020 Live Alone Or With Others? With Others Information not available 09/28/2016 Marital Status [email or web address] Informati on not available 04/29/2016 What Was The Date Of Your Most Recent Tobacco Screening? 04/26/2024 Information not available 04/26/2024 How Many Children Do You Have? 1 [id number] Information not available 01/15/2020 Performs Monthly Self-breast Exam? Yes Information no t available 01/23/2020 Do You Use Protection During Sex? No [id number] Information not available 01/15/2020 What Is Your Relationship Status? [id number] Information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
--- NOTE | 2024-05-03 11:07 | PC.NURSE ---
regular diet lunch tray ordered
--- NOTE | 2024-05-03 12:10 | ED_ITS ---
HPI - General Adult General Chief complaint: Shortness of Breath/Dyspnea Stated complaint: dyspnea Time Seen by Provider: 05/03/24 09:23 History of Present Illness HPI narrative: Patient is a 58-year-old female who presents ER with shortness of breath. Recently had influenza. She was hospitalized. She was on oxygen. Sanchez up rehabbing in going home. Her insurance would not cover oxygen home so she has been without it. Shortness of breath worsening over last few days patient found to be hypoxic. No new fevers. No alleviating factors. Related Data Home Medications ?Medication ?Instructions ?Recorded ?Confirmed ?Last Taken ?Type liraglutide 0.6 mg/0.1 mL (18 mg/3 1.6 mg subcut DAILY 01/21/19 05/03/24 04/24/24 History mL) subcutaneous pen injector (Victoza 3-Matthew) lisinopril 10 1 tablet PO DAILY 01/21/19 05/03/24 04/08/19 09:00 History mg-hydrochlorothiazide 12.5 mg tablet metformin 1,000 mg tablet 1,000 mg PO BID 01/21/19 05/03/24 04/08/19 17:00 History simvastatin 20 mg tablet 40 mg PO DAILY 01/21/19 05/03/24 04/08/19 21:00 History verapamil 180 mg tablet,extended 240 mg PO DAILY 01/21/19 05/03/24 04/08/19 History release fluticasone 232 mcg-salmeterol 14 2 puff inhalation DAILY 04/12/19 05/03/24 Unknown History mcg/actuation breath activated powdr (AirDuo RespiClick) albuterol 90 mcg-budesonide 80 2 inh inhalation QID PRN shortness 04/08/24 05/03/24 Unknown History mcg/actuation HFA aerosol inhaler of breath (Airsupra) bupropion HCl 150 mg 24 hr tablet, 150 mg PO DAILY 04/08/24 05/03/24 Unknown History extended release dupilumab 300 mg subcut [id number] 04/08/24 05/03/24 03/26/24 History fluticasone fur. 200 mcg-umeclid 1 inh inhalation DAILY 04/08/24 05/03/24 Unknown History 62.5 mcg-vilant 25 mcg inhalat.powder (Trelegy Ellipta) glimepiride 2 mg tablet 2 mg PO DAILY 04/08/24 05/03/24 Unknown History Allergies Allergy/AdvReac Type Severity Reaction Status Date / Time cat dander Allergy Intermediate Wheezing Verified 05/03/24 09:36 dog dander Allergy Intermediate Wheezing Verified 05/03/24 09:36 pollen extracts Allergy Unknown Wheezing Verified 05/03/24 09:36 Review of Systems 2 Review of Systems: All systems reviewed & are unremarkable except as noted in HPI and below Constitutional: Constitutional: Reports no additional constitutional complaints Cardiovascular: Cardiovascular: Reports no additional cardiovascular complaints Respiratory: Respiratory: Reports no additional respiratory complaints Musculoskeletal: Musculoskeletal: Reports no additional musculoskeletal complaints [facility] Past Medical History Medical History HLD (hyperlipidemia) Ulcerative colitis Type 2 diabetes mellitus Essential hypertension GI bleed (01/2019) attributed to sigmoiditis Seasonal allergies Asthma Surgical History Surgical History History of section History of bilateral carpal tunnel release History of facial fracture repair History of back surgery L3-L4 fusion History of mandibular surgery metal plate in right jaw Family History Family History Unknown No problems noted. Social History Social History Social History: Surrogate medical decision maker: Alonzo Bain ([phone]). Code status: Full code. Smoking packs per day: 1 Smoking cigarettes per day: 20.0 Years smoked: 5 Smoking pack-years: 5.00 Smoking status: Former smoker Second hand tobacco smoke exposure: Yes Alcohol intake: current Drinks per week: 2 Substance use: never Substance use type: does not use Do You Feel Safe in your Home?: Yes Lack of Transportation: No Lack of Food: Never True Current Housing: I Have Housing Concerned About Future Housing: No Difficulty Paying Gas/Electric Bills: No Difficulty Paying for Meds: No Currently Unemployed: No Education: High School Diploma/GED Difficulty w/ Childcare or Family Care: No Living arrangements: with family Additional living arrangements comments: Lives with spouse in [place]. 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 Spiritual care concerns: No Agree to blood products: Yes Exam 2 Narrative: GENERAL: Chronically ill-appearing, well-nourished, and in no acute distress. HEAD: Normocephalic, atraumatic. ENT: Mucous membranes moist. NECK: Supple. CHEST: Expiratory wheezing bilaterally. No respiratory distress. HEART: Regular rate and rhythm. Normal peripheral pulses. ABDOMEN: Soft, nontender, nondistended EXTREMITIES: Normal range of motion. No edema. SKIN: Warm, dry, no rash. NEURO: Alert and oriented x3. PSYCH: Normal mood and affect. Course Course Emergency Course: Informed results. Still hypoxic. Admit for hospitalization. IV antibiotics for pneumonia. Vital Signs Vital signs: Vital Signs Temperature 97.9 F 05/03/24 09:25 Pulse Rate 131 H 05/03/24 09:25 Respiratory Rate 14 05/03/24 09:25 Blood Pressure 119/80 05/03/24 09:25 Pulse Oximetry 95 05/03/24 09:25 Oxygen Delivery Nasal Cannula 05/03/24 09:25 Oxygen Flow Rate 2 05/03/24 09:25 Temperature 98.0 F 05/03/24 14:40 Pulse Rate 104 H 05/03/24 16:00 Respiratory Rate 18 05/03/24 16:00 Blood Pressure 106/57 L 05/03/24 14:40 Pulse Oximetry 95 05/03/24 16:00 Oxygen Delivery Nasal Cannula 05/03/24 16:00 Oxygen Flow Rate 2 05/03/24 16:00 Medical Decision Making Vital Signs Vital Signs: Vital Signs Temperature 97.9 F 05/03/24 09:25 Pulse Rate 131 H 05/03/24 09:25 Respiratory Rate 14 05/03/24 09:25 Blood Pressure 119/80 05/03/24 09:25 Pulse Oximetry 95 05/03/24 09:25 Oxygen Delivery Nasal Cannula 05/03/24 09:25 Oxygen Flow Rate 2 05/03/24 09:25 Temperature 98.0 F 05/03/24 14:40 Pulse Rate 104 H 05/03/24 16:00 Respiratory Rate 18 05/03/24 16:00 Blood Pressure 106/57 L 05/03/24 14:40 Pulse Oximetry 95 05/03/24 16:00 Oxygen Delivery Nasal Cannula 05/03/24 16:00 Oxygen Flow Rate 2 05/03/24 16:00 Lab Data 05/03/24 09:33 05/03/24 09:33 Labs: Lab Results 05/03/24 05/03/24 05/03/24 Range/Units 09:33 09:51 12:51 WBC 13.1 H (4.5-10.0) K/mm3 RBC 4.08 L (4.2-5.4) M/mm3 Hgb 11.6 L (12.0-15.0) g/dL Hct 36.6 L (37.0-47.0) % MCV 89.7 (80-100) fl MCH 28.4 (26-34) pg MCHC 31.7 L (32-36) g/dl RDW 14.2 (11.5-14.5) % Plt Count 318 (150-375) k/mm3 MPV 10.3 (7.4-10.4) fl Immature Gran % (Auto) 0.5 (0-0.5) % Neut % (Auto) 80.9 H (45.5-73.1) % Lymph % (Auto) 8.2 L (18.3-44.2) % [place] % (Auto) 9.2 H (2.6-8.5) % Eos % (Auto) 0.8 (0-4.4) % Baso % (Auto) 0.4 (0.2-1.2) % Lymph # (Auto) 1.07 (0.9-3.2) K/mm3 [place] # (Auto) 1.2 H (0.1-0.6) K/mm3 Eos # (Auto) 0.1 (0-0.3) K/mm3 Baso # (Auto) 0.1 (0.0-0.1) K/mm3 Abs Immat Gran (auto) 0.07 H (0.00-0.031) K/mm3 Absolute Neuts (auto) 10.6 H (1.3-6.7) K/mm3 Absolute Nucleated RBC 0.000 (0.0-0.012) K/mm3 Nucleated RBC % 0.0 (0.0-0.2) % PT 13.5 (11.1-14.7) Seconds INR 1.0 APTT 30.6 (22.3-36.8) Seconds Sodium 135 L (137-145) mmol/L Potassium 3.6 (3.4-5.0) mmol/L Chloride 99 (98-107) mmol/L Carbon Dioxide 23 (22-30) mmol/L Anion Gap 13 H (4-12) mmol/L BUN 10 D (7-17) mg/dL Creatinine 0.86 (0.7-1.0) mg/dL Estim Creat Clear Calc 66 ml/min Estimated GFR > 60 (59 - ) Glucose 128 H (65-110) mg/dL POC Capillary Glucose (65-105) mg/dl Lactic Acid 1.1 (0.7-2.0) mmol/L Calcium 8.8 (8.4-10.2) mg/dL Magnesium 1.1 L (1.6-2.3) mg/dL Total Bilirubin 0.5 (0.2-1.3) mg/dL AST 20 (14-36) U/L ALT 17 (6-35) U/L Alkaline Phosphatase 96 (38-126) U/L Troponin I < 0.012 (0.000-0.034) ng/mL NT-Pro-B Natriuret Pep 129 H (19.9-100) pg/mL Total Protein 8.0 (6.3-8.2) g/dL Albumin 4.0 (3.5-5.1) g/dL Nasal MRSA (PCR) (NOT DETECTE) Influenza A (RT-PCR) Negative (Negative) Influenza B (RT-PCR) Negative (Negative) RSV (RT-PCR) Negative (Negative) SARS-CoV-2 RNA (RT-PCR) Negative (Negative) 05/03/24 05/03/24 Range/Units 13:24 13:57 WBC (4.5-10.0) K/mm3 RBC (4.2-5.4) M/mm3 Hgb (12.0-15.0) g/dL Hct (37.0-47.0) % MCV (80-100) fl MCH (26-34) pg MCHC (32-36) g/dl RDW (11.5-14.5) % Plt Count (150-375) k/mm3 MPV (7.4-10.4) fl Immature Gran % (Auto) (0-0.5) % Neut % (Auto) (45.5-73.1) % Lymph % (Auto) (18.3-44.2) % [place] % (Auto) (2.6-8.5) % Eos % (Auto) (0-4.4) % Baso % (Auto) (0.2-1.2) % Lymph # (Auto) (0.9-3.2) K/mm3 [place] # (Auto) (0.1-0.6) K/mm3 Eos # (Auto) (0-0.3) K/mm3 Baso # (Auto) (0.0-0.1) K/mm3 Abs Immat Gran (auto) (0.00-0.031) K/mm3 Absolute Neuts (auto) (1.3-6.7) K/mm3 Absolute Nucleated RBC (0.0-0.012) K/mm3 Nucleated RBC % (0.0-0.2) % PT (11.1-14.7) Seconds INR APTT (22.3-36.8) Seconds Sodium (137-145) mmol/L Potassium (3.4-5.0) mmol/L Chloride (98-107) mmol/L Carbon Dioxide (22-30) mmol/L Anion Gap (4-12) mmol/L BUN (7-17) mg/dL Creatinine (0.7-1.0) mg/dL Estim Creat Clear Calc ml/min Estimated GFR (59 - ) Glucose (65-110) mg/dL POC Capillary Glucose 216 H (65-105) mg/dl Lactic Acid (0.7-2.0) mmol/L Calcium (8.4-10.2) mg/dL Magnesium (1.6-2.3) mg/dL Total Bilirubin (0.2-1.3) mg/dL AST (14-36) U/L ALT (6-35) U/L Alkaline Phosphatase (38-126) U/L Troponin I (0.000-0.034) ng/mL NT-Pro-B Natriuret Pep (19.9-100) pg/mL Total Protein (6.3-8.2) g/dL Albumin (3.5-5.1) g/dL Nasal MRSA (PCR) Not detected (NOT DETECTE) Influenza A (RT-PCR) (Negative) Influenza B (RT-PCR) (Negative) RSV (RT-PCR) (Negative) SARS-CoV-2 RNA (RT-PCR) (Negative) Imaging Data Radiologist's impression: ITS Impressions Chest X-Ray 05/03/24 12:02 Impression: Questionable left lower lobe pneumonia with underlying probable chronic bibasilar scarring or atelectasis. Discharge Plan Discharge Clinical Impression: Hypoxia Pneumonia Qualifiers: Pneumonia type: due to unspecified organism Laterality: left Lung location: l ower lobe of lung Qualified Code(s): J18.9 - Pneumonia, unspecified organism Patient Disposition: Still a Patient Condition: Stable
--- NOTE | 2024-05-03 12:36 | PM.IMHP ---
H&P: HPI History of Present Illness Date/Time: 05/03/24 12:36 Chief Complaint: Shortness of Breath Narrative: 58 y/o F presents here with shortness of breath with PMH of diabetes, hypertension, and asthma. The patient presents here from home via EMS for further evaluation of shortness of breath. She reports acute onset this morning when she woke up around [id number]. Shortness of breath is accompanied by nonproductive. She denies fever, chills, body aches, N/V/D, chest pain or abdominal pain. Increased shortness of breath prompted the patient to call 911. Upon EMS arrival, the patient's O2 saturation was 90% on room air. She was given a breathing treatment in route and arrived to the emergency department 95% on 2L nasal cannula. Of note, the patient was recently admitted here for Flu A and pneumonia from 04/08/24-04/14/24. During this admission she completed a Tamiflu and prednisone course. She had persistent tachycardia while admitted, she was started on metoprolol 12.5 mg daily, will plan for follow-up with PCP to wean off metoprolol once recovered from influenza. Currently has a loop recorder x [address] for same and a plan for an outpatient echo They attempted to wean her off supplemental oxygen at this time, but she did not tolerated well. She was discharged with supplemental oxygen, however she is reporting and interested not cover this and it was picked up from her home. Initial VS at presentation: 97.9? F, HR 131, RR 14, 119/80, and 95% on 2L NC. ED workup showed: WBC 13.1, hemoglobin 11.6, creatinine 0.86 and GFR >60, glucose 128, magnesium 1.1, proBNP 129, and initial troponin negative. Viral PCR negative. CXR showed a questionable left lower lobe pneumonia with underlying probable chronic bibasilar scarring or atelectasis. Initial EKG showed sinus tachycardia, rate 130, delayed precordial RS transition, nonspecific ST and T-wave abnormality (lateral/high lateral leads). When compared to EKG done on 04/09/2024, there are no significant changes. Review of Systems Review of Systems: All systems reviewed & are unremarkable except as noted in HPI and below PMFSH Past Medical History Medical History HLD (hyperlipidemia) Ulcerative colitis Type 2 diabetes mellitus Essential hypertension GI bleed (01/2019) attributed to sigmoiditis Seasonal allergies Asthma Surgical History Surgical History History of section History of bilateral carpal tunnel release History of facial fracture repair History of back surgery L3-L4 fusion History of mandibular surgery metal plate in right jaw Family History Family History Unknown No problems noted. Social History Social History Social History: Surrogate medical decision maker: Alonzo Bain ([phone]). Code status: Full code. Smoking packs per day: 1 Smoking cigarettes per day: 20.0 Years smoked: 5 Smoking pack-years: 5.00 Smoking status: Former smoker Second hand tobacco smoke exposure: Yes Alcohol intake: current Drinks per week: 2 Substance use: never Substance use type: does not use Do You Feel Safe in your Home?: Yes Lack of Transportation: No Lack of Food: Never True Current Housing: I Have Housing Concerned About Future Housing: No Difficulty Paying Gas/Electric Bills: No Difficulty Paying for Meds: No Currently Unemployed: No Education: High School Diploma/GED Difficulty w/ Childcare or Family Care: No Living arrangements: with family Additional living arrangements comments: Lives with spouse in [place]. 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 Spiritual care concerns: No Agree to blood products: Yes Meds Home Medications and Allergies Home Medications ?Medication ?Instructions ?Recorded ?Confirmed ?Type liraglutide 0.6 mg/0.1 mL (18 mg/3 1.6 mg subcut DAILY 01/21/19 05/03/24 History mL) subcutaneous pen injector (Victoza 3-Matthew) lisinopril 10 1 tablet PO DAILY 01/21/19 05/03/24 History mg-hydrochlorothiazide 12.5 mg tablet metformin 1,000 mg tablet 1,000 mg PO BID 01/21/19 05/03/24 History simvastatin 20 mg tablet 40 mg PO DAILY 01/21/19 05/03/24 History verapamil 180 mg tablet,extended 240 mg PO DAILY 01/21/19 05/03/24 History release fluticasone 232 mcg-salmeterol 14 2 puff inhalation DAILY 04/12/19 05/03/24 History mcg/actuation breath activated powdr (AirDuo RespiClick) albuterol 90 mcg-budesonide 80 2 inh inhalation QID PRN shortness 04/08/24 05/03/24 History mcg/actuation HFA aerosol inhaler of breath (Airsupra) bupropion HCl 150 mg 24 hr tablet, 150 mg PO DAILY 04/08/24 05/03/24 History extended release dupilumab 300 mg subcut [id number] 04/08/24 05/03/24 History fluticasone fur. 200 mcg-umeclid 1 inh inhalation DAILY 04/08/24 05/03/24 History 62.5 mcg-vilant 25 mcg inhalat.powder (Trelegy Ellipta) glimepiride 2 mg tablet 2 mg PO DAILY 04/08/24 05/03/24 History metoprolol tartrate 25 mg tablet 12.5 mg (1/2 x 25 mg) PO DAILY #30 04/14/24 05/03/24 Rx tabs Allergies Allergy/AdvReac Type Severity Reaction Status Date / Time cat dander Allergy Intermediate Wheezing Verified 05/03/24 09:36 dog dander Allergy Intermediate Wheezing Verified 05/03/24 09:36 pollen extracts Allergy Unknown Wheezing Verified 05/03/24 09:36 Vital Signs Vital Signs - 24 hr 05/03/24 09:25 05/03/24 09:41 05/03/24 09:56 Temperature 97.9 F Pulse Rate 131 H 132 H 130 H Respiratory Rate 14 20 Blood Pressure 119/80 Pulse Oximetry 95 Oxygen Delivery Nasal Cannula Oxygen Flow Rate 2 05/03/24 10:52 05/03/24 10:53 05/03/24 11:25 Temperature Pulse Rate 140 H 144 H 126 H Respiratory Rate 25 H 20 Blood Pressure 127/74 Pulse Oximetry 94 Oxygen Delivery Oxygen Flow Rate Exam Const: General: comfortable and no acute distress Other: , female, mildly ill-appearing HENMT: Face/Nose/Sinus: Normal nares present Mouth: Yes moist mucous membranes Other: Nasal cannula place, tolerating well Eyes: General: appearance normal, both eyes and all related structures Sclera: sclerae normal Pupils: Equal, round and reactive pupils present EOM: EOMs intact bilaterally Resp: Other: diminished lung sounds throughout, L worse than R. No audible wheezing. +conversational dyspnea. Cardio: Rate: tachycardic (Mild, 100-110) Rhythm: regular rhythm Other: S1-S2 present without murmur, rub, ectopy GI: Other: Abdomen soft, nondistended, nontender. Normoactive bowel sounds in all quadrants. Skin: General skin exam: normal color and no rashes or lesions noted Wounds: no wounds Neuro: Speech: normal speech Motor exam (neuro): 5/5 motor strength present throughout Sensory Exam: normal sensation Other: A&O x4 Extrem: General: normal to inspection Psych: Mental Status: mental status grossly normal Affect: normal affect Other: Good insight and judgment, very pleasant H&P: Results Labs Labs: Short CBC 05/03/24 Range/Units 09:33 WBC 13.1 H (4.5-10.0) K/mm3 Hgb 11.6 L (12.0-15.0) g/dL Hct 36.6 L (37.0-47.0) % Plt Count 318 (150-375) k/mm3 BMP 05/03/24 09:33 Sodium 135 L Potassium 3.6 Chloride 99 Carbon Dioxide 23 BUN 10 D Creatinine 0.86 Glucose 128 H Calcium 8.8 Cardiac Enzymes 05/03/24 Range/Units 09:33 Troponin I < 0.012 (0.000-0.034) ng/mL Liver Function 05/03/24 Range/Units 09:33 Total Bilirubin 0.5 (0.2-1.3) mg/dL AST 20 (14-36) U/L ALT 17 (6-35) U/L Alkaline Phosphatase 96 (38-126) U/L Albumin 4.0 (3.5-5.1) g/dL Assessment and Plan Assessment and plan (1) Sepsis: Qualifiers: Acute respiratory failure type: with hypoxia Sepsis acute organ dysfunction status: with acute organ dysfunction Sepsis type: sepsis due to unspecified organism Severe sepsis acute organ dysfunction type: acute respiratory failure Severe sepsis shock status: without septic shock Qualified Code(s): A41.9 - Sepsis, unspecified organism; R65.20 - Severe sepsis without septic shock; J96.01 - Acute respiratory failure with hypoxia Code(s): A41.9 - Sepsis, unspecified organism Status: Acute Assessment and Plan: - meets SIRS criteria: HR, WBC. +hypoxia, -hypotension - lactic acid ordered - 30 mL/kg = 2.5L, 2L bolus ordered - suspected source: PNA - started on cefepime, azithromycin, and vanc on 05/03 - blood cultures drawn on 05/03, follow - CXR: Questionable left lower lobe pneumonia with underlying probable chronic bibasilar scarring or atelectasis. - UA ordered - monitor VS and WBC (2) Pneumonia: Qualifiers: Laterality: left Lung location: lower lobe of lung Pneumonia type: due to unspecified organism Qualified Code(s): J18.9 - Pneumonia, unspecified organism Code(s): J18.9 - Pneumonia, unspecified organism Status: Acute Assessment and Plan: - CXR concerning for left lower lobe pneumonia - risk factors and complicating factors: recent pneumonia/ABX use and hospitalization - started on HAP tx: cefepime, vancomycin, azithromycin - MRSA PCR and sputum culture - consider testing for Legionella, pneumococcal, and mycoplasma if patient does not improve with nebs, antibiotics, and supportive care - Viral PCR negative - supportive care Tylenol p.r.n. Mucinex breana DuoNeb p.r.n. Tessalon Perles p.r.n. Lozenge p.r.n. EZ PAP TID - continue supplemental O2, maintain O2 saturation greater than 92%. Wean as tolerated. (3) Sinus tachycardia: Code(s): R00.0 - Tachycardia, unspecified Status: Acute Assessment and Plan: - EKG, initial: sinus tachycardia, rate 130, delayed precordial RS transition, nonspecific ST and T-wave abnormality (lateral/high lateral leads). When compared to EKG done on 04/09/2024, there are no significant changes. - continue home medications: Metoprolol 12.5 mg daily, verapamil 240 ER daily - given Verapamil ER 240 mg PO in the ED, HR now 114 - telemetry monitoring (4) Hypomagnesemia: Code(s): E83.42 - Hypomagnesemia Status: Acute Assessment and Plan: - Mag 1.1 - initial repletion with 1G IV - trend (5) Asthma: Qualifiers: Asthma complication type: unspecified Asthma persistence: unspecified Asthma severity: unspecified severity Qualified Code(s): J45.909 - Unspecified asthma, uncomplicated Code(s): J45.909 - Unspecified asthma, uncomplicated Status: Chronic Assessment and Plan: - DuoNeb breana - continue maintenance medications: (6) DMII (diabetes mellitus, type 2): Qualifiers: 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 Continue glimepiride. - correct regimen ordered - high dose TIDWM, based off BMI - A1C 6.5% on 04/08/24 (7) HTN (hypertension): Qualifiers: Hypertension type: primary hypertension Qualified Code(s): I10 - Essential (primary) hypertension Code(s): I10 - Essential (primary) hypertension Status: Chronic Assessment and Plan: - chronic, currently 107/71 - continue home medications: lisinopril-hydrochlorothiazide - monitor Plan MRSA negative. Vanc d/c'd. Diet: Diabetic GI Prophylaxis: Not currently indicated DVT Prophylaxis: Lovenox Lines: peripheral Code Status: full code Quality VTE Prophylaxis VTE prophylaxis: pharmacologic ordered Hospitalist [facility] Advance Care Plan I have confirmed that the patient's Advanced Care Plan is present, code status is documented, or surrogate decision maker is listed in patient medical record.: Yes Medication Reconciliation I have utilized all available resources to obtain, update and review the patients current medications (includes all prescriptions, OTC, herbals, cannabis, and nutritional supplements).: Yes
--- NOTE | 2024-05-03 13:05 | PC.NURSE ---
ordered pt meal tray at 1300.
[2024-05-03 13:17] LABS: Lactic Acid Reflex 1.1 mmol/L (0.7-2.0)
[2024-05-03] MEDS: LACTATED RINGERS 1,000 ML 999 ML IV CONT (13:39)
[2024-05-03] MEDS: AZITHROMYCIN 500 MG/NS 250 ML 500 MG/250 ML BAG 250 MG IVPB (13:39)
[2024-05-03] MEDS: MAGNESIUM SULF 1 GM/D5W 100 ML 1 GM/100 ML BAG IVPB (13:40)
[2024-05-03] MEDS: BENZONATATE 100 MG CAPSULE PO ×2 (13:58→16:01)
[2024-05-03] MEDS: guaiFENesin 12 HR 600 MG TABCR PO ×2 (13:58→20:31)
[2024-05-03 14:01] LABS: Glucose Point of Care 216 mg/dl (65-105)
[2024-05-03] MEDS: INSULIN ASPART (*BKC) 100 UNITS/ML SUB-Q (14:03)
[2024-05-03] MEDS: IPRATROPIUM 0.5 MG/ALBUTEROL SULFATE 2.5 MG AMPUL.NEB 3 ML INHALATION ×2 (14:12→21:04)
[2024-05-03 14:41] LABS: MRSA (PCR) NOT DETECTED (NOT DETECTE)
--- NOTE | 2024-05-03 15:04 | ADMGEN ---
This patient, Anuradha Bain, was admitted to [facility] Surg Room 324-01. Patient/family oriented to hospital policies and general routines including ID bracelet, bed and alarms, visiting hours, pain management, procedures, bathroom and other care routines, personal items, smoking policy, room service/diet, and visiting hours. Information on how to activate the Rapid Response Team has been discussed. Patient/Family are encouraged to report perceived risks to care and to ask questions if they do not understand what they are told or what they should do.
[2024-05-03 15:16] LABS: Add Urine Microscopic? YES; Appearance Urine Clear (Clear); Bacteria Urine None Seen /hpf; Bilirubin Urine Negative (Negative); Blood Urine Negative (Negative); Color Urine Yellow (Yellow); Glucose Urine UA Trace mg/dL (Negative); Ketones Urine Negative (Negative); Leukocyte Esterase Ur Negative LEU/UL (Negative); Nitrate Urine Negative (Negative); Non Pathogenic Casts 0-2; Protein Urine 1+ mg/dL (Negative); RBC Urine 0-2 /hpf (0-2); Specific Grav Ur 1.011 (1.001-1.035); Squamous Epithelial Cell Urine None Seen /hpf (Few); WBC Urine 0-5 /hpf (0-3); pH Urine 6.5 (5.0-9.0)
[2024-05-03] MEDS: ENOXAPARIN 40 MG/0.4 ML SYRINGE SUB-Q (15:50)
[2024-05-03] MEDS: CEFEPIME 2 GM/NS 50 ML 2 GM/50 ML BAG IVPB ×2 (15:50→21:08)
[2024-05-03] MEDS: LACTATED RINGERS 1,000 ML 150 ML IV CONT (15:51)
[2024-05-03] MEDS: VANCOMYCIN 2,000 MG/NS 500 ML 2,000 MG/500 ML BAG 250 MG IVPB (16:01)
[2024-05-03 16:48] LABS: Glucose Point of Care 82 mg/dl (65-105)
[2024-05-03] MEDS: ACETAMINOPHEN 325 MG TABLET 650 MG PO (18:13)
[2024-05-03 21:35] LABS: Glucose Point of Care 129 mg/dl (65-105)
[2024-05-04] VITALS (18 sets, daily range): BP systolic 99–145; BP diastolic 54–71; PULSE 88–119; RESP 16–20; TEMP 36–36.3; O2SAT 91–95
[2024-05-04] MEDS: IPRATROPIUM 0.5 MG/ALBUTEROL SULFATE 2.5 MG AMPUL.NEB 3 ML INHALATION ×4 (02:05→20:00)
[2024-05-04] MEDS: CEFEPIME 2 GM/NS 50 ML 2 GM/50 ML BAG IVPB ×3 (05:12→21:24)
[2024-05-04 07:21] LABS: Basophils Percent Auto 0.4 % (0.2-1.2); Eosinophils Absolute Auto 0.1 K/mm3 (0-0.3); Eosinophils Percent Auto 1.1 % (0-4.4); Hematocrit 32.4 % (37.0-47.0); Hemoglobin 10.1 g/dL (12.0-15.0); Immature Granulocyte Absolute 0.04 K/mm3 (0.00-0.031); Immature Granulocyte Percent A 0.5 % (0-0.5); Lymphocytes Absolute Auto 0.92 K/mm3 (0.9-3.2); Lymphocytes Percent Auto 11.5 % (18.3-44.2); Mean Corpuscular HGB Conc 31.2 g/dl (32-36); Mean Corpuscular Hemoglobin 28.8 pg (26-34); Mean Corpuscular Volume 92.3 fl (80-100); Mean Platelet Volume 10.3 fl (7.4-10.4); Monocytes Absolute Auto 0.9 K/mm3 (0.1-0.6); Monocytes Percent Auto 10.8 % (2.6-8.5); Neutrophils Percent Auto 75.7 % (45.5-73.1); Platelet Count Result 261 k/mm3 (150-375); Red Blood Count 3.51 M/mm3 (4.2-5.4); Red Cell Distribution Width 14.5 % (11.5-14.5)
[2024-05-04 07:38] LABS: Anion Gap 8 mmol/L (4-12); Blood Urea Nitrogen 13 mg/dL (7-17); Calcium 8.3 mg/dL (8.4-10.2); Carbon Dioxide 28 mmol/L (22-30); Chloride 102 mmol/L (98-107); Estimated CRCL calculation 61 ml/min; Estimated Glomerular Filt Rate > 60; Glucose 137 mg/dL (65-110); Magnesium 1.4 mg/dL (1.6-2.3); Potassium 3.7 mmol/L (3.4-5.0); Sodium 138 mmol/L (137-145)
[2024-05-04 08:12] LABS: Glucose Point of Care 112 mg/dl (65-105)
[2024-05-04] MEDS: AZITHROMYCIN 500 MG/NS 250 ML 500 MG/250 ML BAG 250 MG IVPB (10:07)
[2024-05-04] MEDS: SIMVASTATIN 20 MG TABLET 40 MG PO (10:08)
[2024-05-04] MEDS: BENZONATATE 100 MG CAPSULE PO ×3 (10:08→17:18)
[2024-05-04] MEDS: METOPROLOL TARTRATE 12.5 MG TABLET PO (10:08)
[2024-05-04] MEDS: buPROPion HCL XL (24 HR) 150 MG TABCR PO (10:09)
[2024-05-04] MEDS: hydroCHLOROthiazide 12.5 MG CAPSULE PO (10:09)
[2024-05-04] MEDS: VERAPAMIL HCL ER 240 MG TABLET.ER PO (10:09)
[2024-05-04] MEDS: GLIMEPIRIDE 2 MG TABLET PO (10:09)
[2024-05-04] MEDS: lisinopriL 10 MG TABLET PO (10:09)
[2024-05-04] MEDS: ENOXAPARIN 40 MG/0.4 ML SYRINGE SUB-Q (10:12)
[2024-05-04] MEDS: guaiFENesin 12 HR 600 MG TABCR PO ×2 (10:39→21:24)
[2024-05-04 12:13] LABS: Glucose Point of Care 184 mg/dl (65-105)
--- NOTE | 2024-05-04 13:41 | PM.IMPN ---
Progress Note: A&P Assessment and Plan (1) Sepsis: Qualifiers: Acute respiratory failure type: with hypoxia Sepsis acute organ dysfunction status: with acute organ dysfunction Sepsis type: sepsis due to unspecified organism Severe sepsis acute organ dysfunction type: acute respiratory failure Severe sepsis shock status: without septic shock Qualified Code(s): A41.9 - Sepsis, unspecified organism; R65.20 - Severe sepsis without septic shock; J96.01 - Acute respiratory failure with hypoxia Code(s): A41.9 - Sepsis, unspecified organism Status: Acute Assessment and Plan: - meets SIRS criteria: HR, WBC. +hypoxia, -hypotension - lactic acid ordered - 30 mL/kg = 2.5L, 2L bolus ordered - suspected source: PNA - started on cefepime, azithromycin, and vanc on 05/03 - blood cultures drawn on 05/03, follow - CXR: Questionable left lower lobe pneumonia with underlying probable chronic bibasilar scarring or atelectasis. - UA ordered - monitor VS and WBC (2) Pneumonia: Qualifiers: Laterality: left Lung location: lower lobe of lung Pneumonia type: due to unspecified organism Qualified Code(s): J18.9 - Pneumonia, unspecified organism Code(s): J18.9 - Pneumonia, unspecified organism Status: Acute Assessment and Plan: - CXR concerning for left lower lobe pneumonia - risk factors and complicating factors: recent pneumonia/ABX use and hospitalization - started on HAP tx: cefepime, vancomycin, azithromycin - MRSA PCR and sputum culture - consider testing for Legionella, pneumococcal, and mycoplasma if patient does not improve with nebs, antibiotics, and supportive care - Viral PCR negative - supportive care Tylenol p.r.n. Mucinex breana DuoNeb p.r.n. Tessalon Perles p.r.n. Lozenge p.r.n. EZ PAP TID - continue supplemental O2, maintain O2 saturation greater than 92%. Wean as tolerated. (3) Sinus tachycardia: Code(s): R00.0 - Tachycardia, unspecified Status: Acute Assessment and Plan: - EKG, initial: sinus tachycardia, rate 130, delayed precordial RS transition, nonspecific ST and T-wave abnormality (lateral/high lateral leads). When compared to EKG done on 04/09/2024, there are no significant changes. - continue home medications: Metoprolol 12.5 mg daily, verapamil 240 ER daily - given Verapamil ER 240 mg PO in the ED, HR now 114 - telemetry monitoring (4) Hypomagnesemia: Code(s): E83.42 - Hypomagnesemia Status: Acute Assessment and Plan: - Mag 1.1 - initial repletion with 1G IV - trend (5) Asthma: Qualifiers: Asthma complication type: unspecified Asthma persistence: unspecified Asthma severity: unspecified severity Qualified Code(s): J45.909 - Unspecified asthma, uncomplicated Code(s): J45.909 - Unspecified asthma, uncomplicated Status: Chronic Assessment and Plan: - DuoNeb breana - continue maintenance medications: (6) DMII (diabetes mellitus, type 2): Qualifiers: Diabetes mellitus complication status: without complication Diabetes mellitus jail insulin use: without jail use Qualified Code(s): E11.9 - Type 2 diabetes mellitus without complications Code(s): E11.9 - Type 2 diabetes mellitus without complications Status: Chronic Assessment and Plan: - hypoglycemia protocol - POC blood glucose ACHS - home medication: Hold Victoza (NF) and metformin. Continue glimepiride. - correct regimen ordered - high dose TIDWM, based off BMI - A1C 6.5% on 04/08/24 (7) HTN (hypertension): Qualifiers: Hypertension type: primary hypertension Qualified Code(s): I10 - Essential (primary) hypertension Code(s): I10 - Essential (primary) hypertension Status: Chronic Assessment and Plan: - chronic, currently 107/71 - continue home medications: lisinopril-hydrochlorothiazide - monitor Plan MRSA negative. Vanc d/c'd. Diet: Diabetic GI Prophylaxis: Not currently indicated DVT Prophylaxis: Lovenox Lines: peripheral Code Status: full code Subjective Date/time seen: 05/04/24 13:41 Interval history: Patient has increased work of breathing although no diagnosis of COPD/asthma. Patient is positive for influenza A. 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 Currently she is on 2 L nasal cannula and saturating 93% .Continue cefepime, vancomycin and azithromycin. No acute events reported. Review of Systems Review of Systems: All systems reviewed & are unremarkable except as noted in HPI and below Exam Narrative: diminished lung sounds throughout, L worse than R. No audible wheezing. +conversational dyspnea. Const: General: comfortable and no acute distress Other: , female, mildly ill-appearing HENMT: Face/Nose/Sinus: Normal nares present Mouth: Yes moist mucous membranes Other: Nasal cannula place, tolerating well Eyes: General: appearance normal, both eyes and all related structures Sclera: sclerae normal Pupils: Equal, round and reactive pupils present EOM: EOMs intact bilaterally Resp: Other: diminished lung sounds throughout, L worse than R. No audible wheezing. +conversational dyspnea. Cardio: Rate: tachycardic (Mild, 100-110) Rhythm: regular rhythm Other: S1-S2 present without murmur, rub, ectopy GI: Other: Abdomen soft, nondistended, nontender. Normoactive bowel sounds in all quadrants. Skin: General skin exam: normal color and no rashes or lesions noted Wounds: no wounds Neuro: Cranial nerves: Yes Equal, round and reactive pupils present Speech: normal speech Motor exam (neuro): 5/5 motor strength present throughout Sensory Exam: normal sensation Other: A&O x4 Extrem: General: normal to inspection Psych: Mental Status: mental status grossly normal Affect: normal affect Other: Good insight and judgment, very pleasant Objective Data Vital Signs Vital Signs: Vital Signs - 24 hr 05/03/24 14:00 05/03/24 14:13 05/03/24 14:14 Temperature Pulse Rate 110 H 110 H Respiratory Rate 20 20 Blood Pressure 117/71 Pulse Oximetry 95 96 Oxygen Delivery Nasal Cannula Oxygen Flow Rate 2 05/03/24 14:23 05/03/24 14:40 05/03/24 16:00 Temperature 98.0 F Pulse Rate 110 H 108 H Respiratory Rate 20 18 18 Blood Pressure 106/57 L Pulse Oximetry 95 95 Oxygen Delivery Nasal Cannula Oxygen Flow Rate 2 05/03/24 16:00 05/03/24 20:02 05/03/24 20:20 Temperature 98.1 F Pulse Rate 104 H 94 96 Respiratory Rate 16 Blood Pressure 112/61 Pulse Oximetry 95 Oxygen Delivery Oxygen Flow Rate 05/03/24 20:31 05/03/24 21:05 05/03/24 21:08 Temperature Pulse Rate 97 Respiratory Rate 20 Blood Pressure Pulse Oximetry 92 92 Oxygen Delivery Nasal Cannula Nasal Cannula Oxygen Flow Rate 2 2 05/03/24 21:14 05/04/24 00:02 05/04/24 02:05 Temperature Pulse Rate 99 99 114 H Respiratory Rate 20 20 Blood Pressure Pulse Oximetry Oxygen Delivery Oxygen Flow Rate 05/04/24 02:14 05/04/24 04:02 05/04/24 05:05 Temperature 96.8 F L Pulse Rate 111 H 104 H 108 H Respiratory Rate 20 20 Blood Pressure 145/71 H Pulse Oximetry 95 Oxygen Delivery Oxygen Flow Rate 05/04/24 08:00 05/04/24 09:23 05/04/24 09:23 Temperature Pulse Rate 98 114 H 114 H Respiratory Rate 20 20 Blood Pressure Pulse Oximetry 93 Oxygen Delivery Nasal Cannula Oxygen Flow Rate 2 05/04/24 09:38 05/04/24 10:08 Temperature Pulse Rate 119 H 119 H Respiratory Rate 20 Blood Pressure Pulse Oximetry Oxygen Delivery Oxygen Flow Rate Intake/Output Intake/Output: Intake & Output 05/01/24 05/02/24 05/03/24 05/04/24 23:59 23:59 23:59 23:59 Intake Total 390 1666 Balance 390 1666 Meds/Results Medications: Active Medications Generic Name Dose Route Start Last Admin Trade Name Freq PRN Reason Stop Dose Admin Acetaminophen 650 mg 05/03/24 12:33 05/03/24 18:13 Acetaminophen 325 Mg Tablet PO 650 mg Q4H PRN Administration Mild Pain (1-3) or Fever Hydrocodone Bitart/Acetaminophen 1 tab 05/03/24 12:33 Hydrocodone/Acetaminophen (*Crx) 5-325 Mg Tablet PO Q4H PRN Pain Rated 4-6 Albuterol/Ipratropium 3 ml 05/03/24 14:00 05/04/24 09:22 Ipratropium 0.5 Mg/Albuterol Sulfate 2.5 Mg Ampul.Neb 3 Ml INHALATION 3 ml Q6HRT BREANA Administration Benzocaine 1 lozenge 05/03/24 12:59 Benzocaine/Menthol (*Bkc) 18 Ea Lozenge PO PRN PRN Sore Throat Benzonatate 100 mg 05/03/24 13:00 05/04/24 12:56 Benzonatate 100 Mg Capsule PO 100 mg TID BREANA Administration Bupropion HCl 150 mg 05/04/24 09:00 05/04/24 10:09 Bupropion Hcl Xl (24 Hr) 150 Mg Tabcr PO 150 mg DAILY BREANA Administration Dextrose 12.5 gm 05/03/24 13:03 Dextrose 50% 25 Gm/50 Ml Syringe IV PUSH PRN PRN Hypoglycemia Protocol Enoxaparin Sodium 40 mg 05/03/24 13:10 05/04/24 10:12 Enoxaparin 40 Mg/0.4 Ml Syringe SUB-Q 40 mg DAILY BREANA Administration Fluticasone/Umeclidinium/Vilanterol 1 puff 05/04/24 08:00 Fluticasone/Umeclidin/Vilanter 200-62.5-25 Mcg Ellipta INHALATION DAILYRT BREANA Glimepiride 2 mg 05/04/24 09:00 05/04/24 10:09 Glimepiride 2 Mg Tablet PO 2 mg DAILY BREANA Administration Glucagon 1 mg 05/03/24 13:03 Glucagon For Inj 1 Mg Vial IM PRN PRN Hypoglycemia Protocol Glucose 15 gm 05/03/24 13:03 Glucose Oral Gel 15 Gm Of Glucse In 37.5 Gm Tube PO PRN PRN Hypoglycemia Protocol Guaifenesin 600 mg 05/03/24 13:10 05/04/24 10:39 Guaifenesin 12 Hr 600 Mg Tabcr PO 600 mg Q12HR BREANA Administration Hydrochlorothiazide 12.5 mg 05/04/24 09:00 05/04/24 10:09 Hydrochlorothiazide 12.5 Mg Capsule PO 12.5 mg DAILY BREANA Administration Azithromycin 500 mg in 250 mls @ 250 mls/hr 05/04/24 09:00 05/04/24 10:07 Zithromax IVPB 250 mls/hr Q24H BREANA Administration Cefepime HCl 2 gm in 50 mls @ 100 mls/hr 05/03/24 14:00 05/04/24 13:00 Maxipime 2 Gm/Ns 50 Ml IVPB 100 mls/hr Q8H BREANA Administration Dextrose 1,000 mls @ 100 mls/hr 05/03/24 13:03 Dextrose 5% 1,000 Ml IVPB PRN PRN Hypoglycemia Protocol Insulin Aspart 4 - 8 units 05/03/24 13:10 05/04/24 12:45 Insulin Aspart (*Bkc) 100 Units/Ml SUB-Q Not Given TIDWM BREANA Protocol Lisinopril 10 mg 05/04/24 09:00 05/04/24 10:09 Lisinopril 10 Mg Tablet PO 10 mg DAILY BREANA Administration Metoprolol Tartrate 12.5 mg 05/04/24 09:00 05/04/24 10:08 Metoprolol Tartrate 12.5 Mg Tablet PO 12.5 mg DAILY BREANA Administration Miscellaneous Information 1 each 05/04/24 00:01 Airduo Duplicate Therapy With Trelegy And Duoneb, D/C Airduo? XX 06/03/24 00:00 CLARIFY BREANA Miscellaneous Information 1 each 05/04/24 00:01 Trelegy Duplicate With Duoneb And Airduo; D/C Trelegy? XX 06/03/24 00:00 CLARIFY BREANA Miscellaneous Information 1 each 05/04/24 00:01 Airsupra Nonform; Can Pt Use From Home? XX 06/03/24 00:00 CLARIFY BREANA Non-Formulary Medication 2 inhalation 05/03/24 17:56 Albuterol-Budesonide [Airsupra] INHALATION QID PRN shortness of breath Non-Formulary Medication 2 puff 05/04/24 09:00 Fluticasone Propion-Salmeterol [Airduo Respiclick] INHALATION 06/03/24 08:59 DAILY [facility] Ondansetron HCl 4 mg 05/03/24 12:33 Ondansetron Inj 4 Mg/2 Ml Vial IV PUSH Q4H PRN Nausea Simvastatin 40 mg 05/04/24 09:00 05/04/24 10:08 Simvastatin 20 Mg Tablet PO 40 mg DAILY BREANA Administration Verapamil HCl 240 mg 05/04/24 09:00 05/04/24 10:09 Verapamil Hcl Er 240 Mg Tablet.Er PO 240 mg DAILY BREANA Administration Radiology Results: ITS Impressions Chest X-Ray 05/03/24 12:02 Impression: Questionable left lower lobe pneumonia with underlying probable chronic bibasilar scarring or atelectasis. Labs Labs: Laboratory Results - last 24 hr 05/03/24 05/03/24 05/03/24 13:24 13:57 15:04 WBC RBC Hgb Hct MCV MCH MCHC RDW Plt Count MPV Immature Gran % (Auto) Neut % (Auto) Lymph % (Auto) Hinds % (Auto) Eos % (Auto) Baso % (Auto) Lymph # (Auto) Hinds # (Auto) Eos # (Auto) Baso # (Auto) Abs Immat Gran (auto) Absolute Neuts (auto) Absolute Nucleated RBC Nucleated RBC % Sodium Potassium Chloride Carbon Dioxide Anion Gap BUN Creatinine Estim Creat Clear Calc Estimated GFR Glucose POC Capillary Glucose 216 H Calcium Magnesium Urine Color Yellow Urine Appearance Clear Urine pH 6.5 Ur Specific [place] 1.011 Urine Protein 1+ H Urine Glucose (UA) Trace H Urine Ketones Negative Ur Blood (Man) Negative Urine Nitrate Negative Urine Bilirubin Negative Urine Urobilinogen 1.0 Leukocyte Esterase Rfl Negative Urine RBC 0-2 Urine WBC 0-5 Ur Squamous Epith Cells None seen Urine Bacteria None seen Urine Casts 0-2 Nasal MRSA (PCR) Not detected 05/03/24 05/03/24 05/04/24 16:43 20:22 06:50 WBC 8.0 RBC 3.51 L Hgb 10.1 L Hct 32.4 L MCV 92.3 MCH 28.8 MCHC 31.2 L RDW 14.5 Plt Count 261 MPV 10.3 Immature Gran % (Auto) 0.5 Neut % (Auto) 75.7 H Lymph % (Auto) 11.5 L Hinds % (Auto) 10.8 H Eos % (Auto) 1.1 Baso % (Auto) 0.4 Lymph # (Auto) 0.92 Hinds # (Auto) 0.9 H Eos # (Auto) 0.1 Baso # (Auto) 0.0 Abs Immat Gran (auto) 0.04 H Absolute Neuts (auto) 6.0 Absolute Nucleated RBC 0.000 Nucleated RBC % 0.0 Sodium 138 Potassium 3.7 Chloride 102 Carbon Dioxide 28 Anion Gap 8 BUN 13 Creatinine 0.93 Estim Creat Clear Calc 61 Estimated GFR > 60 Glucose 137 H POC Capillary Glucose 82 129 H Calcium 8.3 L Magnesium 1.4 L Urine Color Urine Appearance Urine pH Ur Specific [place] Urine Protein Urine Glucose (UA) Urine Ketones Ur Blood (Man) Urine Nitrate Urine Bilirubin Urine Urobilinogen Leukocyte Esterase Rfl Urine RBC Urine WBC Ur Squamous Epith Cells Urine Bacteria Urine Casts Nasal MRSA (PCR) 05/04/24 05/04/24 08:07 11:24 WBC RBC Hgb Hct MCV MCH MCHC RDW Plt Count MPV Immature Gran % (Auto) Neut % (Auto) Lymph % (Auto) Hind[place] % (Auto) Eos % (Auto) Baso % (Auto) Lymph # (Auto) Hind[place] # (Auto) Eos # (Auto) Baso # (Auto) Abs Immat Gran (auto) Absolute Neuts (auto) Absolute Nucleated RBC Nucleated RBC % Sodium Potassium Chloride Carbon Dioxide Anion Gap BUN Creatinine Estim Creat Clear Calc Estimated GFR Glucose POC Capillary Glucose 112 H 184 H Calcium Magnesium Urine Color Urine Appearance Urine pH Ur Specific [place] Urine Protein Urine Glucose (UA) Urine Ketones Ur Blood (Man) Urine Nitrate Urine Bilirubin Urine Urobilinogen Leukocyte Esterase Rfl Urine RBC Urine WBC Ur Squamous Epith Cells Urine Bacteria Urine Casts Nasal MRSA (PCR) Quality VTE Prophylaxis VTE prophylaxis: pharmacologic ordered Hospitalist MIPS Advance Care Plan I have confirmed that the patient's Advanced Care Plan is present, code status is documented, or surrogate decision maker is listed in patient medical record.: Yes Medication Reconciliation I have utilized all available resources to obtain, update and review the patients current medications (includes all prescriptions, OTC, herbals, cannabis, and nutritional supplements).: Yes
[2024-05-04 16:30] LABS: Glucose Point of Care 55 mg/dl (65-105); Glucose Point of Care 57 mg/dl (65-105)
--- NOTE | 2024-05-04 16:44 | PC.NURSE ---
OJ given for low blood sugar
--- NOTE | 2024-05-04 17:03 | PC.NURSE ---
Blood sugar rechecked.
[2024-05-04 17:07] LABS: Glucose Point of Care 82 mg/dl (65-105)
[2024-05-04] MEDS: ACETAMINOPHEN 325 MG TABLET 650 MG PO (18:46)
[2024-05-04 21:38] LABS: Glucose Point of Care 104 mg/dl (65-105)
[2024-05-04 21:38] LABS: Glucose Point of Care 75 mg/dl (65-105)
[2024-05-05] VITALS (19 sets, daily range): BP systolic 118–136; BP diastolic 72–90; PULSE 93–114; RESP 16–20; TEMP 36.6; O2SAT 92–93
[2024-05-05 00:15] LABS: Glucose Point of Care 60 mg/dl (65-105)
--- NOTE | 2024-05-05 00:23 | PC.NURSE ---
Dr. Manriquez, notified pt blood glucose reading for midnight 60. Danica gave pt 2 apple juices, vanilla pudding with a sandwich. Order given to hold Glimepiride 2mg daily dose due to HS hypoglycemic. Re-check BS 118, pt has stable vital signs. Will continue to monitor progress.
[2024-05-05 00:28] LABS: Glucose Point of Care 118 mg/dl (65-105)
[2024-05-05] MEDS: IPRATROPIUM 0.5 MG/ALBUTEROL SULFATE 2.5 MG AMPUL.NEB 3 ML INHALATION ×4 (02:30→19:30)
[2024-05-05] MEDS: CEFEPIME 2 GM/NS 50 ML 2 GM/50 ML BAG IVPB ×3 (05:46→21:57)
[2024-05-05 06:35] LABS: Glucose Point of Care 90 mg/dl (65-105)
[2024-05-05 07:19] LABS: Hematocrit 34.3 % (37.0-47.0); Hemoglobin 10.9 g/dL (12.0-15.0); Mean Corpuscular HGB Conc 31.8 g/dl (32-36); Mean Corpuscular Hemoglobin 28.6 pg (26-34); Platelet Count Result 279 k/mm3 (150-375); Red Blood Count 3.81 M/mm3 (4.2-5.4); Red Cell Distribution Width 14.3 % (11.5-14.5); White Blood Count 9.4 K/mm3 (4.5-10.0)
[2024-05-05 07:37] LABS: Alanine Aminotransferase 17 U/L (6-35); Albumin Level 3.6 g/dL (3.5-5.1); Alkaline Phosphatase 82 U/L (38-126); Anion Gap 10 mmol/L (4-12); Aspartate Amino Transferase 22 U/L (14-36); Bilirubin,Total 0.4 mg/dL (0.2-1.3); Blood Urea Nitrogen 11 mg/dL (7-17); Carbon Dioxide 26 mmol/L (22-30); Chloride 100 mmol/L (98-107); Estimated CRCL calculation 72 ml/min; Estimated Glomerular Filt Rate > 60; Glucose 94 mg/dL (65-110); Potassium 3.7 mmol/L (3.4-5.0); Sodium 136 mmol/L (137-145)
[2024-05-05 08:23] LABS: Glucose Point of Care 108 mg/dl (65-105)
[2024-05-05] MEDS: guaiFENesin 12 HR 600 MG TABCR PO ×2 (08:48→21:57)
[2024-05-05] MEDS: METOPROLOL TARTRATE 12.5 MG TABLET PO (08:49)
[2024-05-05] MEDS: BENZONATATE 100 MG CAPSULE PO ×3 (08:49→18:02)
[2024-05-05] MEDS: VERAPAMIL HCL ER 240 MG TABLET.ER PO (08:49)
[2024-05-05] MEDS: buPROPion HCL XL (24 HR) 150 MG TABCR PO (08:51)
[2024-05-05] MEDS: SIMVASTATIN 20 MG TABLET 40 MG PO (08:51)
[2024-05-05] MEDS: lisinopriL 10 MG TABLET PO (08:51)
[2024-05-05] MEDS: AZITHROMYCIN 500 MG/NS 250 ML 500 MG/250 ML BAG 250 MG IVPB (08:52)
[2024-05-05] MEDS: hydroCHLOROthiazide 12.5 MG CAPSULE PO (08:52)
--- NOTE | 2024-05-05 10:25 | P.PNIM_ITS ---
Progress Note: A&P Assessment and Plan (1) Sepsis: Qualifiers: Acute respiratory failure type: with hypoxia Sepsis acute organ dysfunction status: with acute organ dysfunction Sepsis type: sepsis due to unspecified organism Severe sepsis acute organ dysfunction type: acute respiratory failure Severe sepsis shock status: without septic shock Qualified Code(s): A41.9 - Sepsis, unspecified organism; R65.20 - Severe sepsis without septic shock; J96.01 - Acute respiratory failure with hypoxia Code(s): A41.9 - Sepsis, unspecified organism Status: Acute Assessment and Plan: - meets SIRS criteria: HR, WBC. +hypoxia, -hypotension - lactic acid ordered - 30 mL/kg = 2.5L, 2L bolus ordered - suspected source: PNA - started on cefepime, azithromycin, and vanc on 05/03 - blood cultures drawn on 05/03, follow - CXR: Questionable left lower lobe pneumonia with underlying probable chronic bibasilar scarring or atelectasis. - UA ordered - monitor VS and WBC (2) Pneumonia: Qualifiers: Laterality: left Lung location: lower lobe of lung Pneumonia type: due to unspecified organism Qualified Code(s): J18.9 - Pneumonia, unspecified organism Code(s): J18.9 - Pneumonia, unspecified organism Status: Acute Assessment and Plan: - CXR concerning for left lower lobe pneumonia - risk factors and complicating factors: recent pneumonia/ABX use and hospitalization - started on HAP tx: cefepime, vancomycin, azithromycin - MRSA PCR and sputum culture - consider testing for Legionella, pneumococcal, and mycoplasma if patient does not improve with nebs, antibiotics, and supportive care - Viral PCR negative - supportive care Tylenol p.r.n. Mucinex breana DuoNeb p.r.n. Tessalon Perles p.r.n. Lozenge p.r.n. EZ PAP TID - continue supplemental O2, maintain O2 saturation greater than 92%. Wean as tolerated. (3) Sinus tachycardia: Code(s): R00.0 - Tachycardia, unspecified Status: Acute Assessment and Plan: - EKG, initial: sinus tachycardia, rate 130, delayed precordial RS transition, nonspecific ST and T-wave abnormality (lateral/high lateral leads). When compared to EKG done on 04/09/2024, there are no significant changes. - continue home medications: Metoprolol 12.5 mg daily, verapamil 240 ER daily - given Verapamil ER 240 mg PO in the ED, HR now 114 - telemetry monitoring (4) Hypomagnesemia: Code(s): E83.42 - Hypomagnesemia Status: Acute Assessment and Plan: - Mag 1.1 - initial repletion with 1G IV - trend (5) Asthma: Qualifiers: Asthma complication type: unspecified Asthma persistence: unspecified Asthma severity: unspecified severity Qualified Code(s): J45.909 - Unspecified asthma, uncomplicated Code(s): J45.909 - Unspecified asthma, uncomplicated Status: Chronic Assessment and Plan: - DuoNeb breana - continue maintenance medications: (6) DMII (diabetes mellitus, type 2): Qualifiers: Diabetes mellitus complication status: without complication Diabetes mellitus detention insulin use: without detention use Qualified Code(s): E11.9 - Type 2 diabetes mellitus without complications Code(s): E11.9 - Type 2 diabetes mellitus without complications Status: Chronic Assessment and Plan: - hypoglycemia protocol - POC blood glucose ACHS - home medication: Hold Victoza (NF) and metformin. Continue glimepiride. - correct regimen ordered - high dose TIDWM, based off BMI - A1C 6.5% on 04/08/24 (7) HTN (hypertension): Qualifiers: Hypertension type: primary hypertension Qualified Code(s): I10 - Essential (primary) hypertension Code(s): I10 - Essential (primary) hypertension Status: Chronic Assessment and Plan: - chronic, currently 107/71 - continue home medications: lisinopril-hydrochlorothiazide - monitor Plan MRSA negative. Vanc d/c'd. Diet: Diabetic GI Prophylaxis: Not currently indicated DVT Prophylaxis: Lovenox Lines: peripheral Code Status: full code Subjective Date/time seen: 05/05/24 10:25 Interval history: WBC is trending down. Patient still requiring oxygen. Will continue antibiotic and deescalate tomorrow Review of Systems Review of Systems: All systems reviewed & are unremarkable except as noted in HPI and below Exam Narrative: diminished lung sounds throughout, L worse than R. No audible wheezing. +conversational dyspnea. Const: General: comfortable and no acute distress Other: , female, mildly ill-appearing HENMT: Face/Nose/Sinus: Normal nares present Mouth: Yes moist mucous membranes Other: Nasal cannula place, tolerating well Eyes: General: appearance normal, both eyes and all related structures Sclera: sclerae normal Pupils: Equal, round and reactive pupils present EOM: EOMs intact bilaterally Resp: Other: diminished lung sounds throughout, L worse than R. No audible wheezing. +conversational dyspnea. Cardio: Rate: tachycardic (Mild, 100-110) Rhythm: regular rhythm Other: S1-S2 present without murmur, rub, ectopy GI: Other: Abdomen soft, nondistended, nontender. Normoactive bowel sounds in all quadrants. Skin: General skin exam: normal color and no rashes or lesions noted Wounds: no wounds Neuro: Cranial nerves: Yes Equal, round and reactive pupils present Speech: normal speech Motor exam (neuro): 5/5 motor strength present throughout Sensory Exam: normal sensation Other: A&O x4 Extrem: General: normal to inspection Psych: Mental Status: mental status grossly normal Affect: normal affect Other: Good insight and judgment, very pleasant Objective Data Vital Signs Vital Signs: Vital Signs - 24 hr 05/04/24 12:03 05/04/24 14:00 05/04/24 15:30 Temperature 97.4 F L Pulse Rate 88 94 93 Respiratory Rate 16 20 Blood Pressure 99/54 L Pulse Oximetry 93 91 Oxygen Delivery Nasal Cannula Oxygen Flow Rate 2 05/04/24 15:30 05/04/24 15:40 05/04/24 16:01 Temperature Pulse Rate 93 94 94 Respiratory Rate 20 20 Blood Pressure Pulse Oximetry Oxygen Delivery Oxygen Flow Rate 05/04/24 20:00 05/04/24 20:00 05/04/24 20:02 Temperature 97.3 F L Pulse Rate 91 100 96 Respiratory Rate 20 20 Blood Pressure 120/58 L Pulse Oximetry 93 Oxygen Delivery Oxygen Flow Rate 05/04/24 20:10 05/04/24 20:10 05/04/24 21:24 Temperature Pulse Rate 93 Respiratory Rate 20 Blood Pressure Pulse Oximetry 93 93 Oxygen Delivery Nasal Cannula Nasal Cannula Oxygen Flow Rate 2 2 05/05/24 00:02 05/05/24 02:30 05/05/24 02:40 Temperature Pulse Rate 108 H 98 94 Respiratory Rate 20 20 Blood Pressure Pulse Oximetry Oxygen Delivery Oxygen Flow Rate 05/05/24 04:02 05/05/24 04:40 05/05/24 07:20 Temperature 97.9 F Pulse Rate 107 H 108 H 103 H Respiratory Rate 20 18 Blood Pressure 136/90 Pulse Oximetry 93 92 Oxygen Delivery Nasal Cannula Oxygen Flow Rate 2 05/05/24 07:20 05/05/24 07:30 05/05/24 08:49 Temperature Pulse Rate 103 H 100 104 H Respiratory Rate 18 18 Blood Pressure Pulse Oximetry Oxygen Delivery Oxygen Flow Rate Intake/Output Intake/Output: Intake & Output 05/02/24 05/03/24 05/04/24 05/05/24 23:59 23:59 23:59 23:59 Intake Total 390 3496 2308 Balance 390 3496 2308 Meds/Results Medications: Active Medications Generic Name Dose Route Start Last Admin Trade Name Freq PRN Reason Stop Dose Admin Acetaminophen 650 mg 05/03/24 12:33 05/04/24 18:46 Acetaminophen 325 Mg Tablet PO 650 mg Q4H PRN Administration Mild Pain (1-3) or Fever Hydrocodone Bitart/Acetaminophen 1 tab 05/03/24 12:33 Hydrocodone/Acetaminophen (*Crx) 5-325 Mg Tablet PO Q4H PRN Pain Rated 4-6 Albuterol/Ipratropium 3 ml 05/03/24 14:00 05/05/24 07:20 Ipratropium 0.5 Mg/Albuterol Sulfate 2.5 Mg Ampul.Neb 3 Ml INHALATION 3 ml Q6HRT BREANA Administration Benzocaine 1 lozenge 05/03/24 12:59 Benzocaine/Menthol (*Bkc) 18 Ea Lozenge PO PRN PRN Sore Throat Benzonatate 100 mg 05/03/24 13:00 05/05/24 08:49 Benzonatate 100 Mg Capsule PO 100 mg TID BREANA Administration Bupropion HCl 150 mg 05/04/24 09:00 05/05/24 08:51 Bupropion Hcl Xl (24 Hr) 150 Mg Tabcr PO 150 mg DAILY BREANA Administration Dextrose 12.5 gm 05/03/24 13:03 Dextrose 50% 25 Gm/50 Ml Syringe IV PUSH PRN PRN Hypoglycemia Protocol Enoxaparin Sodium 40 mg 05/03/24 13:10 05/04/24 10:12 Enoxaparin 40 Mg/0.4 Ml Syringe SUB-Q 40 mg DAILY BREANA Administration Fluticasone/Umeclidinium/Vilanterol 1 puff 05/04/24 08:00 Fluticasone/Umeclidin/Vilanter 200-62.5-25 Mcg Ellipta INHALATION DAILYRT BREANA Glucagon 1 mg 05/03/24 13:03 Glucagon For Inj 1 Mg Vial IM PRN PRN Hypoglycemia Protocol Glucose 15 gm 05/03/24 13:03 Glucose Oral Gel 15 Gm Of Glucse In 37.5 Gm Tube PO PRN PRN Hypoglycemia Protocol Guaifenesin 600 mg 05/03/24 13:10 05/05/24 08:48 Guaifenesin 12 Hr 600 Mg Tabcr PO 600 mg Q12HR BREANA Administration Hydrochlorothiazide 12.5 mg 05/04/24 09:00 05/05/24 08:52 Hydrochlorothiazide 12.5 Mg Capsule PO 12.5 mg DAILY BREANA Administration Azithromycin 500 mg in 250 mls @ 250 mls/hr 05/04/24 09:00 05/05/24 08:52 Zithromax IVPB 250 mls/hr Q24H BREANA Administration Cefepime HCl 2 gm in 50 mls @ 100 mls/hr 05/03/24 14:00 05/05/24 06:16 Maxipime 2 Gm/Ns 50 Ml IVPB Infused Q8H BREANA Infusion Dextrose 1,000 mls @ 100 mls/hr 05/03/24 13:03 Dextrose 5% 1,000 Ml IVPB PRN PRN Hypoglycemia Protocol Insulin Aspart 4 - 8 units 05/03/24 13:10 05/05/24 08:53 Insulin Aspart (*Bkc) 100 Units/Ml SUB-Q Not Given TIDWM [facility] Protocol Lisinopril 10 mg 05/04/24 09:00 05/05/24 08:51 Lisinopril 10 Mg Tablet PO 10 mg DAILY BREANA Administration Metoprolol Tartrate 12.5 mg 05/04/24 09:00 05/05/24 08:49 Metoprolol Tartrate 12.5 Mg Tablet PO 12.5 mg DAILY BREANA Administration Miscellaneous Information 1 each 05/04/24 00:01 Airduo Duplicate Therapy With Treleseverino And Kala, D/C Natashao? XX 06/03/24 00:00 CLARIFY BREANA Miscellaneous Information 1 each 05/04/24 00:01 Trelegy Duplicate With Duoneb And Airduo; D/C Trelegy? XX 06/03/24 00:00 CLARIFY BREANA Miscellaneous Information 1 each 05/04/24 00:01 Airsupra Nonform; Can Pt Use From Home? XX 06/03/24 00:00 CLARIFY BREANA Non-Formulary Medication 2 inhalation 05/03/24 17:56 Albuterol-Budesonide [Airsupra] INHALATION QID PRN shortness of breath Non-Formulary Medication 2 puff 05/04/24 09:00 Fluticasone Propion-Salmeterol [Airduo Respiclick] INHALATION 06/03/24 08:59 DAILY BREANA Ondansetron HCl 4 mg 05/03/24 12:33 Ondansetron Inj 4 Mg/2 Ml Vial IV PUSH Q4H PRN Nausea Simvastatin 40 mg 05/04/24 09:00 05/05/24 08:51 Simvastatin 20 Mg Tablet PO 40 mg DAILY BREANA Administration Verapamil HCl 240 mg 05/04/24 09:00 05/05/24 08:49 Verapamil Hcl Er 240 Mg Tablet.Er PO 240 mg DAILY BREANA Administration Radiology Results: ITS Impressions Chest X-Ray 05/03/24 12:02 Impression: Questionable left lower lobe pneumonia with underlying probable chronic bibasilar scarring or atelectasis. Labs Labs: Laboratory Results - last 24 hr 05/04/24 05/04/24 05/04/24 11:24 16:27 16:27 WBC RBC Hgb Hct MCV MCH MCHC RDW Plt Count MPV Sodium Potassium Chloride Carbon Dioxide Anion Gap BUN Creatinine Estim Creat Clear Calc Estimated GFR Glucose POC Capillary Glucose 184 H 57 L* 55 L* Calcium Total Bilirubin AST ALT Alkaline Phosphatase Total Protein Albumin 05/04/24 05/04/24 05/04/24 17:03 19:53 20:24 WBC RBC Hgb Hct MCV MCH MCHC RDW Plt Count MPV Sodium Potassium Chloride Carbon Dioxide Anion Gap BUN Creatinine Estim Creat Clear Calc Estimated GFR Glucose POC Capillary Glucose 82 75 104 Calcium Total Bilirubin AST ALT Alkaline Phosphatase Total Protein Albumin 05/04/24 05/05/24 05/05/24 23:56 00:25 04:42 WBC RBC Hgb Hct MCV MCH MCHC RDW Plt Count MPV Sodium Potassium Chloride Carbon Dioxide Anion Gap BUN Creatinine Estim Creat Clear Calc Estimated GFR Glucose POC Capillary Glucose 60 L 118 H 90 Calcium Total Bilirubin AST ALT Alkaline Phosphatase Total Protein Albumin 05/05/24 05/05/24 07:10 08:04 WBC 9.4 RBC 3.81 L Hgb 10.9 L Hct 34.3 L MCV 90.0 MCH 28.6 MCHC 31.8 L RDW 14.3 Plt Count 279 MPV 10.0 Sodium 136 L Potassium 3.7 Chloride 100 Carbon Dioxide 26 Anion Gap 10 BUN 11 Creatinine 0.78 Estim Creat Clear Calc 72 Estimated GFR > 60 Glucose 94 POC Capillary Glucose 108 H Calcium 9.0 Total Bilirubin 0.4 AST 22 ALT 17 Alkaline Phosphatase 82 Total Protein 7.0 Albumin 3.6 Quality VTE Prophylaxis VTE prophylaxis: pharmacologic ordered Hospitalist [facility] Advance Care Plan I have confirmed that the patient's Advanced Care Plan is present, code status is documented, or surrogate decision maker is listed in patient medical record.: Yes Medication Reconciliation I have utilized all available resources to obtain, update and review the patients current medications (includes all prescriptions, OTC, herbals, cannabis, and nutritional supplements).: Yes
[2024-05-05] MEDS: ENOXAPARIN 40 MG/0.4 ML SYRINGE SUB-Q (11:06)
[2024-05-05 12:19] LABS: Glucose Point of Care 101 mg/dl (65-105)
[2024-05-05 17:04] LABS: Glucose Point of Care 106 mg/dl (65-105)
[2024-05-05 22:15] LABS: Glucose Point of Care 122 mg/dl (65-105)
[2024-05-06] VITALS (18 sets, daily range): BP systolic 127–136; BP diastolic 68–85; PULSE 89–106; RESP 16–20; TEMP 35.9–37; O2SAT 92–97
[2024-05-06] MEDS: IPRATROPIUM 0.5 MG/ALBUTEROL SULFATE 2.5 MG AMPUL.NEB 3 ML INHALATION ×4 (01:11→19:37)
[2024-05-06] MEDS: CEFEPIME 2 GM/NS 50 ML 2 GM/50 ML BAG IVPB (05:15)
[2024-05-06 07:16] LABS: Hematocrit 33.6 % (37.0-47.0); Hemoglobin 10.7 g/dL (12.0-15.0); Mean Corpuscular HGB Conc 31.8 g/dl (32-36); Mean Corpuscular Hemoglobin 28.8 pg (26-34); Mean Corpuscular Volume 90.6 fl (80-100); Mean Platelet Volume 10.1 fl (7.4-10.4); Platelet Count Result 293 k/mm3 (150-375); Red Blood Count 3.71 M/mm3 (4.2-5.4); Red Cell Distribution Width 14.2 % (11.5-14.5)
[2024-05-06 07:35] LABS: Alanine Aminotransferase 19 U/L (6-35); Albumin Level 3.5 g/dL (3.5-5.1); Alkaline Phosphatase 83 U/L (38-126); Anion Gap 11 mmol/L (4-12); Aspartate Amino Transferase 24 U/L (14-36); Bilirubin,Total 0.5 mg/dL (0.2-1.3); Blood Urea Nitrogen 11 mg/dL (7-17); Calcium 8.9 mg/dL (8.4-10.2); Carbon Dioxide 25 mmol/L (22-30); Chloride 102 mmol/L (98-107); Estimated CRCL calculation 80 ml/min; Estimated Glomerular Filt Rate > 60; Glucose 104 mg/dL (65-110); Potassium 3.9 mmol/L (3.4-5.0); Sodium 138 mmol/L (137-145)
[2024-05-06 07:52] LABS: Glucose Point of Care 103 mg/dl (65-105)
[2024-05-06] MEDS: BENZONATATE 100 MG CAPSULE PO ×3 (08:53→17:10)
[2024-05-06] MEDS: METOPROLOL TARTRATE 12.5 MG TABLET PO (08:54)
[2024-05-06] MEDS: buPROPion HCL XL (24 HR) 150 MG TABCR PO (08:54)
[2024-05-06] MEDS: guaiFENesin 12 HR 600 MG TABCR PO ×2 (08:54→20:49)
[2024-05-06] MEDS: VERAPAMIL HCL ER 240 MG TABLET.ER PO (08:54)
[2024-05-06] MEDS: lisinopriL 10 MG TABLET PO (08:54)
[2024-05-06] MEDS: SIMVASTATIN 20 MG TABLET 40 MG PO (08:54)
[2024-05-06] MEDS: hydroCHLOROthiazide 12.5 MG CAPSULE PO (08:54)
[2024-05-06] MEDS: ENOXAPARIN 40 MG/0.4 ML SYRINGE SUB-Q (08:55)
[2024-05-06] MEDS: AZITHROMYCIN 500 MG/NS 250 ML 500 MG/250 ML BAG 250 MG IVPB (08:55)
[2024-05-06 12:00] LABS: Glucose Point of Care 118 mg/dl (65-105)
--- NOTE | 2024-05-06 14:17 | P.PNIM_ITS ---
Progress Note: A&P Assessment and Plan (1) Sepsis: Qualifiers: Acute respiratory failure type: with hypoxia Sepsis acute organ dysfunction status: with acute organ dysfunction Sepsis type: sepsis due to unspecified organism Severe sepsis acute organ dysfunction type: acute respiratory failure Severe sepsis shock status: without septic shock Qualified Code(s): A41.9 - Sepsis, unspecified organism; R65.20 - Severe sepsis without septic shock; J96.01 - Acute respiratory failure with hypoxia Code(s): A41.9 - Sepsis, unspecified organism Status: Acute Assessment and Plan: - meets SIRS criteria: HR, WBC. +hypoxia, -hypotension - lactic acid ordered - 30 mL/kg = 2.5L, 2L bolus ordered - suspected source: PNA - started on cefepime, azithromycin, and vanc on 05/03 - blood cultures drawn on 05/03, follow - CXR: Questionable left lower lobe pneumonia with underlying probable chronic bibasilar scarring or atelectasis. - UA ordered - monitor VS and WBC (2) Pneumonia: Qualifiers: Laterality: left Lung location: lower lobe of lung Pneumonia type: due to unspecified organism Qualified Code(s): J18.9 - Pneumonia, unspecified organism Code(s): J18.9 - Pneumonia, unspecified organism Status: Acute Assessment and Plan: - CXR concerning for left lower lobe pneumonia - risk factors and complicating factors: recent pneumonia/ABX use and hospitalization - started on HAP tx: cefepime, vancomycin, azithromycin - MRSA PCR and sputum culture - consider testing for Legionella, pneumococcal, and mycoplasma if patient does not improve with nebs, antibiotics, and supportive care - Viral PCR negative - supportive care Tylenol p.r.n. Mucinex breana DuoNeb p.r.n. Tessalon Perles p.r.n. Lozenge p.r.n. EZ PAP TID - continue supplemental O2, maintain O2 saturation greater than 92%. Wean as tolerated. (3) Sinus tachycardia: Code(s): R00.0 - Tachycardia, unspecified Status: Acute Assessment and Plan: - EKG, initial: sinus tachycardia, rate 130, delayed precordial RS transition, nonspecific ST and T-wave abnormality (lateral/high lateral leads). When compared to EKG done on 04/09/2024, there are no significant changes. - continue home medications: Metoprolol 12.5 mg daily, verapamil 240 ER daily - given Verapamil ER 240 mg PO in the ED, HR now 114 - telemetry monitoring (4) Hypomagnesemia: Code(s): E83.42 - Hypomagnesemia Status: Acute Assessment and Plan: - Mag 1.1 - initial repletion with 1G IV - trend (5) Asthma: Qualifiers: Asthma complication type: unspecified Asthma persistence: unspecified Asthma severity: unspecified severity Qualified Code(s): J45.909 - Unspecified asthma, uncomplicated Code(s): J45.909 - Unspecified asthma, uncomplicated Status: Chronic Assessment and Plan: - DuoNeb breana - continue maintenance medications: (6) DMII (diabetes mellitus, type 2): Qualifiers: Diabetes mellitus complication status: without complication Diabetes mellitus shelter insulin use: without shelter use Qualified Code(s): E11.9 - Type 2 diabetes mellitus without complications Code(s): E11.9 - Type 2 diabetes mellitus without complications Status: Chronic Assessment and Plan: - hypoglycemia protocol - POC blood glucose ACHS - home medication: Hold Victoza (NF) and metformin. Continue glimepiride. - correct regimen ordered - high dose TIDWM, based off BMI - A1C 6.5% on 04/08/24 (7) HTN (hypertension): Qualifiers: Hypertension type: primary hypertension Qualified Code(s): I10 - Essential (primary) hypertension Code(s): I10 - Essential (primary) hypertension Status: Chronic Assessment and Plan: - chronic, currently 107/71 - continue home medications: lisinopril-hydrochlorothiazide - monitor Plan MRSA negative. Vanc d/c'd. Diet: Diabetic GI Prophylaxis: Not currently indicated DVT Prophylaxis: Lovenox Lines: peripheral Code Status: full code Subjective Date/time seen: 05/06/24 14:17 Interval history: De-escalated antibiotic. Will monitor for one more day. Still on 2L NC Review of Systems Review of Systems: All systems reviewed & are unremarkable except as noted in HPI and below Exam Narrative: diminished lung sounds throughout, L worse than R. No audible wheezing. +conversational dyspnea. Const: General: comfortable and no acute distress Other: , female, mildly ill-appearing HENMT: Face/Nose/Sinus: Normal nares present Mouth: Yes moist mucous membranes Other: Nasal cannula place, tolerating well Eyes: General: appearance normal, both eyes and all related structures Sclera: sclerae normal Pupils: Equal, round and reactive pupils present EOM: EOMs intact bilaterally Resp: Other: diminished lung sounds throughout, L worse than R. No audible wheezing. +conversational dyspnea. Cardio: Rate: tachycardic (Mild, 100-110) Rhythm: regular rhythm Other: S1-S2 present without murmur, rub, ectopy GI: Other: Abdomen soft, nondistended, nontender. Normoactive bowel sounds in all quadrants. Skin: General skin exam: normal color and no rashes or lesions noted Wounds: no wounds Neuro: Cranial nerves: Yes Equal, round and reactive pupils present Speech: normal speech Motor exam (neuro): 5/5 motor strength present throughout Sensory Exam: normal sensation Other: A&O x4 Extrem: General: normal to inspection Psych: Mental Status: mental status grossly normal Affect: normal affect Other: Good insight and judgment, very pleasant Objective Data Vital Signs Vital Signs: Vital Signs - 24 hr 05/05/24 16:00 05/05/24 19:30 05/05/24 19:30 Temperature Pulse Rate 93 94 Respiratory Rate 20 Blood Pressure Pulse Oximetry 93 Oxygen Delivery Nasal Cannula Oxygen Flow Rate 2 Fraction of Inspired Oxygen 28 05/05/24 19:43 05/05/24 20:03 05/05/24 21:57 Temperature Pulse Rate 101 H 98 Respiratory Rate 20 Blood Pressure Pulse Oximetry 93 Oxygen Delivery Nasal Cannula Oxygen Flow Rate 2 Fraction of Inspired Oxygen 05/05/24 22:00 05/06/24 00:03 05/06/24 01:11 Temperature 97.8 F Pulse Rate 99 96 91 Respiratory Rate 16 16 Blood Pressure 127/79 Pulse Oximetry 93 Oxygen Delivery Oxygen Flow Rate Fraction of Inspired Oxygen 05/06/24 01:22 05/06/24 04:03 05/06/24 05:52 Temperature 97.7 F Pulse Rate 97 101 H 94 Respiratory Rate 16 16 Blood Pressure 136/69 Pulse Oximetry 97 Oxygen Delivery Oxygen Flow Rate Fraction of Inspired Oxygen 05/06/24 08:00 05/06/24 08:55 05/06/24 08:55 Temperature Pulse Rate 101 H 95 Respiratory Rate 16 Blood Pressure Pulse Oximetry 92 Oxygen Delivery Nasal Cannula Oxygen Flow Rate 2 Fraction of Inspired Oxygen 05/06/24 09:07 05/06/24 12:00 05/06/24 13:58 Temperature 96.6 F L Pulse Rate 106 H 98 92 Respiratory Rate 20 16 Blood Pressure 127/68 Pulse Oximetry 95 Oxygen Delivery Oxygen Flow Rate Fraction of Inspired Oxygen Intake/Output Intake/Output: Intake & Output 05/03/24 05/04/24 05/05/24 05/06/24 23:59 23:59 23:59 23:59 Intake Total 390 3496 3818 530 Balance 390 3496 3818 530 Meds/Results Medications: Active Medications Generic Name Dose Route Start Last Admin Trade Name Freq PRN Reason Stop Dose Admin Acetaminophen 650 mg 05/03/24 12:33 05/04/24 18:46 Acetaminophen 325 Mg Tablet PO 650 mg Q4H PRN Administration Mild Pain (1-3) or Fever Hydrocodone Bitart/Acetaminophen 1 tab 05/03/24 12:33 Hydrocodone/Acetaminophen (*Crx) 5-325 Mg Tablet PO Q4H PRN Pain Rated 4-6 Albuterol/Ipratropium 3 ml 05/03/24 14:00 05/06/24 08:54 Ipratropium 0.5 Mg/Albuterol Sulfate 2.5 Mg Ampul.Neb 3 Ml INHALATION 3 ml Q6HRT BREANA Administration Amoxicillin/Clavulanate Potassium 1 tablet 05/06/24 21:00 Amoxicillin/Clavulanate K 875-125 Mg Tab PO 05/11/24 20:59 Q12HR BREANA Benzocaine 1 lozenge 05/03/24 12:59 Benzocaine/Menthol (*Bkc) 18 Ea Lozenge PO PRN PRN Sore Throat Benzonatate 100 mg 05/03/24 13:00 05/06/24 13:09 Benzonatate 100 Mg Capsule PO 100 mg TID BREANA Administration Bupropion HCl 150 mg 05/04/24 09:00 05/06/24 08:54 Bupropion Hcl Xl (24 Hr) 150 Mg Tabcr PO 150 mg DAILY BREANA Administration Dextrose 12.5 gm 05/03/24 13:03 Dextrose 50% 25 Gm/50 Ml Syringe IV PUSH PRN PRN Hypoglycemia Protocol Doxycycline Hyclate 100 mg 05/06/24 21:00 Doxycycline Hyclate 100 Mg Tablet PO 05/11/24 20:59 Q12HR BREANA Enoxaparin Sodium 40 mg 05/03/24 13:10 05/06/24 08:55 Enoxaparin 40 Mg/0.4 Ml Syringe SUB-Q 40 mg DAILY BREANA Administration Glucagon 1 mg 05/03/24 13:03 Glucagon For Inj 1 Mg Vial IM PRN PRN Hypoglycemia Protocol Glucose 15 gm 05/03/24 13:03 Glucose Oral Gel 15 Gm Of Glucse In 37.5 Gm Tube PO PRN PRN Hypoglycemia Protocol Guaifenesin 600 mg 05/03/24 13:10 05/06/24 08:54 Guaifenesin 12 Hr 600 Mg Tabcr PO 600 mg Q12HR BREANA Administration Hydrochlorothiazide 12.5 mg 05/04/24 09:00 05/06/24 08:54 Hydrochlorothiazide 12.5 Mg Capsule PO 12.5 mg DAILY BREANA Administration Dextrose 1,000 mls @ 100 mls/hr 05/03/24 13:03 Dextrose 5% 1,000 Ml IVPB PRN PRN Hypoglycemia Protocol Insulin Aspart 4 - 8 units 05/03/24 13:10 05/06/24 11:59 Insulin Aspart (*Bk) 100 Units/Ml SUB-Q Not Given TIDWM [facility] Protocol Lisinopril 10 mg 05/04/24 09:00 05/06/24 08:54 Lisinopril 10 Mg Tablet PO 10 mg DAILY BREANA Administration Metoprolol Tartrate 12.5 mg 05/04/24 09:00 05/06/24 08:54 Metoprolol Tartrate 12.5 Mg Tablet PO 12.5 mg DAILY BREANA Administration Ondansetron HCl 4 mg 05/03/24 12:33 Ondansetron Inj 4 Mg/2 Ml Vial IV PUSH Q4H PRN Nausea Simvastatin 40 mg 05/04/24 09:00 05/06/24 08:54 Simvastatin 20 Mg Tablet PO 40 mg DAILY BREANA Administration Verapamil HCl 240 mg 05/04/24 09:00 05/06/24 08:54 Verapamil Hcl Er 240 Mg Tablet.Er PO 240 mg DAILY BREANA Administration Radiology Results: ITS Impressions Chest X-Ray 05/06/24 12:59 IMPRESSION: 1. Stable airspace opacities in right lower lung zone and left mid and lower lung zones, consistent with pneumonia. Labs Labs: Laboratory Results - last 24 hr 05/05/24 05/05/24 05/06/24 16:53 20:32 06:36 WBC 7.0 RBC 3.71 L Hgb 10.7 L Hct 33.6 L MCV 90.6 MCH 28.8 MCHC 31.8 L RDW 14.2 Plt Count 293 MPV 10.1 Sodium 138 Potassium 3.9 Chloride 102 Carbon Dioxide 25 Anion Gap 11 BUN 11 Creatinine 0.70 Estim Creat Clear Calc 80 Estimated GFR > 60 Glucose 104 POC Capillary Glucose 106 H 122 H Calcium 8.9 Total Bilirubin 0.5 AST 24 ALT 19 Alkaline Phosphatase 83 Total Protein 8.0 Albumin 3.5 05/06/24 05/06/24 07:49 11:58 WBC RBC Hgb Hct MCV MCH MCHC RDW Plt Count MPV Sodium Potassium Chloride Carbon Dioxide Anion Gap BUN Creatinine Estim Creat Clear Calc Estimated GFR Glucose POC Capillary Glucose 103 118 H Calcium Total Bilirubin AST ALT Alkaline Phosphatase Total Protein Albumin Quality VTE Prophylaxis VTE prophylaxis: pharmacologic ordered Hospitalist [facility] Advance Care Plan I have confirmed that the patient's Advanced Care Plan is present, code status is documented, or surrogate decision maker is listed in patient medical record.: Yes Medication Reconciliation I have utilized all available resources to obtain, update and review the patients current medications (includes all prescriptions, OTC, herbals, cannabis, and nutritional supplements).: Yes
[2024-05-06 16:35] LABS: Glucose Point of Care 114 mg/dl (65-105)
[2024-05-06] MEDS: AMOXICILLIN/CLAVULANATE K 875-125 MG TAB 1 TABLET PO (20:49)
[2024-05-06] MEDS: DOXYCYCLINE HYCLATE 100 MG TABLET PO (20:49)
[2024-05-06 21:40] LABS: Glucose Point of Care 130 mg/dl (65-105)
[2024-05-07] VITALS (22 sets, daily range): BP systolic 113–142; BP diastolic 76–80; PULSE 84–128; RESP 16–20; TEMP 36.1–36.5; O2SAT 87–99
[2024-05-07] MEDS: IPRATROPIUM 0.5 MG/ALBUTEROL SULFATE 2.5 MG AMPUL.NEB 3 ML INHALATION ×4 (01:24→22:58)
[2024-05-07 07:38] LABS: Hematocrit 34.6 % (37.0-47.0); Hemoglobin 10.9 g/dL (12.0-15.0); Mean Corpuscular HGB Conc 31.5 g/dl (32-36); Mean Corpuscular Hemoglobin 28.6 pg (26-34); Mean Corpuscular Volume 90.8 fl (80-100); Platelet Count Result 323 k/mm3 (150-375); Red Blood Count 3.81 M/mm3 (4.2-5.4); Red Cell Distribution Width 14.2 % (11.5-14.5); White Blood Count 8.4 K/mm3 (4.5-10.0)
[2024-05-07 07:56] LABS: Alanine Aminotransferase 22 U/L (6-35); Albumin Level 3.6 g/dL (3.5-5.1); Alkaline Phosphatase 85 U/L (38-126); Anion Gap 8 mmol/L (4-12); Aspartate Amino Transferase 26 U/L (14-36); Bilirubin,Total 0.4 mg/dL (0.2-1.3); Blood Urea Nitrogen 11 mg/dL (7-17); Carbon Dioxide 29 mmol/L (22-30); Chloride 101 mmol/L (98-107); Estimated CRCL calculation 73 ml/min; Estimated Glomerular Filt Rate > 60; Glucose 111 mg/dL (65-110); Potassium 3.7 mmol/L (3.4-5.0); Sodium 138 mmol/L (137-145)
[2024-05-07 08:23] LABS: Glucose Point of Care 122 mg/dl (65-105)
[2024-05-07] MEDS: buPROPion HCL XL (24 HR) 150 MG TABCR PO (09:11)
[2024-05-07] MEDS: VERAPAMIL HCL ER 240 MG TABLET.ER PO (09:11)
[2024-05-07] MEDS: SIMVASTATIN 20 MG TABLET 40 MG PO (09:11)
[2024-05-07] MEDS: guaiFENesin 12 HR 600 MG TABCR PO ×2 (09:11→20:07)
[2024-05-07] MEDS: BENZONATATE 100 MG CAPSULE PO ×3 (09:11→16:47)
[2024-05-07] MEDS: AMOXICILLIN/CLAVULANATE K 875-125 MG TAB 1 TABLET PO ×2 (09:11→20:07)
[2024-05-07] MEDS: hydroCHLOROthiazide 12.5 MG CAPSULE PO (09:11)
[2024-05-07] MEDS: lisinopriL 10 MG TABLET PO (09:12)
[2024-05-07] MEDS: METOPROLOL TARTRATE 12.5 MG TABLET PO (09:12)
[2024-05-07] MEDS: DOXYCYCLINE HYCLATE 100 MG TABLET PO ×2 (09:12→20:06)
[2024-05-07] MEDS: ENOXAPARIN 40 MG/0.4 ML SYRINGE SUB-Q (09:17)
--- NOTE | 2024-05-07 10:36 | P.DS_ITS ---
DS: Admitting Diagnosis Discharge Date 05/08/2024 Admitting Diagnosis Shortness of Breath DS: Discharge Diagnosis Discharge Diagnosis (1) Sepsis: Qualifiers: Acute respiratory failure type: with hypoxia Sepsis acute organ dysfunction status: with acute organ dysfunction Sepsis type: sepsis due to unspecified organism Severe sepsis acute organ dysfunction type: acute respiratory failure Severe sepsis shock status: without septic shock Qualified Code(s): A41.9 - Sepsis, unspecified organism; R65.20 - Severe sepsis without septic shock; J96.01 - Acute respiratory failure with hypoxia Code(s): A41.9 - Sepsis, unspecified organism Status: Acute Assessment and Plan: Resolved - meets SIRS criteria: HR, WBC. +hypoxia, -hypotension - lactic acid ordered - 30 mL/kg = 2.5L, 2L bolus ordered - suspected source: PNA - started on cefepime, azithromycin, and vanc on 05/03 - blood cultures drawn on 05/03, follow - CXR: Questionable left lower lobe pneumonia with underlying probable chronic bibasilar scarring or atelectasis. - UA ordered - monitor VS and WBC (2) Pneumonia: Qualifiers: Laterality: left Lung location: lower lobe of lung Pneumonia type: due to unspecified organism Qualified Code(s): J18.9 - Pneumonia, unspecified organism Code(s): J18.9 - Pneumonia, unspecified organism Status: Acute Assessment and Plan: - CXR concerning for left lower lobe pneumonia - risk factors and complicating factors: recent pneumonia/ABX use and hospitalization - started on HAP tx: cefepime, vancomycin, azithromycin - MRSA PCR and sputum culture - consider testing for Legionella, pneumococcal, and mycoplasma if patient does not improve with nebs, antibiotics, and supportive care - Viral PCR negative - supportive care Tylenol p.r.n. Mucinex breana DuoNeb p.r.n. Tessalon Perles p.r.n. Lozenge p.r.n. EZ PAP TID - continue supplemental O2, maintain O2 saturation greater than 92%. Wean as tolerated. Discharged with Amoxicillin/Clav and Doxycycline until 05/11. (3) Sinus tachycardia: Code(s): R00.0 - Tachycardia, unspecified Status: Acute Assessment and Plan: Resolved Possibly due to hypoxemia - EKG, initial: sinus tachycardia, rate 130, delayed precordial RS transition, nonspecific ST and T-wave abnormality (lateral/high lateral leads). When compared to EKG done on 04/09/2024, there are no significant changes. - continue home medications: Metoprolol 12.5 mg daily, verapamil 240 ER daily - given Verapamil ER 240 mg PO in the ED, HR now 114 - telemetry monitoring (4) Hypomagnesemia: Code(s): E83.42 - Hypomagnesemia Status: Acute Assessment and Plan: - Mag 1.1 - initial repletion with 1G IV - trend (5) Asthma: Qualifiers: Asthma complication type: unspecified Asthma persistence: unspecified Asthma severity: unspecified severity Qualified Code(s): J45.909 - Unspecified asthma, uncomplicated Code(s): J45.909 - Unspecified asthma, uncomplicated Status: Chronic Assessment and Plan: - DuoNeb breana - continue maintenance medications: (6) DMII (diabetes mellitus, type 2): Qualifiers: Diabetes mellitus complication status: without complication Diabetes mellitus correction insulin use: without regional intermodal truck driver use Qualified Code(s): E11.9 - Type 2 diabetes mellitus without complications Code(s): E11.9 - Type 2 diabetes mellitus without complications Status: Chronic Assessment and Plan: - hypoglycemia protocol - POC blood glucose ACHS - home medication: Hold Victoza (NF) and metformin. Continue glimepiride. - correct regimen ordered - high dose TIDWM, based off BMI - A1C 6.5% on 04/08/24 (7) HTN (hypertension): Qualifiers: Hypertension type: primary hypertension Qualified Code(s): I10 - Essential (primary) hypertension Code(s): I10 - Essential (primary) hypertension Status: Chronic Assessment and Plan: - chronic, currently 107/71 - continue home medications: lisinopril-hydrochlorothiazide - monitor DS: Summary Hospital Course Hospital Course: 58 y/o F presents here with shortness of breath with PMH of diabetes, hypertension, and asthma. The patient presents here from home via EMS for further evaluation of shortness of breath. She reports acute onset this morning when she woke up around 0700- 0800. Shortness of breath is accompanied by nonproductive. She denies fever, chills, body aches, N/V/D, chest pain or abdominal pain. Increased shortness of breath prompted the patient to call 911. Upon EMS arrival, the patient's O2 saturation was 90% on room air. She was given a breathing treatment in route and arrived to the emergency department 95% on 2L nasal cannula. Of note, the patient was recently admitted here for Flu A and pneumonia from 04/08/24-04/14/24. During this admission she completed a Tamiflu and prednisone course. She had persistent tachycardia while admitted, she was started on metoprolol 12.5 mg daily, will plan for follow-up with PCP to wean off metoprolol once recovered from influenza. Currently has a loop recorder x [address] for same and a plan for an outpatient echo They attempted to wean her off supplemental oxygen at this time, but she did not tolerated well. She was discharged with supplemental oxygen, however she is reporting and interested not cover this and it was picked up from her home. Initial VS at presentation: 97.9? F, HR 131, RR 14, 119/80, and 95% on 2L NC. ED workup showed: WBC 13.1, hemoglobin 11.6, creatinine 0.86 and GFR >60, glucose 128, magnesium 1.1, proBNP 129, and initial troponin negative. Viral PCR negative. CXR showed a questionable left lower lobe pneumonia with underlying probable chronic bibasilar scarring or atelectasis. Initial EKG showed sinus tachycardia, rate 130, delayed precordial RS transition, nonspecific ST and T-wave abnormality (lateral/high lateral leads). When compared to EKG done on 04/09/2024, there are no significant changes. I assumed care on 05/04 Patient has increased work of breathing although no diagnosis of COPD/asthma. Patient is negative for influenza A. 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 Currently she is on 2 L nasal cannula and saturating 93% .Continue cefepime, vancomycin and azithromycin. No acute events reported. 05/06: De-escalated antibiotic to amox/clav and doxycycline. Will monitor for one more day. Still on 2L NC 05/07: Will perform home o2 eval. Patient report she has remote history of smoking for few years (10 years?). Patient has a secondhand smoking exposure from her partner for past 30 years 05/08: Patient is currently breathing well without any accessory muscle use. Patient currently uses 2 L nasal oxygen. Patient will be discharged with amoxicillin and doxycycline. 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 As described above patient has a secondhand smoking exposure from her partner for past 30 years. Status at Discharge Cognitive/behavioral status at discharge: Stable Time Spent with Patient Time attestation: Total time spent providing and/or coordinating discharge services:45 minutes Exam Narrative: diminished lung sounds throughout, L worse than R. No audible wheezing. +conversational dyspnea. Const: General: comfortable and no acute distress Other: , female, mildly ill-appearing HENMT: Face/Nose/Sinus: Normal nares present Mouth: Yes moist mucous membranes Other: Nasal cannula place, tolerating well Eyes: General: appearance normal, both eyes and all related structures Sclera: sclerae normal Pupils: Equal, round and reactive pupils present EOM: EOMs intact bilaterally Resp: Other: diminished lung sounds throughout, L worse than R. No audible wheezing. +conversational dyspnea. Cardio: Rate: tachycardic (Mild, 100-110) Rhythm: regular rhythm Other: S1-S2 present without murmur, rub, ectopy GI: Other: Abdomen soft, nondistended, nontender. Normoactive bowel sounds in all quadrants. Skin: General skin exam: normal color and no rashes or lesions noted Wounds: no wounds Neuro: Cranial nerves: Yes Equal, round and reactive pupils present Speech: normal speech Motor exam (neuro): 5/5 motor strength present throughout Sensory Exam: normal sensation Other: A&O x4 Extrem: General: normal to inspection Psych: Mental Status: mental status grossly normal Affect: normal affect Other: Good insight and judgment, very pleasant DS: Data Data Completed and Pending Labs on day of discharge: Labs from last 24 hours 05/07/24 05/07/24 05/06/24 08:20 07:13 20:47 WBC 8.4 RBC 3.81 L Hgb 10.9 L Hct 34.6 L MCV 90.8 MCH 28.6 MCHC 31.5 L RDW 14.2 Plt Count 323 MPV 10.0 Sodium 138 Potassium 3.7 Chloride 101 Carbon Dioxide 29 Anion Gap 8 BUN 11 Creatinine 0.77 Estim Creat Clear Calc 73 Estimated GFR > 60 Glucose 111 H POC Capillary Glucose 122 H 130 H Calcium 9.0 Total Bilirubin 0.4 AST 26 ALT 22 Alkaline Phosphatase 85 Total Protein 8.0 Albumin 3.6 05/06/24 05/06/24 16:31 11:58 WBC RBC Hgb Hct MCV MCH MCHC RDW Plt Count MPV Sodium Potassium Chloride Carbon Dioxide Anion Gap BUN Creatinine Estim Creat Clear Calc Estimated GFR Glucose POC Capillary Glucose 114 H 118 H Calcium Total Bilirubin AST ALT Alkaline Phosphatase Total Protein Albumin Preliminary micro results at discharge 05/05/24 12:44 Sputum Culture - Preliminary Sputum 05/03/24 12:51 Blood Culture - Preliminary Blood 05/03/24 12:52 Blood Culture - Preliminary Blood Discharge Plan Discharge Attending physician on discharge: Yuniel Muller Discharging Clinician: Yuniel Muller Anticipated Discharge Date/Time: 05/08/24 15:11 Patient Disposition: Home, Self-Care Activity: as tolerated Diet: diabetic Discharge Instructions: Please complete Augmentin (2 times a day)until 05/11 Please complete Doxycycline (2 times a day) until 05/11 Check blood pressure 1 to 2 times a day. Record and bring into your doctor for review. Call your doctor if your blood pressure is greater than 180/110 or less than 90/45. Walk with cane or other assist device. Take precautions to avoid falls. Rise slowly from a lying or sitting position. Pause before standing or walking. Contact your doctor or call 911 and come to the Emergency Room if you have any type of trauma, lightheadedness with standing or other worrisome symptoms. Avoid NSAIDs (ibuprofen, naproxen, Aleve). Tylenol is safe to take. Follow-up with your primary care provider in 1-2 weeks. Please call for appointment. Follow-up with Pulmonology in 2-4 weeks. Please call for an appointment. Thank you for using [facility] for your health care needs. Patient Instructions: Antibiotic Form Patient Language: Luxembourgish Stand Alone Forms: General Discharge Information, Work/School Release IP Follow-up/Referrals: Anca,MD Liliana [Primary Care Provider] - Discharge Medications: New benzonatate 100 mg Capsule 100 mg PO TID Qty: 30 0RF guaifenesin [Mucus Relief ER] 600 mg Tablet Extended Release 12hr 600 mg PO Q12HR Qty: 30 0RF doxycycline hyclate 100 mg Tablet 100 mg PO Q12HR Qty: 10 0RF amoxicillin-pot clavulanate 875-125 mg tablet 1 tablet PO Q12H Qty: 10 0RF Continued verapamil 180 mg Tablet Extended Release 240 mg PO DAILY simvastatin 20 mg Tablet 40 mg PO DAILY metformin 1,000 mg Tablet 1,000 mg PO BID lisinopril-hydrochlorothiazide 10-12.5 mg Tablet 1 tablet PO DAILY liraglutide [Victoza 3-Matthew] 0.6 mg/0.1 mL (18 mg/3 mL) Pen Injector 1.6 mg SUBCUT DAILY fluticasone propion-salmeterol [AirDuo RespiClick] 232-14 mcg/actuation aerosol powdr breath activated 2 puff INHALATION DAILY Trelegy Ellipta 200-62.5-25 mcg blister with device 1 inh inhalation DAILY Airsupra 90-80 mcg/actuation HFA aerosol inhaler 2 inh inhalation QID PRN (Reason: shortness of breath) bupropion HCl 150 mg tablet extended release 24 hr 150 mg PO DAILY glimepiride 2 mg tablet 2 mg PO DAILY dupilumab [Dupixent Pen] 300 mg subcut [id number] Rx Instructions: unknown dose subcutaneously; metoprolol tartrate 25 mg tablet 12.5 mg PO DAILY Qty: 30 0RF Date of admission: 05/03/24 14:19 Primary Care Provider: Anca,Liliana Admitting Provider: Leonarda Cerna Attending physician on admission: Leonarda Cerna Condition: Stable
[2024-05-07 12:25] LABS: Glucose Point of Care 122 mg/dl (65-105)
[2024-05-07 13:33] LABS: Influenza A QL RT-PCR Negative (Negative); Influenza B QL RT-PCR Negative (Negative)
--- NOTE | 2024-05-07 14:00 | PM.IMPN ---
Progress Note: A&P Assessment and Plan (1) Sepsis: Qualifiers: Acute respiratory failure type: with hypoxia Sepsis acute organ dysfunction status: with acute organ dysfunction Sepsis type: sepsis due to unspecified organism Severe sepsis acute organ dysfunction type: acute respiratory failure Severe sepsis shock status: without septic shock Qualified Code(s): A41.9 - Sepsis, unspecified organism; R65.20 - Severe sepsis without septic shock; J96.01 - Acute respiratory failure with hypoxia Code(s): A41.9 - Sepsis, unspecified organism Status: Acute Assessment and Plan: Resolved - meets SIRS criteria: HR, WBC. +hypoxia, -hypotension - lactic acid ordered - 30 mL/kg = 2.5L, 2L bolus ordered - suspected source: PNA - started on cefepime, azithromycin, and vanc on 05/03 - blood cultures drawn on 05/03, follow - CXR: Questionable left lower lobe pneumonia with underlying probable chronic bibasilar scarring or atelectasis. - UA ordered - monitor VS and WBC (2) Pneumonia: Qualifiers: Laterality: left Lung location: lower lobe of lung Pneumonia type: due to unspecified organism Qualified Code(s): J18.9 - Pneumonia, unspecified organism Code(s): J18.9 - Pneumonia, unspecified organism Status: Acute Assessment and Plan: - CXR concerning for left lower lobe pneumonia - risk factors and complicating factors: recent pneumonia/ABX use and hospitalization - started on HAP tx: cefepime, vancomycin, azithromycin - MRSA PCR and sputum culture - consider testing for Legionella, pneumococcal, and mycoplasma if patient does not improve with nebs, antibiotics, and supportive care - Viral PCR negative - supportive care Tylenol p.r.n. Mucinex breana DuoNeb p.r.n. Tessalon Perles p.r.n. Lozenge p.r.n. EZ PAP TID - continue supplemental O2, maintain O2 saturation greater than 92%. Wean as tolerated. Discharged with Amoxicillin/Clav and Doxycycline until 05/11. (3) Sinus tachycardia: Code(s): R00.0 - Tachycardia, unspecified Status: Acute Assessment and Plan: Resolved Possibly due to hypoxemia - EKG, initial: sinus tachycardia, rate 130, delayed precordial RS transition, nonspecific ST and T-wave abnormality (lateral/high lateral leads). When compared to EKG done on 04/09/2024, there are no significant changes. - continue home medications: Metoprolol 12.5 mg daily, verapamil 240 ER daily - given Verapamil ER 240 mg PO in the ED, HR now 114 - telemetry monitoring (4) Hypomagnesemia: Code(s): E83.42 - Hypomagnesemia Status: Acute Assessment and Plan: - Mag 1.1 - initial repletion with 1G IV - trend (5) Asthma: Qualifiers: Asthma complication type: unspecified Asthma persistence: unspecified Asthma severity: unspecified severity Qualified Code(s): J45.909 - Unspecified asthma, uncomplicated Code(s): J45.909 - Unspecified asthma, uncomplicated Status: Chronic Assessment and Plan: - DuoNeb breana - continue maintenance medications: (6) DMII (diabetes mellitus, type 2): Qualifiers: Diabetes mellitus complication status: without complication Diabetes mellitus terminal carman insulin use: without prison use Qualified Code(s): E11.9 - Type 2 diabetes mellitus without complications Code(s): E11.9 - Type 2 diabetes mellitus without complications Status: Chronic Assessment and Plan: - hypoglycemia protocol - POC blood glucose ACHS - home medication: Hold Victoza (NF) and metformin. Continue glimepiride. - correct regimen ordered - high dose TIDWM, based off BMI - A1C 6.5% on 04/08/24 (7) HTN (hypertension): Qualifiers: Hypertension type: primary hypertension Qualified Code(s): I10 - Essential (primary) hypertension Code(s): I10 - Essential (primary) hypertension Status: Chronic Assessment and Plan: - chronic, currently 107/71 - continue home medications: lisinopril-hydrochlorothiazide - monitor Subjective Date/time seen: 05/07/24 14:00 Interval history: Holding discharge due to respiratory distress. Pt roommate is positive for flu. Tested for flu which is negative. 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 Patient is former smoker [id number] and 30 year of second hand smoking from her partner. Patient reports she was never diagnosed as COPD or Asthma. Review of Systems Review of Systems: All systems reviewed & are unremarkable except as noted in HPI and below Exam Narrative: diminished lung sounds throughout, L worse than R. No audible wheezing. +conversational dyspnea. Const: General: comfortable and no acute distress Other: , female, mildly ill-appearing HENMT: Face/Nose/Sinus: Normal nares present Mouth: Yes moist mucous membranes Other: Nasal cannula place, tolerating well Eyes: General: appearance normal, both eyes and all related structures Sclera: sclerae normal Pupils: Equal, round and reactive pupils present EOM: EOMs intact bilaterally Resp: Other: diminished lung sounds throughout, L worse than R. No audible wheezing. +conversational dyspnea. Cardio: Rate: tachycardic (Mild, 100-110) Rhythm: regular rhythm Other: S1-S2 present without murmur, rub, ectopy GI: Other: Abdomen soft, nondistended, nontender. Normoactive bowel sounds in all quadrants. Skin: General skin exam: normal color and no rashes or lesions noted Wounds: no wounds Neuro: Cranial nerves: Yes Equal, round and reactive pupils present Speech: normal speech Motor exam (neuro): 5/5 motor strength present throughout Sensory Exam: normal sensation Other: A&O x4 Extrem: General: normal to inspection Psych: Mental Status: mental status grossly normal Affect: normal affect Other: Good insight and judgment, very pleasant Objective Data Vital Signs Vital Signs: Vital Signs - 24 hr 05/06/24 15:01 05/06/24 15:01 05/06/24 15:07 Temperature Pulse Rate 90 95 Respiratory Rate 20 20 Blood Pressure Pulse Oximetry 93 Oxygen Delivery Nasal Cannula Oxygen Flow Rate 2 Fraction of Inspired Oxygen 28 05/06/24 16:00 05/06/24 19:37 05/06/24 19:48 Temperature Pulse Rate 103 H 97 91 Respiratory Rate 20 20 Blood Pressure Pulse Oximetry Oxygen Delivery Oxygen Flow Rate Fraction of Inspired Oxygen 05/06/24 20:03 05/06/24 20:45 05/06/24 20:49 Temperature 98.6 F Pulse Rate 89 97 Respiratory Rate 16 Blood Pressure 130/85 Pulse Oximetry 96 96 Oxygen Delivery Nasal Cannula Oxygen Flow Rate 2 Fraction of Inspired Oxygen 05/07/24 00:03 05/07/24 01:24 05/07/24 01:34 Temperature Pulse Rate 91 97 95 Respiratory Rate 18 18 Blood Pressure Pulse Oximetry Oxygen Delivery Oxygen Flow Rate Fraction of Inspired Oxygen 05/07/24 04:03 05/07/24 05:30 05/07/24 08:01 Temperature 97.1 F L Pulse Rate 84 100 98 Respiratory Rate 18 Blood Pressure 113/76 Pulse Oximetry 98 Oxygen Delivery Oxygen Flow Rate Fraction of Inspired Oxygen 05/07/24 08:20 05/07/24 08:20 05/07/24 08:30 Temperature Pulse Rate 92 97 Respiratory Rate 20 20 Blood Pressure Pulse Oximetry 94 Oxygen Delivery Nasal Cannula Oxygen Flow Rate 2 Fraction of Inspired Oxygen 28 05/07/24 09:12 05/07/24 09:12 Temperature Pulse Rate 99 Respiratory Rate 20 Blood Pressure Pulse Oximetry 94 Oxygen Delivery Nasal Cannula Oxygen Flow Rate 2 Fraction of Inspired Oxygen Intake/Output Intake/Output: Intake & Output 05/04/24 05/05/24 05/06/24 05/07/24 23:59 23:59 23:59 23:59 Intake Total 3496 3818 766 1130 Balance 3496 3818 766 1130 Meds/Results Medications: Active Medications Generic Name Dose Route Start Last Admin Trade Name Freq PRN Reason Stop Dose Admin Acetaminophen 650 mg 05/03/24 12:33 05/04/24 18:46 Acetaminophen 325 Mg Tablet PO 650 mg Q4H PRN Administration Mild Pain (1-3) or Fever Hydrocodone Bitart/Acetaminophen 1 tab 05/03/24 12:33 Hydrocodone/Acetaminophen (*Crx) 5-325 Mg Tablet PO Q4H PRN Pain Rated 4-6 Albuterol/Ipratropium 3 ml 05/03/24 14:00 05/07/24 08:20 Ipratropium 0.5 Mg/Albuterol Sulfate 2.5 Mg Ampul.Neb 3 Ml INHALATION 3 ml Q6HRT BREANA Administration Amoxicillin/Clavulanate Potassium 1 tablet 05/06/24 21:00 05/07/24 09:11 Amoxicillin/Clavulanate K 875-125 Mg Tab PO 05/11/24 20:59 1 tablet Q12HR BREANA Administration Benzocaine 1 lozenge 05/03/24 12:59 Benzocaine/Menthol (*Bkc) 18 Ea Lozenge PO PRN PRN Sore Throat Benzonatate 100 mg 05/03/24 13:00 05/07/24 12:27 Benzonatate 100 Mg Capsule PO 100 mg TID BREANA Administration Bupropion HCl 150 mg 05/04/24 09:00 05/07/24 09:11 Bupropion Hcl Xl (24 Hr) 150 Mg Tabcr PO 150 mg DAILY BREANA Administration Dextrose 12.5 gm 05/03/24 13:03 Dextrose 50% 25 Gm/50 Ml Syringe IV PUSH PRN PRN Hypoglycemia Protocol Doxycycline Hyclate 100 mg 05/06/24 21:00 05/07/24 09:12 Doxycycline Hyclate 100 Mg Tablet PO 05/11/24 20:59 100 mg Q12HR BREANA Administration Enoxaparin Sodium 40 mg 05/03/24 13:10 05/07/24 09:17 Enoxaparin 40 Mg/0.4 Ml Syringe SUB-Q 40 mg DAILY BREANA Administration Glucagon 1 mg 05/03/24 13:03 Glucagon For Inj 1 Mg Vial IM PRN PRN Hypoglycemia Protocol Glucose 15 gm 05/03/24 13:03 Glucose Oral Gel 15 Gm Of Glucse In 37.5 Gm Tube PO PRN PRN Hypoglycemia Protocol Guaifenesin 600 mg 05/03/24 13:10 05/07/24 09:11 Guaifenesin 12 Hr 600 Mg Tabcr PO 600 mg Q12HR BREANA Administration Hydrochlorothiazide 12.5 mg 05/04/24 09:00 05/07/24 09:11 Hydrochlorothiazide 12.5 Mg Capsule PO 12.5 mg DAILY BREANA Administration Dextrose 1,000 mls @ 100 mls/hr 05/03/24 13:03 Dextrose 5% 1,000 Ml IVPB PRN PRN Hypoglycemia Protocol Insulin Aspart 4 - 8 units 05/03/24 13:10 05/07/24 12:26 Insulin Aspart (*Bkc) 100 Units/Ml SUB-Q Not Given TIDWM BREANA Protocol Lisinopril 10 mg 05/04/24 09:00 05/07/24 09:12 Lisinopril 10 Mg Tablet PO 10 mg DAILY BREANA Administration Metoprolol Tartrate 12.5 mg 05/04/24 09:00 05/07/24 09:12 Metoprolol Tartrate 12.5 Mg Tablet PO 12.5 mg DAILY BREANA Administration Ondansetron HCl 4 mg 05/03/24 12:33 Ondansetron Inj 4 Mg/2 Ml Vial IV PUSH Q4H PRN Nausea Simvastatin 40 mg 05/04/24 09:00 05/07/24 09:11 Simvastatin 20 Mg Tablet PO 40 mg DAILY BREANA Administration Verapamil HCl 240 mg 05/04/24 09:00 05/07/24 09:11 Verapamil Hcl Er 240 Mg Tablet.Er PO 240 mg DAILY BREANA Administration Radiology Results: ITS Impressions Chest X-Ray 05/06/24 12:59 IMPRESSION: 1. Stable airspace opacities in right lower lung zone and left mid and lower lung zones, consistent with pneumonia. Labs Labs: Laboratory Results - last 24 hr 05/06/24 05/06/24 05/07/24 16:31 20:47 07:13 WBC 8.4 RBC 3.81 L Hgb 10.9 L Hct 34.6 L MCV 90.8 MCH 28.6 MCHC 31.5 L RDW 14.2 Plt Count 323 MPV 10.0 Sodium 138 Potassium 3.7 Chloride 101 Carbon Dioxide 29 Anion Gap 8 BUN 11 Creatinine 0.77 Estim Creat Clear Calc 73 Estimated GFR > 60 Glucose 111 H POC Capillary Glucose 114 H 130 H Calcium 9.0 Total Bilirubin 0.4 AST 26 ALT 22 Alkaline Phosphatase 85 Total Protein 8.0 Albumin 3.6 Influenza A (RT-PCR) Influenza B (RT-PCR) 05/07/24 05/07/24 05/07/24 08:20 12:09 12:45 WBC RBC Hgb Hct MCV MCH MCHC RDW Plt Count MPV Sodium Potassium Chloride Carbon Dioxide Anion Gap BUN Creatinine Estim Creat Clear Calc Estimated GFR Glucose POC Capillary Glucose 122 H 122 H Calcium Total Bilirubin AST ALT Alkaline Phosphatase Total Protein Albumin Influenza A (RT-PCR) Negative Influenza B (RT-PCR) Negative Hospitalist MIPS Advance Care Plan I have confirmed that the patient's Advanced Care Plan is present, code status is documented, or surrogate decision maker is listed in patient medical record.: Yes Medication Reconciliation I have utilized all available resources to obtain, update and review the patients current medications (includes all prescriptions, OTC, herbals, cannabis, and nutritional supplements).: Yes
--- NOTE | 2024-05-07 14:34 | HOMEO2EVAL ---
Evaluation was performed at [facility] Home Oxygen Evaluation RC: Home Oxygen (O2) Evaluation Start: 05/07/24 10:43 Freq: ONCE Status: Active Protocol: RPE Activity Type Activity Date Activity User E-sign Co-sign Detail Recorded Client Recorded Date Recorded By Document 05/07/24 13:30 VARGHESE [email or web address] 05/07/24 14:34 VARGHESE Document 05/07/24 13:31 VARGHESE [email or web address] 05/07/24 14:34 VARGHESE Document 05/07/24 13:32 VARGHESE [email or web address] 05/07/24 14:34 VARGHESE Document 05/07/24 13:35 VARGHESE [email or web address] 05/07/24 14:34 VARGHESE Document 05/07/24 13:45 VARGHESE [email or web address] 05/07/24 14:34 VARGHESE 05/07/24 05/07/24 05/07/24 13:30 13:31 13:32 Home O2 Evaluation [Oxygen] -Test Phase Resting Resting Resting -Oxygen Delivery Room Air Nasal Cannula Nasal Cannula -Oxygen Flow Rate (L/min) 1 2 [Pulse Oximetry] -Pulse Oximetry (90-100 %) 87 L 87 L 92 [Pulse Rate] -Pulse Rate (60-100 beats/min) 101 H [Evaluation] -Activity Tolerance -Rating of Perceived Dyspnea (PD) [Comments] -Home Oxygen Evaluation Comments [Charges] -Evaluation Charges O2 Evaluation by Pulmonary 05/07/24 05/07/24 13:35 13:45 Home O2 Evaluation [Oxygen] -Test Phase Exercise Resting -Oxygen Delivery Nasal Cannula Nasal Cannula -Oxygen Flow Rate (L/min) 2 2 [Pulse Oximetry] -Pulse Oximetry (90-100 %) 90 93 [Pulse Rate] -Pulse Rate (60-100 beats/min) 128 H 112 H [Evaluation] -Activity Tolerance Good -Rating of Perceived Dyspnea (PD) +2 Mild, Some Difficulty, Noticeable to the Observer [Comments] -Home Oxygen Evaluation Comments Pt requires 2 liters home O2 at rest and with activity [Charges] -Evaluation Charges
--- NOTE | 2024-05-07 14:34 | PCRCNOTE ---
Home O2 eval done, pt requires 2 liters at rest and with activity
--- NOTE | 2024-05-07 14:51 | PCRCNOTE ---
Home O2 eval done, pt requires 2 l rest and activity Set up with IV resp care, They will bring in a POC Tuesday for her to transport home, and will arrange other O2 equipment with d/c
[2024-05-07 16:41] LABS: Glucose Point of Care 126 mg/dl (65-105)
[2024-05-07 21:48] LABS: Glucose Point of Care 194 mg/dl (65-105)
[2024-05-08] VITALS (16 sets, daily range): BP systolic 114–133; BP diastolic 72–88; PULSE 83–106; RESP 18–20; TEMP 35.9–36.2; O2SAT 91–97
[2024-05-08] MEDS: IPRATROPIUM 0.5 MG/ALBUTEROL SULFATE 2.5 MG AMPUL.NEB 3 ML INHALATION ×3 (01:29→14:44)
[2024-05-08 06:30] LABS: Hematocrit 35.4 % (37.0-47.0); Mean Corpuscular HGB Conc 31.1 g/dl (32-36); Mean Corpuscular Hemoglobin 28.4 pg (26-34); Mean Corpuscular Volume 91.5 fl (80-100); Mean Platelet Volume 10.1 fl (7.4-10.4); Platelet Count Result 372 k/mm3 (150-375); Red Blood Count 3.87 M/mm3 (4.2-5.4); Red Cell Distribution Width 14.1 % (11.5-14.5); White Blood Count 8.9 K/mm3 (4.5-10.0)
[2024-05-08 06:37] LABS: Alanine Aminotransferase 23 U/L (6-35); Albumin Level 3.7 g/dL (3.5-5.1); Alkaline Phosphatase 81 U/L (38-126); Anion Gap 9 mmol/L (4-12); Aspartate Amino Transferase 24 U/L (14-36); Bilirubin,Total 0.4 mg/dL (0.2-1.3); Blood Urea Nitrogen 11 mg/dL (7-17); Calcium 9.1 mg/dL (8.4-10.2); Carbon Dioxide 28 mmol/L (22-30); Chloride 102 mmol/L (98-107); Estimated CRCL calculation 70 ml/min; Estimated Glomerular Filt Rate > 60; Glucose 110 mg/dL (65-110); Potassium 4.1 mmol/L (3.4-5.0); Sodium 139 mmol/L (137-145)
[2024-05-08 08:12] LABS: Glucose Point of Care 106 mg/dl (65-105)
[2024-05-08] MEDS: DOXYCYCLINE HYCLATE 100 MG TABLET PO (08:48)
[2024-05-08] MEDS: lisinopriL 10 MG TABLET PO (08:48)
[2024-05-08] MEDS: VERAPAMIL HCL ER 240 MG TABLET.ER PO (08:48)
[2024-05-08] MEDS: BENZONATATE 100 MG CAPSULE PO ×2 (08:48→12:14)
[2024-05-08] MEDS: SIMVASTATIN 20 MG TABLET 40 MG PO (08:49)
[2024-05-08] MEDS: ENOXAPARIN 40 MG/0.4 ML SYRINGE SUB-Q (08:49)
[2024-05-08] MEDS: guaiFENesin 12 HR 600 MG TABCR PO (08:49)
[2024-05-08] MEDS: buPROPion HCL XL (24 HR) 150 MG TABCR PO (08:49)
[2024-05-08] MEDS: hydroCHLOROthiazide 12.5 MG CAPSULE PO (08:49)
[2024-05-08] MEDS: METOPROLOL TARTRATE 12.5 MG TABLET PO (08:49)
[2024-05-08] MEDS: AMOXICILLIN/CLAVULANATE K 875-125 MG TAB 1 TABLET PO (08:49)
--- NOTE | 2024-05-08 11:44 | PCRTNOTE ---
PT TESTED WITH PULSE DOSE CONCENTRATOR. SAO2 91% AT REST AND 90% WITH ACTIVITY.
[2024-05-08 12:13] LABS: Glucose Point of Care 166 mg/dl (65-105)
== END 2024-05-08 16:25 | disposition home or self-care (01) | DRG 720 ==
LOC: ANHED 10:36 → ANH3MEDSUR 13:41
PROVIDERS: Student in an Organized Health Care Education/Training Program; Admitting Provider Internal Medicine; Emergency Provider Emergency Medicine; PCP Internal Medicine; Visit Provider General Practice
DX: A41.9 Sepsis, unspecified organism (principal); R65.20 Severe sepsis without septic shock; J96.01 Acute respiratory failure with hypoxia; J18.9 Pneumonia, unspecified organism; R00.0 Tachycardia, unspecified; E83.42 Hypomagnesemia; E11.9 Type 2 diabetes mellitus without complications; E78.5 Hyperlipidemia, unspecified; I10 Essential (primary) hypertension; J45.909 Unspecified asthma, uncomplicated; Z79.84 Long term (current) use of oral hypoglycemic drugs; Z20.822 Contact with and (suspected) exposure to COVID-19; Z87.891 Personal history of nicotine dependence
CPT/HCPCS: 36415; 71045; 80048; 80053; 81001; 82948; 83605; 83735; 83880; 84484; 85025; 85027; 85610; 85730; 87040; 87070; 87205; 87502; 87637; 87641; 93005; 94618; 94640; 96365; 96367; 96375; 99285; A9270; G0378; G0379; J0456; J0692; J0696; J1650; J1815; J3370; J3475; J7120